=== PATIENT | male | born 1955 ===

== ENCOUNTER 2017-03-17 11:03 | Inpatient (IN) | payer MEDICAID ==
[2017-03-17] MEDS ORDERED: Mag&Al/Simet/Diphen/Lido 237 ML KIT PO STA (11:49)
--- NOTE | 2017-03-17 12:00 | C.PDOC ---
History Of Present Illness 61 y/o M c PMHx HTN, DM, HLD, ESRD on HD MWF p/w cough x more than 1 week. Reports cough is productive of white sputum, keeps him up all night, making him feel generally weak. He feels an itchiness in his throat and feels as though phelgm gets stuck there. He reports generalized pains to his body as well. Denies fever, chills, chest pain, dyspnea, nausea, vomiting. He reports diarrhea for over a month that he was prescribed medication for. Last dialysis 2 days ago, went normally, due for next session today. Time Seen by Provider: 03/17/17 11:25 Chief Complaint (Nursing): Cough, Cold, Congestion Past Medical History Vital Signs: Last Vital Signs Temp 97.6 F 03/17/17 15:00 Pulse 81 03/17/17 15:00 Resp 20 03/17/17 15:00 BP 172/90 H 03/17/17 15:00 Pulse Ox 100 03/17/17 15:00 - Medical History PMH: Anemia, Benign Prostatic Hyperplasia, Depression, Diabetes, HTN, Hypercholesterolemia, Pancreatitis Denies: Asthma, Atrial Fibrillation, Bronchitis, Cardia Arrhythmia, CHF, COPD , Emphysema, Mitral Valve Prolapse, Peripheral Edema, Pneumonia, Pulmonary Embolism, Chronic Kidney Disease Surgical History: Appendectomy Denies: Pacemaker - [facility] Procedures CATARAC PHACOEMULS/ASPIR (10/03/13) INSERT LENS AT CATAR EXT (10/03/13) VACCINATION NEC (07/10/14) Family History: States: Unknown Family Hx - Social History Hx Tobacco Use: No Hx Alcohol Use: No Hx Substance Use: No - Immunization History Hx Tetanus Toxoid Vaccination: No Hx Influenza Vaccination: Yes (2017) Hx Pneumococcal Vaccination: Yes (2017) Review Of Systems Except As Marked, All Systems Reviewed And Found Negative. Constitutional: Negative for: Fever Cardiovascular: Negative for: Chest Pain Physical Exam - Physical Exam Additional Physical Exam Comments: Gen: NAD Head: NC/AT Eyes: PERRL ENT: No pharyngeal erythema or exudates. Neck: No nuchal ridigity, negative Kernig/Brudzinski Chest: No tenderness CV: Regular rate, radial pulses 2+ Lungs: Bibasilar crackles Abd: Soft, nontender Extremities: No swelling or tenderness. R arm fistula with palpable thrill Neuro: Awake, alert, no focal deficit ED Course And Treatment - Laboratory Results Result Diagrams: 03/17/17 13:28 03/17/17 12:17 O2 Sat by Pulse Oximetry: 99 Medical Decision Making Medical Decision Making: Impression: 61 y/o M with multiple comorbidities with cough, sore throat, keeping him up at night. Differential includes most likely URI/pharygnitis. Will also exclude influenza, PNA. Plan: CXR, influenza swab, labs. Treat with toradol, tessalon pearls, magic mouthwash. EKG NSR 77 bpm, T wave inversions, no largely changed from previous. Patient with fluid overload, will require dialysis. Dr. Stanley contacted, states he will contact his colleague to input orders for dialysis. Dr. Stevens accepts patient to medical service observation. vice president of product marketing paged. Disposition - Disposition Disposition: HOSPITALIZED Disposition Time: 14:21 Condition: FAIR - Clinical Impression Clinical Impression: Fluid overload
[2017-03-17 12:32] LABS: INR 1.3
[2017-03-17 12:59] LABS: ALB/GLOB RATIO 1.3 (1.0-2.1); BILIRUBIN,TOTAL 0.9 mg/dL (0.2-1.3); CALCIUM 7.9 mg/dl (8.6-10.4); POTASSIUM 5.2 mmol/L (3.6-5.2)
[2017-03-17 13:31] LABS: BASO % 0.6 % (0.0-2.0); EOS # 0.1 K/uL (0.0-0.7); HEMATOCRIT 39.5 % (35.0-51.0); LYMPH # 1.1 K/uL (1.0-4.3); LYMPH % 26.6 % (20.0-40.0); MEAN CORPUSCULAR HEMOGLOBIN 29.2 pg (27.0-31.0); MEAN CORPUSCULAR HGB CONC 31.4 g/dL (33.0-37.0); MONO # 0.4 K/uL (0.0-0.8); MONO % 9.8 % (0.0-10.0); NRBC % 0.2 % (0.0-2.0); RED CELL DISTRIBUTION WIDTH 20.2 % (11.5-14.5); WHITE BLOOD COUNT 4.3 K/uL (4.8-10.8)
[2017-03-17 13:37] LABS: MEAN CELL VOLUME 93.2 fL (80.0-94.0)
--- NOTE | 2017-03-17 13:39 | RAD ---
HISTORY: cough COMPARISON: Chest x-ray performed 03/02/17 TECHNIQUE: Chest, one view. FINDINGS: LUNGS: Biapical pleural thickening. Mild pulmonary venous congestion. No focal consolidation. Please note that chest x-ray has limited sensitivity for the detection of pulmonary masses. PLEURA: No significant pleural effusion identified. No definite pneumothorax . CARDIOVASCULAR: Cardiomegaly. Cardiac valve prosthesis. OSSEOUS STRUCTURES: No acute osseous abnormality is detected. VISUALIZED UPPER ABDOMEN: Elevation of the right hemidiaphragm. OTHER FINDINGS: Thin tubing/ line projects over the right lower chest. IMPRESSION: Cardiomegaly. Mild pulmonary venous congestion. Biapical pleural thickening. Cardiomegaly.
--- NOTE | 2017-03-17 16:02 | CP.PCM.HP ---
History of Present Illness - History of Present Illness History of Present Illness: CC: "I can't stop coughing" HPI: Patient is a 61 year old male with PMHx of hyperlipidemia, HTN, cataracts, BPH, DM, anemia, depression and ESRD on HD MWF through right AVF presenting for 1 weeks of cough productive of white phlegm. Patient says he cannot sleep because the cough keeps him up all night. He says this has caused him to feel dizzy. He reports sleeping with 2 pillows and having paroxysmal nocturnal dyspnea. Patient also reports chest pressure intermittently coming on like a shock. Patient also reports choking on phlegm and having a lot of nasal congestion. Patient has not taken any cough or cold medicine at home. Patient denies fever, chills, abdominal pain, nausea, vomiting, diarrhea, constipation, dysuria. 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 Denies smoking, denies current alcohol use, denies illicit drug use Present on Admission - Present on Admission Any Indicators Present on Admission: No Review of Systems - Constitutional Constitutional: absent: Chills, Fever - EENT Eyes: absent: Change in Vision Nose/Mouth/Throat: Nasal Congestion, Post Nasal Drip, Sinus Pressure - Cardiovascular Cardiovascular: Chest Pain, Dyspnea, Dyspnea on Exertion, Paroxysmal Nocturnal Dyspnea. absent: Diaphoresis, Edema, Leg Edema, Palpitations, Pedal Edema, Radiating Pain, Rapid Heart Rate - Respiratory Respiratory: Cough, Dyspnea, Excessive Mucous Production. absent: Change in Mucous Color, Pain with Coughing - Gastrointestinal Gastrointestinal: absent: Abdominal Pain, Constipation, Diarrhea, Nausea, Vomiting - Genitourinary Genitourinary: absent: Dysuria - Musculoskeletal Musculoskeletal: absent: Back Pain - Integumentary Integumentary: absent: Skin Pain, Wounds - Neurological Neurological: Dizziness. absent: Headaches - Psychiatric Psychiatric: absent: Anxiety - Endocrine Endocrine: Fatigue. absent: Palpitations - Hematologic/Lymphatic Hematologic: absent: Easy Bleeding, Easy Bruising Past Patient History - Past Medical History & Family History Past Medical History?: Yes Past Family History: Reviewed and not pertinent - Past Social History Smoking Status: Never Smoked Alcohol: None Drugs: Denies - CARDIAC Hx Atrial Fibrillation: No Hx Cardia Arrhythmia: No Hx Congestive Heart Failure: No Hx Hypercholesterolemia: Yes Hx Hypertension: Yes Hx Mitral Valve Prolapse: No Hx Pacemaker: No Hx Peripheral Edema: No - PULMONARY Hx Asthma: No Hx Bronchitis: No Hx Chronic Obstructive Pulmonary Disease (COPD): No Hx Emphysema: No Hx Pneumonia: No Hx Pulmonary Embolism: No - NEUROLOGICAL Hx Neurological Disorder: No - HEENT Hx HEENT Problems: Yes Hx Cataracts: Yes - RENAL Hx Chronic Kidney Disease: No - ENDOCRINE/METABOLIC Hx Endocrine Disorders: Yes Hx Diabetes Mellitus Type 1: Yes - HEMATOLOGICAL/ONCOLOGICAL Hx Anemia: Yes - INTEGUMENTARY Hx Dermatological Problems: No - MUSCULOSKELETAL/RHEUMATOLOGICAL Hx Musculoskeletal Disorders: No Hx Falls: No - GASTROINTESTINAL Hx Pancreatitis: Yes - GENITOURINARY/GYNECOLOGICAL Hx Genitourinary Disorders: No - PSYCHIATRIC Hx Depression: Yes Hx Substance Use: No - SURGICAL HISTORY Hx Appendectomy: Yes - ANESTHESIA Hx Anesthesia: Yes Hx Anesthesia Reactions: No Meds Allergies/Adverse Reactions: Allergies Allergy/AdvReac Type Severity Reaction Status Date / Time No Known Allergies Allergy Verified 03/17/17 11:12 Physical Exam - Constitutional Appears: Non-toxic, No Acute Distress - Head Exam Head Exam: NORMAL INSPECTION - Eye Exam Eye Exam: EOMI - ENT Exam ENT Exam: Mucous Membranes Moist, Normal Oropharynx Additional comments: sinus tenderness - Respiratory Exam Respiratory Exam: Rales (b/l), NORMAL BREATHING PATTERN. absent: Rhonchi, Wheezes - Cardiovascular Exam Cardiovascular Exam: REGULAR RHYTHM, JVD, +S1, +S2 Additional comments: +S3 - GI/Abdominal Exam GI & Abdominal Exam: Normal Bowel Sounds, Soft. absent: Distended, Firm, Tenderness - Extremities Exam Extremities exam: Positive for: normal capillary refill, pedal pulses present. Negative for: pedal edema - Neurological Exam Neurological exam: Alert, CN II-XII Intact, Oriented x3 - Psychiatric Exam Psychiatric exam: Normal Affect, Normal Mood - Skin Skin Exam: Normal Color, Warm Results - Vital Signs Recent Vital Signs: Last Vital Signs Temp 97.6 F 03/17/17 14:43 Pulse 77 03/17/17 14:43 Resp 18 03/17/17 14:43 BP 164/83 H 03/17/17 14:43 Pulse Ox 99 03/17/17 14:43 - Labs Result Diagrams: 03/17/17 13:28 03/17/17 12:17 Labs: Laboratory Results - last 24 hr 03/17/17 03/17/17 03/17/17 11:49 12:17 12:17 WBC RBC Hgb Hct MCV MCH MCHC RDW Plt Count MPV Neut % (Auto) Lymph % (Auto) [place] % (Auto) Eos % (Auto) Baso % (Auto) Neut # Lymph # [place] # Eos # Baso # Differential Comment PT 14.1 H INR 1.3 APTT 36 H Sodium 136 Potassium 5.2 Chloride 96 L Carbon Dioxide 24 Anion Gap 22 H BUN 88 H Creatinine 8.6 H* Est GFR ( Amer) 8 Est GFR (Non-Af Amer) 6 Random Glucose 256 H Calcium 7.9 L Total Bilirubin 0.9 AST 22 ALT 34 Alkaline Phosphatase 133 H NT-Pro-B Natriuret Pep 96906 H Total Protein 7.0 Albumin 4.0 Globulin 3.1 Albumin/Globulin Ratio 1.3 Influenza Typ A,B (EIA) Negative for flu a/b 03/17/17 13:28 WBC 4.3 L RBC 4.24 L Hgb 12.4 D Hct 39.5 MCV 93.2 D MCH 29.2 MCHC 31.4 L RDW 20.2 H Plt Count 81 L D MPV 10.0 Neut % (Auto) 61.0 Lymph % (Auto) 26.6 [place] % (Auto) 9.8 Eos % (Auto) 2.0 Baso % (Auto) 0.6 Neut # 2.6 Lymph # 1.1 [place] # 0.4 Eos # 0.1 Baso # 0.0 Differential Comment PT INR APTT Sodium Potassium Chloride Carbon Dioxide Anion Gap BUN Creatinine Est GFR ( Amer) Est GFR (Non-Af Amer) Random Glucose Calcium Total Bilirubin AST ALT Alkaline Phosphatase NT-Pro-B Natriuret Pep Total Protein Albumin Globulin Albumin/Globulin Ratio Influenza Typ A,B (EIA) Assessment & Plan - Assessment and Plan (Free Text) Assessment: Dyspnea Likely secondary to fluid overload from ESRD v. CHF Flu negative CXR 03/17/17 - cardiomegaly, mild pulmonary venous congestion, biapical pleural thickening (please see full report) EKG 03/17/17 - NSR at 77 bpm with LVH, T wave abnormality and prolonged QT; EKG in 2015 also had LVH and T wave abnormality F/U ECHO F/U ROMIs x3 F/U blood culture, sputum culture, legionella, mycoplasma Nephro consult - Dr. Stanley - f/u recs for hemodialysis Cardio consult - Dr. Cervantes - f/u recs Robitussin 100mg PO Q4H PRN cough Duoneb 3ml INH RQ6 Will hold off on Lasix for now as symptoms should resolve with dialysis Will only start Abx if cultures show bacteria as CXR is clear for pneumonia Post Nasal Drip Flonase 1 spray Nasally daily Thrombocytopenia Platelets 81 Monitor D/C Lovenox if platelets continue to dorp ESRD HD MWF through right AVF Nephro consult - Dr. Stanley - f/u recs Phoslo 667mg PO BID HTN Will likely resolve with dialysis F/U Cardio and Nephro recs IDDMII Continue home Lantus 15U SC HS RISS Monitor Accuchecks F/U HgbA1C BPH Continue home Flomax 0.4mg PO daily Hyperlipidemia Convert home med Lipitor 80 to Crestor 40mg PO HS F/U lipid panel Cataracts Continue home Timoptic 0.5% ophth OU daily Continue home Brimonidine Tartrate OU QID Prophylaxis Pepcid 20mg PO daily Lovenox 40mg SC daily - will discontinue if platelets continue to drop All medical management per Dr. Rodney Santillan, PGY3, DO
[2017-03-17] MEDS: (Novolin R) Insulin Human Regular 100 units/ml vial SC SCH ×2 (17:30→22:53)
[2017-03-17] MEDS: Brimonidine 0.2% Opth Sol (5ml) OU SCH ×2 (18:00→23:07)
[2017-03-17] MEDS: Albuterol-Ipratrop 3 mg / 0.5 (3 ml) UD INH SCH (19:58)
[2017-03-17] MEDS: guaiFENesin 100 mg/5 ml Syrup UD PO PRN (22:53)
[2017-03-17] MEDS: (Lantus) Insulin Glargine, Recombinant SC SCH (22:53)
[2017-03-18] MEDS: Albuterol-Ipratrop 3 mg / 0.5 (3 ml) UD INH SCH ×4 (02:50→19:27)
[2017-03-18] MEDS: guaiFENesin 100 mg/5 ml Syrup UD PO PRN ×3 (03:27→22:00)
[2017-03-18 07:32] LABS: BASO % 0.6 % (0.0-2.0); EOS # 0.1 K/uL (0.0-0.7); EOS % 1.9 % (0.0-4.0); HEMATOCRIT 38.1 % (35.0-51.0); LYMPH # 1.1 K/uL (1.0-4.3); LYMPH % 25.2 % (20.0-40.0); MEAN CELL VOLUME 92.6 fL (80.0-94.0); MEAN CORPUSCULAR HEMOGLOBIN 29.1 pg (27.0-31.0); MEAN CORPUSCULAR HGB CONC 31.4 g/dL (33.0-37.0); MEAN PLATELET VOLUME 11.4 fL (7.2-11.7); MONO # 0.4 K/uL (0.0-0.8); MONO % 9.1 % (0.0-10.0); NRBC % 0.1 % (0.0-2.0); RED CELL DISTRIBUTION WIDTH 20.4 % (11.5-14.5); WHITE BLOOD COUNT 4.5 K/uL (4.8-10.8)
[2017-03-18] MEDS: (Novolin R) Insulin Human Regular 100 units/ml vial SC SCH ×4 (07:42→21:57)
[2017-03-18 08:04] LABS: POTASSIUM 4.3 mmol/L (3.6-5.2)
[2017-03-18 08:26] LABS: THYROID STIMULATING HORMONE 1.23 mIU/L (0.46-4.68)
[2017-03-18] MEDS ORDERED: Enoxaparin 40 mg Syringe SC SCH ×2 (10:00)
[2017-03-18] MEDS: Fluticasone Nasal 50 mcg/Spray NAS SCH (10:12)
[2017-03-18] MEDS: Vitamin B Complex/Vitamin C Tab PO SCH (10:13)
[2017-03-18] MEDS: Brimonidine 0.2% Opth Sol (5ml) OU SCH ×4 (10:13→22:00)
--- NOTE | 2017-03-18 12:11 | CP.PCM.CON ---
History of Present Illness - History of Present Illness History of Present Illness: patient seen examined. echocardiogram reviewed. patient has severe LV dysfunction. dilated cardiomyopathy. has crackles on exam. follow with Dr. Mayes. call placed to office. recommend diuresis. will need eventual AICD. Past Patient History - Past Medical History & Family History Past Medical History?: Yes - Past Social History Smoking Status: Former Smoker - CARDIAC Hx Atrial Fibrillation: No Hx Cardia Arrhythmia: No Hx Congestive Heart Failure: No Hx Hypercholesterolemia: Yes Hx Hypertension: Yes Hx Mitral Valve Prolapse: No Hx Pacemaker: No Hx Peripheral Edema: No - PULMONARY Hx Asthma: No Hx Bronchitis: No Hx Chronic Obstructive Pulmonary Disease (COPD): No Hx Emphysema: No Hx Pneumonia: No Hx Pulmonary Embolism: No - NEUROLOGICAL Hx Neurological Disorder: No - HEENT Hx HEENT Problems: Yes Hx Cataracts: Yes - RENAL Hx Chronic Kidney Disease: Yes Hx Dialysis: Yes Type of Dialysis Access: right forearm fistula Date of Last Dialysis Treatment: 03/15/17 Hx Renal Failure: Yes - ENDOCRINE/METABOLIC Hx Endocrine Disorders: Yes Hx Diabetes Mellitus Type 1: Yes - HEMATOLOGICAL/ONCOLOGICAL Hx Anemia: Yes - INTEGUMENTARY Hx Dermatological Problems: No - MUSCULOSKELETAL/RHEUMATOLOGICAL Hx Musculoskeletal Disorders: No Hx Falls: No - GASTROINTESTINAL Hx Pancreatitis: Yes - GENITOURINARY/GYNECOLOGICAL Hx Genitourinary Disorders: No - PSYCHIATRIC Hx Depression: Yes Hx Substance Use: No - SURGICAL HISTORY Hx Appendectomy: Yes - ANESTHESIA Hx Anesthesia: Yes Hx Anesthesia Reactions: No Meds Allergies/Adverse Reactions: Allergies Allergy/AdvReac Type Severity Reaction Status Date / Time No Known Allergies Allergy Verified 03/17/17 11:12 - Medications Medications: Current Medications Acetaminophen (Tylenol 325mg Tab) 650 mg PO Q6 PRN PRN Reason: Fever >100.4 F Albuterol/Ipratropium (Duoneb 3 Mg/0.5 Mg (3 Ml) Ud) 3 ml INH RQ6 [facility] Last Admin: 03/18/17 07:21 Dose: 3 ml Brimonidine Tartrate (Alphagan 0.2% Opht) 0 ml OU QID [facility] Last Admin: 03/18/17 10:13 Dose: 1 drop Calcium Acetate (Phoslo) 667 mg PO BID [facility] Last Admin: 03/18/17 10:13 Dose: 667 mg Famotidine (Pepcid) 20 mg PO DAILY [facility] Last Admin: 03/18/17 10:13 Dose: 20 mg Fluticasone Propionate (Flonase) 0 spr ANGELINA DAILY [facility] Last Admin: 03/18/17 10:12 Dose: 1 spr Guaifenesin (Robitussin) 100 mg PO Q4H PRN PRN Reason: Cough Last Admin: 03/18/17 03:27 Dose: 100 mg Insulin Glargine (Lantus) 15 unit SC HS [facility] Last Admin: 03/17/17 22:53 Dose: Not Given Insulin Human Regular (Novolin R) 0 unit SC ACHS DEBBIE PRN Reason: Protocol Last Admin: 03/18/17 07:42 Dose: Not Given Rosuvastatin Calcium (Crestor) 40 mg PO HS [facility] Tamsulosin HCl (Flomax) 0.4 mg PO DAILY [facility] Last Admin: 03/18/17 10:13 Dose: 0.4 mg Timolol Maleate (Timoptic 0.5% Ophth Soln) 0 drop OU DAILY [facility] Last Admin: 03/18/17 10:13 Dose: 1 drop Vitamin B Complex/Vitamin C (Berocca) 1 tab PO DAILY [facility] Last Admin: 03/18/17 10:13 Dose: 1 tab Results - Vital Signs Recent Vital Signs: Last Vital Signs Temp 98.1 F 03/18/17 11:45 Pulse 79 03/18/17 11:45 Resp 20 03/18/17 11:45 BP 160/88 H 03/18/17 11:45 Pulse Ox 98 03/18/17 11:45 - Labs Result Diagrams: 03/18/17 07:18 03/18/17 07:18 Labs: Laboratory Results - last 24 hr 03/17/17 03/17/17 03/17/17 11:49 12:17 12:17 WBC RBC Hgb Hct MCV MCH MCHC RDW Plt Count MPV Neut % (Auto) Lymph % (Auto) [place] % (Auto) Eos % (Auto) Baso % (Auto) Neut # Lymph # [place] # Eos # Baso # Differential Comment PT 14.1 H INR 1.3 APTT 36 H Sodium 136 Potassium 5.2 Chloride 96 L Carbon Dioxide 24 Anion Gap 22 H BUN 88 H Creatinine 8.6 H* Est GFR ( Amer) 8 Est GFR (Non-Af Amer) 6 POC Glucose (mg/dL) Random Glucose 256 H Hemoglobin A1c Calcium 7.9 L Total Bilirubin 0.9 AST 22 ALT 34 Alkaline Phosphatase 133 H Total Creatine Kinase CK-MB (Mass) Troponin I, Quant NT-Pro-B Natriuret Pep 99224 H Total Protein 7.0 Albumin 4.0 Globulin 3.1 Albumin/Globulin Ratio 1.3 Triglycerides Cholesterol LDL Cholesterol Direct HDL Cholesterol TSH 3rd Generation Influenza Typ A,B (EIA) Negative for flu a/b Mycoplasma pneumon IgM 03/17/17 03/17/17 03/17/17 13:28 13:28 18:26 WBC 4.3 L RBC 4.24 L Hgb 12.4 D Hct 39.5 MCV 93.2 D MCH 29.2 MCHC 31.4 L RDW 20.2 H Plt Count 81 L D MPV 10.0 Neut % (Auto) 61.0 Lymph % (Auto) 26.6 [place] % (Auto) 9.8 Eos % (Auto) 2.0 Baso % (Auto) 0.6 Neut # 2.6 Lymph # 1.1 [place] # 0.4 Eos # 0.1 Baso # 0.0 Differential Comment PT INR APTT Sodium Potassium Chloride Carbon Dioxide Anion Gap BUN Creatinine Est GFR ( Amer) Est GFR (Non-Af Amer) POC Glucose (mg/dL) Random Glucose Hemoglobin A1c 8.1 H D Calcium Total Bilirubin AST ALT Alkaline Phosphatase Total Creatine Kinase 180 H CK-MB (Mass) 9.04 H Troponin I, Quant 0.0180 NT-Pro-B Natriuret Pep Total Protein Albumin Globulin Albumin/Globulin Ratio Triglycerides Cholesterol LDL Cholesterol Direct HDL Cholesterol TSH 3rd Generation Influenza Typ A,B (EIA) Mycoplasma pneumon IgM 03/17/17 03/17/17 03/18/17 19:53 20:37 00:19 WBC RBC Hgb Hct MCV MCH MCHC RDW Plt Count MPV Neut % (Auto) Lymph % (Auto) [place] % (Auto) Eos % (Auto) Baso % (Auto) Neut # Lymph # [place] # Eos # Baso # Differential Comment PT INR APTT Sodium Potassium Chloride Carbon Dioxide Anion Gap BUN Creatinine Est GFR ( Amer) Est GFR (Non-Af Amer) POC Glucose (mg/dL) 103 Random Glucose Hemoglobin A1c Calcium Total Bilirubin AST ALT Alkaline Phosphatase Total Creatine Kinase 150 CK-MB (Mass) 8.11 H Troponin I, Quant 0.0190 NT-Pro-B Natriuret Pep Total Protein Albumin Globulin Albumin/Globulin Ratio Triglycerides Cholesterol LDL Cholesterol Direct HDL Cholesterol TSH 3rd Generation Influenza Typ A,B (EIA) Mycoplasma pneumon IgM Negative 03/18/17 03/18/17 03/18/17 06:17 07:18 07:18 WBC 4.5 L RBC 4.12 L Hgb 12.0 Hct 38.1 MCV 92.6 MCH 29.1 MCHC 31.4 L RDW 20.4 H Plt Count 94 L MPV 11.4 Neut % (Auto) 63.2 Lymph % (Auto) 25.2 [place] % (Auto) 9.1 Eos % (Auto) 1.9 Baso % (Auto) 0.6 Neut # 2.8 Lymph # 1.1 [place] # 0.4 Eos # 0.1 Baso # 0.0 Differential Comment PT INR APTT Sodium 136 Potassium 4.3 Chloride 94 L Carbon Dioxide 30 Anion Gap 17 BUN 50 H Creatinine 5.7 H Est GFR ( Amer) 12 Est GFR (Non-Af Amer) 10 POC Glucose (mg/dL) 120 H Random Glucose 116 H Hemoglobin A1c Calcium 8.0 L Total Bilirubin AST ALT Alkaline Phosphatase Total Creatine Kinase 128 CK-MB (Mass) 6.85 H Troponin I, Quant 0.0270 NT-Pro-B Natriuret Pep Total Protein Albumin Globulin Albumin/Globulin Ratio Triglycerides 48 D Cholesterol 100 LDL Cholesterol Direct 32 HDL Cholesterol 49 TSH 3rd Generation 1.23 Influenza Typ A,B (EIA) Mycoplasma pneumon IgM 03/18/17 11:19 WBC RBC Hgb Hct MCV MCH MCHC RDW Plt Count MPV Neut % (Auto) Lymph % (Auto) [place] % (Auto) Eos % (Auto) Baso % (Auto) Neut # Lymph # [place] # Eos # Baso # Differential Comment PT INR APTT Sodium Potassium Chloride Carbon Dioxide Anion Gap BUN Creatinine Est GFR ( Amer) Est GFR (Non-Af Amer) POC Glucose (mg/dL) 183 H Random Glucose Hemoglobin A1c Calcium Total Bilirubin AST ALT Alkaline Phosphatase Total Creatine Kinase CK-MB (Mass) Troponin I, Quant NT-Pro-B Natriuret Pep Total Protein Albumin Globulin Albumin/Globulin Ratio Triglycerides Cholesterol LDL Cholesterol Direct HDL Cholesterol TSH 3rd Generation Influenza Typ A,B (EIA) Mycoplasma pneumon IgM
--- NOTE | 2017-03-18 12:11 | CP.PCM.CON ---
Past Patient History - Past Medical History & Family History Past Medical History?: Yes - Past Social History Smoking Status: Former Smoker - CARDIAC Hx Atrial Fibrillation: No Hx Cardia Arrhythmia: No Hx Congestive Heart Failure: No Hx Hypercholesterolemia: Yes Hx Hypertension: Yes Hx Mitral Valve Prolapse: No Hx Pacemaker: No Hx Peripheral Edema: No - PULMONARY Hx Asthma: No Hx Bronchitis: No Hx Chronic Obstructive Pulmonary Disease (COPD): No Hx Emphysema: No Hx Pneumonia: No Hx Pulmonary Embolism: No - NEUROLOGICAL Hx Neurological Disorder: No - HEENT Hx HEENT Problems: Yes Hx Cataracts: Yes - RENAL Hx Chronic Kidney Disease: Yes Hx Dialysis: Yes Type of Dialysis Access: right forearm fistula Date of Last Dialysis Treatment: 03/15/17 Hx Renal Failure: Yes - ENDOCRINE/METABOLIC Hx Endocrine Disorders: Yes Hx Diabetes Mellitus Type 1: Yes - HEMATOLOGICAL/ONCOLOGICAL Hx Anemia: Yes - INTEGUMENTARY Hx Dermatological Problems: No - MUSCULOSKELETAL/RHEUMATOLOGICAL Hx Musculoskeletal Disorders: No Hx Falls: No - GASTROINTESTINAL Hx Pancreatitis: Yes - GENITOURINARY/GYNECOLOGICAL Hx Genitourinary Disorders: No - PSYCHIATRIC Hx Depression: Yes Hx Substance Use: No - SURGICAL HISTORY Hx Appendectomy: Yes - ANESTHESIA Hx Anesthesia: Yes Hx Anesthesia Reactions: No Meds Allergies/Adverse Reactions: Allergies Allergy/AdvReac Type Severity Reaction Status Date / Time No Known Allergies Allergy Verified 03/17/17 11:12 - Medications Medications: Current Medications Acetaminophen (Tylenol 325mg Tab) 650 mg PO Q6 PRN PRN Reason: Fever >100.4 F Albuterol/Ipratropium (Duoneb 3 Mg/0.5 Mg (3 Ml) Ud) 3 ml INH RQ6 [facility] Last Admin: 03/18/17 07:21 Dose: 3 ml Brimonidine Tartrate (Alphagan 0.2% Opht) 0 ml OU QID [facility] Last Admin: 03/18/17 10:13 Dose: 1 drop Calcium Acetate (Phoslo) 667 mg PO BID [facility] Last Admin: 03/18/17 10:13 Dose: 667 mg Famotidine (Pepcid) 20 mg PO DAILY [facility] Last Admin: 03/18/17 10:13 Dose: 20 mg Fluticasone Propionate (Flonase) 0 spr ANGELINA DAILY [facility] Last Admin: 03/18/17 10:12 Dose: 1 spr Guaifenesin (Robitussin) 100 mg PO Q4H PRN PRN Reason: Cough Last Admin: 03/18/17 03:27 Dose: 100 mg Insulin Glargine (Lantus) 15 unit SC HS [facility] Last Admin: 03/17/17 22:53 Dose: Not Given Insulin Human Regular (Novolin R) 0 unit SC [facility] PRN Reason: Protocol Last Admin: 03/18/17 07:42 Dose: Not Given Rosuvastatin Calcium (Crestor) 40 mg PO HS [facility] Tamsulosin HCl (Flomax) 0.4 mg PO DAILY [facility] Last Admin: 03/18/17 10:13 Dose: 0.4 mg Timolol Maleate (Timoptic 0.5% Ophth Soln) 0 drop OU DAILY [facility] Last Admin: 03/18/17 10:13 Dose: 1 drop Vitamin B Complex/Vitamin C (Berocca) 1 tab PO DAILY [facility] Last Admin: 03/18/17 10:13 Dose: 1 tab Results - Vital Signs Recent Vital Signs: Last Vital Signs Temp 98.1 F 03/18/17 11:45 Pulse 79 03/18/17 11:45 Resp 20 03/18/17 11:45 BP 160/88 H 03/18/17 11:45 Pulse Ox 98 03/18/17 11:45 - Labs Result Diagrams: 03/18/17 07:18 03/18/17 07:18 Labs: Laboratory Results - last 24 hr 03/17/17 03/17/17 03/17/17 11:49 12:17 12:17 WBC RBC Hgb Hct MCV MCH MCHC RDW Plt Count MPV Neut % (Auto) Lymph % (Auto) [place] % (Auto) Eos % (Auto) Baso % (Auto) Neut # Lymph # [place] # Eos # Baso # Differential Comment PT 14.1 H INR 1.3 APTT 36 H Sodium 136 Potassium 5.2 Chloride 96 L Carbon Dioxide 24 Anion Gap 22 H BUN 88 H Creatinine 8.6 H* Est GFR ( Amer) 8 Est GFR (Non-Af Amer) 6 POC Glucose (mg/dL) Random Glucose 256 H Hemoglobin A1c Calcium 7.9 L Total Bilirubin 0.9 AST 22 ALT 34 Alkaline Phosphatase 133 H Total Creatine Kinase CK-MB (Mass) Troponin I, Quant NT-Pro-B Natriuret Pep 20921 H Total Protein 7.0 Albumin 4.0 Globulin 3.1 Albumin/Globulin Ratio 1.3 Triglycerides Cholesterol LDL Cholesterol Direct HDL Cholesterol TSH 3rd Generation Influenza Typ A,B (EIA) Negative for flu a/b Mycoplasma pneumon IgM 03/17/17 03/17/17 03/17/17 13:28 13:28 18:26 WBC 4.3 L RBC 4.24 L Hgb 12.4 D Hct 39.5 MCV 93.2 D MCH 29.2 MCHC 31.4 L RDW 20.2 H Plt Count 81 L D MPV 10.0 Neut % (Auto) 61.0 Lymph % (Auto) 26.6 [place] % (Auto) 9.8 Eos % (Auto) 2.0 Baso % (Auto) 0.6 Neut # 2.6 Lymph # 1.1 [place] # 0.4 Eos # 0.1 Baso # 0.0 Differential Comment PT INR APTT Sodium Potassium Chloride Carbon Dioxide Anion Gap BUN Creatinine Est GFR ( Amer) Est GFR (Non-Af Amer) POC Glucose (mg/dL) Random Glucose Hemoglobin A1c 8.1 H D Calcium Total Bilirubin AST ALT Alkaline Phosphatase Total Creatine Kinase 180 H CK-MB (Mass) 9.04 H Troponin I, Quant 0.0180 NT-Pro-B Natriuret Pep Total Protein Albumin Globulin Albumin/Globulin Ratio Triglycerides Cholesterol LDL Cholesterol Direct HDL Cholesterol TSH 3rd Generation Influenza Typ A,B (EIA) Mycoplasma pneumon IgM 03/17/17 03/17/17 03/18/17 19:53 20:37 00:19 WBC RBC Hgb Hct MCV MCH MCHC RDW Plt Count MPV Neut % (Auto) Lymph % (Auto) [place] % (Auto) Eos % (Auto) Baso % (Auto) Neut # Lymph # [place] # Eos # Baso # Differential Comment PT INR APTT Sodium Potassium Chloride Carbon Dioxide Anion Gap BUN Creatinine Est GFR ( Amer) Est GFR (Non-Af Amer) POC Glucose (mg/dL) 103 Random Glucose Hemoglobin A1c Calcium Total Bilirubin AST ALT Alkaline Phosphatase Total Creatine Kinase 150 CK-MB (Mass) 8.11 H Troponin I, Quant 0.0190 NT-Pro-B Natriuret Pep Total Protein Albumin Globulin Albumin/Globulin Ratio Triglycerides Cholesterol LDL Cholesterol Direct HDL Cholesterol TSH 3rd Generation Influenza Typ A,B (EIA) Mycoplasma pneumon IgM Negative 03/18/17 03/18/17 03/18/17 06:17 07:18 07:18 WBC 4.5 L RBC 4.12 L Hgb 12.0 Hct 38.1 MCV 92.6 MCH 29.1 MCHC 31.4 L RDW 20.4 H Plt Count 94 L MPV 11.4 Neut % (Auto) 63.2 Lymph % (Auto) 25.2 [place] % (Auto) 9.1 Eos % (Auto) 1.9 Baso % (Auto) 0.6 Neut # 2.8 Lymph # 1.1 [place] # 0.4 Eos # 0.1 Baso # 0.0 Differential Comment PT INR APTT Sodium 136 Potassium 4.3 Chloride 94 L Carbon Dioxide 30 Anion Gap 17 BUN 50 H Creatinine 5.7 H Est GFR ( Amer) 12 Est GFR (Non-Af Amer) 10 POC Glucose (mg/dL) 120 H Random Glucose 116 H Hemoglobin A1c Calcium 8.0 L Total Bilirubin AST ALT Alkaline Phosphatase Total Creatine Kinase 128 CK-MB (Mass) 6.85 H Troponin I, Quant 0.0270 NT-Pro-B Natriuret Pep Total Protein Albumin Globulin Albumin/Globulin Ratio Triglycerides 48 D Cholesterol 100 LDL Cholesterol Direct 32 HDL Cholesterol 49 TSH 3rd Generation 1.23 Influenza Typ A,B (EIA) Mycoplasma pneumon IgM 03/18/17 11:19 WBC RBC Hgb Hct MCV MCH MCHC RDW Plt Count MPV Neut % (Auto) Lymph % (Auto) [place] % (Auto) Eos % (Auto) Baso % (Auto) Neut # Lymph # [place] # Eos # Baso # Differential Comment PT INR APTT Sodium Potassium Chloride Carbon Dioxide Anion Gap BUN Creatinine Est GFR ( Amer) Est GFR (Non-Af Amer) POC Glucose (mg/dL) 183 H Random Glucose Hemoglobin A1c Calcium Total Bilirubin AST ALT Alkaline Phosphatase Total Creatine Kinase CK-MB (Mass) Troponin I, Quant NT-Pro-B Natriuret Pep Total Protein Albumin Globulin Albumin/Globulin Ratio Triglycerides Cholesterol LDL Cholesterol Direct HDL Cholesterol TSH 3rd Generation Influenza Typ A,B (EIA) Mycoplasma pneumon IgM
--- NOTE | 2017-03-18 16:03 | CP.PCM.PN ---
Subjective - Date & Time of Evaluation Date of Evaluation: 03/18/17 Time of Evaluation: 15:52 - Subjective Subjective: Patient seen and examined Doing well Complaining of pain in his chest when he coughs, cough is productive of white sputum Legs are itchy Objective - Vital Signs/Intake and Output Vital Signs (last 24 hours): Temp Pulse Resp BP Pulse Ox 98.1 F 81 20 160/88 H 98 03/18/17 11:45 03/18/17 12:37 03/18/17 11:45 03/18/17 11:45 03/18/17 11:45 Intake and Output: 03/18/17 03/18/17 06:59 18:59 Intake Total 120 400 Balance 120 400 - Medications Medications: Current Medications Acetaminophen (Tylenol 325mg Tab) 650 mg PO Q6 PRN PRN Reason: Fever >100.4 F Albuterol/Ipratropium (Duoneb 3 Mg/0.5 Mg (3 Ml) Ud) 3 ml INH RQ6 [facility] Last Admin: 03/18/17 13:32 Dose: 3 ml Brimonidine Tartrate (Alphagan 0.2% Opht) 0 ml OU QID [facility] Last Admin: 03/18/17 13:08 Dose: 1 drop Calcium Acetate (Phoslo) 667 mg PO BID [facility] Last Admin: 03/18/17 10:13 Dose: 667 mg Famotidine (Pepcid) 20 mg PO DAILY [facility] Last Admin: 03/18/17 10:13 Dose: 20 mg Fluticasone Propionate (Flonase) 0 spr ANGELINA DAILY [facility] Last Admin: 03/18/17 10:12 Dose: 1 spr Guaifenesin (Robitussin) 100 mg PO Q4H PRN PRN Reason: Cough Last Admin: 03/18/17 12:22 Dose: 100 mg Insulin Glargine (Lantus) 15 unit SC HS [facility] Last Admin: 03/17/17 22:53 Dose: Not Given Insulin Human Regular (Novolin R) 0 unit SC ACHS [facility] PRN Reason: Protocol Last Admin: 03/18/17 12:22 Dose: 2 unit Rosuvastatin Calcium (Crestor) 40 mg PO HS [facility] Tamsulosin HCl (Flomax) 0.4 mg PO DAILY [facility] Last Admin: 03/18/17 10:13 Dose: 0.4 mg Timolol Maleate (Timoptic 0.5% Ophth Soln) 0 drop OU DAILY [facility] Last Admin: 03/18/17 10:13 Dose: 1 drop Vitamin B Complex/Vitamin C (Berocca) 1 tab PO DAILY [facility] Last Admin: 03/18/17 10:13 Dose: 1 tab - Labs Labs: 03/18/17 07:18 03/18/17 07:18 PT 14.1 SECONDS (9.7-12.2) H 03/17/17 12:17 INR 1.3 03/17/17 12:17 APTT 36 SECONDS (21-34) H 03/17/17 12:17 - Constitutional Appears: Well, Non-toxic, No Acute Distress - Head Exam Head Exam: ATRAUMATIC, NORMAL INSPECTION, NORMOCEPHALIC - Eye Exam Eye Exam: EOMI Pupil Exam: NORMAL ACCOMODATION - ENT Exam ENT Exam: Mucous Membranes Moist - Respiratory Exam Respiratory Exam: Rales - Cardiovascular Exam Cardiovascular Exam: Diastolic murmur, REGULAR RHYTHM, JVD - GI/Abdominal Exam GI & Abdominal Exam: Soft, Normal Bowel Sounds. absent: Distended, Tenderness - Back Exam Back Exam: absent: CVA tenderness (L), CVA tenderness (R) - Neurological Exam Neurological Exam: Alert, Awake, Oriented x3 - Psychiatric Exam Psychiatric exam: Normal Affect, Normal Mood - Skin Skin Exam: Dry, Intact, Normal Color, Warm Assessment and Plan - Assessment and Plan (Free Text) Assessment: CHF Exacerbation Flu negative CXR 03/17/17 - mild pulmonary venous congestion EKG 03/17/17 - NSR F/U ECHO ROMIs - negative x3 blood culture sputum culture legionella mycoplasma - negative Cards (Billy) * F/U with Dr. Mayes * Diuresis * will eventually need AICD R/O Infarct CT head - F/U New Onset Cough F/U new medication at [facility] Thrombocytopenia Platelets 81 Monitor ESRD HD MWF R. AVF Nephro (Stanley) Phoslo 667mg PO BID DM Lantus 15U SC HS [facility] Monitor Accuchecks HgbA1C 8.1 BPH Flomax 0.4mg PO daily Hyperlipidemia Crestor 40mg PO HS lipid panel * TG 48 * Chol 100 * LDL 32 * HDL 49 Cataracts Timoptic 0.5% ophth OU daily Brimonidine Tartrate OU QID Prophylaxis Pepcid 20mg PO daily Lovenox 40mg SC daily
--- NOTE | 2017-03-18 17:49 | CARD ---
APPROVED REPORT EXAM: Two-dimensional and M-mode echocardiogram with Doppler and color Doppler. Other Information Quality : GoodRhythm : INDICATION Dyspnea RISK FACTORS Hypertension Hyperlipidemia Diabetes 2D DIMENSIONS IVSd1.4 (0.7-1.1cm)LVDd5.3 (3.9-5.9cm) PWd1.3 (0.7-1.1cm)LVDs4.8 (2.5-4.0cm) FS (%) 8.6 %LVEF (%)25.0 (>50%) M-Mode DIMENSIONS Left Atrium (MM)3.06 (2.5-4.0cm)Aortic Root3.36 (2.2-3.7cm) Aortic Cusp Exc.1.85 (1.5-2.0cm) Mitral Valve MV E Kbbclnkq051.3cm/sMV E Peak Gr.13mmHgMV A Beqomtud32.8cm/s MV E Mean Gr.5mmHgMV [id number]/A ratio1.9 MVA (PHT)4.22cm2 TDI E/Lateral E'0.0E/Medial E'0.0 Tricuspid Valve TR Peak [id number]/sTR Peak Gr.[id number] LEFT VENTRICLE The Left Ventricle is mildly dilated. There is mild concentric left ventricular hypertrophy. The systolic function is severely impaired. There is global hypokinesis of the left ventricle. No left ventricle thrombus noted on this study. RIGHT VENTRICLE The right ventricle is normal size. There is normal right ventricular wall thickness. RV Systolic function is severely reduced. ATRIA The left atrium size is normal. The right atrium is mildly dilated. AORTIC VALVE The aortic valve is mildly thickened. No aortic regurgitation is present. There is no aortic valvular stenosis. MITRAL VALVE Mitral regurgitation is moderate. There is a bioprosthetic mitral valve. TRICUSPID VALVE There is moderate tricuspid regurgitation. There is moderate pulmonary hypertension. PULMONIC VALVE There is mild pulmonic valvular regurgitation. GREAT VESSELS The aortic root is normal in size. The IVC is dilated. <Conclusion> The Left Ventricle is mildly dilated. There is mild concentric left ventricular hypertrophy. The LV systolic function is severely impaired. RV Systolic function is severely reduced. There is global hypokinesis of the left ventricle. No left ventricle thrombus noted on this study. There is a bioprosthetic mitral valve. Mitral regurgitation is moderate. There is moderate tricuspid regurgitation. There is moderate pulmonary hypertension.
--- NOTE | 2017-03-18 20:05 | CP.PCM.CON ---
History of Present Illness - History of Present Illness History of Present Illness: REASONS FOR CONSULT : ESRD ON HD M W F ANEMIA OF CKD ALL EMR REVIEWED .. PT WAS SEEN AND EXAMINED HPI: Patient is a 61 year old male with PMHx of hyperlipidemia, HTN, cataracts, BPH, DM, anemia, depression and ESRD on HD MWF through right AVF presenting for 1 weeks of cough productive of white phlegm. Patient says he cannot sleep because the cough keeps him up all night. He says this has caused him to feel dizzy. He reports sleeping with 2 pillows and having paroxysmal nocturnal dyspnea. Patient also reports chest pressure intermittently coming on like a shock. Patient also reports choking on phlegm and having a lot of nasal congestion. Patient has not taken any cough or cold medicine at home. Patient denies fever, chills, abdominal pain, nausea, vomiting, diarrhea, constipation, dysuria. 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 Denies smoking, denies current alcohol use, denies illicit drug use Past Patient History - Past Medical History & Family History Past Medical History?: Yes - Past Social History Smoking Status: Former Smoker - CARDIAC Hx Hypercholesterolemia: Yes Hx Hypertension: Yes - PULMONARY Hx Asthma: No Hx Bronchitis: No Hx Chronic Obstructive Pulmonary Disease (COPD): No Hx Emphysema: No Hx Pneumonia: No Hx Pulmonary Embolism: No - NEUROLOGICAL Hx Neurological Disorder: No - HEENT Hx HEENT Problems: Yes Hx Cataracts: Yes - RENAL Hx Chronic Kidney Disease: Yes Hx Dialysis: Yes Type of Dialysis Access: right forearm fistula Date of Last Dialysis Treatment: 03/15/17 Hx Renal Failure: Yes - ENDOCRINE/METABOLIC Hx Diabetes Mellitus Type 2: Yes - HEMATOLOGICAL/ONCOLOGICAL Hx Anemia: Yes - INTEGUMENTARY Hx Dermatological Problems: No - MUSCULOSKELETAL/RHEUMATOLOGICAL Hx Musculoskeletal Disorders: No Hx Falls: No - GASTROINTESTINAL Hx Pancreatitis: Yes - GENITOURINARY/GYNECOLOGICAL Hx Genitourinary Disorders: No - PSYCHIATRIC Hx Depression: Yes Hx Substance Use: No - SURGICAL HISTORY Hx Appendectomy: Yes - ANESTHESIA Hx Anesthesia: Yes Hx Anesthesia Reactions: No Meds Allergies/Adverse Reactions: Allergies Allergy/AdvReac Type Severity Reaction Status Date / Time No Known Allergies Allergy Verified 03/17/17 11:12 - Medications Medications: Current Medications Acetaminophen (Tylenol 325mg Tab) 650 mg PO Q6 PRN PRN Reason: Fever >100.4 F Albuterol/Ipratropium (Duoneb 3 Mg/0.5 Mg (3 Ml) Ud) 3 ml INH RQ6 [facility] Last Admin: 03/18/17 19:27 Dose: 3 ml Brimonidine Tartrate (Alphagan 0.2% Opht) 0 ml OU QID [facility] Last Admin: 03/18/17 18:22 Dose: 1 drop Calcium Acetate (Phoslo) 667 mg PO BID [facility] Last Admin: 03/18/17 18:21 Dose: 667 mg Famotidine (Pepcid) 20 mg PO DAILY [facility] Last Admin: 03/18/17 10:13 Dose: 20 mg Fluticasone Propionate (Flonase) 0 spr ANGELINA DAILY [facility] Last Admin: 03/18/17 10:12 Dose: 1 spr Furosemide (Lasix) 20 mg IVP BID [facility] Last Admin: 03/18/17 18:21 Dose: 20 mg Guaifenesin (Robitussin) 100 mg PO Q4H PRN PRN Reason: Cough Last Admin: 03/18/17 12:22 Dose: 100 mg Insulin Glargine (Lantus) 15 unit SC HS [facility] Last Admin: 03/17/17 22:53 Dose: Not Given Insulin Human Regular (Novolin R) 0 unit SC ACHS [facility] PRN Reason: Protocol Last Admin: 03/18/17 18:22 Dose: 3 unit Rosuvastatin Calcium (Crestor) 10 mg PO HS [facility] Tamsulosin HCl (Flomax) 0.4 mg PO DAILY [facility] Last Admin: 03/18/17 10:13 Dose: 0.4 mg Timolol Maleate (Timoptic 0.5% Ophth Soln) 0 drop OU DAILY [facility] Last Admin: 03/18/17 10:13 Dose: 1 drop Vitamin B Complex/Vitamin C (Berocca) 1 tab PO DAILY [facility] Last Admin: 03/18/17 10:13 Dose: 1 tab Results - Vital Signs Recent Vital Signs: Last Vital Signs Temp 98.4 F 03/18/17 15:00 Pulse 75 03/18/17 16:00 Resp 20 03/18/17 15:00 BP 166/88 H 03/18/17 18:21 Pulse Ox 97 03/18/17 15:00 - Labs Result Diagrams: 03/18/17 07:18 03/18/17 07:18 Labs: Laboratory Results - last 24 hr 03/17/17 03/17/17 03/17/17 12:25 19:53 20:37 WBC RBC Hgb Hct MCV MCH MCHC RDW Plt Count MPV Neut % (Auto) Lymph % (Auto) [place] % (Auto) Eos % (Auto) Baso % (Auto) Neut # Lymph # [place] # Eos # Baso # Sodium Potassium Chloride Carbon Dioxide Anion Gap BUN Creatinine Est GFR ( Amer) Est GFR (Non-Af Amer) POC Glucose (mg/dL) 103 Random Glucose Calcium Total Creatine Kinase CK-MB (Mass) Troponin I, Quant Triglycerides Cholesterol LDL Cholesterol Direct HDL Cholesterol TSH 3rd Generation Ur L.pneumophila Ag Negative Mycoplasma pneumon IgM Negative 03/18/17 03/18/17 03/18/17 00:19 06:17 07:18 WBC 4.5 L RBC 4.12 L Hgb 12.0 Hct 38.1 MCV 92.6 MCH 29.1 MCHC 31.4 L RDW 20.4 H Plt Count 94 L MPV 11.4 Neut % (Auto) 63.2 Lymph % (Auto) 25.2 [place] % (Auto) 9.1 Eos % (Auto) 1.9 Baso % (Auto) 0.6 Neut # 2.8 Lymph # 1.1 [place] # 0.4 Eos # 0.1 Baso # 0.0 Sodium Potassium Chloride Carbon Dioxide Anion Gap BUN Creatinine Est GFR ( Amer) Est GFR (Non-Af Amer) POC Glucose (mg/dL) 120 H Random Glucose Calcium Total Creatine Kinase 150 CK-MB (Mass) 8.11 H Troponin I, Quant 0.0190 Triglycerides Cholesterol LDL Cholesterol Direct HDL Cholesterol TSH 3rd Generation Ur L.pneumophila Ag Mycoplasma pneumon IgM 03/18/17 03/18/17 03/18/17 07:18 11:19 16:41 WBC RBC Hgb Hct MCV MCH MCHC RDW Plt Count MPV Neut % (Auto) Lymph % (Auto) [place] % (Auto) Eos % (Auto) Baso % (Auto) Neut # Lymph # [place] # Eos # Baso # Sodium 136 Potassium 4.3 Chloride 94 L Carbon Dioxide 30 Anion Gap 17 BUN 50 H Creatinine 5.7 H Est GFR ( Amer) 12 Est GFR (Non-Af Amer) 10 POC Glucose (mg/dL) 183 H 209 H Random Glucose 116 H Calcium 8.0 L Total Creatine Kinase 128 CK-MB (Mass) 6.85 H Troponin I, Quant 0.0270 Triglycerides 48 D Cholesterol 100 LDL Cholesterol Direct 32 HDL Cholesterol 49 TSH 3rd Generation 1.23 Ur L.pneumophila Ag Mycoplasma pneumon IgM Assessment & Plan - Assessment and Plan (Free Text) Assessment: ESRD ON HD .. TO BE C/O ANEMIA OF CKD .. H/H STABLE MULTIPLE CO MORBIDITIES P : C/O CURRENT CARE C/O PRESENT MANAGEMENT PT HAD HD YESTERDAY .. WILL SCHEDULE HD ON - Date & Time Date: 03/17/17 Time: 13:00
[2017-03-18] MEDS: (Lantus) Insulin Glargine, Recombinant SC SCH (21:57)
--- NOTE | 2017-03-18 22:00 | CT ---
EXAM: CT Head Without Intravenous Contrast CLINICAL HISTORY: 61 years old, male; Signs and symptoms; Altered mental status/memory loss; Additional info: Confusion TECHNIQUE: Axial computed tomography images of the head/brain without intravenous contrast. All CT scans at this facility use one or more dose reduction techniques, viz.: automated exposure control; ma/kV adjustment per patient size (including targeted exams where dose is matched to indication; i.e. head); or iterative reconstruction technique. COMPARISON: No relevant prior studies available. FINDINGS: Brain: No acute intracranial hemorrhage. No significant white matter disease. No edema. Ventricles: No significant ventriculomegaly. Bones: No acute displaced fracture. Sinuses: Unremarkable as visualized. No acute sinusitis. Mastoid air cells: Unremarkable as visualized. No mastoid effusion. IMPRESSION: No acute intracranial hemorrhage, or suspicious mass effect. Acute infarction may be CT occult within first 24 hours. If a focal deficit persists, consider followup CT or MRI for further evaluation.
--- NOTE | 2017-03-18 22:25 | CARD ---
APPROVED REPORT EKG Measurement Heart [id number] <Conclusion> Normal sinus rhythm Minimal voltage criteria for LVH, may be normal variant T wave abnormality, consider lateral ischemia Prolonged QT Abnormal ECG
[2017-03-19] MEDS: Albuterol-Ipratrop 3 mg / 0.5 (3 ml) UD INH SCH ×4 (01:07→19:11)
[2017-03-19] MEDS: (Novolin R) Insulin Human Regular 100 units/ml vial SC SCH ×4 (07:30→22:24)
[2017-03-19 07:38] LABS: BASO % 0.6 % (0.0-2.0); EOS # 0.1 K/uL (0.0-0.7); EOS % 2.4 % (0.0-4.0); HEMATOCRIT 37.9 % (35.0-51.0); LYMPH # 1.3 K/uL (1.0-4.3); LYMPH % 24.1 % (20.0-40.0); MEAN CELL VOLUME 91.9 fL (80.0-94.0); MEAN CORPUSCULAR HEMOGLOBIN 29.7 pg (27.0-31.0); MEAN CORPUSCULAR HGB CONC 32.3 g/dL (33.0-37.0); MONO # 0.4 K/uL (0.0-0.8); MONO % 8.2 % (0.0-10.0); NRBC % 0.1 % (0.0-2.0); RED CELL DISTRIBUTION WIDTH 20.5 % (11.5-14.5); WHITE BLOOD COUNT 5.4 K/uL (4.8-10.8)
[2017-03-19 09:22] LABS: CALCIUM 8.1 mg/dl (8.6-10.4); POTASSIUM 4.3 mmol/L (3.6-5.2)
[2017-03-19] MEDS: Brimonidine 0.2% Opth Sol (5ml) OU SCH ×4 (09:22→21:27)
[2017-03-19] MEDS: Fluticasone Nasal 50 mcg/Spray NAS SCH (09:23)
[2017-03-19] MEDS: guaiFENesin 100 mg/5 ml Syrup UD PO PRN ×2 (11:13→21:26)
[2017-03-19] MEDS: Vitamin B Complex/Vitamin C Tab PO SCH (13:38)
--- NOTE | 2017-03-19 16:27 | CP.PCM.PN ---
Subjective - Date & Time of Evaluation Date of Evaluation: 03/19/17 Time of Evaluation: 16:27 - Subjective Subjective: Patient seen and examined at bedside. Complaining of a cough still. White sputum production Wants something for sleep Objective - Vital Signs/Intake and Output Vital Signs (last 24 hours): Temp Pulse Resp BP Pulse Ox 98.2 F 87 20 157/88 H 98 03/19/17 15:17 03/19/17 15:17 03/19/17 15:17 03/19/17 15:17 03/19/17 15:17 Intake and Output: 03/19/17 03/19/17 06:59 18:59 Intake Total 240 Balance 240 - Medications Medications: Current Medications Acetaminophen (Tylenol 325mg Tab) 650 mg PO Q6 PRN PRN Reason: Fever >100.4 F Albuterol/Ipratropium (Duoneb 3 Mg/0.5 Mg (3 Ml) Ud) 3 ml INH RQ6 [facility] Last Admin: 03/19/17 13:26 Dose: Not Given Brimonidine Tartrate (Alphagan 0.2% Opht) 0 ml OU QID [facility] Last Admin: 03/19/17 09:22 Dose: 1 drop Calcium Acetate (Phoslo) 667 mg PO BID [facility] Last Admin: 03/19/17 09:23 Dose: 667 mg Famotidine (Pepcid) 20 mg PO DAILY [facility] Last Admin: 03/19/17 09:23 Dose: 20 mg Fluticasone Propionate (Flonase) 0 spr ANGELINA DAILY [facility] Last Admin: 03/19/17 09:23 Dose: 1 spr Furosemide (Lasix) 20 mg IVP BID [facility] Last Admin: 03/19/17 12:00 Dose: 20 mg Guaifenesin (Robitussin) 100 mg PO Q4H PRN PRN Reason: Cough Last Admin: 03/19/17 11:13 Dose: 100 mg Hydrocortisone (Cortizone 0.5% Cream) 1 applic TOP DAILY PRN PRN Reason: Itching / Pruritus Insulin Glargine (Lantus) 15 unit SC HS [facility] Last Admin: 03/18/17 21:57 Dose: Not Given Insulin Human Regular (Novolin R) 0 unit SC ACHS [facility] PRN Reason: Protocol Last Admin: 03/19/17 13:35 Dose: 2 unit Rosuvastatin Calcium (Crestor) 10 mg PO HS [facility] Last Admin: 03/18/17 22:03 Dose: 10 mg Tamsulosin HCl (Flomax) 0.4 mg PO DAILY [facility] Last Admin: 03/19/17 09:23 Dose: 0.4 mg Timolol Maleate (Timoptic 0.5% Ophth Soln) 0 drop OU DAILY [facility] Last Admin: 03/19/17 09:23 Dose: 1 drop Vitamin B Complex/Vitamin C (Berocca) 1 tab PO DAILY [facility] Last Admin: 03/19/17 13:38 Dose: 1 tab - Labs Labs: 03/19/17 07:23 03/19/17 07:23 PT 14.1 SECONDS (9.7-12.2) H 03/17/17 12:17 INR 1.3 03/17/17 12:17 APTT 36 SECONDS (21-34) H 03/17/17 12:17 - Additional Findings Additional findings: - Constitutional Appears: Well, Non-toxic, No Acute Distress - Head Exam Head Exam: ATRAUMATIC, NORMAL INSPECTION, NORMOCEPHALIC - Eye Exam Eye Exam: EOMI Pupil Exam: NORMAL ACCOMODATION - ENT Exam ENT Exam: Mucous Membranes Moist - Respiratory Exam Respiratory Exam: Rales - Cardiovascular Exam Cardiovascular Exam: Diastolic murmur, REGULAR RHYTHM, JVD - GI/Abdominal Exam GI & Abdominal Exam: Soft, Normal Bowel Sounds. absent: Distended, Tenderness - Back Exam Back Exam: absent: CVA tenderness (L), CVA tenderness (R) - Neurological Exam Neurological Exam: Alert, Awake, Oriented x3 - Psychiatric Exam Psychiatric exam: Normal Affect, Normal Mood - Skin Skin Exam: Dry, Intact, Normal Color, Warm Assessment and Plan - Assessment and Plan (Free Text) Assessment: CHF Exacerbation Flu negative CXR 03/17/17 - mild pulmonary venous congestion EKG 03/17/17 - NSR Echo - R/L severly reduced systolic function ROMIs - negative x3 blood culture - negative sputum culture - negative mycoplasma - negative Cards (Billy) * F/U with Dr. Mayes * Diuresis * scheduling lifevest R/O Infarct CT head - negative Cough Benzonatate Thrombocytopenia Platelets 81 Monitor ESRD HD MWF R. AVF Nephro (Stanley) Phoslo 667mg PO BID DM Lantus 15U SC HS RISS Monitor Accuchecks HgbA1C 8.1 BPH Flomax 0.4mg PO daily Hyperlipidemia Crestor 40mg PO HS lipid panel * TG 48 * Chol 100 * LDL 32 * HDL 49 Cataracts Timoptic 0.5% ophth OU daily Brimonidine Tartrate OU QID Prophylaxis Pepcid 20mg PO daily Lovenox 40mg SC daily
--- NOTE | 2017-03-19 18:43 | CP.PCM.PN ---
Subjective - Date & Time of Evaluation Date of Evaluation: 03/19/17 Time of Evaluation: 18:35 - Subjective Subjective: patient has intermittent cough Objective - Vital Signs/Intake and Output Vital Signs (last 24 hours): Temp Pulse Resp BP Pulse Ox 98.2 F 87 20 155/88 H 98 03/19/17 15:17 03/19/17 15:17 03/19/17 15:17 03/19/17 17:28 03/19/17 15:17 Intake and Output: 03/19/17 03/19/17 06:59 18:59 Intake Total 240 Balance 240 - Medications Medications: Current Medications Acetaminophen (Tylenol 325mg Tab) 650 mg PO Q6 PRN PRN Reason: Fever >100.4 F Albuterol/Ipratropium (Duoneb 3 Mg/0.5 Mg (3 Ml) Ud) 3 ml INH RQ6 [facility] Last Admin: 03/19/17 13:26 Dose: Not Given Brimonidine Tartrate (Alphagan 0.2% Opht) 0 ml OU QID [facility] Last Admin: 03/19/17 09:22 Dose: 1 drop Calcium Acetate (Phoslo) 667 mg PO BID [facility] Last Admin: 03/19/17 17:28 Dose: 667 mg Carvedilol (Coreg) 6.25 mg PO BID [facility] Famotidine (Pepcid) 20 mg PO DAILY [facility] Last Admin: 03/19/17 09:23 Dose: 20 mg Fluticasone Propionate (Flonase) 0 spr ANGELINA DAILY [facility] Last Admin: 03/19/17 09:23 Dose: 1 spr Furosemide (Lasix) 20 mg IVP BID [facility] Last Admin: 03/19/17 17:28 Dose: 20 mg Guaifenesin (Robitussin) 100 mg PO Q4H PRN PRN Reason: Cough Last Admin: 03/19/17 11:13 Dose: 100 mg Hydrocortisone (Cortizone 0.5% Cream) 1 applic TOP DAILY PRN PRN Reason: Itching / Pruritus Insulin Glargine (Lantus) 15 unit SC HS [facility] Last Admin: 03/18/17 21:57 Dose: Not Given Insulin Human Regular (Novolin R) 0 unit SC ACHS [facility] PRN Reason: Protocol Last Admin: 03/19/17 17:28 Dose: 3 unit Losartan Potassium (Cozaar) 25 mg PO DAILY [facility] Rosuvastatin Calcium (Crestor) 10 mg PO HS [facility] Last Admin: 03/18/17 22:03 Dose: 10 mg Tamsulosin HCl (Flomax) 0.4 mg PO DAILY [facility] Last Admin: 03/19/17 09:23 Dose: 0.4 mg Timolol Maleate (Timoptic 0.5% Ophth Soln) 0 drop OU DAILY [facility] Last Admin: 03/19/17 09:23 Dose: 1 drop Vitamin B Complex/Vitamin C (Berocca) 1 tab PO DAILY [facility] Last Admin: 03/19/17 13:38 Dose: 1 tab - Labs Labs: 03/19/17 07:23 03/19/17 07:23 PT 14.1 SECONDS (9.7-12.2) H 03/17/17 12:17 INR 1.3 03/17/17 12:17 APTT 36 SECONDS (21-34) H 03/17/17 12:17 - Constitutional Appears: Non-toxic - Head Exam Head Exam: NORMAL INSPECTION - Eye Exam Eye Exam: Normal appearance - ENT Exam ENT Exam: Mucous Membranes Moist - Neck Exam Neck Exam: Full ROM - Respiratory Exam Respiratory Exam: Decreased Breath Sounds - Cardiovascular Exam Cardiovascular Exam: REGULAR RHYTHM - GI/Abdominal Exam GI & Abdominal Exam: Normal Bowel Sounds - Rectal Exam Rectal Exam: Deferred - Extremities Exam Extremities Exam: Normal Inspection - Back Exam Back Exam: NORMAL INSPECTION - Neurological Exam Neurological Exam: Alert - Psychiatric Exam Psychiatric exam: Normal Affect - Skin Skin Exam: Normal Color Assessment and Plan (1) Dilated cardiomyopathy Assessment & Plan: I will schedule Lifevest. I discussed risk of sudden cardiac . beta dragan started. ARB started Status: Acute (2) Hypertension Assessment & Plan: COreg. Losartan Status: Acute
[2017-03-19] MEDS: (Lantus) Insulin Glargine, Recombinant SC SCH (22:24)
--- NOTE | 2017-03-19 22:56 | CP.PCM.PN ---
Subjective - Date & Time of Evaluation Date of Evaluation: 03/19/17 Time of Evaluation: 14:00 - Subjective Subjective: SEEN ON RENAL F/U C/O SEVERE COUGH ON HD M W F C/O CURRENT CARE Objective - Vital Signs/Intake and Output Vital Signs (last 24 hours): Temp Pulse Resp BP Pulse Ox 98.2 F 87 20 155/88 H 98 03/19/17 15:17 03/19/17 15:17 03/19/17 15:17 03/19/17 17:28 03/19/17 15:17 - Medications Medications: Current Medications Acetaminophen (Tylenol 325mg Tab) 650 mg PO Q6 PRN PRN Reason: Fever >100.4 F Albuterol/Ipratropium (Duoneb 3 Mg/0.5 Mg (3 Ml) Ud) 3 ml INH RQ6 [facility] Last Admin: 03/19/17 19:11 Dose: 3 ml Benzonatate (Tessalon Perles) 100 mg PO TID [facility] Brimonidine Tartrate (Alphagan 0.2% Opht) 0 ml OU QID [facility] Last Admin: 03/19/17 21:27 Dose: 1 drop Calcium Acetate (Phoslo) 667 mg PO BID [facility] Last Admin: 03/19/17 17:28 Dose: 667 mg Carvedilol (Coreg) 6.25 mg PO BID [facility] Last Admin: 03/19/17 18:48 Dose: 6.25 mg Famotidine (Pepcid) 20 mg PO DAILY [facility] Last Admin: 03/19/17 09:23 Dose: 20 mg Fluticasone Propionate (Flonase) 0 spr ANGELINA DAILY [facility] Last Admin: 03/19/17 09:23 Dose: 1 spr Furosemide (Lasix) 20 mg IVP BID [facility] Last Admin: 03/19/17 17:28 Dose: 20 mg Guaifenesin (Robitussin) 100 mg PO Q4H PRN PRN Reason: Cough Last Admin: 03/19/17 21:26 Dose: 100 mg Hydrocortisone (Cortizone 0.5% Cream) 1 applic TOP DAILY PRN PRN Reason: Itching / Pruritus Insulin Glargine (Lantus) 15 unit SC HS [facility] Last Admin: 03/19/17 22:24 Dose: Not Given Insulin Human Regular (Novolin R) 0 unit SC ACHS [facility] PRN Reason: Protocol Last Admin: 03/19/17 22:24 Dose: Not Given Losartan Potassium (Cozaar) 25 mg PO DAILY [facility] Rosuvastatin Calcium (Crestor) 10 mg PO HS [facility] Last Admin: 03/19/17 21:27 Dose: 10 mg Tamsulosin HCl (Flomax) 0.4 mg PO DAILY [facility] Last Admin: 03/19/17 09:23 Dose: 0.4 mg Timolol Maleate (Timoptic 0.5% Oph Sol) 0 drop OU DAILY [facility] Last Admin: 03/19/17 09:23 Dose: 1 drop Vitamin B Complex/Vitamin C (Berocca) 1 tab PO DAILY [facility] Last Admin: 03/19/17 13:38 Dose: 1 tab Zolpidem Tartrate (Ambien) 5 mg PO HS PRN PRN Reason: Insomnia Last Admin: 03/19/17 22:25 Dose: 5 mg - Labs Labs: 03/19/17 07:23 03/19/17 07:23 PT 14.1 SECONDS (9.7-12.2) H 03/17/17 12:17 INR 1.3 03/17/17 12:17 APTT 36 SECONDS (21-34) H 03/17/17 12:17
--- NOTE | 2017-03-19 23:42 | CP.PCM.CON ---
Past Patient History - Past Medical History & Family History Past Medical History?: Yes - Past Social History Smoking Status: Former Smoker - CARDIAC Hx Hypercholesterolemia: Yes Hx Hypertension: Yes - PULMONARY Hx Asthma: No Hx Bronchitis: No Hx Chronic Obstructive Pulmonary Disease (COPD): No Hx Emphysema: No Hx Pneumonia: No Hx Pulmonary Embolism: No - NEUROLOGICAL Hx Neurological Disorder: No - HEENT Hx HEENT Problems: Yes Hx Cataracts: Yes - RENAL Hx Chronic Kidney Disease: Yes Hx Dialysis: Yes Type of Dialysis Access: right forearm fistula Date of Last Dialysis Treatment: 03/15/17 Hx Renal Failure: Yes - ENDOCRINE/METABOLIC Hx Diabetes Mellitus Type 2: Yes - HEMATOLOGICAL/ONCOLOGICAL Hx Anemia: Yes - INTEGUMENTARY Hx Dermatological Problems: No - MUSCULOSKELETAL/RHEUMATOLOGICAL Hx Musculoskeletal Disorders: No Hx Falls: No - GASTROINTESTINAL Hx Pancreatitis: Yes - GENITOURINARY/GYNECOLOGICAL Hx Genitourinary Disorders: No - PSYCHIATRIC Hx Depression: Yes Hx Substance Use: No - SURGICAL HISTORY Hx Appendectomy: Yes - ANESTHESIA Hx Anesthesia: Yes Hx Anesthesia Reactions: No Meds Allergies/Adverse Reactions: Allergies Allergy/AdvReac Type Severity Reaction Status Date / Time No Known Allergies Allergy Verified 03/17/17 11:12 - Medications Medications: Current Medications Acetaminophen (Tylenol 325mg Tab) 650 mg PO Q6 PRN PRN Reason: Fever >100.4 F Albuterol/Ipratropium (Duoneb 3 Mg/0.5 Mg (3 Ml) Ud) 3 ml INH RQ6 [facility] Last Admin: 03/19/17 19:11 Dose: 3 ml Benzonatate (Tessalon Perles) 100 mg PO TID [facility] Brimonidine Tartrate (Alphagan 0.2% Opht) 0 ml OU QID [facility] Last Admin: 03/19/17 21:27 Dose: 1 drop Calcium Acetate (Phoslo) 667 mg PO BID [facility] Last Admin: 03/19/17 17:28 Dose: 667 mg Carvedilol (Coreg) 6.25 mg PO BID [facility] Last Admin: 03/19/17 18:48 Dose: 6.25 mg Famotidine (Pepcid) 20 mg PO DAILY [facility] Last Admin: 03/19/17 09:23 Dose: 20 mg Fluticasone Propionate (Flonase) 0 spr ANGELINA DAILY [facility] Last Admin: 03/19/17 09:23 Dose: 1 spr Furosemide (Lasix) 20 mg IVP BID [facility] Last Admin: 03/19/17 17:28 Dose: 20 mg Guaifenesin (Robitussin) 100 mg PO Q4H PRN PRN Reason: Cough Last Admin: 03/19/17 21:26 Dose: 100 mg Hydrocortisone (Cortizone 0.5% Cream) 1 applic TOP DAILY PRN PRN Reason: Itching / Pruritus Insulin Glargine (Lantus) 15 unit SC HS [facility] Last Admin: 03/19/17 22:24 Dose: Not Given Insulin Human Regular (Novolin R) 0 unit SC ACHS [facility] PRN Reason: Protocol Last Admin: 03/19/17 22:24 Dose: Not Given Losartan Potassium (Cozaar) 25 mg PO DAILY [facility] Rosuvastatin Calcium (Crestor) 10 mg PO HS [facility] Last Admin: 03/19/17 21:27 Dose: 10 mg Tamsulosin HCl (Flomax) 0.4 mg PO DAILY [facility] Last Admin: 03/19/17 09:23 Dose: 0.4 mg Timolol Maleate (Timoptic 0.5% [facility]) 0 drop OU DAILY [facility] Last Admin: 03/19/17 09:23 Dose: 1 drop Vitamin B Complex/Vitamin C (Berocca) 1 tab PO DAILY [facility] Last Admin: 03/19/17 13:38 Dose: 1 tab Zolpidem Tartrate (Ambien) 5 mg PO HS PRN PRN Reason: Insomnia Last Admin: 03/19/17 22:25 Dose: 5 mg Physical Exam - Constitutional Appears: Well - Head Exam Head Exam: ATRAUMATIC, NORMAL INSPECTION, NORMOCEPHALIC - Eye Exam Eye Exam: EOMI, Normal appearance, PERRL Pupil Exam: NORMAL ACCOMODATION, PERRL - ENT Exam ENT Exam: Mucous Membranes Moist, Normal Exam - Neck Exam Neck exam: Positive for: Normal Inspection - Respiratory Exam Respiratory Exam: Decreased Breath Sounds - Cardiovascular Exam Cardiovascular Exam: REGULAR RHYTHM, +S1, +S2 - GI/Abdominal Exam GI & Abdominal Exam: Diminished Bowel Sounds, Soft - Rectal Exam Rectal Exam: Deferred Results - Vital Signs Recent Vital Signs: Last Vital Signs Temp 98.2 F 03/19/17 15:17 Pulse 87 03/19/17 15:17 Resp 20 03/19/17 15:17 BP 155/88 H 03/19/17 17:28 Pulse Ox 98 03/19/17 15:17 - Labs Result Diagrams: 03/19/17 07:23 03/19/17 07:23 Labs: Laboratory Results - last 24 hr 03/19/17 03/19/17 03/19/17 06:51 07:23 07:23 WBC 5.4 RBC 4.12 L Hgb 12.2 Hct 37.9 MCV 91.9 MCH 29.7 MCHC 32.3 L RDW 20.5 H Plt Count 98 L MPV 10.0 Neut % (Auto) 64.7 Lymph % (Auto) 24.1 [place] % (Auto) 8.2 Eos % (Auto) 2.4 Baso % (Auto) 0.6 Neut # 3.5 Lymph # 1.3 [place] # 0.4 Eos # 0.1 Baso # 0.0 Sodium 134 Potassium 4.3 Chloride 94 L Carbon Dioxide 23 Anion Gap 21 H BUN 75 H Creatinine 7.8 H* D Est GFR ( Amer) 9 Est GFR (Non-Af Amer) 7 POC Glucose (mg/dL) 142 H Random Glucose 122 H Calcium 8.1 L 03/19/17 03/19/17 03/19/17 11:11 16:17 21:16 WBC RBC Hgb Hct MCV MCH MCHC RDW Plt Count MPV Neut % (Auto) Lymph % (Auto) [place] % (Auto) Eos % (Auto) Baso % (Auto) Neut # Lymph # [place] # Eos # Baso # Sodium Potassium Chloride Carbon Dioxide Anion Gap BUN Creatinine Est GFR ( Amer) Est GFR (Non-Af Amer) POC Glucose (mg/dL) 156 H 210 H 161 H Random Glucose Calcium
[2017-03-20] MEDS: Albuterol-Ipratrop 3 mg / 0.5 (3 ml) UD INH SCH ×4 (01:41→20:02)
[2017-03-20] MEDS: (Novolin R) Insulin Human Regular 100 units/ml vial SC SCH ×4 (07:30→21:51)
[2017-03-20 07:33] LABS: BASO % 0.9 % (0.0-2.0); EOS # 0.2 K/uL (0.0-0.7); EOS % 3.1 % (0.0-4.0); HEMATOCRIT 38.5 % (35.0-51.0); LYMPH # 1.3 K/uL (1.0-4.3); MEAN CELL VOLUME 91.6 fL (80.0-94.0); MEAN CORPUSCULAR HEMOGLOBIN 29.9 pg (27.0-31.0); MEAN CORPUSCULAR HGB CONC 32.7 g/dL (33.0-37.0); MEAN PLATELET VOLUME 10.4 fL (7.2-11.7); MONO # 0.4 K/uL (0.0-0.8); MONO % 8.8 % (0.0-10.0); NRBC % 0.3 % (0.0-2.0); RED CELL DISTRIBUTION WIDTH 20.7 % (11.5-14.5); WHITE BLOOD COUNT 4.8 K/uL (4.8-10.8)
[2017-03-20 08:09] LABS: CALCIUM 7.9 mg/dl (8.6-10.4); POTASSIUM 4.4 mmol/L (3.6-5.2)
[2017-03-20] MEDS: Vitamin B Complex/Vitamin C Tab PO SCH (09:27)
[2017-03-20] MEDS: Brimonidine 0.2% Opth Sol (5ml) OU SCH ×4 (09:27→21:56)
[2017-03-20] MEDS: guaiFENesin 100 mg/5 ml Syrup UD PO PRN ×2 (09:27→14:16)
--- NOTE | 2017-03-20 11:42 | CP.PCM.PN ---
Subjective - Date & Time of Evaluation Date of Evaluation: 03/20/17 Time of Evaluation: 11:40 - Subjective Subjective: patient stephen chest pain or dyspnea. I contacted [facility] for lifevest Objective - Vital Signs/Intake and Output Vital Signs (last 24 hours): Temp Pulse Resp BP Pulse Ox 98.2 F 86 20 165/92 H 96 03/20/17 08:00 03/20/17 08:00 03/20/17 08:00 03/20/17 09:28 03/20/17 08:00 - Medications Medications: Current Medications Acetaminophen (Tylenol 325mg Tab) 650 mg PO Q6 PRN PRN Reason: Fever >100.4 F Albuterol/Ipratropium (Duoneb 3 Mg/0.5 Mg (3 Ml) Ud) 3 ml INH RQ6 [facility] Last Admin: 03/20/17 08:11 Dose: 3 ml Benzonatate (Tessalon Perles) 100 mg PO TID [facility] Last Admin: 03/20/17 10:16 Dose: 100 mg Brimonidine Tartrate (Alphagan 0.2% Opht) 0 ml OU QID [facility] Last Admin: 03/20/17 09:27 Dose: 1 drop Calcium Acetate (Phoslo) 667 mg PO BID [facility] Last Admin: 03/20/17 09:27 Dose: 667 mg Carvedilol (Coreg) 6.25 mg PO BID [facility] Last Admin: 03/20/17 09:27 Dose: 6.25 mg Famotidine (Pepcid) 20 mg PO DAILY [facility] Last Admin: 03/20/17 09:26 Dose: 20 mg Fluticasone Propionate (Flonase) 0 spr ANGELINA DAILY [facility] Last Admin: 03/19/17 09:23 Dose: 1 spr Furosemide (Lasix) 20 mg IVP BID [facility] Last Admin: 03/20/17 09:28 Dose: 20 mg Guaifenesin (Robitussin) 100 mg PO Q4H PRN PRN Reason: Cough Last Admin: 03/20/17 09:27 Dose: 100 mg Hydrocortisone (Cortizone 0.5% Cream) 1 applic TOP DAILY PRN PRN Reason: Itching / Pruritus Insulin Glargine (Lantus) 15 unit SC HS [facility] Last Admin: 03/19/17 22:24 Dose: Not Given Insulin Human Regular (Novolin R) 0 unit SC ACHS [facility] PRN Reason: Protocol Last Admin: 03/20/17 07:30 Dose: Not Given Losartan Potassium (Cozaar) 25 mg PO DAILY [facility] Last Admin: 03/20/17 09:26 Dose: 25 mg Rosuvastatin Calcium (Crestor) 10 mg PO HS [facility] Last Admin: 03/19/17 21:27 Dose: 10 mg Tamsulosin HCl (Flomax) 0.4 mg PO DAILY [facility] Last Admin: 03/20/17 09:26 Dose: 0.4 mg Timolol Maleate (Timoptic 0.5% Oph Soln) 0 drop OU DAILY [facility] Last Admin: 03/19/17 09:23 Dose: 1 drop Vitamin B Complex/Vitamin C (Berocca) 1 tab PO DAILY [facility] Last Admin: 03/20/17 09:27 Dose: 1 tab Zolpidem Tartrate (Ambien) 5 mg PO HS PRN PRN Reason: Insomnia Last Admin: 03/19/17 22:25 Dose: 5 mg - Labs Labs: 03/20/17 07:00 03/20/17 07:00 PT 14.1 SECONDS (9.7-12.2) H 03/17/17 12:17 INR 1.3 03/17/17 12:17 APTT 36 SECONDS (21-34) H 03/17/17 12:17 - Constitutional Appears: Non-toxic - Head Exam Head Exam: NORMAL INSPECTION - Eye Exam Eye Exam: Normal appearance - ENT Exam ENT Exam: Mucous Membranes Moist - Neck Exam Neck Exam: Full ROM - Cardiovascular Exam Cardiovascular Exam: REGULAR RHYTHM - GI/Abdominal Exam GI & Abdominal Exam: Normal Bowel Sounds - Rectal Exam Rectal Exam: Deferred - Extremities Exam Extremities Exam: absent: Pedal Edema - Back Exam Back Exam: NORMAL INSPECTION - Neurological Exam Neurological Exam: Alert - Psychiatric Exam Psychiatric exam: Normal Affect - Skin Skin Exam: Normal Color Assessment and Plan (1) Dilated cardiomyopathy Assessment & Plan: fitted for Lifevest. I did not hear from Dr Fabiano zamudio previous cardiac work up. Best course of action is placement of Lifevest and medical therapy. Follow up as outpatient regarding AICD. Status: Acute (2) Hypertension Assessment & Plan: blood pressure control Status: Acute
[2017-03-20] MEDS: Fluticasone Nasal 50 mcg/Spray NAS SCH (12:00)
--- NOTE | 2017-03-20 16:04 | CP.PCM.PN ---
Subjective - Date & Time of Evaluation Date of Evaluation: 03/20/17 Time of Evaluation: 09:40 - Subjective Subjective: clinically same Objective - Vital Signs/Intake and Output Vital Signs (last 24 hours): Temp Pulse Resp BP Pulse Ox 98.2 F 86 20 165/92 H 96 03/20/17 08:00 03/20/17 08:00 03/20/17 08:00 03/20/17 09:28 03/20/17 08:00 - Medications Medications: Current Medications Acetaminophen (Tylenol 325mg Tab) 650 mg PO Q6 PRN PRN Reason: Fever >100.4 F Albuterol/Ipratropium (Duoneb 3 Mg/0.5 Mg (3 Ml) Ud) 3 ml INH RQ6 [facility] Last Admin: 03/20/17 13:44 Dose: 3 ml Benzonatate (Tessalon Perles) 100 mg PO TID [facility] Last Admin: 03/20/17 14:10 Dose: 100 mg Brimonidine Tartrate (Alphagan 0.2% Opht) 0 ml OU QID [facility] Last Admin: 03/20/17 14:00 Dose: 1 drop Calcium Acetate (Phoslo) 667 mg PO BID [facility] Last Admin: 03/20/17 09:27 Dose: 667 mg Carvedilol (Coreg) 6.25 mg PO BID [facility] Last Admin: 03/20/17 09:27 Dose: 6.25 mg Famotidine (Pepcid) 20 mg PO DAILY [facility] Last Admin: 03/20/17 09:26 Dose: 20 mg Fluticasone Propionate (Flonase) 0 spr ANGELINA DAILY [facility] Last Admin: 03/20/17 12:00 Dose: 1 spr Furosemide (Lasix) 20 mg IVP BID [facility] Last Admin: 03/20/17 09:28 Dose: 20 mg Guaifenesin (Robitussin) 100 mg PO Q4H PRN PRN Reason: Cough Last Admin: 03/20/17 14:16 Dose: 100 mg Hydrocortisone (Cortizone 0.5% Cream) 1 applic TOP DAILY PRN PRN Reason: Itching / Pruritus Insulin Glargine (Lantus) 15 unit SC HS [facility] Last Admin: 03/19/17 22:24 Dose: Not Given Insulin Human Regular (Novolin R) 0 unit SC ACHS [facility] PRN Reason: Protocol Last Admin: 03/20/17 12:15 Dose: 3 unit Losartan Potassium (Cozaar) 25 mg PO DAILY [facility] Last Admin: 03/20/17 09:26 Dose: 25 mg Rosuvastatin Calcium (Crestor) 10 mg PO HS [facility] Last Admin: 03/19/17 21:27 Dose: 10 mg Tamsulosin HCl (Flomax) 0.4 mg PO DAILY [facility] Last Admin: 03/20/17 09:26 Dose: 0.4 mg Timolol Maleate (Timoptic 0.5% Oph Soln) 0 drop OU DAILY [facility] Last Admin: 03/20/17 12:00 Dose: 1 drop Vitamin B Complex/Vitamin C (Berocca) 1 tab PO DAILY [facility] Last Admin: 03/20/17 09:27 Dose: 1 tab Zolpidem Tartrate (Ambien) 5 mg PO HS PRN PRN Reason: Insomnia Last Admin: 03/19/17 22:25 Dose: 5 mg - Labs Labs: 03/20/17 07:00 03/20/17 07:00 PT 14.1 SECONDS (9.7-12.2) H 03/17/17 12:17 INR 1.3 03/17/17 12:17 APTT 36 SECONDS (21-34) H 03/17/17 12:17 - Constitutional Appears: Well - Head Exam Head Exam: ATRAUMATIC, NORMAL INSPECTION, NORMOCEPHALIC - Eye Exam Eye Exam: EOMI, Normal appearance, PERRL Pupil Exam: NORMAL ACCOMODATION, PERRL - ENT Exam ENT Exam: Mucous Membranes Moist, Normal Exam - Neck Exam Neck Exam: Full ROM, Normal Inspection. absent: Lymphadenopathy - Respiratory Exam Respiratory Exam: Decreased Breath Sounds - Cardiovascular Exam Cardiovascular Exam: REGULAR RHYTHM, +S1, +S2 - GI/Abdominal Exam GI & Abdominal Exam: Soft, Diminished Bowel Sounds - Rectal Exam Rectal Exam: Deferred
[2017-03-20] MEDS ORDERED: Oxycodone/Acetaminophen 5/325 mg Tab PO STA (18:06)
[2017-03-20] MEDS: (Lantus) Insulin Glargine, Recombinant SC SCH (21:55)
[2017-03-21] MEDS: Albuterol-Ipratrop 3 mg / 0.5 (3 ml) UD INH SCH ×4 (01:07→20:14)
[2017-03-21] MEDS: (Novolin R) Insulin Human Regular 100 units/ml vial SC SCH ×4 (07:30→21:49)
--- NOTE | 2017-03-21 08:34 | RAD ---
Abdomen four views History: Abdominal pain. Constipation. Comparison: None available. Findings: Severe fecal retention in the colon. Few distended/mildly dilated loops of small bowel seen within the upper abdomen. Degenerative changes in the spine and bilateral hips. Surgical clips project over the right proximal femur. Prominent vascular calcifications. Surgical clips project over the right lung base laterally. Multiple external wires and tubing. Thin linear radiopaque density projects at the right lung base, uncertain clinical etiology. Clinical correlation. Prior valve replacement. Cardiomegaly. Impression: Severe fecal retention in the colon. Few distended/mildly dilated loops of small bowel seen within the upper abdomen.
[2017-03-21 08:51] LABS: BASO % 0.5 % (0.0-2.0); EOS # 0.1 K/uL (0.0-0.7); EOS % 3.1 % (0.0-4.0); LYMPH # 1.4 K/uL (1.0-4.3); LYMPH % 29.9 % (20.0-40.0); MEAN CELL VOLUME 91.9 fL (80.0-94.0); MEAN CORPUSCULAR HEMOGLOBIN 28.9 pg (27.0-31.0); MEAN CORPUSCULAR HGB CONC 31.4 g/dL (33.0-37.0); MEAN PLATELET VOLUME 10.3 fL (7.2-11.7); MONO # 0.5 K/uL (0.0-0.8); MONO % 9.6 % (0.0-10.0); NRBC % 0.2 % (0.0-2.0); RED CELL DISTRIBUTION WIDTH 20.7 % (11.5-14.5); WHITE BLOOD COUNT 4.8 K/uL (4.8-10.8)
[2017-03-21 09:08] LABS: CALCIUM 7.9 mg/dl (8.6-10.4); POTASSIUM 5.1 mmol/L (3.6-5.2)
[2017-03-21] MEDS: Vitamin B Complex/Vitamin C Tab PO SCH (10:13)
[2017-03-21] MEDS: Brimonidine 0.2% Opth Sol (5ml) OU SCH ×4 (10:14→21:47)
[2017-03-21] MEDS: Fluticasone Nasal 50 mcg/Spray NAS SCH (10:15)
[2017-03-21] MEDS: guaiFENesin 100 mg/5 ml Syrup UD PO PRN (10:15)
--- NOTE | 2017-03-21 12:36 | CP.PCM.HP ---
Past Patient History - Past Medical History & Family History Past Medical History?: Yes - Past Social History Smoking Status: Former Smoker - CARDIAC Hx Hypercholesterolemia: Yes Hx Hypertension: Yes - PULMONARY Hx Asthma: No Hx Bronchitis: No Hx Chronic Obstructive Pulmonary Disease (COPD): No Hx Emphysema: No Hx Pneumonia: No Hx Pulmonary Embolism: No - NEUROLOGICAL Hx Neurological Disorder: No - HEENT Hx HEENT Problems: Yes Hx Cataracts: Yes - RENAL Hx Chronic Kidney Disease: Yes Hx Dialysis: Yes Type of Dialysis Access: right forearm fistula Date of Last Dialysis Treatment: 03/15/17 Hx Renal Failure: Yes - ENDOCRINE/METABOLIC Hx Diabetes Mellitus Type 2: Yes - HEMATOLOGICAL/ONCOLOGICAL Hx Anemia: Yes - INTEGUMENTARY Hx Dermatological Problems: No - MUSCULOSKELETAL/RHEUMATOLOGICAL Hx Musculoskeletal Disorders: No Hx Falls: No - GASTROINTESTINAL Hx Pancreatitis: Yes - GENITOURINARY/GYNECOLOGICAL Hx Genitourinary Disorders: No - PSYCHIATRIC Hx Depression: Yes Hx Substance Use: No - SURGICAL HISTORY Hx Appendectomy: Yes - ANESTHESIA Hx Anesthesia: Yes Hx Anesthesia Reactions: No Meds Allergies/Adverse Reactions: Allergies Allergy/AdvReac Type Severity Reaction Status Date / Time No Known Allergies Allergy Verified 03/17/17 11:12 Physical Exam - Constitutional Appears: Well - Head Exam Head Exam: ATRAUMATIC, NORMAL INSPECTION, NORMOCEPHALIC - Eye Exam Eye Exam: EOMI, Normal appearance, PERRL Pupil Exam: NORMAL ACCOMODATION, PERRL - ENT Exam ENT Exam: Mucous Membranes Moist, Normal Exam - Neck Exam Neck exam: Positive for: Normal Inspection - Respiratory Exam Respiratory Exam: Decreased Breath Sounds - Cardiovascular Exam Cardiovascular Exam: REGULAR RHYTHM, +S1, +S2 - GI/Abdominal Exam GI & Abdominal Exam: Diminished Bowel Sounds, Soft - Rectal Exam Rectal Exam: Deferred Results - Vital Signs Recent Vital Signs: Last Vital Signs Temp 97.8 F 03/21/17 07:00 Pulse 75 03/21/17 07:30 Resp 20 03/21/17 07:00 BP 162/80 H 03/21/17 10:14 Pulse Ox 100 03/21/17 07:00 - Labs Result Diagrams: 03/21/17 08:44 03/21/17 08:44 Labs: Laboratory Results - last 24 hr 03/20/17 03/20/17 03/21/17 16:26 21:37 06:24 WBC RBC Hgb Hct MCV MCH MCHC RDW Plt Count MPV Neut % (Auto) Lymph % (Auto) [place] % (Auto) Eos % (Auto) Baso % (Auto) Neut # Lymph # [place] # Eos # Baso # Sodium Potassium Chloride Carbon Dioxide Anion Gap BUN Creatinine Est GFR ( Amer) Est GFR (Non-Af Amer) POC Glucose (mg/dL) 90 194 H 139 H Random Glucose Calcium 03/21/17 03/21/17 03/21/17 08:44 08:44 11:15 WBC 4.8 RBC 4.13 L Hgb 11.9 L Hct 38.0 MCV 91.9 MCH 28.9 MCHC 31.4 L RDW 20.7 H Plt Count 85 L MPV 10.3 Neut % (Auto) 56.9 Lymph % (Auto) 29.9 [place] % (Auto) 9.6 Eos % (Auto) 3.1 Baso % (Auto) 0.5 Neut # 2.7 Lymph # 1.4 [place] # 0.5 Eos # 0.1 Baso # 0.0 Sodium 133 Potassium 5.1 Chloride 96 L Carbon Dioxide 22 Anion Gap 20 BUN 99 H Creatinine 8.5 H* D Est GFR ( Amer) 8 Est GFR (Non-Af Amer) 6 POC Glucose (mg/dL) 154 H Random Glucose 81 Calcium 7.9 L
--- NOTE | 2017-03-21 15:37 | CP.PCM.PN ---
Subjective - Date & Time of Evaluation Date of Evaluation: 03/21/17 Time of Evaluation: 15:00 - Subjective Subjective: SEEN ON RENAL F/U ESRD ON HD M W F ANEMIA OF CKD .. H/H GOOD C/O CURRENT CARE Objective - Vital Signs/Intake and Output Vital Signs (last 24 hours): Temp Pulse Resp BP Pulse Ox 97.8 F 75 20 162/80 H 100 03/21/17 07:00 03/21/17 07:30 03/21/17 07:00 03/21/17 10:14 03/21/17 07:00 Intake and Output: 03/21/17 03/21/17 06:59 18:59 Intake Total 680 Balance 680 - Medications Medications: Current Medications Acetaminophen (Tylenol 325mg Tab) 650 mg PO Q6 PRN PRN Reason: Fever >100.4 F Albuterol/Ipratropium (Duoneb 3 Mg/0.5 Mg (3 Ml) Ud) 3 ml INH RQ6 [facility] Last Admin: 03/21/17 13:35 Dose: 3 ml Benzonatate (Tessalon Perles) 100 mg PO TID [facility] Last Admin: 03/21/17 14:15 Dose: 100 mg Brimonidine Tartrate (Alphagan 0.2% Opht) 0 ml OU QID [facility] Last Admin: 03/21/17 14:15 Dose: 1 drop Calcium Acetate (Phoslo) 667 mg PO BID [facility] Last Admin: 03/21/17 10:12 Dose: 667 mg Carvedilol (Coreg) 12.5 mg PO BID [facility] Famotidine (Pepcid) 20 mg PO DAILY [facility] Last Admin: 03/21/17 10:13 Dose: 20 mg Fluticasone Propionate (Flonase) 0 spr ANGELINA DAILY [facility] Last Admin: 03/21/17 10:15 Dose: 1 spr Furosemide (Lasix) 20 mg IVP BID [facility] Last Admin: 03/21/17 10:14 Dose: 20 mg Guaifenesin (Robitussin) 100 mg PO Q4H PRN PRN Reason: Cough Last Admin: 03/21/17 10:15 Dose: 100 mg Hydrocortisone (Cortizone 0.5% Cream) 1 applic TOP DAILY PRN PRN Reason: Itching / Pruritus Insulin Glargine (Lantus) 15 unit SC HS [facility] Last Admin: 03/20/17 21:55 Dose: 15 units Insulin Human Regular (Novolin R) 0 unit SC ACHS [facility] PRN Reason: Protocol Last Admin: 03/21/17 11:45 Dose: 2 unit Losartan Potassium (Cozaar) 50 mg PO DAILY [facility] Rosuvastatin Calcium (Crestor) 10 mg PO HS [facility] Last Admin: 03/20/17 21:56 Dose: 10 mg Tamsulosin HCl (Flomax) 0.4 mg PO DAILY [facility] Last Admin: 03/21/17 10:13 Dose: 0.4 mg Timolol Maleate (Timoptic 0.5% [facility] Soln) 0 drop OU DAILY [facility] Last Admin: 03/21/17 10:15 Dose: 1 drop Vitamin B Complex/Vitamin C (Berocca) 1 tab PO DAILY [facility] Last Admin: 03/21/17 10:13 Dose: 1 tab Zolpidem Tartrate (Ambien) 5 mg PO HS PRN PRN Reason: Insomnia Last Admin: 03/19/17 22:25 Dose: 5 mg - Labs Labs: 03/21/17 08:44 03/21/17 08:44 PT 14.1 SECONDS (9.7-12.2) H 03/17/17 12:17 INR 1.3 03/17/17 12:17 APTT 36 SECONDS (21-34) H 03/17/17 12:17
[2017-03-21] MEDS: (Lantus) Insulin Glargine, Recombinant SC SCH (21:48)
[2017-03-22] MEDS: Albuterol-Ipratrop 3 mg / 0.5 (3 ml) UD INH SCH ×4 (01:38→19:53)
[2017-03-22 06:40] LABS: CALCIUM 7.9 mg/dl (8.6-10.4); POTASSIUM 5.4 mmol/L (3.6-5.2)
[2017-03-22 06:43] LABS: BASO % 0.7 % (0.0-2.0); EOS # 0.1 K/uL (0.0-0.7); EOS % 2.7 % (0.0-4.0); HEMATOCRIT 36.4 % (35.0-51.0); LYMPH # 1.6 K/uL (1.0-4.3); LYMPH % 31.5 % (20.0-40.0); MEAN CELL VOLUME 91.3 fL (80.0-94.0); MEAN CORPUSCULAR HEMOGLOBIN 29.2 pg (27.0-31.0); MEAN CORPUSCULAR HGB CONC 31.9 g/dL (33.0-37.0); MEAN PLATELET VOLUME 10.4 fL (7.2-11.7); MONO # 0.5 K/uL (0.0-0.8); MONO % 8.9 % (0.0-10.0); RED CELL DISTRIBUTION WIDTH 20.5 % (11.5-14.5); WHITE BLOOD COUNT 5.1 K/uL (4.8-10.8)
[2017-03-22] MEDS: (Novolin R) Insulin Human Regular 100 units/ml vial SC SCH ×4 (07:57→22:00)
[2017-03-22] MEDS: Vitamin B Complex/Vitamin C Tab PO SCH (09:45)
[2017-03-22] MEDS: guaiFENesin 100 mg/5 ml Syrup UD PO PRN (09:46)
[2017-03-22] MEDS: Fluticasone Nasal 50 mcg/Spray NAS SCH (09:47)
[2017-03-22] MEDS: Brimonidine 0.2% Opth Sol (5ml) OU SCH ×4 (09:47→22:47)
--- NOTE | 2017-03-22 17:33 | CP.PCM.PN ---
Subjective - Date & Time of Evaluation Date of Evaluation: 03/22/17 Time of Evaluation: 08:40 - Subjective Subjective: Medicine note (PGY-1)---> [facility]'s services Patient was seen and examined at bedside. Patient reports that his cough symptom is improving. Patient still admits to mild SOB and dizziness but denies chest pain, palpitations, fever, chills, nausea and vomiting. Patient is awaiting a life vest. Objective - Vital Signs/Intake and Output Vital Signs (last 24 hours): Temp Pulse Resp BP Pulse Ox 97.4 F L 39 L 18 118/60 97 03/22/17 15:33 03/22/17 15:41 03/22/17 15:33 03/22/17 15:33 03/22/17 15:33 Intake and Output: 03/22/17 03/22/17 06:59 18:59 Intake Total 120 350 Balance 120 350 - Medications Medications: Current Medications Acetaminophen (Tylenol 325mg Tab) 650 mg PO Q6 PRN PRN Reason: Fever >100.4 F Albuterol/Ipratropium (Duoneb 3 Mg/0.5 Mg (3 Ml) Ud) 3 ml INH RQ6 [facility] Last Admin: 03/22/17 13:22 Dose: 3 ml Benzonatate (Tessalon Perles) 100 mg PO TID [facility] Last Admin: 03/22/17 13:25 Dose: 100 mg Brimonidine Tartrate (Alphagan 0.2% Opht) 0 ml OU QID [facility] Last Admin: 03/22/17 13:25 Dose: 1 drop Calcium Acetate (Phoslo) 667 mg PO BID [facility] Last Admin: 03/22/17 09:46 Dose: 667 mg Carvedilol (Coreg) 6.25 mg PO BID [facility] Famotidine (Pepcid) 20 mg PO DAILY [facility] Last Admin: 03/22/17 09:46 Dose: 20 mg Fluticasone Propionate (Flonase) 0 spr ANGELINA DAILY [facility] Last Admin: 03/22/17 09:47 Dose: 2 spr Furosemide (Lasix) 20 mg IVP BID [facility] Last Admin: 03/22/17 09:46 Dose: 20 mg Guaifenesin (Robitussin) 100 mg PO Q4H PRN PRN Reason: Cough Last Admin: 03/22/17 09:46 Dose: 100 mg Hydrocortisone (Cortizone 0.5% Cream) 1 applic TOP DAILY PRN PRN Reason: Itching / Pruritus Insulin Glargine (Lantus) 15 unit SC HS [facility] Last Admin: 03/21/17 21:48 Dose: 15 units Insulin Human Regular (Novolin R) 0 unit SC ACHS [facility] PRN Reason: Protocol Last Admin: 03/22/17 12:29 Dose: 3 unit Losartan Potassium (Cozaar) 50 mg PO DAILY [facility] Last Admin: 03/22/17 09:46 Dose: 50 mg Rosuvastatin Calcium (Crestor) 10 mg PO HS [facility] Last Admin: 03/21/17 21:47 Dose: 10 mg Tamsulosin HCl (Flomax) 0.4 mg PO DAILY [facility] Last Admin: 03/22/17 09:46 Dose: 0.4 mg Timolol Maleate (Timoptic 0.5% Ophth Soln) 0 drop OU DAILY [facility] Last Admin: 03/22/17 09:47 Dose: 1 drop Vitamin B Complex/Vitamin C (Berocca) 1 tab PO DAILY [facility] Last Admin: 03/22/17 09:45 Dose: 1 tab Zolpidem Tartrate (Ambien) 5 mg PO HS PRN PRN Reason: Insomnia Last Admin: 03/19/17 22:25 Dose: 5 mg - Labs Labs: 03/22/17 06:08 03/22/17 06:08 PT 14.1 SECONDS (9.7-12.2) H 03/17/17 12:17 INR 1.3 03/17/17 12:17 APTT 36 SECONDS (21-34) H 03/17/17 12:17 - Constitutional Appears: No Acute Distress - Head Exam Head Exam: ATRAUMATIC, NORMAL INSPECTION - Eye Exam Eye Exam: EOMI, Normal appearance - Respiratory Exam Respiratory Exam: Clear to Ausculation Bilateral, NORMAL BREATHING PATTERN - Cardiovascular Exam Cardiovascular Exam: REGULAR RHYTHM, +S1, +S2, Murmur - GI/Abdominal Exam GI & Abdominal Exam: Soft, Normal Bowel Sounds. absent: Firm, Rigid - Extremities Exam Extremities Exam: Normal Inspection. absent: Calf Tenderness, Pedal Edema - Neurological Exam Neurological Exam: Alert, Awake, Oriented x3 - Psychiatric Exam Psychiatric exam: Anxious - Skin Skin Exam: Normal Color Assessment and Plan (1) CHF exacerbation Assessment & Plan: Complaint Inspector, Dr. Finch on board--> Help appreciated * Management as per recommendation * Recommendation for lifevest * Outpatient f/u fo AICD Imaging: Echo (03/17/17): * The LV is mildly dilated, LV systolic function is severely impaired, RV systolic function is severely reduced. Refer to report for a complete impression Chest X-ray: Cardiomegaly, mild pulmonary congestion Medication/Management: * ROMIs - negative x3 * blood culture - negative * sputum culture - negative * mycoplasma - negative Duonebs 3ml INH RQ6 [facility] Perles 100mg PO TID Flonase Robitussin 100mg PO Q4H prn Lasix 20mg IVP BID Status: Acute (2) Dilated cardiomyopathy Assessment & Plan: Complaint InspectorDr. Finch on board--> Help appreciated * Management as per recommendation * Recommendation for lifevest * Outpatient f/u fo AICD Imaging: Echo (03/17/17): * The LV is mildly dilated, LV systolic function is severely impaired, RV systolic function is severely reduced. Refer to report for a complete impression Chest X-ray: Cardiomegaly, mild pulmonary congestion Status: Acute (3) End stage renal disease Assessment & Plan: Paraprofessional AideDr. Coffey on board--> Help appreciated * management as per recommendation HD (M,W,F) Phoslo 667mg PO BID Nephrovite 1 tab po daily Status: Acute (4) Diabetes mellitus Assessment & Plan: HgbA1C 8.1 accuchecks Lanuts 15 units SC HS ISS medium dose Status: Acute (5) Hyperlipidemia Assessment & Plan: Crestor 10mg PO HS lipid panel * TG 48 * Chol 100 * LDL 32 * HDL 49 Status: Acute (6) Thrombocytopenia Assessment & Plan: Continue to monitor Status: Acute (7) BPH (benign prostatic hyperplasia) Assessment & Plan: Tamsulosin 0.4mg PO daily Status: Acute (8) History of cataract Assessment & Plan: Timoptic 0.5% ophth OU daily Brimonidine Tartrate OU QID Status: Acute (9) Prophylactic measure Assessment & Plan: GI: Pepcid 20mg PO daily DVT: Lovenox 40mg SC daily Status: Acute
--- NOTE | 2017-03-22 18:53 | CP.PCM.PN ---
Subjective - Date & Time of Evaluation Date of Evaluation: 03/22/17 Time of Evaluation: 09:40 - Subjective Subjective: clinically same Objective - Vital Signs/Intake and Output Vital Signs (last 24 hours): Temp Pulse Resp BP Pulse Ox 97.4 F L 39 L 18 118/60 97 03/22/17 15:33 03/22/17 15:41 03/22/17 15:33 03/22/17 17:56 03/22/17 15:33 Intake and Output: 03/22/17 03/22/17 06:59 18:59 Intake Total 120 350 Balance 120 350 - Medications Medications: Current Medications Acetaminophen (Tylenol 325mg Tab) 650 mg PO Q6 PRN PRN Reason: Fever >100.4 F Albuterol/Ipratropium (Duoneb 3 Mg/0.5 Mg (3 Ml) Ud) 3 ml INH RQ6 [facility] Last Admin: 03/22/17 13:22 Dose: 3 ml Benzonatate (Tessalon Perles) 100 mg PO TID [facility] Last Admin: 03/22/17 18:50 Dose: Not Given Brimonidine Tartrate (Alphagan 0.2% Opht) 0 ml OU QID [facility] Last Admin: 03/22/17 18:50 Dose: Not Given Calcium Acetate (Phoslo) 667 mg PO BID [facility] Last Admin: 03/22/17 17:56 Dose: 667 mg Carvedilol (Coreg) 6.25 mg PO BID [facility] Last Admin: 03/22/17 18:50 Dose: Not Given Famotidine (Pepcid) 20 mg PO DAILY [facility] Last Admin: 03/22/17 09:46 Dose: 20 mg Fluticasone Propionate (Flonase) 0 spr ANGELINA DAILY [facility] Last Admin: 03/22/17 09:47 Dose: 2 spr Furosemide (Lasix) 20 mg IVP BID [facility] Last Admin: 03/22/17 17:56 Dose: 20 mg Guaifenesin (Robitussin) 100 mg PO Q4H PRN PRN Reason: Cough Last Admin: 03/22/17 09:46 Dose: 100 mg Hydrocortisone (Cortizone 0.5% Cream) 1 applic TOP DAILY PRN PRN Reason: Itching / Pruritus Insulin Glargine (Lantus) 15 unit SC HS [facility] Last Admin: 03/21/17 21:48 Dose: 15 units Insulin Human Regular (Novolin R) 0 unit SC ACHS [facility] PRN Reason: Protocol Last Admin: 03/22/17 18:19 Dose: Not Given Losartan Potassium (Cozaar) 50 mg PO DAILY [facility] Last Admin: 03/22/17 09:46 Dose: 50 mg Rosuvastatin Calcium (Crestor) 10 mg PO HS [facility] Last Admin: 03/21/17 21:47 Dose: 10 mg Tamsulosin HCl (Flomax) 0.4 mg PO DAILY [facility] Last Admin: 03/22/17 09:46 Dose: 0.4 mg Timolol Maleate (Timoptic 0.5% Ophth Soln) 0 drop OU DAILY [facility] Last Admin: 03/22/17 09:47 Dose: 1 drop Vitamin B Complex/Vitamin C (Berocca) 1 tab PO DAILY [facility] Last Admin: 03/22/17 09:45 Dose: 1 tab Zolpidem Tartrate (Ambien) 5 mg PO HS PRN PRN Reason: Insomnia Last Admin: 03/19/17 22:25 Dose: 5 mg - Labs Labs: 03/22/17 06:08 03/22/17 06:08 PT 14.1 SECONDS (9.7-12.2) H 03/17/17 12:17 INR 1.3 03/17/17 12:17 APTT 36 SECONDS (21-34) H 03/17/17 12:17
--- NOTE | 2017-03-22 19:37 | CP.PCM.PN ---
Subjective - Date & Time of Evaluation Date of Evaluation: 03/22/17 Time of Evaluation: 19:30 - Subjective Subjective: discussed with nurse. EKG reviewed. sinus bradycardia otherwise patient is hemodynamically stable. will hold Coreg. Objective - Vital Signs/Intake and Output Vital Signs (last 24 hours): Temp Pulse Resp BP Pulse Ox 97.4 F L 39 L 18 118/60 97 03/22/17 15:33 03/22/17 15:41 03/22/17 15:33 03/22/17 17:56 03/22/17 15:33 Intake and Output: 03/22/17 03/23/17 18:59 06:59 Intake Total 350 Balance 350 - Medications Medications: Current Medications Acetaminophen (Tylenol 325mg Tab) 650 mg PO Q6 PRN PRN Reason: Fever >100.4 F Albuterol/Ipratropium (Duoneb 3 Mg/0.5 Mg (3 Ml) Ud) 3 ml INH RQ6 [facility] Last Admin: 03/22/17 13:22 Dose: 3 ml Benzonatate (Tessalon Perles) 100 mg PO TID [facility] Last Admin: 03/22/17 18:50 Dose: Not Given Brimonidine Tartrate (Alphagan 0.2% Opht) 0 ml OU QID [facility] Last Admin: 03/22/17 18:50 Dose: Not Given Calcium Acetate (Phoslo) 667 mg PO BID [facility] Last Admin: 03/22/17 17:56 Dose: 667 mg Carvedilol (Coreg) 6.25 mg PO BID [facility] Last Admin: 03/22/17 18:50 Dose: Not Given Famotidine (Pepcid) 20 mg PO DAILY [facility] Last Admin: 03/22/17 09:46 Dose: 20 mg Fluticasone Propionate (Flonase) 0 spr ANGELINA DAILY [facility] Last Admin: 03/22/17 09:47 Dose: 2 spr Furosemide (Lasix) 20 mg IVP BID [facility] Last Admin: 03/22/17 17:56 Dose: 20 mg Guaifenesin (Robitussin) 100 mg PO Q4H PRN PRN Reason: Cough Last Admin: 03/22/17 09:46 Dose: 100 mg Hydrocortisone (Cortizone 0.5% Cream) 1 applic TOP DAILY PRN PRN Reason: Itching / Pruritus Insulin Glargine (Lantus) 15 unit SC HS [facility] Last Admin: 03/21/17 21:48 Dose: 15 units Insulin Human Regular (Novolin R) 0 unit SC ACHS [facility] PRN Reason: Protocol Last Admin: 03/22/17 18:19 Dose: Not Given Losartan Potassium (Cozaar) 50 mg PO DAILY [facility] Last Admin: 03/22/17 09:46 Dose: 50 mg Rosuvastatin Calcium (Crestor) 10 mg PO HS [facility] Last Admin: 03/21/17 21:47 Dose: 10 mg Tamsulosin HCl (Flomax) 0.4 mg PO DAILY [facility] Last Admin: 03/22/17 09:46 Dose: 0.4 mg Timolol Maleate (Timoptic 0.5% Oph Soln) 0 drop OU DAILY [facility] Last Admin: 03/22/17 09:47 Dose: 1 drop Vitamin B Complex/Vitamin C (Berocca) 1 tab PO DAILY [facility] Last Admin: 03/22/17 09:45 Dose: 1 tab Zolpidem Tartrate (Ambien) 5 mg PO HS PRN PRN Reason: Insomnia Last Admin: 03/19/17 22:25 Dose: 5 mg - Labs Labs: 03/22/17 06:08 03/22/17 06:08 PT 14.1 SECONDS (9.7-12.2) H 03/17/17 12:17 INR 1.3 03/17/17 12:17 APTT 36 SECONDS (21-34) H 03/17/17 12:17 Assessment and Plan (1) Dilated cardiomyopathy Status: Acute (2) Hypertension Status: Acute
--- NOTE | 2017-03-22 20:08 | CP.PCM.PN ---
Subjective - Date & Time of Evaluation Date of Evaluation: 03/22/17 Time of Evaluation: 15:00 - Subjective Subjective: SEEN ON RENAL F/U C/O PLEURITIC C/P .. EKG IS BEING DONE GOING FOR HD SOON ALL PREVIOUS EMR REVIEWED RN CALLED ME LATER ON THAT EKG SHOWED BRADYCARDIA .. I LOWERED COREG BY 50% PT ON HD M W F Objective - Vital Signs/Intake and Output Vital Signs (last 24 hours): Temp Pulse Resp BP Pulse Ox 97.4 F L 39 L 18 118/60 97 03/22/17 15:33 03/22/17 15:41 03/22/17 15:33 03/22/17 17:56 03/22/17 15:33 Intake and Output: 03/22/17 03/23/17 18:59 06:59 Intake Total 350 Balance 350 - Medications Medications: Current Medications Acetaminophen (Tylenol 325mg Tab) 650 mg PO Q6 PRN PRN Reason: Fever >100.4 F Albuterol/Ipratropium (Duoneb 3 Mg/0.5 Mg (3 Ml) Ud) 3 ml INH RQ6 [facility] Last Admin: 03/22/17 19:53 Dose: Not Given Benzonatate (Tessalon Perles) 100 mg PO TID [facility] Last Admin: 03/22/17 18:50 Dose: Not Given Brimonidine Tartrate (Alphagan 0.2% Opht) 0 ml OU QID [facility] Last Admin: 03/22/17 18:50 Dose: Not Given Calcium Acetate (Phoslo) 667 mg PO BID [facility] Last Admin: 03/22/17 17:56 Dose: 667 mg Carvedilol (Coreg) 6.25 mg PO BID [facility] Last Admin: 03/22/17 18:50 Dose: Not Given Famotidine (Pepcid) 20 mg PO DAILY [facility] Last Admin: 03/22/17 09:46 Dose: 20 mg Fluticasone Propionate (Flonase) 0 spr ANGELINA DAILY [facility] Last Admin: 03/22/17 09:47 Dose: 2 spr Furosemide (Lasix) 20 mg IVP BID [facility] Last Admin: 03/22/17 17:56 Dose: 20 mg Guaifenesin (Robitussin) 100 mg PO Q4H PRN PRN Reason: Cough Last Admin: 03/22/17 09:46 Dose: 100 mg Hydrocortisone (Cortizone 0.5% Cream) 1 applic TOP DAILY PRN PRN Reason: Itching / Pruritus Insulin Glargine (Lantus) 15 unit SC HS [facility] Last Admin: 03/21/17 21:48 Dose: 15 units Insulin Human Regular (Novolin R) 0 unit SC ACHS [facility] PRN Reason: Protocol Last Admin: 03/22/17 18:19 Dose: Not Given Losartan Potassium (Cozaar) 50 mg PO DAILY [facility] Last Admin: 03/22/17 09:46 Dose: 50 mg Rosuvastatin Calcium (Crestor) 10 mg PO HS [facility] Last Admin: 03/21/17 21:47 Dose: 10 mg Tamsulosin HCl (Flomax) 0.4 mg PO DAILY [facility] Last Admin: 03/22/17 09:46 Dose: 0.4 mg Timolol Maleate (Timoptic 0.5% Oph Soln) 0 drop OU DAILY [facility] Last Admin: 03/22/17 09:47 Dose: 1 drop Vitamin B Complex/Vitamin C (Berocca) 1 tab PO DAILY [facility] Last Admin: 03/22/17 09:45 Dose: 1 tab Zolpidem Tartrate (Ambien) 5 mg PO HS PRN PRN Reason: Insomnia Last Admin: 03/19/17 22:25 Dose: 5 mg - Labs Labs: 03/22/17 06:08 03/22/17 06:08 PT 14.1 SECONDS (9.7-12.2) H 03/17/17 12:17 INR 1.3 03/17/17 12:17 APTT 36 SECONDS (21-34) H 03/17/17 12:17
[2017-03-22] MEDS: (Lantus) Insulin Glargine, Recombinant SC SCH (22:42)
[2017-03-23] MEDS: Albuterol-Ipratrop 3 mg / 0.5 (3 ml) UD INH SCH ×4 (01:08→19:03)
[2017-03-23] MEDS: guaiFENesin 100 mg/5 ml Syrup UD PO PRN ×2 (01:11→11:10)
[2017-03-23] MEDS: (Novolin R) Insulin Human Regular 100 units/ml vial SC SCH ×2 (08:18→12:47)
[2017-03-23 08:29] LABS: BASO % 0.6 % (0.0-2.0); EOS # 0.1 K/uL (0.0-0.7); EOS % 2.3 % (0.0-4.0); HEMATOCRIT 36.5 % (35.0-51.0); LYMPH # 1.1 K/uL (1.0-4.3); LYMPH % 21.4 % (20.0-40.0); MEAN CELL VOLUME 90.1 fL (80.0-94.0); MEAN CORPUSCULAR HEMOGLOBIN 29.4 pg (27.0-31.0); MEAN CORPUSCULAR HGB CONC 32.6 g/dL (33.0-37.0); MEAN PLATELET VOLUME 10.4 fL (7.2-11.7); MONO # 0.4 K/uL (0.0-0.8); MONO % 7.9 % (0.0-10.0); NRBC % 0.1 % (0.0-2.0); RED CELL DISTRIBUTION WIDTH 20.3 % (11.5-14.5)
--- NOTE | 2017-03-23 09:17 | CP.PCM.PN ---
Subjective - Date & Time of Evaluation Date of Evaluation: 03/23/17 Time of Evaluation: 09:10 - Subjective Subjective: no new complaints Objective - Vital Signs/Intake and Output Vital Signs (last 24 hours): Temp Pulse Resp BP Pulse Ox 98.3 F 78 20 199/90 H 99 03/22/17 23:45 03/23/17 08:16 03/22/17 23:45 03/23/17 00:38 03/22/17 23:45 Intake and Output: 03/23/17 03/23/17 06:59 18:59 Intake Total 500 Balance 500 - Medications Medications: Current Medications Acetaminophen (Tylenol 325mg Tab) 650 mg PO Q6 PRN PRN Reason: Fever >100.4 F Albuterol/Ipratropium (Duoneb 3 Mg/0.5 Mg (3 Ml) Ud) 3 ml INH RQ6 [facility] Last Admin: 03/23/17 07:19 Dose: 3 ml Benzonatate (Tessalon Perles) 100 mg PO TID [facility] Last Admin: 03/22/17 18:50 Dose: Not Given Brimonidine Tartrate (Alphagan 0.2% Opht) 0 ml OU QID [facility] Last Admin: 03/22/17 22:47 Dose: 1 drop Calcium Acetate (Phoslo) 667 mg PO BID [facility] Last Admin: 03/22/17 17:56 Dose: 667 mg Carvedilol (Coreg) 6.25 mg PO BID [facility] Last Admin: 03/22/17 18:50 Dose: Not Given Famotidine (Pepcid) 20 mg PO DAILY [facility] Last Admin: 03/22/17 09:46 Dose: 20 mg Fluticasone Propionate (Flonase) 0 spr ANGELINA DAILY [facility] Last Admin: 03/22/17 09:47 Dose: 2 spr Furosemide (Lasix) 20 mg IVP BID [facility] Last Admin: 03/22/17 17:56 Dose: 20 mg Guaifenesin (Robitussin) 100 mg PO Q4H PRN PRN Reason: Cough Last Admin: 03/23/17 01:11 Dose: 100 mg Hydrocortisone (Cortizone 0.5% Cream) 1 applic TOP DAILY PRN PRN Reason: Itching / Pruritus Last Admin: 03/22/17 22:42 Dose: 1 appl Insulin Glargine (Lantus) 15 unit SC [facility] Last Admin: 03/22/17 22:42 Dose: 15 units Insulin Human Regular (Novolin R) 0 unit SC [facility] PRN Reason: Protocol Last Admin: 03/23/17 08:18 Dose: Not Given Losartan Potassium (Cozaar) 50 mg PO DAILY [facility] Last Admin: 03/22/17 09:46 Dose: 50 mg Rosuvastatin Calcium (Crestor) 10 mg PO HS [facility] Last Admin: 03/22/17 22:42 Dose: 10 mg Tamsulosin HCl (Flomax) 0.4 mg PO DAILY [facility] Last Admin: 03/22/17 09:46 Dose: 0.4 mg Timolol Maleate (Timoptic 0.5% Oph Soln) 0 drop OU DAILY [facility] Last Admin: 03/22/17 09:47 Dose: 1 drop Vitamin B Complex/Vitamin C (Berocca) 1 tab PO DAILY [facility] Last Admin: 03/22/17 09:45 Dose: 1 tab Zolpidem Tartrate (Ambien) 5 mg PO HS PRN PRN Reason: Insomnia Last Admin: 03/22/17 22:42 Dose: 5 mg - Labs Labs: 03/23/17 08:13 03/22/17 06:08 PT 14.1 SECONDS (9.7-12.2) H 03/17/17 12:17 INR 1.3 03/17/17 12:17 APTT 36 SECONDS (21-34) H 03/17/17 12:17 - Constitutional Appears: Non-toxic - Head Exam Head Exam: NORMAL INSPECTION - Eye Exam Eye Exam: Normal appearance - ENT Exam ENT Exam: Mucous Membranes Moist - Neck Exam Neck Exam: Normal Inspection - Respiratory Exam Respiratory Exam: NORMAL BREATHING PATTERN - Cardiovascular Exam Cardiovascular Exam: REGULAR RHYTHM - GI/Abdominal Exam GI & Abdominal Exam: Normal Bowel Sounds - Rectal Exam Rectal Exam: Deferred - Extremities Exam Extremities Exam: Full ROM - Back Exam Back Exam: NORMAL INSPECTION - Neurological Exam Neurological Exam: Alert - Psychiatric Exam Psychiatric exam: Normal Affect - Skin Skin Exam: Normal Color Assessment and Plan (1) Dilated cardiomyopathy Assessment & Plan: Lifevest has been placed. will treat medically. outpatient follow up Status: Acute (2) Hypertension Assessment & Plan: Coreg decreased. increase ARB. Status: Acute
[2017-03-23 09:41] LABS: ALB/GLOB RATIO 0.9 (1.0-2.1); BILIRUBIN,TOTAL 0.5 mg/dL (0.2-1.3); CALCIUM 7.9 mg/dl (8.6-10.4); MAGNESIUM 2.3 mg/dL (1.6-2.3); PHOSPHOROUS 5.4 mg/dL (2.5-4.5); TOTAL PROTEIN 7.6 g/dL (6.3-8.3)
[2017-03-23] MEDS: Vitamin B Complex/Vitamin C Tab PO SCH (11:09)
[2017-03-23] MEDS: Fluticasone Nasal 50 mcg/Spray NAS SCH (11:10)
[2017-03-23] MEDS: Brimonidine 0.2% Opth Sol (5ml) OU SCH ×2 (11:10→13:21)
--- NOTE | 2017-03-23 18:22 | CP.PCM.DIS ---
Provider - Provider Date of Admission: 03/17/17 15:31 Attending physician: Donald Stevens Jr, MD Time Spent in preparation of Discharge (in minutes): 45 Diagnosis - Discharge Diagnosis (1) CHF exacerbation Status: Acute (2) Dilated cardiomyopathy Status: Acute (3) End stage renal disease Status: Acute (4) Diabetes mellitus Status: Acute (5) Hyperlipidemia Status: Acute (6) Thrombocytopenia Status: Acute (7) BPH (benign prostatic hyperplasia) Status: Acute (8) History of cataract Status: Acute (9) Prophylactic measure Status: Acute Hospital Course - Lab Results Lab Results: Micro Results 03/17/17 17:40 Blood-Venous Blood Culture - Final NO GROWTH AFTER 5 DAYS 03/17/17 17:40 Blood-Venous Gram Stain - Final TEST NOT PERFORMED 03/17/17 17:10 Blood-Venous Blood Culture - Final NO GROWTH AFTER 5 DAYS 03/17/17 17:10 Blood-Venous Gram Stain - Final TEST NOT PERFORMED 03/20/17 Unknown Sputum Gram Stain - Final 03/20/17 Unknown Sputum Sputum Culture - Final Most Recent Lab Values WBC 5.0 K/uL (4.8-10.8) 03/23/17 08:13 RBC 4.05 Mil/uL (4.40-5.90) L 03/23/17 08:13 Hgb 11.9 g/dL (12.0-18.0) L 03/23/17 08:13 Hct 36.5 % (35.0-51.0) 03/23/17 08:13 MCV 90.1 fL (80.0-94.0) 03/23/17 08:13 MCH 29.4 pg (27.0-31.0) 03/23/17 08:13 MCHC 32.6 g/dL (33.0-37.0) L 03/23/17 08:13 RDW 20.3 % (11.5-14.5) H 03/23/17 08:13 Plt Count 81 K/uL (130-400) L 03/23/17 08:13 MPV 10.4 fL (7.2-11.7) 03/23/17 08:13 Neut % (Auto) 67.8 % (50.0-75.0) 03/23/17 08:13 Lymph % (Auto) 21.4 % (20.0-40.0) 03/23/17 08:13 [place] % (Auto) 7.9 % (0.0-10.0) 03/23/17 08:13 Eos % (Auto) 2.3 % (0.0-4.0) 03/23/17 08:13 Baso % (Auto) 0.6 % (0.0-2.0) 03/23/17 08:13 Neut # 3.4 K/uL (1.8-7.0) 03/23/17 08:13 Lymph # 1.1 K/uL (1.0-4.3) 03/23/17 08:13 [place] # 0.4 K/uL (0.0-0.8) 03/23/17 08:13 Eos # 0.1 K/uL (0.0-0.7) 03/23/17 08:13 Baso # 0.0 K/uL (0.0-0.2) 03/23/17 08:13 Differential Comment 03/23/17 08:13 PT 14.1 SECONDS (9.7-12.2) H 03/17/17 12:17 INR 1.3 03/17/17 12:17 APTT 36 SECONDS (21-34) H 03/17/17 12:17 Sodium 136 mmol/L (132-148) 03/23/17 08:13 Potassium 4.0 mmol/L (3.6-5.2) 03/23/17 08:13 Chloride 97 mmol/L (98-107) L 03/23/17 08:13 Carbon Dioxide 25 mmol/L (22-30) 03/23/17 08:13 Anion Gap 18 (10-20) 03/23/17 08:13 BUN 74 mg/dL (9-20) H 03/23/17 08:13 Creatinine 7.6 mg/dL (0.8-1.5) H* D 03/23/17 08:13 Est GFR ( Amer) 9 03/23/17 08:13 Est GFR (Non-Af Amer) 7 03/23/17 08:13 POC Glucose (mg/dL) 80 mg/dL (65-110) 03/23/17 12:19 Random Glucose 59 mg/dL (75-110) L 03/23/17 08:13 Hemoglobin A1c 8.1 % (4.2-6.5) H D 03/17/17 13:28 Calcium 7.9 mg/dl (8.6-10.4) L 03/23/17 08:13 Phosphorus 5.4 mg/dL (2.5-4.5) H 03/23/17 08:13 Magnesium 2.3 mg/dL (1.6-2.3) 03/23/17 08:13 Total Bilirubin 0.5 mg/dL (0.2-1.3) 03/23/17 08:13 AST 15 U/L (17-59) L D 03/23/17 08:13 ALT 28 U/L (21-72) 03/23/17 08:13 Alkaline Phosphatase 123 U/L (38-126) 03/23/17 08:13 Total Creatine Kinase 128 U/L (55-170) 03/18/17 07:18 CK-MB (Mass) 6.85 ng/mL (0.0-3.38) H 03/18/17 07:18 Troponin I, Quant 0.0270 ng/mL (0.00-0.120) 03/18/17 07:18 NT-Pro-B Natriuret Pep 41339 pg/mL (0-900) H 03/17/17 12:17 Total Protein 7.6 g/dL (6.3-8.3) 03/23/17 08:13 Albumin 3.6 g/dL (3.5-5.0) 03/23/17 08:13 Globulin 4.0 gm/dL (2.2-3.9) H 03/23/17 08:13 Albumin/Globulin Ratio 0.9 (1.0-2.1) L 03/23/17 08:13 Triglycerides 48 mg/dL (0-149) D 03/18/17 07:18 Cholesterol 100 mg/dL (0-199) 03/18/17 07:18 LDL Cholesterol Direct 32 mg/dL (0-129) 03/18/17 07:18 HDL Cholesterol 49 mg/dL (30-70) 03/18/17 07:18 TSH 3rd Generation 1.23 mIU/L (0.46-4.68) 03/18/17 07:18 Influenza Typ A,B (EIA) Negative for flu a/b (NEGATIVE) 03/17/17 11:49 Ur L.pneumophila Ag Negative (NEGATIVE) 03/17/17 12:25 Mycoplasma pneumon IgM Negative (NEGATIVE) 03/17/17 19:53 - Hospital Course Hospital Course: HPI ( as per admission): Patient is a 61 year old male with PMHx of hyperlipidemia, HTN, cataracts, BPH, DM, anemia, depression and ESRD on HD MWF through right AVF presenting for 1 weeks of cough productive of white phlegm. Patient says he cannot sleep because the cough keeps him up all night. He says this has caused him to feel dizzy. He reports sleeping with 2 pillows and having paroxysmal nocturnal dyspnea. Patient also reports chest pressure intermittently coming on like a shock. Patient also reports choking on phlegm and having a lot of nasal congestion. Patient has not taken any cough or cold medicine at home. Patient denies fever, chills, abdominal pain, nausea, vomiting, diarrhea, constipation, dysuria. Hospital course: Patient was admitted on the consideration of acute congestive heart failure. Zone Manager, Dr. cervantes was consulted and deemed the patient to have severe LV dysfunction and dilated cardiomyopathy, therefore recommended diuresis. Patient's acute condition and chronic conditions were medically managed during the course of admission. In addition, nephrology consult was placed to Dr. barclay , who managed the patient's chronic kidney disease with HD as patient is a dialysis patient. Patient's cough symptoms started to improve and patient had an uneventful hospital course. As per recommendation by leathersmith, Dr. Cervantes, patient was discharged with a life vest and educated by a life vest's call center support representative. Patient was also instructed to follow-up outpatient with Dr. cervantes or Dr. Mayes for future AICD placement. Pertinent imaging: Chest X-ray: Cardiomegaly. Mild pulmonary venous congestion. Biapical pleural thickening. Cardiomegaly. Echocardiogram: The left ventricle is mildly dilated. There is mild concentric left ventricular hypertrophy. The LV systolic dysfunction is severely impaired. RV systolic function is severely reduced. There is a prosthetic mitral ring. This is a summary of events. For a complete course, please refer to medical record. Discharge Exam - Head Exam Head Exam: NORMAL INSPECTION - Eye Exam Eye Exam: EOMI, Normal appearance - ENT Exam ENT Exam: Mucous Membranes Moist - Respiratory Exam Respiratory Exam: Clear to PA & Lateral, NORMAL BREATHING PATTERN - Cardiovascular Exam Cardiovascular Exam: Diastolic murmur, REGULAR RHYTHM, +S1, +S2 - GI/Abdominal Exam GI & Abdominal Exam: Normal Bowel Sounds, Soft. absent: Tenderness - Extremities Exam Extremities exam: normal inspection - Neurological Exam Neurological exam: Alert, Oriented x3 - Skin Skin Exam: Normal Color Discharge Plan - Discharge Medications Prescriptions: Atorvastatin [Lipitor] 80 mg PO HS #30 tab Calcium Acetate [Phoslo] 667 mg PO BID 30 Days #60 tab Tamsulosin [Flomax] 0.4 mg PO DAILY 30 Days #30 cap Timolol 0.5% Ophth [Timoptic 0.5% Ophth Soln] 1 drop OU DAILY 60 Days #2 bottle - Follow Up Plan Condition: FAIR Disposition: HOME/ ROUTINE Additional Instructions: Please discharge patient home as per Dr. Stevens Please continue all your home medication as prescribed Please wear your life vest as instructed Please follow up with leathersmith, Dr. Cervantes, outpatient for possible AICD placement Please follow up with your PMD in 1-2 weeks Please continue HD as scheduled and follow up with your enchilada maker Please return to the ER if symptoms worsens such as worsened shortness of breath , chest pain, palpitations, dizziness, fever, chills and cough Referrals: Sheila Barclay MD [Staff Provider] - Donald Stevens Jr., MD [Medical Doctor] - Isiah Cervantes MD [Staff Provider] -
--- NOTE | 2017-03-23 19:10 | CARD ---
APPROVED REPORT EKG Measurement Heart [id number] <Conclusion> Non-sinus bradycardia Possible Left atrial enlargement Left ventricular hypertrophy Nonspecific T wave abnormality Abnormal ECG
[2017-03-23 19:22] VITALS: RESP 16; TEMP 97.2; O2SAT 97
[2017-03-23 19:26] VITALS: BP 162/85; PULSE 71
--- NOTE | 2017-03-24 12:42 | PCM.HF ---
Heart Failure Core Measure - Heart Failure Ejection Fraction: Less Than 40 % ERNESTINA Inhibitor Prescribed: No Contraindication/Reason for not providing: RENAL FUNCTION Beta-Will Prescribed: None Contraindication/Reason for not providing: LIFE VEST Angiotensin II Receptor Will Prescribed: No Contraindication/Reason for not providing: RENAL FUNCTION AnticoagulationTherapy for Atrial Fibrillation/Atrialflutter: No Contraindication/Reason for not providing: NO HX OF AFIB Aldosterone Antagonist Prescribed: No Contraindication/Reason for not providing: PATIENT HAD A LIFE VEST AND NEED TO FOLLOW WITH CARDIO OUT PATIENT Hydralazine Nitrate Prescribed: No Contraindication/Reason for not providing: PATIENT HAD A LIFE VEST AND NEED TO FOLLOW WITH CARDIO OUT PATIENT Implantable Cardioverter Defibrillator Therapy: No Contraindication/Reason for not providing: OUTPATIENT AICD PLACEMENT PER CARDIO Cardiac Resynchronization Therapy Prescribed: No Contraindication/Reason for not providing: OUTPATIENT AICD PLACEMENT PER CARDIO - Follow up Will be discharged to: Home Follow Up Date (must be within 7 days from discharge): 03/29/17 Follow Up Time: 09:00
== END 2017-03-23 22:21 | disposition home or self-care (01) | DRG 544 ==
LOC: C.ER 11:03 → C.9E 14:21 → C.3T 14:39 → OBSVTOIN 15:31 → C.6T 22:30
PROVIDERS: ADMIT Internal Medicine; ATTEND Internal Medicine
DX: I13.2 Hypertensive heart and chronic kidney disease with heart failure and with stage 5 chronic kidney disease, or end stage renal disease (principal); I50.23 Acute on chronic systolic (congestive) heart failure; N18.6 End stage renal disease; I42.0 Dilated cardiomyopathy; D69.6 Thrombocytopenia, unspecified; E11.22 Type 2 diabetes mellitus with diabetic chronic kidney disease; N40.0 Benign prostatic hyperplasia without lower urinary tract symptoms; Z99.2 Dependence on renal dialysis; H26.9 Unspecified cataract; F32.9 Major depressive disorder, single episode, unspecified; R05 Cough; Z87.891 Personal history of nicotine dependence; E78.00 Pure hypercholesterolemia, unspecified; D63.1 Anemia in chronic kidney disease; Z79.4 Long term (current) use of insulin

== ENCOUNTER 2017-03-27 23:46 | Inpatient (IN) | payer MEDICAID ==
--- NOTE | 2017-03-28 00:21 | C.PDOC ---
History Of Present Illness 61 year old male with a Hx of CHF with lifevest, ESRD on hemodialysis, last dialysis on Wednesday, presents to the ER with a complaint of generalized body aches, weakness, and SOB. Patient was recently discharged on Wednesday for CHF exacerbation and notes he missed his hemodialysis due to diarrhea. Denies fever or other complaints. Time Seen by Provider: 03/27/17 23:57 Chief Complaint (Nursing): Weakness/Neurological Deficit Past Medical History Vital Signs: Last Vital Signs Temp 98.0 F 03/27/17 23:57 Pulse 45 L 03/27/17 23:57 Resp 22 03/27/17 23:57 BP 150/53 L 03/27/17 23:57 Pulse Ox 96 03/28/17 00:21 - Medical History PMH: Anemia, Benign Prostatic Hyperplasia, Depression, Diabetes, HTN, Hypercholesterolemia, Pancreatitis, Chronic Kidney Disease Denies: Asthma, Atrial Fibrillation, Bronchitis, Cardia Arrhythmia, CHF, COPD , Emphysema, Mitral Valve Prolapse, Peripheral Edema, Pneumonia, Pulmonary Embolism Surgical History: Appendectomy Denies: Pacemaker - [facility] Procedures CATARAC PHACOEMULS/ASPIR (10/03/13) INSERT LENS AT CATAR EXT (10/03/13) VACCINATION NEC (07/10/14) Family History: States: Unknown Family Hx - Social History Hx Tobacco Use: No Hx Alcohol Use: No Hx Substance Use: No - Immunization History Hx Tetanus Toxoid Vaccination: No Hx Influenza Vaccination: Yes (2016) Hx Pneumococcal Vaccination: Yes (2016) ED Course And Treatment O2 Sat by Pulse Oximetry: 96 Disposition - Disposition Forms: [employer] ([place])
--- NOTE | 2017-03-28 00:25 | C.PDOC ---
History Of Present Illness 61 year old male with a Hx of CHF with lifevest, ESRD on hemodialysis, last dialysis on Wednesday, presents to the ER with a complaint of generalized body aches, weakness, and SOB. Patient was recently discharged on Wednesday for CHF exacerbation and notes he missed his hemodialysis due to diarrhea. Denies fever or other complaints. Time Seen by Provider: 03/27/17 23:57 Chief Complaint (Nursing): Weakness/Neurological Deficit History Per: Patient History/Exam Limitations: no limitations Onset/Duration Of Symptoms: Hrs Current Symptoms Are (Timing): Still Present Recent travel outside of the [place]: No Past Medical History Reviewed: Historical Data, Nursing Documentation, Vital Signs Vital Signs: Last Vital Signs Temp 97.4 F L 03/29/17 09:25 Pulse 80 03/29/17 09:25 Resp 20 03/29/17 09:25 BP 155/87 H 03/29/17 09:25 Pulse Ox 100 03/29/17 09:25 - Medical History PMH: Anemia, Benign Prostatic Hyperplasia, Depression, Diabetes, HTN, Hypercholesterolemia, Pancreatitis, Chronic Kidney Disease Surgical History: Appendectomy - [facility] Procedures CATARAC PHACOEMULS/ASPIR (10/03/13) INSERT LENS AT CATAR EXT (10/03/13) VACCINATION NEC (07/10/14) Family History: States: Unknown Family Hx - Social History Hx Tobacco Use: No Hx Alcohol Use: No Hx Substance Use: No - Immunization History Hx Tetanus Toxoid Vaccination: No Hx Influenza Vaccination: Yes (2017) Hx Pneumococcal Vaccination: Yes (2017) Review Of Systems Constitutional: Positive for: Weakness. Negative for: Fever, Chills Cardiovascular: Negative for: Chest Pain, Palpitations Respiratory: Positive for: Shortness of Breath Gastrointestinal: Negative for: Nausea, Vomiting Musculoskeletal: Positive for: Other (Body aches) Physical Exam - Physical Exam Appears: Non-toxic, No Acute Distress Skin: Normal Color, Warm, Dry Head: Atraumatic, Normacephalic Eye(s): bilateral: Normal Inspection Oral Mucosa: Moist Neck: Normal, Supple Chest: Symmetrical, No Tenderness Cardiovascular: Rhythm Regular Respiratory: Other (Crackles at bases) Gastrointestinal/Abdominal: Soft, No Tenderness Neurological/Psych: Oriented x3, Normal Speech, Other (No focal deficits) ED Course And Treatment - Laboratory Results Result Diagrams: 03/29/17 06:06 03/29/17 06:06 O2 Sat by Pulse Oximetry: 96 (Room air) Pulse Ox Interpretation: Normal Medical Decision Making Medical Decision Making: Blood work, EKG, and CXR ordered. plts baseline 0227: call made out to Dr. Stevens, accepts to [facility]. dr dasilva arranges for hd , covering dr barclay. accepted icu. suspect uremia. will get emergnt hd Disposition - Disposition Disposition: HOSPITALIZED Disposition Time: 03:00 Condition: CRITICAL - Clinical Impression Clinical Impression: Hyperkalemia, Chronic kidney disease (CKD), CHF (congestive heart failure), NYHA class II, ESRD (end stage renal disease) - Scribe Statement The provider has reviewed the documentation as recorded by the Scribe Tahir Rios All medical record entries made by the Scribe were at my direction and personally dictated by me. I have reviewed the chart and agree that the record accurately reflects my personal performance of the history, physical exam, medical decision making, and the department course for this patient. I have also personally directed, reviewed, and agree with the discharge instructions and disposition.
[2017-03-28 00:30] LABS: BASO % 0.8 % (0.0-2.0); EOS # 0.1 K/uL (0.0-0.7); EOS % 2.1 % (0.0-4.0); HEMATOCRIT 38.9 % (35.0-51.0); LYMPH # 1.2 K/uL (1.0-4.3); LYMPH % 22.5 % (20.0-40.0); MEAN CORPUSCULAR HEMOGLOBIN 29.1 pg (27.0-31.0); MEAN CORPUSCULAR HGB CONC 31.5 g/dL (33.0-37.0); MEAN PLATELET VOLUME 10.5 fL (7.2-11.7); MONO # 0.4 K/uL (0.0-0.8); MONO % 7.9 % (0.0-10.0); RED CELL DISTRIBUTION WIDTH 20.1 % (11.5-14.5); WHITE BLOOD COUNT 5.2 K/uL (4.8-10.8)
[2017-03-28 00:31] LABS: MEAN CELL VOLUME 92.2 fL (80.0-94.0)
[2017-03-28 00:34] LABS: INR 1.2
[2017-03-28 00:39] LABS: VENOUS BLOOD GAS BASE EXCESS -4.8 mmol/L (0.0-2.0); VENOUS BLOOD GAS PCO2 44 mmHg (40-60)
[2017-03-28 01:18] LABS: BILIRUBIN,TOTAL 0.6 mg/dL (0.2-1.3); CALCIUM 8.3 mg/dl (8.6-10.4); POTASSIUM 8.3 mmol/L (3.6-5.2); TOTAL PROTEIN 7.9 g/dL (6.3-8.3); TROPONIN I 0.018 ng/mL (0.00-0.120)
[2017-03-28] MEDS ORDERED: (Novolin R) Insulin Human Regular 100 units/ml vial IV STA (01:21)
[2017-03-28] MEDS ORDERED: Dextrose 50% SYRINGE Inj (50 ml) IV STA (01:21)
[2017-03-28] MEDS ORDERED: Calcium Gluconate 4.65 mEq/10 ml Inj IVP ONE (01:21)
[2017-03-28] MEDS ORDERED: Sodium Bicarbonate (8.4%) 50 Meq Syringe IVP STA (01:22)
[2017-03-28] MEDS ORDERED: Calcium Gluconate 4.65 mEq/10 ml Inj ONE (01:33)
[2017-03-28] MEDS ORDERED: Dextrose 50% SYRINGE Inj (50 ml) ONE (01:34)
[2017-03-28] MEDS ORDERED: (Novolin R) Insulin Human Regular 100 units/ml vial ONE (01:34)
[2017-03-28] MEDS ORDERED: Sodium Bicarbonate (8.4%) 50 Meq Syringe ONE (01:34)
--- NOTE | 2017-03-28 04:06 | CP.PCM.CON ---
History of Present Illness - History of Present Illness History of Present Illness: 61 year old male with PMHx of hyperlipidemia, HTN, cataracts, BPH, DM, anemia, depression and ESRD on HD MWF through right AVF presents to [facility] with difficulty breathing. Patient was noted to have high potassium with signs fo hyperpotassemia. Patient seen at bedside. Patient under the influenze of unknown medication. Patient denies any chest pain, denies any abdominal pain, denies any dizziness. Patient has a vest attached to his body. History unreliable 2nd patient being under the influence of ?drug/medication/THC ? Review of Systems - Review of Systems Systems not reviewed;Unavailable: Altered Mental Status - Respiratory Respiratory: Dyspnea - Psychiatric Psychiatric: Behavioral Changes Past Patient History - Past Medical History & Family History Past Medical History?: Yes - Past Social History Smoking Status: Former Smoker - CARDIAC Hx Hypercholesterolemia: Yes Hx Hypertension: Yes - PULMONARY Hx Asthma: No Hx Bronchitis: No Hx Chronic Obstructive Pulmonary Disease (COPD): No Hx Emphysema: No Hx Pneumonia: No Hx Pulmonary Embolism: No - NEUROLOGICAL Hx Neurological Disorder: No - HEENT Hx HEENT Problems: Yes Hx Cataracts: Yes - RENAL Hx Chronic Kidney Disease: Yes - ENDOCRINE/METABOLIC Hx Diabetes Mellitus Type 2: Yes - HEMATOLOGICAL/ONCOLOGICAL Hx Anemia: Yes - INTEGUMENTARY Hx Dermatological Problems: No - MUSCULOSKELETAL/RHEUMATOLOGICAL Hx Musculoskeletal Disorders: No Hx Falls: No - GASTROINTESTINAL Hx Pancreatitis: Yes - GENITOURINARY/GYNECOLOGICAL Hx Genitourinary Disorders: No - PSYCHIATRIC Hx Depression: Yes Hx Substance Use: No - SURGICAL HISTORY Hx Appendectomy: Yes - ANESTHESIA Hx Anesthesia: Yes Hx Anesthesia Reactions: No Meds Allergies/Adverse Reactions: Allergies Allergy/AdvReac Type Severity Reaction Status Date / Time No Known Allergies Allergy Verified 03/28/17 00:04 Physical Exam - Constitutional Appears: No Acute Distress - Head Exam Head Exam: ATRAUMATIC, NORMAL INSPECTION - ENT Exam Additional comments: NO JVD - Respiratory Exam Respiratory Exam: Clear to Auscultation Bilateral, NORMAL BREATHING PATTERN - Cardiovascular Exam Cardiovascular Exam: +S1, +S2, +S4, Systolic Murmur - GI/Abdominal Exam GI & Abdominal Exam: Normal Bowel Sounds - Extremities Exam Extremities exam: Negative for: pedal edema - Skin Skin Exam: Dry Results - Vital Signs Recent Vital Signs: Last Vital Signs Temp 98.2 F 03/28/17 03:31 Pulse 75 03/28/17 03:31 Resp 16 03/28/17 03:31 BP 151/75 H 03/28/17 03:31 Pulse Ox 96 03/28/17 03:31 - Labs Result Diagrams: 03/28/17 00:13 03/28/17 00:37 Labs: Laboratory Results - last 24 hr 03/28/17 03/28/17 03/28/17 00:02 00:13 00:13 WBC 5.2 RBC 4.22 L Hgb 12.3 Hct 38.9 MCV 92.2 D MCH 29.1 MCHC 31.5 L RDW 20.1 H Plt Count 89 L MPV 10.5 Neut % (Auto) 66.7 Lymph % (Auto) 22.5 [place] % (Auto) 7.9 Eos % (Auto) 2.1 Baso % (Auto) 0.8 Neut # 3.5 Lymph # 1.2 [place] # 0.4 Eos # 0.1 Baso # 0.0 Differential Comment PT 13.2 H INR 1.2 APTT 38 H pO2 VBG pH VBG pCO2 VBG HCO3 VBG Total CO2 VBG O2 Sat (Calc) VBG Base Excess VBG Potassium Sodium Chloride Glucose Lactate Crit Value Called To Crit Value Called By Crit Value Read Back Blood Gas Notified Time Potassium Carbon Dioxide Anion Gap BUN Creatinine Est GFR ( Amer) Est GFR (Non-Af Amer) POC Glucose (mg/dL) 331 H Random Glucose Calcium Total Bilirubin AST ALT Alkaline Phosphatase Troponin I NT-Pro-B Natriuret Pep Total Protein Albumin Globulin Albumin/Globulin Ratio Venous Blood Potassium 03/28/17 03/28/17 00:28 00:37 WBC RBC Hgb Hct MCV MCH MCHC RDW Plt Count MPV Neut % (Auto) Lymph % (Auto) [place] % (Auto) Eos % (Auto) Baso % (Auto) Neut # Lymph # [place] # Eos # Baso # Differential Comment PT INR APTT pO2 45 VBG pH 7.30 L VBG pCO2 44 VBG HCO3 20.6 VBG Total CO2 23.0 VBG O2 Sat (Calc) 80.3 H VBG Base Excess -4.8 L VBG Potassium 9.1 H* Sodium 132.0 134 Chloride 100.0 93 L Glucose 306 H Lactate 2.0 Crit Value Called To Dr raswant Crit Value Called By Brigida st rt Crit Value Read Back Y Blood Gas Notified Time 39 Potassium 8.3 H* D Carbon Dioxide 21 L Anion Gap 28 H BUN 124 H* D Creatinine 13.0 H* D Est GFR ( Amer) 5 Est GFR (Non-Af Amer) 4 POC Glucose (mg/dL) Random Glucose 292 H Calcium 8.3 L Total Bilirubin 0.6 AST 25 ALT 33 Alkaline Phosphatase 122 Troponin I 0.0180 NT-Pro-B Natriuret Pep 37631 H Total Protein 7.9 Albumin 4.0 Globulin 3.9 Albumin/Globulin Ratio 1.0 Venous Blood Potassium 9.1 H* Assessment & Plan - Assessment and Plan (Free Text) Plan: Hyperpotassemia: suspect non-complicance with HD, will request HD -Sever systolic heart failure: continue patient's home heart medications, including anti-platelets, AV vicky dragan and statin -AMS: able to move all 4 extrmitites, denies any headaches, obtain Drug screen -repeat chemistry after HD -DM: check HBA1C, restart home medications continue DVt/PUD ppx Patient remains hemodynamically stable; however if 1 K bath to be used during HD can cause arrythmia and patient will benefit from ICU HD session. d/w ER physician. cc time 35 minutes - Date & Time Date: 03/28/17 Time: 01:40
--- NOTE | 2017-03-28 04:16 | CP.PCM.HP ---
History of Present Illness - History of Present Illness History of Present Illness: CC: "I feel weak" HPI: Patient is a 61 year old male with past medical history of hyperlipidemia, HTN, cataracts, BPH, DM, anemia, depression and ESRD on HD MWF through right AVF presenting for body weakness for one day. Patient states he did not go for his dialysis because he had diarrhea 4x yesterday and could not leave the house. He states his diarrhea was water and he has not had any episodes since arrive to the hospital. He states he feels weak and knows its because he did not have his dialysis. Patient denies fever, chills, chest pain, difficulty breathing, abdominal pain, nausea, vomiting, or dysuria. PMD: Dr. 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 Denies smoking, denies current alcohol use, denies illicit drug use Present on Admission - Present on Admission Any Indicators Present on Admission: No Review of Systems - Constitutional Constitutional: Weakness. absent: Chills, Fever - Cardiovascular Cardiovascular: absent: Chest Pain, Dyspnea, Palpitations, Pedal Edema - Respiratory Respiratory: absent: Dyspnea - Gastrointestinal Gastrointestinal: Diarrhea. absent: Constipation, Nausea, Vomiting - Genitourinary Genitourinary: absent: Dysuria - Musculoskeletal Musculoskeletal: absent: Numbness, Tingling - Neurological Neurological: Weakness. absent: Dizziness, Headaches Past Patient History - Past Medical History & Family History Past Medical History?: Yes - Past Social History Smoking Status: Former Smoker - CARDIAC Hx Hypercholesterolemia: Yes Hx Hypertension: Yes - PULMONARY Hx Asthma: No Hx Bronchitis: No Hx Chronic Obstructive Pulmonary Disease (COPD): No Hx Emphysema: No Hx Pneumonia: No Hx Pulmonary Embolism: No - NEUROLOGICAL Hx Neurological Disorder: No - HEENT Hx HEENT Problems: Yes Hx Cataracts: Yes - RENAL Hx Chronic Kidney Disease: Yes - ENDOCRINE/METABOLIC Hx Diabetes Mellitus Type 2: Yes - HEMATOLOGICAL/ONCOLOGICAL Hx Anemia: Yes - INTEGUMENTARY Hx Dermatological Problems: No - MUSCULOSKELETAL/RHEUMATOLOGICAL Hx Musculoskeletal Disorders: No Hx Falls: No - GASTROINTESTINAL Hx Pancreatitis: Yes - GENITOURINARY/GYNECOLOGICAL Hx Genitourinary Disorders: No - PSYCHIATRIC Hx Depression: Yes Hx Substance Use: No - SURGICAL HISTORY Hx Appendectomy: Yes - ANESTHESIA Hx Anesthesia: Yes Hx Anesthesia Reactions: No Meds Allergies/Adverse Reactions: Allergies Allergy/AdvReac Type Severity Reaction Status Date / Time No Known Allergies Allergy Verified 03/28/17 00:04 Physical Exam - Constitutional Appears: Chronically Ill - Head Exam Head Exam: ATRAUMATIC, NORMAL INSPECTION - Eye Exam Eye Exam: EOMI, Normal appearance - ENT Exam ENT Exam: Mucous Membranes Moist - Respiratory Exam Respiratory Exam: Clear to Auscultation Bilateral, NORMAL BREATHING PATTERN - Cardiovascular Exam Cardiovascular Exam: REGULAR RHYTHM, +S1, +S2 - GI/Abdominal Exam GI & Abdominal Exam: Normal Bowel Sounds, Soft. absent: Tenderness - Extremities Exam Extremities exam: Positive for: normal inspection - Neurological Exam Neurological exam: Alert, CN II-XII Intact, Oriented x3 - Psychiatric Exam Psychiatric exam: Flat Affect - Skin Skin Exam: Normal Color, Warm Results - Vital Signs Recent Vital Signs: Last Vital Signs Temp 98.2 F 03/28/17 03:31 Pulse 75 03/28/17 03:31 Resp 16 03/28/17 03:31 BP 151/75 H 03/28/17 03:31 Pulse Ox 96 03/28/17 03:31 - Labs Result Diagrams: 03/28/17 00:13 03/28/17 00:37 Labs: Laboratory Results - last 24 hr 03/28/17 03/28/17 03/28/17 00:02 00:13 00:13 WBC 5.2 RBC 4.22 L Hgb 12.3 Hct 38.9 MCV 92.2 D MCH 29.1 MCHC 31.5 L RDW 20.1 H Plt Count 89 L MPV 10.5 Neut % (Auto) 66.7 Lymph % (Auto) 22.5 [place] % (Auto) 7.9 Eos % (Auto) 2.1 Baso % (Auto) 0.8 Neut # 3.5 Lymph # 1.2 Coles # 0.4 Eos # 0.1 Baso # 0.0 Differential Comment PT 13.2 H INR 1.2 APTT 38 H pO2 VBG pH VBG pCO2 VBG HCO3 VBG Total CO2 VBG O2 Sat (Calc) VBG Base Excess VBG Potassium Sodium Chloride Glucose Lactate Crit Value Called To Crit Value Called By Crit Value Read Back Blood Gas Notified Time Potassium Carbon Dioxide Anion Gap BUN Creatinine Est GFR ( Amer) Est GFR (Non-Af Amer) POC Glucose (mg/dL) 331 H Random Glucose Calcium Total Bilirubin AST ALT Alkaline Phosphatase Troponin I NT-Pro-B Natriuret Pep Total Protein Albumin Globulin Albumin/Globulin Ratio Venous Blood Potassium 03/28/17 03/28/17 00:28 00:37 WBC RBC Hgb Hct MCV MCH MCHC RDW Plt Count MPV Neut % (Auto) Lymph % (Auto) [place] % (Auto) Eos % (Auto) Baso % (Auto) Neut # Lymph # Coles # Eos # Baso # Differential Comment PT INR APTT pO2 45 VBG pH 7.30 L VBG pCO2 44 VBG HCO3 20.6 VBG Total CO2 23.0 VBG O2 Sat (Calc) 80.3 H VBG Base Excess -4.8 L VBG Potassium 9.1 H* Sodium 132.0 134 Chloride 100.0 93 L Glucose 306 H Lactate 2.0 Crit Value Called To Dr zavala Crit Value Called By Brigida st rt Crit Value Read Back Y Blood Gas Notified Time 39 Potassium 8.3 H* D Carbon Dioxide 21 L Anion Gap 28 H BUN 124 H* D Creatinine 13.0 H* D Est GFR ( Amer) 5 Est GFR (Non-Af Amer) 4 POC Glucose (mg/dL) Random Glucose 292 H Calcium 8.3 L Total Bilirubin 0.6 AST 25 ALT 33 Alkaline Phosphatase 122 Troponin I 0.0180 NT-Pro-B Natriuret Pep 70935 H Total Protein 7.9 Albumin 4.0 Globulin 3.9 Albumin/Globulin Ratio 1.0 Venous Blood Potassium 9.1 H* Assessment & Plan - Assessment and Plan (Free Text) Assessment: 1.) Hyperpotassemia - K 8.3 - Due to non-compliance with dialysis - Admission to the ICU 2.) Sever systolic heart failure: continue patient's home heart medications - ECHO (03/17/17): EF 25%; left ventricle is mildly dilated; there is mild concentric left ventricular hypertrophy; the LV systolic function is severely imparied; RV systolic function is severely reduced. 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 There is moderate pulmonary hypertension. - f/u chest xray 3.) AMS: - f/u UDS 4.) Diabetes: - f/u hA1C - restart home medications - accuchecks
[2017-03-28] MEDS: Pantoprazole 40 mg EC Tab PO SCH (09:51)
[2017-03-28] MEDS ORDERED: Pantoprazole 40 mg Susp UD PO SCH (10:00)
[2017-03-28 10:53] LABS: ALB/GLOB RATIO 1.2 (1.0-2.1); BILIRUBIN,TOTAL 0.9 mg/dL (0.2-1.3); CALCIUM 8.3 mg/dl (8.6-10.4); POTASSIUM 4.4 mmol/L (3.6-5.2)
[2017-03-28] MEDS: (Novolin R) Insulin Human Regular 100 units/ml vial SC SCH ×3 (11:31→21:17)
--- NOTE | 2017-03-28 16:24 | CP.PCM.PN ---
Subjective - Date & Time of Evaluation Date of Evaluation: 03/28/17 Time of Evaluation: 16:23 - Subjective Subjective: consult dictated hd done hd mwf this week Dr Coffey to follow Objective - Vital Signs/Intake and Output Vital Signs (last 24 hours): Temp Pulse Resp BP Pulse Ox 97.8 F 80 15 164/81 H 98 03/28/17 08:30 03/28/17 13:30 03/28/17 13:30 03/28/17 12:52 03/28/17 13:30 Intake and Output: 03/28/17 03/28/17 06:59 18:59 Intake Total 450 Output Total 100 Balance 350 - Medications Medications: Current Medications Carvedilol (Coreg) 6.25 mg PO BID [facility] Last Admin: 03/28/17 09:49 Dose: 6.25 mg Heparin Sodium (Porcine) (Heparin) 5,000 units SC Q12 [facility] Insulin Human Regular (Novolin R) 0 unit SC ACHS [facility] PRN Reason: Protocol Last Admin: 03/28/17 11:31 Dose: 1 unit Pantoprazole Sodium (Protonix Ec Tab) 40 mg PO DAILY [facility] Last Admin: 03/28/17 09:51 Dose: 40 mg - Labs Labs: 03/28/17 00:13 03/28/17 10:32 PT 13.2 SECONDS (9.7-12.2) H 03/28/17 00:13 INR 1.2 03/28/17 00:13 APTT 38 SECONDS (21-34) H 03/28/17 00:13
--- NOTE | 2017-03-28 16:25 | RAD ---
PROCEDURE: CHEST RADIOGRAPH, 1 VIEW HISTORY: chest pain COMPARISON: Comparison chest 03/17/2017. FINDINGS: LUNGS: Interval improvement previously described mild pulmonary vascular congestion. Persistent slight elevation right hemidiaphragm with mild right basilar atelectasis. PLEURA: No pneumothorax or pleural fluid seen. CARDIOVASCULAR: Heart size stable. The no change prostatic valve is OSSEOUS STRUCTURES: No significant abnormalities. VISUALIZED UPPER ABDOMEN: Normal. OTHER FINDINGS: None. IMPRESSION: Interval improvement previously described mild pulmonary vascular congestion. Persistent slight elevation right hemidiaphragm with mild right basilar atelectasis.
[2017-03-29 06:20] LABS: BASO % 0.8 % (0.0-2.0); EOS # 0.1 K/uL (0.0-0.7); HEMATOCRIT 37.6 % (35.0-51.0); LYMPH # 1.2 K/uL (1.0-4.3); LYMPH % 24.3 % (20.0-40.0); MEAN CELL VOLUME 91.3 fL (80.0-94.0); MEAN CORPUSCULAR HEMOGLOBIN 29.4 pg (27.0-31.0); MEAN CORPUSCULAR HGB CONC 32.2 g/dL (33.0-37.0); MEAN PLATELET VOLUME 10.2 fL (7.2-11.7); MONO # 0.4 K/uL (0.0-0.8); MONO % 7.7 % (0.0-10.0); NRBC % 0.1 % (0.0-2.0); RED CELL DISTRIBUTION WIDTH 19.6 % (11.5-14.5); WHITE BLOOD COUNT 4.9 K/uL (4.8-10.8)
[2017-03-29] MEDS: (Novolin R) Insulin Human Regular 100 units/ml vial SC SCH ×4 (08:17→19:23)
[2017-03-29 08:30] LABS: ALB/GLOB RATIO 1.2 (1.0-2.1); BILIRUBIN,TOTAL 0.7 mg/dL (0.2-1.3); CALCIUM 7.8 mg/dl (8.6-10.4); MAGNESIUM 2.2 mg/dL (1.6-2.3); PHOSPHOROUS 6.6 mg/dL (2.5-4.5); POTASSIUM 5.3 mmol/L (3.6-5.2); TOTAL PROTEIN 6.8 g/dL (6.3-8.3)
[2017-03-29] MEDS: Pantoprazole 40 mg EC Tab PO SCH (09:24)
--- NOTE | 2017-03-29 09:44 | CON ---
DATE: 03/28/2017 REQUESTING PHYSICIAN: Donald Stevens MD HISTORY OF PRESENT ILLNESS: This 61-year-old male is being seen in consult today because of chronic renal failure, end-stage renal disease, dialysis dependent. He is on dialysis, Wednesday, Wednesday, and Wednesday at the [facility] located in [place]. His last treatment, because of the Thanks Giving holiday, was last Wednesday. He missed his scheduled treatment on Wednesday. The patient presented to the emergency room with 1- to 2-day history of severe watery diarrhea for which he did not go to dialysis, associated with increased heaviness and weakness of his arms and legs and some dizziness, who is noted to have potassium of 8.3, metabolic acidosis, bicarbonate of 21. BUN on admission was 124 with a creatinine of 13. History is obtained from review of the present chart, interviewing the patient and his family at the bedside. Because of the Thanks Giving holiday, his schedule this week was Wednesday and Wednesday and Wednesday, but as noted, he did not go on Wednesday and he presented with a potassium of over 8, which certainly is life threatening. Emergent dialytic intervention has been undertaken. We will try to get back on his Wednesday, Wednesday, and Wednesday schedule during the course of the week. He was also supposed to be on Veltassa, a potassium-lowering powder, but he was not taking that either. He has had compliance issues on occasion in the past and with the help of the family, we reiterated the importance of not missing his treatments. He is followed both in the office and at the dialysis center. His medicines include carvedilol 6.25 mg twice a day, ergocalciferol 50,000 units a week, Lantus insulin 25 units at bedtime, PhosLo 667 two tablets three times a day with meals, and Veltassa one packet ordered twice a week at 8.4 g. Because of insurance coverage, it is not clear whether he has been able to get those or not. The patient is well known to me and has been on dialysis since 03/2015. He has a complex history of cardiac disease. He has a low ejection fraction and echo done on 03/17/2017 showed an ejection fraction of only 25%, left ventricle was dilated. There was concentric left ventricular hypertrophy. The LV systolic function was severely impaired. The RV systolic function was also severely reduced. There was global hypokinesis of the left ventricle. There was a bioprosthetic mitral valve with mitral regurgitation that was moderate and moderate tricuspid regurgitation in addition to moderate pulmonary hypertension. Previous [facility] and [facility] stays in addition to office dialysis notes have been reviewed. He had a [facility] admission in 08/2014, just before the start of dialysis. CAT scan at that time of the abdomen did not show any abnormalities. Rheumatoid factor was negative. He has had anemia and he has been receiving erythropoietin therapy and iron at the dialysis center. He had an admission to [facility] in 07/2014 when he presented with [id number] renal failure with abdominal pain and diarrhea after arriving from [facility] [place]. PAST MEDICAL HISTORY: As noted, he does have a previous history of chronic kidney disease and followed in my office since 08/2013. At presentation, his creatinine was around 3. He was referred by his legal manager, Dr. Elena. Back in 04/2013, the creatinine was 1.6. Parathyroid hormone has been elevated consistent with secondary hyperparathyroidism and he has been on Vitamin D compounds and phosphate binders since his initial evaluation. He does have a history of diabetes mellitus for more than 19 years with non-diabetic retinopathy and presumed diabetic nephropathy. He has had hypertension, hypertensive heart disease, hypertensive renal disease, and peripheral neuropathy. He has had nephrotic-range proteinuria in the past up to 9 g for which he has some peripheral edema. There was no other previous history prior to the initial evaluation of nephritis, nephrosis, , diphtheria, or rheumatic heart disease. He denied chronic urinary tract infection, bladder infection, cystitis, pyelonephritis, hematuria, proteinuria to his knowledge and has no evidence of family history of kidney disease. SOCIAL HISTORY: Born on 1955, [facility], single, disabled, nonsmoker, nondrinker, no addictive drugs, adequate diet, 6 hours of sleep, no exercise program. FAMILY HISTORY: No family history of kidney disease. Mom had diabetes, in 1966 of an ulcer. Two sisters, brothers, son, and daughter in good health. Family history of diabetes, heart attacks, and hypertension but no kidney disease. PAST SURGICAL HISTORY: In 1996, appendix at [facility]; in 2013 cataract surgery at [facility]. He has an AV fistula that is working well. REVIEW OF SYSTEMS: Positive for gout, recurrent bowel disorders including diarrhea, diabetes, cataracts, throat problems, phlebitis, varicose veins, hypertension, skin sores, decreased vision, shortness of breath, pulmonary hypertension, ankle swelling on and off. Rest of 12-point review of systems is negative except as outlined above. PHYSICAL EXAMINATION: GENERAL: This is a well-developed, well-nourished gentleman in no acute distress. HEENT: Head: Normocephalic, atraumatic. Eyes: PERRLA, EOMs full, NECK: Supple. Neck veins flat . Thyroid not enlarged. THORAX: Symmetric. LUNGS: Clear to percussion and auscultation. CARDIAC: PMI in the sixth left intercostal space in the mid clavicular line. Heart sounds slightly distended, 2/6 systolic murmur and no rub. ABDOMEN: Soft, nontender, no gross splenomegaly, no mass, no bruit. EXTREMITIES: No significant edema. Pulses diminished but intact. NEUROLOGIC: Oriented to time, place, and person. Gross motor and sensory coordination, within normal limits. IMPRESSION: A 61-year-old hypertensive, diabetic, vasculopathic gentleman with life-threatening hyperkalemia, emergent dialytic intervention and continued hemodialysis care. We will follow with you. Thank you for involving me in the patient's care. Alfred Bedoya MD
--- NOTE | 2017-03-29 18:26 | CP.PCM.DIS ---
Provider - Provider Date of Admission: 03/28/17 02:49 Attending physician: Donald Stevens Jr, MD Time Spent in preparation of Discharge (in minutes): 35 Hospital Course - Lab Results Lab Results: Micro Results 03/28/17 08:04 Naris MRSA Culture (Admit) - Final MRSA NOT DETECTED Most Recent Lab Values WBC 4.9 K/uL (4.8-10.8) 03/29/17 06:06 RBC 4.12 Mil/uL (4.40-5.90) L 03/29/17 06:06 Hgb 12.1 g/dL (12.0-18.0) 03/29/17 06:06 Hct 37.6 % (35.0-51.0) 03/29/17 06:06 MCV 91.3 fL (80.0-94.0) 03/29/17 06:06 MCH 29.4 pg (27.0-31.0) 03/29/17 06:06 MCHC 32.2 g/dL (33.0-37.0) L 03/29/17 06:06 RDW 19.6 % (11.5-14.5) H 03/29/17 06:06 Plt Count 94 K/uL (130-400) L 03/29/17 06:06 MPV 10.2 fL (7.2-11.7) 03/29/17 06:06 Neut % (Auto) 64.2 % (50.0-75.0) 03/29/17 06:06 Lymph % (Auto) 24.3 % (20.0-40.0) 03/29/17 06:06 [place] % (Auto) 7.7 % (0.0-10.0) 03/29/17 06:06 Eos % (Auto) 3.0 % (0.0-4.0) 03/29/17 06:06 Baso % (Auto) 0.8 % (0.0-2.0) 03/29/17 06:06 Neut # 3.1 K/uL (1.8-7.0) 03/29/17 06:06 Lymph # 1.2 K/uL (1.0-4.3) 03/29/17 06:06 [place] # 0.4 K/uL (0.0-0.8) 03/29/17 06:06 Eos # 0.1 K/uL (0.0-0.7) 03/29/17 06:06 Baso # 0.0 K/uL (0.0-0.2) 03/29/17 06:06 Differential Comment 03/28/17 00:13 PT 13.2 SECONDS (9.7-12.2) H 03/28/17 00:13 INR 1.2 03/28/17 00:13 APTT 38 SECONDS (21-34) H 03/28/17 00:13 pO2 45 mm/Hg (30-55) 03/28/17 00:28 VBG pH 7.30 (7.32-7.43) L 03/28/17 00:28 VBG pCO2 44 mmHg (40-60) 03/28/17 00:28 VBG HCO3 20.6 mmol/L 03/28/17 00:28 VBG Total CO2 23.0 mmol/L (22-28) 03/28/17 00:28 VBG O2 Sat (Calc) 80.3 % (40-65) H 03/28/17 00:28 VBG Base Excess -4.8 mmol/L (0.0-2.0) L 03/28/17 00:28 VBG Potassium 9.1 mmol/L (3.6-5.2) H* 03/28/17 00:28 Sodium 132.0 mmol/l (132-148) 03/28/17 00:28 Chloride 100.0 mmol/L (98-107) 03/28/17 00:28 Glucose 306 mg/dl (75-110) H 03/28/17 00:28 Lactate 2.0 mmol/L (0.7-2.1) 03/28/17 00:28 Crit Value Called To Dr zavala 03/28/17 00:28 Crit Value Called By Brigida st rt 03/28/17 00:28 Crit Value Read Back Y 03/28/17 00:28 Blood Gas Notified Time 39 03/28/17 00:28 Sodium 134 mmol/L (132-148) 03/29/17 06:06 Potassium 5.3 mmol/L (3.6-5.2) H 03/29/17 06:06 Chloride 94 mmol/L (98-107) L 03/29/17 06:06 Carbon Dioxide 28 mmol/L (22-30) 03/29/17 06:06 Anion Gap 17 (10-20) 03/29/17 06:06 BUN 81 mg/dL (9-20) H 03/29/17 06:06 Creatinine 9.9 mg/dL (0.8-1.5) H* D 03/29/17 06:06 Est GFR ( Amer) 7 03/29/17 06:06 Est GFR (Non-Af Amer) 5 03/29/17 06:06 POC Glucose (mg/dL) 161 mg/dL (65-110) H 03/29/17 12:12 Random Glucose 196 mg/dL (75-110) H 03/29/17 06:06 Calcium 7.8 mg/dl (8.6-10.4) L 03/29/17 06:06 Phosphorus 6.6 mg/dL (2.5-4.5) H 03/29/17 06:06 Magnesium 2.2 mg/dL (1.6-2.3) 03/29/17 06:06 Total Bilirubin 0.7 mg/dL (0.2-1.3) 03/29/17 06:06 AST 18 U/L (17-59) 03/29/17 06:06 ALT 28 U/L (21-72) 03/29/17 06:06 Alkaline Phosphatase 143 U/L (38-126) H 03/29/17 06:06 Troponin I 0.0180 ng/mL (0.00-0.120) 03/28/17 00:37 NT-Pro-B Natriuret Pep 21670 pg/mL (0-900) H 03/28/17 00:37 Total Protein 6.8 g/dL (6.3-8.3) 03/29/17 06:06 Albumin 3.7 g/dL (3.5-5.0) 03/29/17 06:06 Globulin 3.1 gm/dL (2.2-3.9) 03/29/17 06:06 Albumin/Globulin Ratio 1.2 (1.0-2.1) 03/29/17 06:06 Venous Blood Potassium 9.1 mmol/L (3.6-5.2) H* 03/28/17 00:28 Urine Opiates Screen Negative (NEGATIVE) 03/28/17 14:14 Urine Methadone Screen Negative (NEGATIVE) 03/28/17 14:14 Ur Barbiturates Screen Negative (NEGATIVE) 03/28/17 14:14 Ur Phencyclidine Scrn Negative (NEGATIVE) 03/28/17 14:14 Ur Amphetamines Screen Negative (NEGATIVE) 03/28/17 14:14 U Benzodiazepines Scrn Negative (NEGATIVE) 03/28/17 14:14 U Oth Cocaine Metabols Negative (NEGATIVE) 03/28/17 14:14 U Cannabinoids Screen Negative (NEGATIVE) 03/28/17 14:14 - Hospital Course Hospital Course: HPI (As per admission): Patient is a 61 year old male with past medical history of hyperlipidemia, HTN, cataracts, BPH, DM, anemia, depression and ESRD on HD MWF through right AVF presenting for body weakness for one day. Patient states he did not go for his dialysis because he had diarrhea 4x yesterday and could not leave the house. He states his diarrhea was water and he has not had any episodes since arrive to the hospital. He states he feels weak and knows its because he did not have his dialysis. Patient denies fever, chills, chest pain, difficulty breathing, abdominal pain, nausea, vomiting, or dysuria. Hospital Course: Patient was admitted with the consideration electrolyte imbalance due to non- compliance with dialysis to the ICU and was dialyzed thereafter. Talent Director, Dr. Coffey was on board due to patient's hsitory of ESRD. Patient was transferred to telemetry and received another session of dialysis on day 2 of admission. Patient had an uneventful hospital course. Patient was discharge upon clearance by medical team. Patient was given appropriate discharge instruction. Discharge Exam - Head Exam Head Exam: ATRAUMATIC, NORMAL INSPECTION - Eye Exam Eye Exam: EOMI - ENT Exam ENT Exam: Mucous Membranes Moist - Respiratory Exam Respiratory Exam: Clear to PA & Lateral, NORMAL BREATHING PATTERN - Cardiovascular Exam Cardiovascular Exam: REGULAR RHYTHM, +S1, +S2, Systolic Murmur - GI/Abdominal Exam GI & Abdominal Exam: Normal Bowel Sounds, Soft - Extremities Exam Extremities exam: normal inspection - Neurological Exam Neurological exam: Alert, Oriented x3 - Psychiatric Exam Psychiatric exam: Normal Affect Discharge Plan - Follow Up Plan Condition: CRITICAL Disposition: HOME/ ROUTINE Instructions: Heart Failure (DC), Dialysis Diet (DC), Heart Healthy Diet (DC), Hyperkalemia (DC), Weakness (GEN), End Stage Kidney Disease (DC) Additional Instructions: Please discharge patient home as per Dr. Stevens Please resume all your home medications Please follow up with your PMD within 1 week Please follow up with your administrative support clerk as scheduled Please continue to wear your life vest as instructed Please continue with your HD outpatient as scheduled Please return to the hospital or ER if symptoms worsen Referrals: Sheila Coffey MD [Staff Provider] - Donald Stevens Jr., MD [Medical Doctor] -
[2017-03-29 19:18] VITALS: RESP 20; TEMP 97.9; O2SAT 96
[2017-03-29 20:03] VITALS: BP 173/94; PULSE 89
== END 2017-03-29 20:15 | disposition home or self-care (01) | DRG 566 ==
LOC: C.ER 23:46 → C.9E 03-28 02:49 → C.9I 03-28 03:37 → C.6T 03-28 22:11
PROVIDERS: ADMIT Internal Medicine; ATTEND Internal Medicine
PROC: 5A1D70Z Performance of Urinary Filtration, Intermittent, Less than 6 Hours Per Day (ICD-10-PCS; principal; 2017-03-28)
DX: E87.5 Hyperkalemia (principal); I50.22 Chronic systolic (congestive) heart failure; I13.2 Hypertensive heart and chronic kidney disease with heart failure and with stage 5 chronic kidney disease, or end stage renal disease; E11.21 Type 2 diabetes mellitus with diabetic nephropathy; I08.1 Rheumatic disorders of both mitral and tricuspid valves; I27.20 Pulmonary hypertension, unspecified; E11.22 Type 2 diabetes mellitus with diabetic chronic kidney disease; N25.81 Secondary hyperparathyroidism of renal origin; E78.00 Pure hypercholesterolemia, unspecified; E78.5 Hyperlipidemia, unspecified; N40.0 Benign prostatic hyperplasia without lower urinary tract symptoms; H40.9 Unspecified glaucoma; Z91.15 Patient's noncompliance with renal dialysis; Z79.4 Long term (current) use of insulin; Z87.891 Personal history of nicotine dependence; Z90.49 Acquired absence of other specified parts of digestive tract; Z99.2 Dependence on renal dialysis

== ENCOUNTER 2017-04-21 15:59 | Inpatient (IN) | payer MEDICAID ==
--- NOTE | 2017-04-21 16:39 | C.PDOC ---
History Of Present Illness 61 y/o male with PMHx of HTN, Pancreatitis and Anemia presents to ED with complaintss of worsening abdominal pain with associated bloody stool since earlier today. Patient states he has noted black stool for 2-3 weeks but today while at dialysis noted watery stool with large amount of blood which prompted visit to ED. Patient reports mild headache and denies dizziness, nausea, vomiting, weakness, back pain or any other complaints at this time. Time Seen by Provider: 04/21/17 16:26 Chief Complaint (Nursing): GI Problem History Per: Patient History/Exam Limitations: no limitations Onset/Duration Of Symptoms: Days Current Symptoms Are (Timing): Still Present Past Medical History Reviewed: Historical Data, Nursing Documentation, Vital Signs Vital Signs: Last Vital Signs Temp 97.8 F 04/21/17 16:31 Pulse 79 04/21/17 21:11 Resp 18 04/21/17 21:11 BP 176/94 H 04/21/17 21:11 Pulse Ox 97 04/21/17 20:03 - Medical History PMH: Anemia, Benign Prostatic Hyperplasia, CHF, Depression, Diabetes, HTN, Hypercholesterolemia, Pancreatitis, Chronic Kidney Disease Surgical History: Appendectomy - [facility] (03/28/17) CATARAC PHACOEMULS/ASPIR (10/03/13) INSERT LENS AT CATAR EXT (10/03/13) VACCINATION NEC (07/10/14) Family History: States: No Known Family Hx - Social History Hx Tobacco Use: No Hx Alcohol Use: No Hx Substance Use: No - Immunization History Hx Tetanus Toxoid Vaccination: No Hx Influenza Vaccination: Yes (2016) Hx Pneumococcal Vaccination: Yes (2017) Review Of Systems Constitutional: Negative for: Fever, Chills Eyes: Negative for: Vision Change Gastrointestinal: Positive for: Abdominal Pain, Hematochezia. Negative for: Nausea, Vomiting Skin: Negative for: Rash Neurological: Negative for: Weakness, Numbness, Dizziness Physical Exam - Physical Exam Appears: Non-toxic, No Acute Distress Skin: Normal Color, Warm, Dry, No Rash Head: Atraumatic, Normacephalic Eye(s): bilateral: Normal Inspection Oral Mucosa: Moist Throat: Normal, No Erythema, No Exudate, No Drooling Neck: Supple Cardiovascular: Rhythm Regular Respiratory: Normal Breath Sounds, No Rales, No Rhonchi, No Wheezing Gastrointestinal/Abdominal: Soft, Tenderness (Epigastrium), No Guarding, No Rebound Back: No CVA Tenderness Extremity: Normal ROM, Capillary Refill (<2 seconds) Neurological/Psych: Oriented x3 ED Course And Treatment - Laboratory Results Result Diagrams: 04/21/17 16:43 04/21/17 16:43 Lab Interpretation: Abnormal (Hgb 11.2, BUN 44, Cr 6.0 Stool guaiac negative) ECG: Interpreted By Me ECG Rhythm: Sinus Rhythm (with LVH), ST/T Changes (inversions I, V5-6) ECG Interpretation: No Acute Changes O2 Sat by Pulse Oximetry: 97 (RA) Pulse Ox Interpretation: Normal Progress Note: Stool passed in ED is greenish black and foul smelling and slightly watery. Reevaluation Time: 21:29 Reassessment Condition: Improved (Abdominal pain better after Pepcid and Protonix) - Physician Consult Information Time Consulting Physician Contacted: 21:30 Physician Contacted: Chrystal Maria Outcome Of Conversation: Case discussed with Dr Yemi mcguire. They do not admit here and suggest admission to special education director MD. Discussed with Dr Oswaldo Ramirez who agrees to admit patient. Disposition - Disposition Disposition: HOSPITALIZED Disposition Time: 21:31 Condition: IMPROVED - POA Present On Arrival: None - Clinical Impression Clinical Impression: Abdominal pain, ESRD (end stage renal disease) on dialysis - Scribe Statement The provider has reviewed the documentation as recorded by the Mariza Jovel All medical record entries made by the Clauibgonzalez were at my direction and personally dictated by me. I have reviewed the chart and agree that the record accurately reflects my personal performance of the history, physical exam, medical decision making, and the department course for this patient. I have also personally directed, reviewed, and agree with the discharge instructions and disposition.
[2017-04-21 16:51] LABS: BASO % 0.9 % (0.0-2.0); EOS # 0.2 K/uL (0.0-0.7); EOS % 2.9 % (0.0-4.0); HEMATOCRIT 34.4 % (35.0-51.0); LYMPH # 1.2 K/uL (1.0-4.3); LYMPH % 23.6 % (20.0-40.0); MEAN CORPUSCULAR HEMOGLOBIN 29.6 pg (27.0-31.0); MEAN CORPUSCULAR HGB CONC 32.5 g/dL (33.0-37.0); MEAN PLATELET VOLUME 10.5 fL (7.2-11.7); MONO # 0.3 K/uL (0.0-0.8); MONO % 6.3 % (0.0-10.0); RED CELL DISTRIBUTION WIDTH 18.2 % (11.5-14.5); WHITE BLOOD COUNT 5.2 K/uL (4.8-10.8)
[2017-04-21 17:10] LABS: INR 1.1
[2017-04-21] MEDS ORDERED: Pantoprazole 80 MG in Sodium Chloride 0.9% 100 ML IVP SCH (17:30)
[2017-04-21 17:36] LABS: ALB/GLOB RATIO 1.2 (1.0-2.1); BILIRUBIN,TOTAL 0.7 mg/dL (0.2-1.3); CALCIUM 8.2 mg/dl (8.6-10.4); TOTAL PROTEIN 7.2 g/dL (6.3-8.3)
[2017-04-21] MEDS ORDERED: HYDROmorphone 1 mg/ml ISec IVP PRN (21:48)
[2017-04-21] MEDS ORDERED: Home Med 1 UNIT (Atorvastatin [Lipitor] 80 MG) PO SCH (22:00)
[2017-04-21] MEDS ORDERED: Loperamide Hydrochloride 1 mg/5 ml Cup PO PRN (22:24)
[2017-04-21] MEDS ORDERED: HYDROmorphone 0.5 mg/0.5 ml ISec ONE (22:46)
[2017-04-22] MEDS ORDERED: acetaZOLAMIDE 500 mg SR Cap PO SCH (10:00)
[2017-04-22] MEDS: Pantoprazole 40 mg EC Tab PO SCH (10:01)
[2017-04-22] MEDS: Multivitamin Vitamin B Complex (Nephro-Vite) Tab PO SCH (10:10)
[2017-04-22] MEDS ORDERED: (Novolog) Insulin Aspart, Recombinant 100 u/ml 10 ml vial SC ONE (12:45)
[2017-04-22] MEDS: Belladonna-Phenobarbital PO SCH ×2 (14:10→21:49)
--- NOTE | 2017-04-22 14:48 | PN ---
LOCATION: [facility], bed B. SUBJECTIVE: This is a 61 years old male, seen and examined for GI consultation initially on 04/21/2017, being examined again today with a complaint of abdominal pain, cramps with some mucoid bowel movement. The patient also complained of postprandial abdominal distention with gas feeling. The entire chart is reviewed including but not limited to the most recent lab and radiology study results, current and the previous medical list, current and the previous medical events. The patient is on hemodialysis. Today's labs showed blood glucose level of 304. Rest of the lab results still pending and the patient had low hemoglobin of 11.2, hematocrit 34.4. PHYSICAL EXAMINATION: GENERAL: A 61 years old male. VITAL SIGNS: Afebrile with pulse of 80, respiratory rate 18 to 20, blood pressure of 154/82. HEENT: Showed pale dry oral mucous membrane. Nonicteric sclerae. LUNGS: Few scattered crepitation. Decreased air entry at bases. HEART: Positive S1 and S2. ABDOMEN: Soft. Bowel sounds are present with mild generalized tenderness. No mass or organomegaly. No rebound tenderness or guarding. RECTAL: Examination the patient refused. EXTREMITIES: Without edema, clubbing or cyanosis. NEUROLOGIC: No reported new neurological deficits, sensory or motor. The patient mentioned that he had black tarry stool on and off, some mucoid exudate and increased frequency of bowel movement since admission. IMPRESSION: 1. Gastrointestinal blood loss, upper versus lower. 2. Chronic renal failure. 3. Anemia, most likely secondary to above. 4. Known history of but not limited to benign prostatic hypertrophy, hypertension, congestive heart failure, diabetes mellitus, hyperlipidemia. 5. Known history of depression , recurrent episode of pancreatitis in the past. 6. Status post appendectomy. SUGGESTION: 1. Agree with your plan. 2. Serum lipase, amylase level. 3. Cancer markers. 4. Add tab p.o. 5. Endoscopic evaluation of the GI tract when the patient is more stable clinically. 6. Abdominal ultrasound with attention to biliary tree and pancreas. 7. Further recommendation to follow. Lucille Perry MD [facility] # [id number]
--- NOTE | 2017-04-22 15:41 | CP.PCM.CON ---
History of Present Illness - History of Present Illness History of Present Illness: Initial Nephrology Consultation: Assessment: Stable acute gastroenteritis with ? blood ? side effect of K lowering med as [place] Diabetic chronic Kidney Disease (E11.22) Hypertensive Chronic Kidney Disease (I12.0) End stage renal disease (N18.6) dependence on hemodialysis (Z99.2) (MWF) via AVF Anemia (D64.9), Hyperphosphatemia (E83.39), Secondary Hyperparathyroidism (E21.1 ), HTN (I12.0) chronic thrombocytopenia Plan: No acute need for dialysis today. Will plan for dialysis tomorrow. Continue with Nephrovite 1 tab/day. PRBC as needed for anemia. last Hb 11.2 TSAT 43% Ferritin 900 Continue with phos binders home dose Continue with calcitriol, last PTH 391 BP control with meds as ordered. Patient on RAAS dragan as lisinopril. usually has tendency for hyperkalemia. hence will increase hydralazine Glycemic control, Dialysis consistent diet Further work up/management as per primary team Dose meds/antibiotics (if needed) for ESRD status. Avoid fleets enema/magnesium based laxatives. GI following ? indication for acetazolamide. usually avoided in ESRD Thanks for allowing me to participate in care of your patient. Will follow patient with you. Please call if any Qs. d/w team Dr Davidson Bolivar Office: [phone] Chief Complaint;loose stool HPI: Pt is a 61 M with hx of ESRD on hemodialysis (MWF) via AVF x 2 years, last dialysis yesterday @ [facility], chronic anemia, hyperphosphatemia, secondary hyperparathyroidism, Diabetes Mellitus, hypertension, thrombocytopenia presented with complaints of loose stool diarrhoea yesterday during HD which was dark in color. [facility] feels better now, no such further episode. no pain abdomen. ROS: Cardiovascular: No chest pain. Pulmonary: No shortness of breath Gastrointestinal: denies abdominal pain No nausea. No vomiting. Genitourinary: No pain while urinating. Denies blood in urine. All other negative Physical Examination: General Appearance: Comfortable, in no acute respiratory distress, co-operative . Vitals reviewed and noted as below Head; Atraumatic, normocephalic ENT: no ulcers no thrush. Tongue is midline. Oropharynx: no rash or ulcers. EYES: Pupils are equal, round and reactive to light accommodation. Eye muscles and extraocular movement intact. Sclera is anicteric. Neck; supple no lymphadenopathy, no thyromegaly or bruit Lungs: Normal respiratory rate/effort. Breath sounds bilateral equal and clear Heart: Normal rate. s1s2 normal. No rub or gallop. Extremities: no edema. No varicose veins Neurological: Patient is alert, awake and oriented to person, place and time. No focal deficit. Strength bilateral appropriate and equal Skin: Warm and dry. Normal turgor. No rash. Palpitation: Normal elasticity for age Abdomen: Abdomen is soft. Bowel sounds +. There is no abdominal tenderness, no guarding/rigidity or organomegaly Psych: normal insight and normal affect/mood MSK: no joint tenderness or swelling. Digits and nails normal, no deformity : kidney or bladder not palpable Access: AVF Labs/imaging reviewed. Past medical history, past surgical history, family history, social history, allergy reviewed and noted as below Family Hx: no hx of CKD. Non contributory Past Patient History - Infectious Disease Hx of Infectious Diseases: None - Past Medical History & Family History Past Medical History?: Yes - Past Social History Smoking Status: Never Smoked - CARDIAC Hx Cardiac Disorders: Yes Hx Congestive Heart Failure: Yes Hx Hypercholesterolemia: Yes Hx Hypertension: Yes - PULMONARY Hx Respiratory Disorders: No Hx Asthma: No Hx Bronchitis: No Hx Chronic Obstructive Pulmonary Disease (COPD): No Hx Emphysema: No Hx Pneumonia: No Hx Pulmonary Embolism: No - NEUROLOGICAL Hx Neurological Disorder: No - HEENT Hx HEENT Problems: Yes Hx Cataracts: Yes - RENAL Hx Chronic Kidney Disease: Yes Hx Dialysis: Yes Type of Dialysis Access: Right Arm AV shunt Date of Last Dialysis Treatment: 04/21/17 Hx Renal Failure: Yes - ENDOCRINE/METABOLIC Hx Endocrine Disorders: Yes Hx Diabetes Mellitus Type 1: Yes - HEMATOLOGICAL/ONCOLOGICAL Hx Blood Disorders: Yes Hx Anemia: Yes - INTEGUMENTARY Hx Dermatological Problems: No - MUSCULOSKELETAL/RHEUMATOLOGICAL Hx Falls: No - GASTROINTESTINAL Hx Gastrointestinal Disorders: Yes Hx Pancreatitis: Yes - GENITOURINARY/GYNECOLOGICAL Hx Genitourinary Disorders: No - PSYCHIATRIC Hx Psychophysiologic Disorder: Yes Hx Depression: Yes Hx Substance Use: No - SURGICAL HISTORY Hx Surgeries: Yes Hx Appendectomy: Yes - ANESTHESIA Hx Anesthesia: Yes Hx Anesthesia Reactions: No Meds Allergies/Adverse Reactions: Allergies Allergy/AdvReac Type Severity Reaction Status Date / Time No Known Allergies Allergy Verified 03/28/17 00:04 - Medications Medications: Current Medications Belladonna/Phenobarbital () 1 tab PO TID [facility] Benzonatate (Tessalon Perles) 100 mg PO Q8 [facility] Last Admin: 04/22/17 10:02 Dose: 100 mg Calcitriol (Rocaltrol) 0.25 mcg PO DAILY [facility] Last Admin: 04/22/17 10:10 Dose: 0.25 mcg Calcium Acetate (Phoslo) 2,001 mg PO TID [facility] Last Admin: 04/22/17 10:01 Dose: 2,001 mg Ergocalciferol (Drisdol 50,000 Intl Units Cap) 1 cap PO QWK [facility] Hydralazine HCl (Apresoline) 50 mg PO TID [facility] Last Admin: 04/22/17 13:19 Dose: 50 mg Hydromorphone HCl (Dilaudid) 1 mg IVP Q4H PRN PRN Reason: Pain, moderate (4-7) Last Admin: 04/21/17 22:53 Dose: 1 mg Insulin Aspart (Novolog) 0 unit SC ACHS [facility] PRN Reason: Protocol Lisinopril (Zestril) 10 mg PO HS [facility] Last Admin: 04/21/17 22:40 Dose: 10 mg Loperamide HCl (Imodium) 2 mg PO Q6H PRN PRN Reason: Diarrhea Nateglinide (Starlix) 360 mg PO TID [facility] Last Admin: 04/22/17 10:02 Dose: 360 mg Pantoprazole Sodium (Protonix Ec Tab) 40 mg PO DAILY [facility] Last Admin: 04/22/17 10:01 Dose: 40 mg Rosuvastatin Calcium (Crestor) 10 mg PO HS [facility] Tamsulosin HCl (Flomax) 0.4 mg PO DAILY [facility] Last Admin: 04/22/17 10:02 Dose: 0.4 mg Torsemide (Demadex) 100 mg PO BID [facility] Last Admin: 04/22/17 10:29 Dose: 100 mg Vitamin B Complex/Vit C/Folic Acid (Nephro-Lupis) 1 tab PO DAILY [facility] Last Admin: 04/22/17 10:10 Dose: 1 tab Results - Vital Signs Recent Vital Signs: Last Vital Signs Temp 98.6 F 04/22/17 07:50 Pulse 83 04/22/17 07:50 Resp 20 04/22/17 07:50 BP 150/80 04/22/17 12:17 Pulse Ox 96 04/22/17 07:50 - Labs Result Diagrams: 04/21/17 16:43 04/21/17 16:43 Labs: Laboratory Results - last 24 hr 04/21/17 04/21/17 04/21/17 16:43 16:43 16:43 WBC 5.2 RBC 3.78 L Hgb 11.2 L Hct 34.4 L MCV 91.0 MCH 29.6 MCHC 32.5 L RDW 18.2 H Plt Count 74 L D MPV 10.5 Neut % (Auto) 66.3 Lymph % (Auto) 23.6 Randall % (Auto) 6.3 Eos % (Auto) 2.9 Baso % (Auto) 0.9 Neut # 3.5 Lymph # 1.2 Randall # 0.3 Eos # 0.2 Baso # 0.0 Differential Comment PT 13.1 H INR 1.1 APTT 38 H Sodium 136 Potassium 4.0 Chloride 93 L Carbon Dioxide 33 H Anion Gap 15 BUN 44 H Creatinine 6.0 H Est GFR ( Amer) 12 Est GFR (Non-Af Amer) 10 POC Glucose (mg/dL) Random Glucose 165 H Calcium 8.2 L Total Bilirubin 0.7 AST 35 ALT 40 Alkaline Phosphatase 188 H D Total Protein 7.2 Albumin 4.0 Globulin 3.2 Albumin/Globulin Ratio 1.2 Stool Occult Blood Blood Type Antibody Screen 04/21/17 04/21/17 04/22/17 16:43 17:22 06:59 WBC RBC Hgb Hct MCV MCH MCHC RDW Plt Count MPV Neut % (Auto) Lymph % (Auto) Randall % (Auto) Eos % (Auto) Baso % (Auto) Neut # Lymph # Randall # Eos # Baso # Differential Comment PT INR APTT Sodium Potassium Chloride Carbon Dioxide Anion Gap BUN Creatinine Est GFR ( Amer) Est GFR (Non-Af Amer) POC Glucose (mg/dL) 148 H Random Glucose Calcium Total Bilirubin AST ALT Alkaline Phosphatase Total Protein Albumin Globulin Albumin/Globulin Ratio Stool Occult Blood Negative Blood Type O POSITIVE Antibody Screen Negative 04/22/17 11:27 WBC RBC Hgb Hct MCV MCH MCHC RDW Plt Count MPV Neut % (Auto) Lymph % (Auto) Randall % (Auto) Eos % (Auto) Baso % (Auto) Neut # Lymph # Randall # Eos # Baso # Differential Comment PT INR APTT Sodium Potassium Chloride Carbon Dioxide Anion Gap BUN Creatinine Est GFR ( Amer) Est GFR (Non-Af Amer) POC Glucose (mg/dL) 304 H Random Glucose Calcium Total Bilirubin AST ALT Alkaline Phosphatase Total Protein Albumin Globulin Albumin/Globulin Ratio Stool Occult Blood Blood Type Antibody Screen
[2017-04-22] MEDS: Brimonidine 0.2% Opth Sol (5ml) OU SCH (16:00)
--- NOTE | 2017-04-22 16:15 | CP.PCM.PN ---
Subjective - Date & Time of Evaluation Date of Evaluation: 04/22/17 Time of Evaluation: 09:00 - Subjective Subjective: PGY-[address] Hall Patient seen and examined at bedside. Patient complains of abdominal discomfort. Patient has not had a bowel movement since admitted to the hospital. Patient denies fever, chills, shortness of breath, chest pain, nausea , vomiting, or diarrhea. Objective - Vital Signs/Intake and Output Vital Signs (last 24 hours): Temp Pulse Resp BP Pulse Ox 98.6 F 83 20 150/80 96 04/22/17 07:50 04/22/17 07:50 04/22/17 07:50 04/22/17 12:17 04/22/17 07:50 Intake and Output: 04/22/17 04/22/17 06:59 18:59 Intake Total 120 Balance 120 - Medications Medications: Current Medications Belladonna/Phenobarbital () 1 tab PO TID [facility] Benzonatate (Tessalon Perles) 100 mg PO Q8 [facility] Last Admin: 04/22/17 10:02 Dose: 100 mg Brimonidine Tartrate (Alphagan 0.2% Opht) 1 ml OU DAILY [facility] Calcitriol (Rocaltrol) 0.25 mcg PO DAILY [facility] Last Admin: 04/22/17 10:10 Dose: 0.25 mcg Calcium Acetate (Phoslo) 2,001 mg PO TID [facility] Last Admin: 04/22/17 10:01 Dose: 2,001 mg Ergocalciferol (Drisdol 50,000 Intl Units Cap) 1 cap PO QWK [facility] Hydralazine HCl (Apresoline) 50 mg PO TID [facility] Last Admin: 04/22/17 13:19 Dose: 50 mg Hydromorphone HCl (Dilaudid) 1 mg IVP Q4H PRN PRN Reason: Pain, moderate (4-7) Last Admin: 04/21/17 22:53 Dose: 1 mg Insulin Aspart (Novolog) 0 unit SC ACHS [facility] PRN Reason: Protocol Lisinopril (Zestril) 10 mg PO HS [facility] Last Admin: 04/21/17 22:40 Dose: 10 mg Loperamide HCl (Imodium) 2 mg PO Q6H PRN PRN Reason: Diarrhea Nateglinide (Starlix) 120 mg PO TID [facility] Pantoprazole Sodium (Protonix Ec Tab) 40 mg PO DAILY [facility] Last Admin: 04/22/17 10:01 Dose: 40 mg Rosuvastatin Calcium (Crestor) 10 mg PO [facility] Tamsulosin HCl (Flomax) 0.4 mg PO DAILY [facility] Last Admin: 04/22/17 10:02 Dose: 0.4 mg Torsemide (Demadex) 100 mg PO BID [facility] Last Admin: 04/22/17 10:29 Dose: 100 mg Vitamin B Complex/Vit C/Folic Acid (Nephro-Lupis) 1 tab PO DAILY [facility] Last Admin: 04/22/17 10:10 Dose: 1 tab - Labs Labs: 04/21/17 16:43 04/21/17 16:43 PT 13.1 SECONDS (9.7-12.2) H 04/21/17 16:43 INR 1.1 04/21/17 16:43 APTT 38 SECONDS (21-34) H 04/21/17 16:43 - Constitutional Appears: Non-toxic, No Acute Distress - Head Exam Head Exam: ATRAUMATIC, NORMOCEPHALIC - Eye Exam Eye Exam: Normal appearance - ENT Exam ENT Exam: Mucous Membranes Moist - Neck Exam Neck Exam: Normal Inspection - Respiratory Exam Respiratory Exam: Clear to Ausculation Bilateral, NORMAL BREATHING PATTERN. absent: Respiratory Distress - Cardiovascular Exam Cardiovascular Exam: REGULAR RHYTHM, +S1, +S2 - GI/Abdominal Exam GI & Abdominal Exam: Soft, Normal Bowel Sounds. absent: Tenderness - Extremities Exam Extremities Exam: Full ROM, Normal Inspection. absent: Joint Swelling, Pedal Edema - Neurological Exam Neurological Exam: Alert, Awake, Oriented x3 - Psychiatric Exam Psychiatric exam: Normal Affect, Normal Mood - Skin Skin Exam: Dry, Warm Assessment and Plan - Assessment and Plan (Free Text) Assessment: Abdominal pain, black stool -Lipase negative -elevated CEA 5.4, amylase 126 -GI consult, Dr. Cueva help appreciated -NPO for endoscopy -Follow up C. diff and stool electrolyte -Dilaudid 1mg IV Q4 prn for pain control ESRD -Patient's last HD was on 04/21/17 -Follow nephrology recommendations -Vitamin B comlex -Phoslo CHF -Torsemide 100mg po BID DM -Starlix 120mg po TID -Lisinopril 10mg po HLD -Crestor 10mg po BPH -Flomax 0.4mg po daily Glaucoma -Brimonidine Tartrate eye drop daily Prophylactic measure -Protonix -SCD -Management per Dr. Hall
[2017-04-22] MEDS: (Novolog) Insulin Aspart, Recombinant 100 u/ml 10 ml vial SC SCH ×2 (17:43→22:00)
[2017-04-22 18:05] LABS: AMYLASE 126 U/L (30-110)
[2017-04-22 18:37] LABS: CARCINOEMBRYONIC ANTIGEN 5.4 ng/mL (0-3.0)
[2017-04-22 18:41] LABS: CA 19-9 < 1.4 U/mL (0-37)
--- NOTE | 2017-04-22 21:25 | CON ---
DATE: 04/21/2017 HISTORY OF PRESENT ILLNESS: This is a 61 years old male with multiple complicated past medical history, admitted to the hospital with a main complaint of severe abdominal pain, dyspepsia, persistent nausea, bloody bowel movement with generalized weakness and malaise as well as melena for the last 2 to 3 weeks, especially during dialysis, none during my physical examination. Associated with mild headache, but no reported actual chest pain, palpitation, chills, fever and no significant complaint of shortness of breath. PAST MEDICAL HISTORY: Including but not limited to, 1. Hypertension with congestive heart failure. 2. Chronic renal disease, on hemodialysis. 3. Diabetes mellitus, hyperlipidemia by history. 4. Known history of benign prostatic hypertrophy, with depression. 5. Recurrent episodes of pancreatitis before. 6. Status post appendectomy. 7. Anemia. FAMILY HISTORY: Unknown. SOCIAL HISTORY: Denied any recent history of cigarette smoking or alcohol intake. CURRENT MEDICATIONS: Medication lists were reviewed. ALLERGIES: ALLERGY TO MEDICATION UNCLEAR. LABORATORY DATA: Lab results at the time of the admission showed low hemoglobin of 11.2, hematocrit 34.4 with thrombocytopenia of 74 with increased BUN at 44, creatinine 6.0 with increase blood glucose level 165 with increased CO2 content 33 secondary to respiratory alkalosis, most likely. PHYSICAL EXAMINATION GENERAL: A 61 years old male, complaining of abdominal pain, dyspepsia with nausea. VITAL SIGNS: Afebrile with pulse of 82, respiratory rate 20 to 22 with blood pressure of 170/86. HEENT: Showed pale dry mucous membrane. Nonicteric sclerae. LUNGS: Few scattered mild crepitation. Breathing sounds are present bilaterally. LYMPH NODES: No lymphadenitis or lymphadenopathy. HEART: Positive S1 and S2. ABDOMEN: Soft with generalized mild tenderness with mild distention. Bowel sounds are hyperactive. No mass or organomegaly. No rebound tenderness or guarding. RECTAL: The patient refused. EXTREMITIES: Without significant clubbing, cyanosis or edema. AV shunt is in place. NEUROLOGIC: No reported new neurological deficits, sensory or motor. IMPRESSION: 1. Gastrointestinal bleeding, upper versus lower. 2. To rule out occult gastrointestinal malignancy. 3. To rule out recurrent new episode of acute pancreatitis. 4. Multiple past medical history including but not limited to diabetes mellitus, hypertension, congestive heart failure, depression, hyperlipidemia, which could be a factor for possible recurrent pancreatitis. 5. Known history of chronic renal disease, on hemodialysis. SUGGESTION: 1. Agree with your plan. 2. Repeat H and H due to the patient's anemia. 3. Lipase, amylase level. 4. Cancer markers including CEA and CA19-9. 5. Sectional abdominal and pelvic CAT scan. 6. Endoscopic evaluation of the GI tract when the patient is more stable clinically. Further recommendation to follow. Thank you for letting me participate in your patient's case management. Lucilel Perry MD
--- NOTE | 2017-04-23 07:10 | HP ---
HISTORY OF PRESENT ILLNESS: Patient is a 61-year-old male comes into the hospital complaining of abdominal pain and black stools. Patient is an outpatient and patient came to the ER for admission. PHYSICAL EXAMINATION: GENERAL: The patient is awake, alert, and oriented. VITAL SIGNS: Temperature is 98, pulse is 90. HEENT: Within normal limits. NECK: Supple. CHEST: Symmetrical. HEART: Regular. ABDOMEN: Soft. EXTREMITIES: No edema. IMPRESSION: Gastritis. Rule out GI bleed. Patient to get GI consult. Tere Hall MD
[2017-04-23 07:30] LABS: BASO % 0.5 % (0.0-2.0); EOS # 0.1 K/uL (0.0-0.7); EOS % 2.9 % (0.0-4.0); HEMATOCRIT 29.6 % (35.0-51.0); LYMPH # 1.1 K/uL (1.0-4.3); LYMPH % 25.1 % (20.0-40.0); MEAN CELL VOLUME 89.7 fL (80.0-94.0); MEAN CORPUSCULAR HEMOGLOBIN 29.9 pg (27.0-31.0); MEAN CORPUSCULAR HGB CONC 33.3 g/dL (33.0-37.0); MEAN PLATELET VOLUME 11.1 fL (7.2-11.7); MONO # 0.3 K/uL (0.0-0.8); NRBC % 0.1 % (0.0-2.0); RED CELL DISTRIBUTION WIDTH 18.5 % (11.5-14.5); WHITE BLOOD COUNT 4.5 K/uL (4.8-10.8)
[2017-04-23] MEDS: (Novolog) Insulin Aspart, Recombinant 100 u/ml 10 ml vial SC SCH ×4 (08:10→21:41)
--- NOTE | 2017-04-23 08:10 | CP.PCM.CON ---
History of Present Illness - History of Present Illness History of Present Illness: patient seen/examined. we consult to follow. Patient has a history of dilated cardiomyopathy, s/p Lifevest placement ( refuses to wear it). Presents with black stools. Patient is euvolemic. No chest pain or dyspnea. No cardiovascular contraindication to endoscopy Past Patient History - Infectious Disease Hx of Infectious Diseases: None - Past Medical History & Family History Past Medical History?: Yes - Past Social History Smoking Status: Never Smoked - CARDIAC Hx Cardiac Disorders: Yes Hx Congestive Heart Failure: Yes Hx Hypercholesterolemia: Yes Hx Hypertension: Yes - PULMONARY Hx Respiratory Disorders: No Hx Asthma: No Hx Bronchitis: No Hx Chronic Obstructive Pulmonary Disease (COPD): No Hx Emphysema: No Hx Pneumonia: No Hx Pulmonary Embolism: No - NEUROLOGICAL Hx Neurological Disorder: No - HEENT Hx HEENT Problems: Yes Hx Cataracts: Yes - RENAL Hx Chronic Kidney Disease: Yes Hx Dialysis: Yes Type of Dialysis Access: Right Arm AV shunt Date of Last Dialysis Treatment: 04/21/17 Hx Renal Failure: Yes - ENDOCRINE/METABOLIC Hx Endocrine Disorders: Yes Hx Diabetes Mellitus Type 1: Yes - HEMATOLOGICAL/ONCOLOGICAL Hx Blood Disorders: Yes Hx Anemia: Yes - INTEGUMENTARY Hx Dermatological Problems: No - MUSCULOSKELETAL/RHEUMATOLOGICAL Hx Falls: No - GASTROINTESTINAL Hx Gastrointestinal Disorders: Yes Hx Pancreatitis: Yes - GENITOURINARY/GYNECOLOGICAL Hx Genitourinary Disorders: No - PSYCHIATRIC Hx Psychophysiologic Disorder: Yes Hx Depression: Yes Hx Substance Use: No - SURGICAL HISTORY Hx Surgeries: Yes Hx Appendectomy: Yes - ANESTHESIA Hx Anesthesia: Yes Hx Anesthesia Reactions: No Meds Allergies/Adverse Reactions: Allergies Allergy/AdvReac Type Severity Reaction Status Date / Time No Known Allergies Allergy Verified 03/28/17 00:04 - Medications Medications: Current Medications Belladonna/Phenobarbital () 1 tab PO TID [facility] Last Admin: 04/22/17 21:49 Dose: 1 tab Benzonatate (Tessalon Perles) 100 mg PO Q8 [facility] Last Admin: 04/23/17 05:33 Dose: 100 mg Brimonidine Tartrate (Alphagan 0.2% Opht) 0 ml OU DAILY [facility] Last Admin: 04/22/17 16:00 Dose: 1 drop Calcitriol (Rocaltrol) 0.25 mcg PO DAILY [facility] Last Admin: 04/22/17 10:10 Dose: 0.25 mcg Calcium Acetate (Phoslo) 2,001 mg PO TID [facility] Last Admin: 04/22/17 17:41 Dose: 2,001 mg Ergocalciferol (Drisdol 50,000 Intl Units Cap) 1 cap PO QWK [facility] Hydralazine HCl (Apresoline) 50 mg PO TID [facility] Last Admin: 04/22/17 17:41 Dose: 50 mg Hydromorphone HCl (Dilaudid) 1 mg IVP Q4H PRN PRN Reason: Pain, moderate (4-7) Last Admin: 04/22/17 16:57 Dose: 1 mg Insulin Aspart (Novolog) 0 unit SC ACHS [facility] PRN Reason: Protocol Last Admin: 04/22/17 22:00 Dose: Not Given Lisinopril (Zestril) 10 mg PO HS [facility] Last Admin: 04/22/17 22:00 Dose: 10 mg Loperamide HCl (Imodium) 2 mg PO Q6H PRN PRN Reason: Diarrhea Nateglinide (Starlix) 120 mg PO TID [facility] Last Admin: 04/22/17 17:42 Dose: 120 mg Pantoprazole Sodium (Protonix Ec Tab) 40 mg PO DAILY [facility] Last Admin: 04/22/17 10:01 Dose: 40 mg Rosuvastatin Calcium (Crestor) 10 mg PO HS [facility] Last Admin: 04/22/17 21:49 Dose: 10 mg Tamsulosin HCl (Flomax) 0.4 mg PO DAILY [facility] Last Admin: 04/22/17 10:02 Dose: 0.4 mg Torsemide (Demadex) 100 mg PO BID [facility] Last Admin: 04/22/17 18:00 Dose: 100 mg Vitamin B Complex/Vit C/Folic Acid (Nephro-Lupis) 1 tab PO DAILY [facility] Last Admin: 04/22/17 10:10 Dose: 1 tab Results - Vital Signs Recent Vital Signs: Last Vital Signs Temp 97.2 F L 04/22/17 23:30 Pulse 72 04/22/17 23:30 Resp 18 04/22/17 23:30 BP 157/80 H 04/22/17 23:30 Pulse Ox 98 04/22/17 23:30 - Labs Result Diagrams: 04/23/17 07:05 04/21/17 16:43 Labs: Laboratory Results - last 24 hr 04/22/17 04/22/17 04/22/17 11:27 16:14 17:44 WBC RBC Hgb Hct MCV MCH MCHC RDW Plt Count MPV Neut % (Auto) Lymph % (Auto) [place] % (Auto) Eos % (Auto) Baso % (Auto) Neut # Lymph # [place] # Eos # Baso # POC Glucose (mg/dL) 304 H 91 Amylase 126 H Lipase 100 Carcinoembryonic Ag 5.4 H CA 19-9 Antigen < 1.4 04/22/17 04/23/17 04/23/17 21:02 07:05 07:31 WBC 4.5 L RBC 3.30 L Hgb 9.9 L Hct 29.6 L MCV 89.7 MCH 29.9 MCHC 33.3 RDW 18.5 H Plt Count 62 L MPV 11.1 Neut % (Auto) 65.5 Lymph % (Auto) 25.1 [place] % (Auto) 6.0 Eos % (Auto) 2.9 Baso % (Auto) 0.5 Neut # 3.0 Lymph # 1.1 [place] # 0.3 Eos # 0.1 Baso # 0.0 POC Glucose (mg/dL) 150 H 100 Amylase Lipase Carcinoembryonic Ag CA 19-9 Antigen
--- NOTE | 2017-04-23 08:10 | CP.PCM.CON ---
History of Present Illness - History of Present Illness History of Present Illness: I was asked to evaluate patient by Dr Hall. Patient is a 61 year old male with a history of HTN, valvular heart disease ESRD on HD, cardiomyopathy who presents with melena. The patient has noted abdominal pain for the last few days. He had diarrhea and was noted to have black stools. The patient presented to [facility] for further evaluation. He was prescribed a Lifevest due to severe cardiomyopathy, however he has not worn it. Review of Systems - Constitutional Constitutional: absent: As Per HPI, Anorexia, Chills, Daytime Sleepiness, Excessive Sweating, Fatigue, Fever, Frequent Falls, Headache, Increased Appetite , Lethargy, Malaise, Night Sweats, Snoring, Sleep Apnea, Weight Gain, Weight Loss, Weakness, Other - EENT Eyes: absent: As Per HPI, Blind Spots, Blurred Vision, Change in Vision, Decreased Night Vision, Diplopia, Discharge, Dry Eye, Exophthalmos, Floaters, Irritation, Itchy Eyes, Loss of Peripheral Vision, Pain, Photophobia, Requires Corrective Lenses, Sees Flashes, Spots in Vision, Tunnel Vision, Other Visual Disturbances, Loss of Vision, Other Ears: absent: As Per HPI, Decreased Hearing, Ear Discharge, Ear Pain, Tinnitus, Abnormal Hearing, Disequilibrium, Dizziness, Other Nose/Mouth/Throat: absent: As Per HPI, Epistaxis, Nasal Congestion, Nasal Discharge, Nasal Obstruction, Nasal Trauma, Nose Pain, Post Nasal Drip, Sinus Pain, Sinus Pressure, Bleeding Gums, Change in Voice, Dental Pain, Dry Mouth, Dysphagia, Halitosis, Hoarsness, Lip Swelling, Mouth Lesions, Mouth Pain, Odynophagia, Sore Throat, Throat Swelling, Tongue Swelling, Facial Pain, Neck Pain, Neck Mass, Other - Cardiovascular Cardiovascular: absent: As Per HPI, Acrocyanosis, Chest Pain, Chest Pain at Rest , Chest Pain with Activity, Claudication, Diaphoresis, Dyspnea, Dyspnea on Exertion, Edema, Irregular Heart Rhythm, Pain Radiating to Arm/Neck/Jaw, Leg Edema, Leg Ulcers, Lightheadedness, Orthopnea, Palpitations, Paroxysmal Nocturnal Dyspnea, Pedal Edema, Radiating Pain, Rapid Heart Rate, Slow Heart Rate, Syncope, Other - Respiratory Respiratory: absent: As Per HPI, Cough, Dyspnea, Hemoptysis, Dyspnea on Exertion , Wheezing, Snoring, Stridor, Pain on Inspiration, Chest Congestion, Excessive Mucous Production, Change in Mucous Color, Pain with Coughing, Other - Gastrointestinal Gastrointestinal: Melena - Genitourinary Genitourinary: absent: As Per HPI, Change in Urinary Stream, Difficulty Urinating, Dysuria, Flank Pain, Hematuria, Pyuria, Nocturia, Urinary Incontinence, Urinary Frequency, Urinary Hesitance, Urinary Urgency, Voiding Freq/Small Amts, Freq UTI, Hx Renal/Bladder Calculi, Hx /Renal Surgery, Bladder Distension, Other - Musculoskeletal Musculoskeletal: absent: As Per HPI, Abnormal Gait, Arthralgias, Atrophy, Back Pain, Deformity, Joint Swelling, Limited Range of Motion, Loss of Height, Muscle Cramps, Muscle Weakness, Myalgias, Neck Pain, Numbness, Radiating Pain into Limb, Stiffness, Tingling, Other - Integumentary Integumentary: absent: As Per HPI, Acne, Alopecia, Bleeding Lesions, Change in Hair, Change in Nails, Change in Pigmentation, Changing Lesions, Dry Skin, Erythema, Furuncle, Hirsutism, Lesions, New Lesions, Non-Healing Lesions, Photosensitivity, Pruritus, Rash, Skin Pain, Skin Ulcer, Sores, Striae, Swelling , Unusual Bruising, Wounds, Jaundice, Other - Neurological Neurological: absent: As Per HPI, Abnormal Gait, Abnormal Hearing, Abnormal Movements, Abnormal Speech, Behavioral Changes, Burning Sensations, Confusion, Convulsions, Disequilibrium, Dizziness, Numbness, Focal Weakness, Frequent Falls , Headaches, Lack of Coordination, Loss of Vision, Memory Loss, Paresthesias, Radicular Pain, Restless Legs, Sensory Deficit, Syncope, Tingling, Tremor, Vertigo, Weakness, Other Visual Disturbances, Other - Psychiatric Psychiatric: absent: As Per HPI, Abnormal Sleep Pattern, Anhedonia, Anxiety, Auditory Hallucinations, Behavioral Changes, Change in Appetite, Change in Libido, Confusion, Depression, Difficulty Concentrating, Hallucinations, Homicidal Ideation, Hopelessness, Irritability, Memory Loss, Mood Swings, Panic Attacks, Paranoia, Suicidal Ideation, Visual Hallucinations, Tactile Hallucinations, Other - Endocrine Endocrine: absent: As Per HPI, Change in Body Appearance, Change in Libido, Cold Intolorance, Deepening of Voice, Excessive Sweating, Fatigue, Flushing, Heat Intolorance, Increase in Ring/Shoe/Hat Size, Palpitations, Polydipsia, Polyphagia, Polyuria, Other - Hematologic/Lymphatic Hematologic: absent: As Per HPI, Easy Bleeding, Easy Bruising, Lymphadenopathy, Other Past Patient History - Infectious Disease Hx of Infectious Diseases: None - Past Medical History & Family History Past Medical History?: Yes - Past Social History Smoking Status: Never Smoked - CARDIAC Hx Cardiac Disorders: Yes Hx Congestive Heart Failure: Yes Hx Hypercholesterolemia: Yes Hx Hypertension: Yes - PULMONARY Hx Respiratory Disorders: No Hx Asthma: No Hx Bronchitis: No Hx Chronic Obstructive Pulmonary Disease (COPD): No Hx Emphysema: No Hx Pneumonia: No Hx Pulmonary Embolism: No - NEUROLOGICAL Hx Neurological Disorder: No - HEENT Hx HEENT Problems: Yes Hx Cataracts: Yes - RENAL Hx Chronic Kidney Disease: Yes Hx Dialysis: Yes Type of Dialysis Access: Right Arm AV shunt Date of Last Dialysis Treatment: 04/21/17 Hx Renal Failure: Yes - ENDOCRINE/METABOLIC Hx Endocrine Disorders: Yes Hx Diabetes Mellitus Type 1: Yes - HEMATOLOGICAL/ONCOLOGICAL Hx Blood Disorders: Yes Hx Anemia: Yes - INTEGUMENTARY Hx Dermatological Problems: No - MUSCULOSKELETAL/RHEUMATOLOGICAL Hx Falls: No - GASTROINTESTINAL Hx Gastrointestinal Disorders: Yes Hx Pancreatitis: Yes - GENITOURINARY/GYNECOLOGICAL Hx Genitourinary Disorders: No - PSYCHIATRIC Hx Psychophysiologic Disorder: Yes Hx Depression: Yes Hx Substance Use: No - SURGICAL HISTORY Hx Surgeries: Yes Hx Appendectomy: Yes - ANESTHESIA Hx Anesthesia: Yes Hx Anesthesia Reactions: No Meds Home Medications: Home Medication List Medication Instructions Recorded Confirmed Type Brimonidine 0.2% [Alphagan 0.2% 0 ml OU DAILY bottle 04/23/17 Rx Opht] Allergies/Adverse Reactions: Allergies Allergy/AdvReac Type Severity Reaction Status Date / Time No Known Allergies Allergy Verified 03/28/17 00:04 - Medications Medications: Current Medications Belladonna/Phenobarbital () 1 tab PO TID [facility] Last Admin: 04/22/17 21:49 Dose: 1 tab Benzonatate (Tessalon Perles) 100 mg PO Q8 [facility] Last Admin: 04/23/17 05:33 Dose: 100 mg Brimonidine Tartrate (Alphagan 0.2% Opht) 0 ml OU DAILY [facility] Last Admin: 04/22/17 16:00 Dose: 1 drop Calcitriol (Rocaltrol) 0.25 mcg PO DAILY [facility] Last Admin: 04/22/17 10:10 Dose: 0.25 mcg Calcium Acetate (Phoslo) 2,001 mg PO TID [facility] Last Admin: 04/22/17 17:41 Dose: 2,001 mg Ergocalciferol (Drisdol 50,000 Intl Units Cap) 1 cap PO QWK [facility] Hydralazine HCl (Apresoline) 50 mg PO TID [facility] Last Admin: 04/22/17 17:41 Dose: 50 mg Hydromorphone HCl (Dilaudid) 1 mg IVP Q4H PRN PRN Reason: Pain, moderate (4-7) Last Admin: 04/22/17 16:57 Dose: 1 mg Insulin Aspart (Novolog) 0 unit SC ACHS [facility] PRN Reason: Protocol Last Admin: 04/22/17 22:00 Dose: Not Given Lisinopril (Zestril) 10 mg PO HS [facility] Last Admin: 04/22/17 22:00 Dose: 10 mg Loperamide HCl (Imodium) 2 mg PO Q6H PRN PRN Reason: Diarrhea Nateglinide (Starlix) 120 mg PO TID [facility] Last Admin: 04/22/17 17:42 Dose: 120 mg Pantoprazole Sodium (Protonix Ec Tab) 40 mg PO DAILY [facility] Last Admin: 04/22/17 10:01 Dose: 40 mg Rosuvastatin Calcium (Crestor) 10 mg PO HS [facility] Last Admin: 04/22/17 21:49 Dose: 10 mg Tamsulosin HCl (Flomax) 0.4 mg PO DAILY [facility] Last Admin: 04/22/17 10:02 Dose: 0.4 mg Torsemide (Demadex) 100 mg PO BID [facility] Last Admin: 04/22/17 18:00 Dose: 100 mg Vitamin B Complex/Vit C/Folic Acid (Nephro-Lupis) 1 tab PO DAILY [facility] Last Admin: 04/22/17 10:10 Dose: 1 tab Physical Exam - Constitutional Appears: Non-toxic - Head Exam Head Exam: NORMAL INSPECTION - Eye Exam Eye Exam: Normal appearance - ENT Exam ENT Exam: Mucous Membranes Moist - Neck Exam Neck exam: Positive for: Full Rom - Respiratory Exam Respiratory Exam: Decreased Breath Sounds - Cardiovascular Exam Cardiovascular Exam: REGULAR RHYTHM - GI/Abdominal Exam GI & Abdominal Exam: Normal Bowel Sounds - Rectal Exam Rectal Exam: Deferred - Extremities Exam Extremities exam: Negative for: pedal edema - Back Exam Back exam: NORMAL INSPECTION - Neurological Exam Neurological exam: Alert, Oriented x3 - Psychiatric Exam Psychiatric exam: Normal Affect - Skin Skin Exam: Normal Color Results - Vital Signs Recent Vital Signs: Last Vital Signs Temp 97.9 F 04/23/17 08:03 Pulse 87 04/23/17 08:03 Resp 20 04/23/17 08:03 BP 156/78 H 04/23/17 08:03 Pulse Ox 96 04/23/17 08:03 - Labs Result Diagrams: 04/23/17 07:05 04/23/17 07:05 Labs: Laboratory Results - last 24 hr 04/22/17 04/22/17 04/22/17 11:27 16:14 17:44 WBC RBC Hgb Hct MCV MCH MCHC RDW Plt Count MPV Neut % (Auto) Lymph % (Auto) [place] % (Auto) Eos % (Auto) Baso % (Auto) Neut # Lymph # [place] # Eos # Baso # POC Glucose (mg/dL) 304 H 91 Amylase 126 H Lipase 100 Carcinoembryonic Ag 5.4 H CA 19-9 Antigen < 1.4 04/22/17 04/23/17 04/23/17 21:02 07:05 07:31 WBC 4.5 L RBC 3.30 L Hgb 9.9 L Hct 29.6 L MCV 89.7 MCH 29.9 MCHC 33.3 RDW 18.5 H Plt Count 62 L MPV 11.1 Neut % (Auto) 65.5 Lymph % (Auto) 25.1 [place] % (Auto) 6.0 Eos % (Auto) 2.9 Baso % (Auto) 0.5 Neut # 3.0 Lymph # 1.1 [place] # 0.3 Eos # 0.1 Baso # 0.0 POC Glucose (mg/dL) 150 H 100 Amylase Lipase Carcinoembryonic Ag CA 19-9 Antigen - EKG Data EKG Interpreted by: Myself Assessment & Plan (1) Melena Assessment and Plan: patient requires endoscopy. This is a low risk procedure. There is no cardiovascular contraindication to the planned endoscopy. Status: Acute (2) ESRD (end stage renal disease) on dialysis Assessment and Plan: will continued dialysis. Patient is not volume overloaded. Status: Acute (3) CHF (congestive heart failure), NYHA class II Assessment and Plan: stable. refuses Lifevest. Status: Acute
[2017-04-23] MEDS ORDERED: Lactated Ringer's 1,000 ML IV ONE (08:30)
[2017-04-23 08:48] LABS: ALB/GLOB RATIO 0.9 (1.0-2.1); BILIRUBIN,TOTAL 0.5 mg/dL (0.2-1.3); CALCIUM 8.2 mg/dl (8.6-10.4); POTASSIUM 4.3 mmol/L (3.6-5.2); TOTAL PROTEIN 7.1 g/dL (6.3-8.3)
[2017-04-23] MEDS ORDERED: Epoetin Alfa Dialysis 40000 UNIT/ml Inj IV SCH (10:00)
[2017-04-23] MEDS ORDERED: acetaZOLAMIDE 500 mg SR Cap PO SCH (10:00)
--- NOTE | 2017-04-23 10:10 | CP.PCM.PN ---
Subjective - Date & Time of Evaluation Date of Evaluation: 04/23/17 Time of Evaluation: 09:45 - Subjective Subjective: PGY-[address] Hall Patient seen and examined at bedside. No acute events reported overnight. Patient is aware of his endoscopy procedure with Dr. Cueva. Patient worries his will become hypoglycemia if he is NPO for too long. Objective - Vital Signs/Intake and Output Vital Signs (last 24 hours): Temp Pulse Resp BP Pulse Ox 97.7 F 88 15 168/86 H 99 04/23/17 08:55 04/23/17 09:25 04/23/17 09:25 04/23/17 09:25 04/23/17 09:25 Intake and Output: 04/23/17 04/23/17 06:59 18:59 Intake Total 300 Balance 300 - Medications Medications: Current Medications Belladonna/Phenobarbital () 1 tab PO TID [facility] Last Admin: 04/22/17 21:49 Dose: 1 tab Benzonatate (Tessalon Perles) 100 mg PO Q8 [facility] Last Admin: 04/23/17 05:33 Dose: 100 mg Bisacodyl (Dulcolax) 10 mg PO DAILY [facility] Brimonidine Tartrate (Alphagan 0.2% Opht) 0 ml OU DAILY [facility] Last Admin: 04/22/17 16:00 Dose: 1 drop Calcitriol (Rocaltrol) 0.25 mcg PO DAILY [facility] Last Admin: 04/22/17 10:10 Dose: 0.25 mcg Calcium Acetate (Phoslo) 2,001 mg PO TID [facility] Last Admin: 04/23/17 09:44 Dose: Not Given Epoetin [place] (Procrit) 4,000 unit IV MWF [facility] Ergocalciferol (Drisdol 50,000 Intl Units Cap) 1 cap PO QWK [facility] Hydralazine HCl (Apresoline) 100 mg PO TID [facility] Hydromorphone HCl (Dilaudid) 1 mg IVP Q4H PRN PRN Reason: Pain, moderate (4-7) Last Admin: 04/22/17 16:57 Dose: 1 mg Insulin Aspart (Novolog) 0 unit SC ACHS [facility] PRN Reason: Protocol Last Admin: 04/23/17 08:10 Dose: Not Given Lisinopril (Zestril) 10 mg PO HS [facility] Last Admin: 04/22/17 22:00 Dose: 10 mg Loperamide HCl (Imodium) 2 mg PO Q6H PRN PRN Reason: Diarrhea Nateglinide (Starlix) 120 mg PO TID [facility] Last Admin: 04/22/17 17:42 Dose: 120 mg Pantoprazole Sodium (Protonix Ec Tab) 40 mg PO DAILY [facility] Last Admin: 04/22/17 10:01 Dose: 40 mg Rosuvastatin Calcium (Crestor) 10 mg PO HS [facility] Last Admin: 04/22/17 21:49 Dose: 10 mg Tamsulosin HCl (Flomax) 0.4 mg PO DAILY [facility] Last Admin: 04/22/17 10:02 Dose: 0.4 mg Torsemide (Demadex) 100 mg PO BID [facility] Last Admin: 04/22/17 18:00 Dose: 100 mg Vitamin B Complex/Vit C/Folic Acid (Nephro-Lupis) 1 tab PO DAILY [facility] Last Admin: 04/22/17 10:10 Dose: 1 tab - Labs Labs: 04/23/17 07:05 04/23/17 07:05 PT 13.1 SECONDS (9.7-12.2) H 04/21/17 16:43 INR 1.1 04/21/17 16:43 APTT 38 SECONDS (21-34) H 04/21/17 16:43 - Constitutional Appears: Non-toxic, No Acute Distress - Head Exam Head Exam: ATRAUMATIC, NORMOCEPHALIC - Eye Exam Eye Exam: EOMI, Normal appearance - ENT Exam ENT Exam: Mucous Membranes Moist - Neck Exam Neck Exam: Normal Inspection - Respiratory Exam Respiratory Exam: Clear to Ausculation Bilateral, NORMAL BREATHING PATTERN. absent: Respiratory Distress - Cardiovascular Exam Cardiovascular Exam: REGULAR RHYTHM, +S1, +S2 - GI/Abdominal Exam GI & Abdominal Exam: Soft, Normal Bowel Sounds - Extremities Exam Extremities Exam: Normal Inspection. absent: Pedal Edema - Neurological Exam Neurological Exam: Alert, Awake, Oriented x3 - Psychiatric Exam Psychiatric exam: Normal Affect, Normal Mood - Skin Skin Exam: Dry, Warm Assessment and Plan - Assessment and Plan (Free Text) Assessment: Abdominal pain, black stool -No reported black stool since hospital admission -EGD showed LA Grade B reflux esophagitis, hiatus hernia, and acute gastritis. No active bleeding. -GI consult, Dr. Cueva help appreciated -Outpatient colonoscopy is recommended -Lipase negative -elevated CEA 5.4, amylase 126 -Follow up C. diff and stool electrolyte -Dilaudid 1mg IV Q4 prn for pain control ESRD -HD this afternoon -Patient's last HD was on 04/21/17 -Follow nephrology recommendations -Vitamin B comlex -Phoslo CHF -Torsemide 100mg po BID DM -Starlix 120mg po TID -Lisinopril 10mg po HLD -Crestor 10mg po BPH -Flomax 0.4mg po daily Glaucoma -Brimonidine Tartrate eye drop daily Prophylactic measure -Protonix -SCD Patient to be discharged home after dialysis Management per Dr. Hall
[2017-04-23] MEDS: Brimonidine 0.2% Opth Sol (5ml) OU SCH (10:25)
[2017-04-23] MEDS: Bisacodyl 5mg EC Tab PO SCH (10:26)
[2017-04-23] MEDS: Pantoprazole 40 mg EC Tab PO SCH (10:26)
[2017-04-23] MEDS: Belladonna-Phenobarbital PO SCH ×3 (10:26→18:00)
[2017-04-23] MEDS: Multivitamin Vitamin B Complex (Nephro-Vite) Tab PO SCH (10:26)
--- NOTE | 2017-04-23 15:31 | CP.PCM.PN ---
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 Continue with Nephrovite 1 tab/day. PRBC as needed for anemia. last Hb 9.9 TSAT 43% Ferritin 900. added epogen 4000 with HD Continue with phos binders home dose Continue with calcitriol, last PTH 391 BP control with meds as ordered. Patient on RAAS dragan as lisinopril. usually has tendency for hyperkalemia. hence will further increase hydralazine Glycemic control, Dialysis consistent diet Further work up/management as per primary team Dose meds/antibiotics (if needed) for ESRD status. Avoid fleets enema/magnesium based laxatives. GI following ? indication for home med as acetazolamide. usually avoided in ESRD Thanks for allowing me to participate in care of your patient. Will follow patient with you. Please call if any Qs. d/w team Dr Davidson Bolivar Office: [phone] Chief Complaint;loose stool HPI: Pt is a 61 M with hx of ESRD on hemodialysis (MWF) via AVF x 2 years, last dialysis yesterday @ [facility], chronic anemia, hyperphosphatemia, secondary hyperparathyroidism, Diabetes Mellitus, hypertension, thrombocytopenia presented with complaints of loose stool diarrhoea yesterday during HD which was dark in color. hence pt came to hospital for further eval. feels better now, no such further episode. no pain abdomen. ROS: Cardiovascular: No chest pain. Pulmonary: No shortness of breath Gastrointestinal: denies abdominal pain No nausea. No vomiting. c/o dark stool Genitourinary: No pain while urinating. Denies blood in urine. All other negative Physical Examination: General Appearance: Comfortable, in no acute respiratory distress, co-operative . Vitals reviewed and noted as below Head; Atraumatic, normocephalic ENT: no ulcers no thrush. Tongue is midline. Oropharynx: no rash or ulcers. EYES: Pupils are equal, round and reactive to light accommodation. Eye muscles and extraocular movement intact. Sclera is anicteric. Neck; supple no lymphadenopathy, no thyromegaly or bruit Lungs: Normal respiratory rate/effort. Breath sounds bilateral equal and clear Heart: Normal rate. s1s2 normal. No rub or gallop. Extremities: no edema. No varicose veins Neurological: Patient is alert, awake and oriented to person, place and time. No focal deficit. Strength bilateral appropriate and equal Skin: Warm and dry. Normal turgor. No rash. Palpitation: Normal elasticity for age Abdomen: Abdomen is soft. Bowel sounds +. There is no abdominal tenderness, no guarding/rigidity or organomegaly Psych: normal insight and normal affect/mood MSK: no joint tenderness or swelling. Digits and nails normal, no deformity : kidney or bladder not palpable Access: AVF Labs/imaging reviewed. Past medical history, past surgical history, family history, social history, allergy reviewed and noted as below Family Hx: no hx of CKD. Non contributory Objective - Vital Signs/Intake and Output Vital Signs (last 24 hours): Temp Pulse Resp BP Pulse Ox 97.7 F 88 15 168/86 H 99 04/23/17 08:55 04/23/17 09:25 04/23/17 09:25 04/23/17 09:25 04/23/17 09:25 Intake and Output: 04/23/17 04/23/17 06:59 18:59 Intake Total 300 Balance 300 - Medications Medications: Current Medications Belladonna/Phenobarbital () 1 tab PO TID [facility] Last Admin: 04/23/17 13:48 Dose: 1 tab Benzonatate (Tessalon Perles) 100 mg PO Q8 [facility] Last Admin: 04/23/17 13:50 Dose: 100 mg Bisacodyl (Dulcolax) 10 mg PO DAILY [facility] Last Admin: 04/23/17 10:26 Dose: 10 mg Brimonidine Tartrate (Alphagan 0.2% Opht) 0 ml OU DAILY [facility] Last Admin: 04/23/17 10:25 Dose: 1 drop Calcitriol (Rocaltrol) 0.25 mcg PO DAILY [facility] Last Admin: 04/23/17 10:26 Dose: 0.25 mcg Calcium Acetate (Phoslo) 2,001 mg PO TID [facility] Last Admin: 04/23/17 13:48 Dose: 2,001 mg Epoetin Carrington (Procrit) 4,000 unit IV MWF [facility] Ergocalciferol (Drisdol 50,000 Intl Units Cap) 1 cap PO QWK [facility] Hydralazine HCl (Apresoline) 100 mg PO TID [facility] Last Admin: 04/23/17 13:47 Dose: Not Given Hydromorphone HCl (Dilaudid) 1 mg IVP Q4H PRN PRN Reason: Pain, moderate (4-7) Last Admin: 04/22/17 16:57 Dose: 1 mg Insulin Aspart (Novolog) 0 unit SC ACHS [facility] PRN Reason: Protocol Last Admin: 04/23/17 12:04 Dose: 3 unit Lisinopril (Zestril) 10 mg PO HS [facility] Last Admin: 04/22/17 22:00 Dose: 10 mg Loperamide HCl (Imodium) 2 mg PO Q6H PRN PRN Reason: Diarrhea Nateglinide (Starlix) 120 mg PO TID [facility] Last Admin: 04/23/17 10:27 Dose: 120 mg Pantoprazole Sodium (Protonix Ec Tab) 40 mg PO DAILY [facility] Last Admin: 04/23/17 10:26 Dose: 40 mg Rosuvastatin Calcium (Crestor) 10 mg PO HS [facility] Last Admin: 04/22/17 21:49 Dose: 10 mg Tamsulosin HCl (Flomax) 0.4 mg PO DAILY [facility] Last Admin: 04/23/17 10:45 Dose: 0.4 mg Torsemide (Demadex) 100 mg PO BID [facility] Last Admin: 04/23/17 10:26 Dose: 100 mg Vitamin B Complex/Vit C/Folic Acid (Nephro-Lupis) 1 tab PO DAILY [facility] Last Admin: 04/23/17 10:26 Dose: 1 tab - Labs Labs: 04/23/17 07:05 04/23/17 07:05 PT 13.1 SECONDS (9.7-12.2) H 04/21/17 16:43 INR 1.1 04/21/17 16:43 APTT 38 SECONDS (21-34) H 12/20/17 16:43
[2017-04-23] MEDS ORDERED: EPOETIN ALFA 4,000 UNIT/ML ML Dialysis IV SCH (17:15)
[2017-04-24 07:53] VITALS: BP 162/79; PULSE 93; RESP 20; TEMP 98.7; O2SAT 96
[2017-04-24] MEDS: (Novolog) Insulin Aspart, Recombinant 100 u/ml 10 ml vial SC SCH ×2 (07:58→12:36)
[2017-04-24] MEDS: Bisacodyl 5mg EC Tab PO SCH (10:09)
[2017-04-24] MEDS: Brimonidine 0.2% Opth Sol (5ml) OU SCH (10:09)
[2017-04-24] MEDS: Belladonna-Phenobarbital PO SCH ×2 (10:09→14:48)
[2017-04-24] MEDS: Multivitamin Vitamin B Complex (Nephro-Vite) Tab PO SCH (10:10)
[2017-04-24] MEDS: Pantoprazole 40 mg EC Tab PO SCH (10:10)
--- NOTE | 2017-04-24 13:22 | PN ---
LOCATION: Room 352, bed B. SUBJECTIVE: This is a 61-year-old male seen and examined in rounds early in the morning without significant clinical changes, post upper endoscopy. The entire chart is reviewed including, but not limited to most recent lab and radiology study results, current and the previous medication list, current and the previous medical events. Patient is post hemodialysis, with blood glucose level reported to be 79 this morning. No reported active bleeding. The entire medical nursing notes reviewed. PHYSICAL EXAMINATION: GENERAL: A 61-year-old male. VITAL SIGNS: Afebrile with pulse of 86, respiratory rate 20 to 22, blood pressure 154/76. HEENT: Showed pale, dry oral mucous membrane, nonicteric sclerae. LUNGS: Few scattered crepitation. Decreased air entry at bases. HEART: Positive S1 and S2. ABDOMEN: Soft. Bowel sounds are present. No mass or organomegaly. No rebound tenderness or guarding. EXTREMITIES: Without edema, clubbing, or cyanosis. NEUROLOGIC: No reported new neurological deficits, sensory or motor. LABORATORY DATA: Pathology report post upper endoscopy still pending. IMPRESSION: 1. Reported gastrointestinal blood loss. 2. Peptic ulcer disease. 3. Known history of chronic renal failure. 4. Known history of benign prostatic hypertrophy, congestive heart failure with hypertension, hyperlipidemia with diabetes mellitus. 5. Anemia secondary to above. 6. Known history of depression. 7. Status post appendectomy by history. SUGGESTIONS: 1. Agree with your plan. 2. Follow up serum lipase and amylase levels, that could be done also as outpatient. 3. Due to the elevated CEA level, colonoscopy should be kept in mind, that could be done also as outpatient if the patient clinically is stable. 4. Repeat serum lipase before discharge home. Lucille Perry MD
--- NOTE | 2017-04-27 22:21 | CARD ---
APPROVED REPORT EKG Measurement Heart [id number] OK [id number] <Conclusion> Normal sinus rhythm Left ventricular hypertrophy with repolarization abnormality Abnormal ECG
[2017-04-28] MEDS ORDERED: Ergocalciferol 50,000 Intl Units Cap PO SCH (10:00)
== END 2017-04-24 14:35 | disposition home or self-care (01) | DRG 174 ==
LOC: C.ER 15:59 → C.9E 21:48 → C.3T 23:56
PROVIDERS: ADMIT Internal Medicine Pulmonary Disease; ATTEND Internal Medicine Pulmonary Disease
PROC: 0DB68ZX Excision of Stomach, Via Natural or Artificial Opening Endoscopic, Diagnostic (ICD-10-PCS; principal; 2017-04-23 08:30)
DX: K29.01 Acute gastritis with bleeding (principal); N18.6 End stage renal disease; I13.2 Hypertensive heart and chronic kidney disease with heart failure and with stage 5 chronic kidney disease, or end stage renal disease; D69.6 Thrombocytopenia, unspecified; E11.22 Type 2 diabetes mellitus with diabetic chronic kidney disease; E83.39 Other disorders of phosphorus metabolism; I50.9 Heart failure, unspecified; K44.9 Diaphragmatic hernia without obstruction or gangrene; Z99.2 Dependence on renal dialysis; E78.5 Hyperlipidemia, unspecified; N40.0 Benign prostatic hyperplasia without lower urinary tract symptoms; F32.9 Major depressive disorder, single episode, unspecified; D63.1 Anemia in chronic kidney disease; H40.9 Unspecified glaucoma; K21.0 Gastro-esophageal reflux disease with esophagitis

== ENCOUNTER 2017-10-08 16:57 | Observation (INO) | payer MEDICAID ==
[2017-10-08 18:28] LABS: BASO % 0.4 % (0.0-2.0); EOS # 0.2 K/uL (0.0-0.7); EOS % 3.4 % (0.0-4.0); LYMPH # 0.6 K/uL (1.0-4.3); LYMPH % 10.5 % (20.0-40.0); MEAN CELL VOLUME 94.3 fL (80.0-94.0); MEAN CORPUSCULAR HEMOGLOBIN 30.9 pg (27.0-31.0); MEAN CORPUSCULAR HGB CONC 32.7 g/dL (33.0-37.0); MEAN PLATELET VOLUME 10.5 fL (7.2-11.7); MONO # 0.4 K/uL (0.0-0.8); MONO % 6.7 % (0.0-10.0); NEUT # 4.2 K/uL (1.8-7.0); RBC 3.58 Mil/uL (4.40-5.90); WHITE BLOOD COUNT 5.3 K/uL (4.8-10.8)
--- NOTE | 2017-10-08 18:29 | C.PDOC ---
History Of Present Illness <AveryWill gonzalezov - Last Filed: 10/08/17 19:02> <Jace Allison - Last Filed: 10/08/17 22:45> 62 y/o male with history of DM, pancreatitis, Anemia and HTN presents to ED with c/o abdominal pain associated with diarrhea for 5 days. Patient states he was on dialysis today, had increasing abdominal pain and diarrhea and was sent to ED for further evaluation. Patient denies fever, vomiting, back pain, chest pain, sob or any other complaints at this time. (Eneida Helton) History Per: Patient History/Exam Limitations: no limitations Onset/Duration Of Symptoms: Days Current Symptoms Are (Timing): Still Present Location Of Pain/Discomfort: Diffuse <AveryEneida gonzalez - Last Filed: 10/08/17 19:02> <Jace Allison - Last Filed: 10/08/17 22:45> Time Seen by Provider: 10/08/17 17:48 Chief Complaint (Nursing): GI Problem Past Medical History Reviewed: Historical Data, Nursing Documentation, Vital Signs - Medical History PMH: Anemia, Benign Prostatic Hyperplasia, CHF, Depression, Diabetes, HTN, Hypercholesterolemia, Pancreatitis, Chronic Kidney Disease Surgical History: Appendectomy Family History: States: No Known Family Hx - Social History Hx Tobacco Use: No Hx Alcohol Use: No Hx Substance Use: No - Immunization History Hx Tetanus Toxoid Vaccination: No Hx Influenza Vaccination: Yes (2016) Hx Pneumococcal Vaccination: Yes (2016) <NaheedkiEneida - Last Filed: 10/08/17 19:02> Vital Signs: Last Vital Signs Temp 97.8 F 10/08/17 21:00 Pulse 71 10/08/17 21:00 Resp 20 10/08/17 21:00 BP 173/80 H 10/08/17 21:00 Pulse Ox 98 10/08/17 21:00 - [facility] Procedures (03/28/17) CATARAC PHACOEMULS/ASPIR (10/03/13) EXCISION OF STOMACH, ENDO, DIAGN (04/21/17) INSERT LENS AT CATAR EXT (10/03/13) VACCINATION NEC (07/10/14) Review Of Systems Constitutional: Negative for: Fever, Chills Cardiovascular: Negative for: Chest Pain Respiratory: Negative for: Shortness of Breath Gastrointestinal: Positive for: Abdominal Pain, Diarrhea. Negative for: Nausea , Vomiting Genitourinary: Negative for: Dysuria Musculoskeletal: Negative for: Back Pain <Eneida Helton Last Filed: 10/08/17 19:02> Physical Exam - Physical Exam Appears: Non-toxic, No Acute Distress Skin: Warm, Dry, No Rash Head: Atraumatic, Normacephalic Eye(s): bilateral: Normal Inspection, EOMI Nose: Normal Oral Mucosa: Moist Neck: Normal ROM, Supple Chest: Symmetrical Cardiovascular: Rhythm Regular Respiratory: Normal Breath Sounds, No Accessory Muscle Use, No Rales, No Rhonchi , No Wheezing Gastrointestinal/Abdominal: Soft, Tenderness (Diffuse), No Guarding, No Rebound Back: No CVA Tenderness, No Paraspinal Tenderness Neurological/Psych: Oriented x3, Normal Speech, Normal Cognition <Eneida Helton Last Filed: 10/08/17 19:02> ED Course And Treatment - Laboratory Results Result Diagrams: 10/08/17 18:25 10/08/17 18:25 O2 Sat by Pulse Oximetry: 97 (RA) Pulse Ox Interpretation: Normal Progress Note: CT abd/pelvis, Blood work ordered. Toradol and IV fluids administered. Case endorsed to Dr Allison pending CT and re-evaluation. <Eneida Helton Last Filed: 10/08/17 19:02> - Laboratory Results Result Diagrams: 10/08/17 18:25 10/08/17 18:25 - CT Scan/US CT A/P Other Rad Studies (CT/US): Read By Radiologist, Radiology Report Reviewed CT/US Interpretation: EXAM: CT Abdomen and Pelvis Without Intravenous Contrast. CLINICAL HISTORY: 62 years old, male; Pain and signs and symptoms; Other: Diarrhea; Abdominal pain; Generalized. TECHNIQUE: Axial computed tomography images of the abdomen and pelvis without intravenous contrast. All CT. scans at this facility use one or more dose reduction techniques, viz.: automated exposure control;. ma/kV adjustment per patient size (including targeted exams where dose is matched to indication; i.e. head); or iterative reconstruction technique. Coronal and sagittal reformatted images were created and reviewed. COMPARISON: No relevant prior studies available. FINDINGS: Limitations: Lack of intravenous contrast. Motion artifact - mild to moderate. Streak artifact - mild. Lung bases: Mild atelectasis/scarring. Mild mosaic pattern of lung parenchyma, nonspecific. Elevated RIGHT hemidiaphragm. Heart: Borderline cardiomegaly. Valve replacement. Coronary artery calcifications. ABDOMEN: Liver: Unremarkable. Gallbladder and bile ducts: Possible gallstones. No significant ductal dilation. Pancreas: Unremarkable. No ductal dilation. Spleen: No splenomegaly. Adrenals: Mild hypertrophy of adrenal glands. Kidneys and ureters: Moderate atrophy of kidneys. No renal calculi. No hydronephrosis. Stomach and bowel: Mural thickening versus underdistention body /fundus of stomach. Scattered. diverticula within colon. Apparent mild-to- moderate mural thickening short segment of sigmoid colon. No obstruction. PELVIS: Appendix: No definite findings to suggest acute appendicitis. Bladder : Borderline bladder wall thickening, 4-5 mm. Incomplete distention, limiting evaluation. No. stones. Reproductive: Unremarkable as visualized. ABDOMEN and PELVIS: Intraperitoneal space: Small to moderate free fluid within abdomen and pelvis. No free air. Bones/joints: Probable bone islands. Early degenerative changes of spine. No acute fracture. Soft tissues: Minimal gynecomastia. Minimal to mild diffuse stranding within subcutaneous tissues. Tiny umbilical hernia containing fat/fluid. Vasculature: Moderate atherosclerotic disease. No aneurysm. Lymph nodes: No pathologically enlarged lymph nodes. Tubes, lines and devices: Stimulator device within left chest wall. IMPRESSION: 1. Gastritis versus underdistention. Clinical correlation is needed. 2. Focal mural thickening of sigmoid colon. DDX: Focal colitis, diverticulitis, muscular hypertrophy,. underdistention, neoplasm. Clinical correlation is needed. 3. Mild cystitis vs underdistention. Correlate with urinalysis. 4. Incidental/non-acute findings are described above. <Jace Allison - Last Filed: 10/08/17 22:45> Disposition - Disposition Disposition Time: 19:04 <Eneida Helton - Last Filed: 10/08/17 19:02> <Jace Allison - Last Filed: 10/08/17 22:45> - Disposition Disposition: HOSPITALIZED Condition: STABLE - Clinical Impression Clinical Impression: Abdominal pain, ESRD (end stage renal disease) on dialysis - PA / SENIOR PRODUCT ANALYST / Resident Statement MD/DO has reviewed & agrees with the documentation as recorded. - Scribe Statement The provider has reviewed the documentation as recorded by the Scribe <Eneida Helton - Last Filed: 10/08/17 19:02> <Jace Allison - Last Filed: 10/08/17 22:45> - Scribe Statement Severino Jovel All medical record entries made by the Scribe were at my direction and personally dictated by me. I have reviewed the chart and agree that the record accurately reflects my personal performance of the history, physical exam, medical decision making, and the department course for this patient. I have also personally directed, reviewed, and agree with the discharge instructions and disposition. (Eneida Helton)
[2017-10-08 18:54] LABS: ALBUMIN 3.8 g/dL (3.5-5.0); AMYLASE 98 U/L (30-110); AST/SGOT 18 U/L (17-59); BLOOD UREA NITROGEN 49 mg/dL (9-20); GFR AFRICAN-AMERICAN 12; GFR NON-AFRICAN AMERICAN 10; LIPASE 91 U/L (23-300)
[2017-10-08 19:19] LABS: ALT/SGPT < 6 U/L (21-72)
--- NOTE | 2017-10-08 20:20 | CT ---
EXAM: CT Abdomen and Pelvis Without Intravenous Contrast CLINICAL HISTORY: 62 years old, male; Pain and signs and symptoms; Other: Diarrhea; Abdominal pain; Generalized TECHNIQUE: Axial computed tomography images of the abdomen and pelvis without intravenous contrast. All CT scans at this facility use one or more dose reduction techniques, viz.: automated exposure control; ma/kV adjustment per patient size (including targeted exams where dose is matched to indication; i.e. head); or iterative reconstruction technique. Coronal and sagittal reformatted images were created and reviewed. COMPARISON: No relevant prior studies available. FINDINGS: Limitations: Lack of intravenous contrast. Motion artifact - mild to moderate. Streak artifact - mild. Lung bases: Mild atelectasis/scarring. Mild mosaic pattern of lung parenchyma, nonspecific. Elevated RIGHT hemidiaphragm. Heart: Borderline cardiomegaly. Valve replacement. Coronary artery calcifications. ABDOMEN: Liver: Unremarkable. Gallbladder and bile ducts: Possible gallstones. No significant ductal dilation. Pancreas: Unremarkable. No ductal dilation. Spleen: No splenomegaly. Adrenals: Mild hypertrophy of adrenal glands. Kidneys and ureters: Moderate atrophy of kidneys. No renal calculi. No hydronephrosis. Stomach and bowel: Mural thickening versus underdistention body/fundus of stomach. Scattered diverticula within colon. Apparent [id number] mural thickening short segment of sigmoid colon. No obstruction. PELVIS: Appendix: No definite findings to suggest acute appendicitis. Bladder: Borderline bladder wall thickening, 4-5 mm. Incomplete distention, limiting evaluation. No stones. Reproductive: Unremarkable as visualized. ABDOMEN and PELVIS: Intraperitoneal space: Small to moderate free fluid within abdomen and pelvis. No free air. Bones/joints: Probable bone islands. Early degenerative changes of spine. No acute fracture. Soft tissues: Minimal gynecomastia. Minimal to mild diffuse stranding within subcutaneous tissues. Tiny umbilical hernia containing fat/fluid. Vasculature: Moderate atherosclerotic disease. No aneurysm. Lymph nodes: No pathologically enlarged lymph nodes. Tubes, lines and devices: Stimulator device within left chest wall. IMPRESSION: 1. Gastritis versus underdistention. Clinical correlation is needed. 2. Focal mural thickening of sigmoid colon. DDX: Focal colitis, diverticulitis, muscular hypertrophy, underdistention, neoplasm. Clinical correlation is needed. 3. Mild cystitis vs underdistention. Correlate with urinalysis. 4. Incidental/non-acute findings are described above.
[2017-10-08] MEDS ORDERED: Oxycodone/Acetaminophen 5/325 mg Tab PO PRN (20:59)
[2017-10-08] MEDS ORDERED: Atropine-Diphenoxylate 0.025-2.5 mg Tab PO PRN (21:22)
[2017-10-08] MEDS: Rosuvastatin Calcium 2.5 mg Tab PO SCH (22:42)
[2017-10-08] MEDS: metroNIDAZOLE IV 500 mg/100 ml 500 MG/100 ML BAG IVPB SCH (23:30)
[2017-10-09] MEDS: metroNIDAZOLE IV 500 mg/100 ml 500 MG/100 ML BAG IVPB SCH ×3 (06:05→22:14)
[2017-10-09] MEDS: Multivitamin Vitamin B Complex (Nephro-Vite) Tab PO SCH (08:44)
[2017-10-09] MEDS: Brimonidine 0.2% Opth Sol (5ml) OU SCH (10:32)
--- NOTE | 2017-10-09 21:51 | CP.PCM.CON ---
History of Present Illness - History of Present Illness History of Present Illness: renal consult note 62 y/o male with history of DM, pancreatitis, Anemia and HTN is admitted with c/ o abdominal pain associated with diarrhea for 5 days. Patient denies fever, vomiting, back pain, chest pain, sob or any other complaints at this complete ros is negative except for above exam vss nad heent normal no jvd s1s2 present no resp distress abd soft tender mild all over ao times 3 no fnd skin normal psy cooperative A&P: esrd/htn/abdominal pain/anemia hd today as missed yesterday, his opt schedule is [facility] reviewed continue binders and calcitriol, monitor phos level i haveordered a level for tomorrow resume home bp meds abdominal pain work up per primary team Past Patient History - Infectious Disease Hx of Infectious Diseases: None - Past Medical History & Family History Past Medical History?: Yes - Past Social History Smoking Status: Never Smoked - CARDIAC Hx Congestive Heart Failure: Yes Hx Hypercholesterolemia: Yes Hx Hypertension: Yes - PULMONARY Hx Emphysema: No Hx Pulmonary Embolism: No - NEUROLOGICAL Hx Neurological Disorder: No - HEENT Hx HEENT Problems: Yes Hx Cataracts: Yes - RENAL Hx Chronic Kidney Disease: Yes - ENDOCRINE/METABOLIC Hx Diabetes Mellitus Type 2: Yes - HEMATOLOGICAL/ONCOLOGICAL Hx Anemia: Yes - INTEGUMENTARY Hx Dermatological Problems: No - MUSCULOSKELETAL/RHEUMATOLOGICAL Hx Musculoskeletal Disorders: No Hx Falls: No - GASTROINTESTINAL Hx Pancreatitis: Yes - GENITOURINARY/GYNECOLOGICAL Hx Genitourinary Disorders: No - PSYCHIATRIC Hx Depression: Yes Hx Substance Use: No - SURGICAL HISTORY Hx Appendectomy: Yes - ANESTHESIA Hx Anesthesia: Yes Hx Anesthesia Reactions: No Meds Allergies/Adverse Reactions: Allergies Allergy/AdvReac Type Severity Reaction Status Date / Time No Known Allergies Allergy Verified 10/08/17 17:04 - Medications Medications: Current Medications Acetaminophen (Tylenol 325mg Tab) 650 mg PO Q8 PRN PRN Reason: pain/fever Last Admin: 10/09/17 10:35 Dose: 650 mg Aspirin (Aspirin Chewable) 81 mg PO DAILY [facility] Last Admin: 10/09/17 10:32 Dose: Not Given Benzonatate (Tessalon Perles) 100 mg PO TID [facility] Last Admin: 10/09/17 17:51 Dose: 100 mg Brimonidine Tartrate (Alphagan 0.2% Opht) 0 ml OU DAILY [facility] Last Admin: 10/09/17 10:32 Dose: Not Given Calcitriol (Rocaltrol) 0.25 mcg PO DAILY [facility] Last Admin: 10/09/17 10:33 Dose: Not Given Calcium Acetate (Phoslo) 667 mg PO TID [facility] Last Admin: 10/09/17 17:50 Dose: 667 mg Carvedilol (Coreg) 6.25 mg PO BID [facility] Last Admin: 10/09/17 17:59 Dose: 6.25 mg Diphenoxylate HCl/Atropine (Lomotil 0.025-2.5 Mg Tablet) 1 tab PO Q12H PRN PRN Reason: Diarrhea Ergocalciferol (Drisdol 50,000 Intl Units Cap) 1 cap PO QWK [facility] Heparin Sodium (Porcine) (Heparin) 5,000 units SC Q8H [facility] Last Admin: 10/09/17 13:58 Dose: 5,000 units Hydralazine HCl (Apresoline) 25 mg PO TID [facility] Last Admin: 10/09/17 17:50 Dose: 25 mg Metronidazole (Flagyl) 500 mg in 100 mls @ 100 mls/hr IVPB Q8H [facility] PRN Reason: Protocol Last Admin: 10/09/17 14:01 Dose: 100 mls/hr Lisinopril (Zestril) 10 mg PO DAILY [facility] Loperamide HCl (Imodium) 2 mg PO QID PRN PRN Reason: Diarrhea Last Admin: 10/09/17 14:02 Dose: 2 mg Nateglinide (Starlix) 120 mg PO TID [facility] Last Admin: 10/09/17 17:51 Dose: 120 mg Oxycodone/Acetaminophen (Percocet 5/325 Mg Tab) 1 tab PO Q8H PRN PRN Reason: pain Stop: 10/11/17 21:00 Pantoprazole Sodium (Protonix Inj) 40 mg IVP DAILY [facility] Last Admin: 10/09/17 10:33 Dose: Not Given Rosuvastatin Calcium (Crestor) 2.5 mg PO [facility] Last Admin: 10/08/17 22:42 Dose: 2.5 mg Tamsulosin HCl (Flomax) 0.4 mg PO DAILY [facility] Last Admin: 10/09/17 10:33 Dose: Not Given Torsemide (Demadex) 100 mg PO BID [facility] Last Admin: 10/09/17 17:52 Dose: 100 mg Vitamin B Complex/Vit C/Folic Acid (Nephro-Lupis) 1 tab PO 0800 [facility] Last Admin: 10/09/17 08:44 Dose: 1 tab Results - Vital Signs Recent Vital Signs: Last Vital Signs Temp 97.5 F L 10/09/17 15:55 Pulse 74 10/09/17 17:59 Resp 18 10/09/17 15:55 BP 156/77 H 10/09/17 17:59 Pulse Ox 93 L 10/09/17 15:55 - Labs Result Diagrams: 10/08/17 18:25 10/08/17 18:25 Labs: Laboratory Results - last 24 hr 10/09/17 10/09/17 10/09/17 06:03 11:15 16:29 POC Glucose (mg/dL) 136 H 144 H 307 H 10/09/17 21:03 POC Glucose (mg/dL) 248 H
--- NOTE | 2017-10-09 21:56 | CP.PCM.PN ---
Subjective - Date & Time of Evaluation Date of Evaluation: 10/09/17 Time of Evaluation: 11:00 - Subjective Subjective: patient with esrd, seen and examined on dialysis vss stable uf as tolerated Objective - Vital Signs/Intake and Output Vital Signs (last 24 hours): Temp Pulse Resp BP Pulse Ox 97.5 F L 74 18 156/77 H 93 L 10/09/17 15:55 10/09/17 17:59 10/09/17 15:55 10/09/17 17:59 10/09/17 15:55 - Medications Medications: Current Medications Acetaminophen (Tylenol 325mg Tab) 650 mg PO Q8 PRN PRN Reason: pain/fever Last Admin: 10/09/17 10:35 Dose: 650 mg Aspirin (Aspirin Chewable) 81 mg PO DAILY [facility] Last Admin: 10/09/17 10:32 Dose: Not Given Benzonatate (Tessalon Perles) 100 mg PO TID [facility] Last Admin: 10/09/17 17:51 Dose: 100 mg Brimonidine Tartrate (Alphagan 0.2% Opht) 0 ml OU DAILY [facility] Last Admin: 10/09/17 10:32 Dose: Not Given Calcitriol (Rocaltrol) 0.25 mcg PO DAILY [facility] Last Admin: 10/09/17 10:33 Dose: Not Given Calcium Acetate (Phoslo) 667 mg PO TID [facility] Last Admin: 10/09/17 17:50 Dose: 667 mg Carvedilol (Coreg) 6.25 mg PO BID [facility] Last Admin: 10/09/17 17:59 Dose: 6.25 mg Diphenoxylate HCl/Atropine (Lomotil 0.025-2.5 Mg Tablet) 1 tab PO Q12H PRN PRN Reason: Diarrhea Ergocalciferol (Drisdol 50,000 Intl Units Cap) 1 cap PO QWK [facility] Heparin Sodium (Porcine) (Heparin) 5,000 units SC Q8H [facility] Last Admin: 10/09/17 13:58 Dose: 5,000 units Hydralazine HCl (Apresoline) 25 mg PO TID [facility] Last Admin: 10/09/17 17:50 Dose: 25 mg Metronidazole (Flagyl) 500 mg in 100 mls @ 100 mls/hr IVPB Q8H [facility] PRN Reason: Protocol Last Admin: 10/09/17 14:01 Dose: 100 mls/hr Lisinopril (Zestril) 10 mg PO DAILY [facility] Loperamide HCl (Imodium) 2 mg PO QID PRN PRN Reason: Diarrhea Last Admin: 10/09/17 14:02 Dose: 2 mg Nateglinide (Starlix) 120 mg PO TID [facility] Last Admin: 10/09/17 17:51 Dose: 120 mg Oxycodone/Acetaminophen (Percocet 5/325 Mg Tab) 1 tab PO Q8H PRN PRN Reason: pain Stop: 10/11/17 21:00 Pantoprazole Sodium (Protonix Inj) 40 mg IVP DAILY [facility] Last Admin: 10/09/17 10:33 Dose: Not Given Rosuvastatin Calcium (Crestor) 2.5 mg PO HS [facility] Last Admin: 10/08/17 22:42 Dose: 2.5 mg Tamsulosin HCl (Flomax) 0.4 mg PO DAILY [facility] Last Admin: 10/09/17 10:33 Dose: Not Given Torsemide (Demadex) 100 mg PO BID [facility] Last Admin: 10/09/17 17:52 Dose: 100 mg Vitamin B Complex/Vit C/Folic Acid (Nephro-Lupis) 1 tab PO 0800 [facility] Last Admin: 10/09/17 08:44 Dose: 1 tab - Labs Labs: 10/08/17 18:25 10/08/17 18:25
[2017-10-09] MEDS: Rosuvastatin Calcium 2.5 mg Tab PO SCH (22:16)
[2017-10-10] MEDS: Multivitamin Vitamin B Complex (Nephro-Vite) Tab PO SCH (08:32)
[2017-10-10] MEDS: Brimonidine 0.2% Opth Sol (5ml) OU SCH (10:59)
--- NOTE | 2017-10-10 12:11 | HP ---
HISTORY OF PRESENT ILLNESS: The patient is a 62-year-old female with endstage renal disease comes to the hospital with chief complaint of diarrhea, weakness, fatigue. The patient came to the ER, advised admission. The patient has a history of renal failure, on dialysis. PHYSICAL EXAMINATION: GENERAL: The patient is awake, alert, and oriented. VITAL SIGNS: Temperature 98, pulse 90. HEENT: Within normal limits. NECK: Supple. CHEST: Symmetrical. HEART: Regular. ABDOMEN: Soft. EXTREMITIES: No edema. ASSESSMENT AND PLAN: The patient suffers from gastroenteritis, renal failure. The patient to get bed rest, supportive care. Tere Hall MD
[2017-10-10] MEDS: Rosuvastatin Calcium 2.5 mg Tab PO SCH (22:35)
--- NOTE | 2017-10-11 07:58 | PN ---
DATE: 10/10/2017 The patient is still weak, on IV antibiotics, supportive care. Tree Hall MD
[2017-10-11] MEDS: Multivitamin Vitamin B Complex (Nephro-Vite) Tab PO SCH (10:27)
[2017-10-11] MEDS: Brimonidine 0.2% Opth Sol (5ml) OU SCH (10:30)
--- NOTE | 2017-10-11 11:30 | CP.PCM.PN ---
Subjective - Date & Time of Evaluation Date of Evaluation: 10/11/17 Time of Evaluation: 11:30 - Subjective Subjective: PGY2 Note for Dr. Hall; all management as per Dr. Hall this patient was seen and examined at bedside this AM; denies any symptoms overnight or today; states he wants to go home; still has diarrhea 3x per day totally liquid. denies fevers/chills, HERNANDEZ, CP, SOB, abdominal pain, N/V, lower extremity pain/swelling. Objective - Vital Signs/Intake and Output Vital Signs (last 24 hours): Temp Pulse Resp BP Pulse Ox 98.1 F 76 20 162/71 H 96 10/11/17 07:00 10/11/17 07:00 10/11/17 07:00 10/11/17 07:00 10/11/17 07:00 Intake and Output: 10/11/17 10/11/17 06:59 18:59 Intake Total 200 Balance 200 - Medications Medications: Current Medications Acetaminophen (Tylenol 325mg Tab) 650 mg PO Q8 PRN PRN Reason: pain/fever Last Admin: 10/10/17 09:07 Dose: 650 mg Aspirin (Aspirin Chewable) 81 mg PO DAILY [facility] Last Admin: 10/11/17 10:27 Dose: 81 mg Benzonatate (Tessalon Perles) 100 mg PO TID [facility] Last Admin: 10/10/17 22:35 Dose: 100 mg Brimonidine Tartrate (Alphagan 0.2% Opht) 0 ml OU DAILY [facility] Last Admin: 10/11/17 10:30 Dose: 1 drop Calcitriol (Rocaltrol) 0.25 mcg PO DAILY [facility] Last Admin: 10/11/17 10:27 Dose: 0.25 mcg Calcium Acetate (Phoslo) 667 mg PO TID [facility] Last Admin: 10/11/17 10:27 Dose: 667 mg Carvedilol (Coreg) 6.25 mg PO BID [facility] Last Admin: 10/11/17 10:27 Dose: 6.25 mg Diphenoxylate HCl/Atropine (Lomotil 0.025-2.5 Mg Tablet) 1 tab PO Q12H PRN PRN Reason: Diarrhea Ergocalciferol (Drisdol 50,000 Intl Units Cap) 1 cap PO QWK [facility] Hydralazine HCl (Apresoline) 25 mg PO TID [facility] Last Admin: 10/11/17 10:27 Dose: 25 mg Insulin Aspart (Novolog) 0 unit SC ACHS [facility] PRN Reason: Protocol Lisinopril (Zestril) 10 mg PO DAILY [facility] Last Admin: 10/11/17 10:27 Dose: 10 mg Loperamide HCl (Imodium) 2 mg PO QID PRN PRN Reason: Diarrhea Last Admin: 10/09/17 14:02 Dose: 2 mg Metronidazole (Flagyl) 500 mg PO Q8H [facility] PRN Reason: Protocol Last Admin: 10/11/17 10:27 Dose: 500 mg Nateglinide (Starlix) 120 mg PO TID [facility] Last Admin: 10/11/17 10:30 Dose: 120 mg Oxycodone/Acetaminophen (Percocet 5/325 Mg Tab) 1 tab PO Q8H PRN PRN Reason: pain Stop: 10/11/17 21:00 Pantoprazole Sodium (Protonix Inj) 40 mg IVP DAILY [facility] Last Admin: 10/11/17 10:27 Dose: 40 mg Rosuvastatin Calcium (Crestor) 2.5 mg PO HS [facility] Last Admin: 10/10/17 22:35 Dose: 2.5 mg Tamsulosin HCl (Flomax) 0.4 mg PO DAILY [facility] Last Admin: 10/11/17 10:28 Dose: 0.4 mg Torsemide (Demadex) 100 mg PO BID [facility] Last Admin: 10/11/17 10:31 Dose: 100 mg Vitamin B Complex/Vit C/Folic Acid (Nephro-Lupis) 1 tab PO 0800 [facility] Last Admin: 10/11/17 10:27 Dose: 1 tab - Labs Labs: 10/08/17 18:25 10/08/17 18:25 - Constitutional Appears: Non-toxic - Head Exam Head Exam: ATRAUMATIC - Eye Exam Eye Exam: EOMI - ENT Exam ENT Exam: Mucous Membranes Moist - Neck Exam Neck Exam: Full ROM - Respiratory Exam Respiratory Exam: Clear to Ausculation Bilateral, NORMAL BREATHING PATTERN. absent: Rales, Rhonchi, Wheezes - Cardiovascular Exam Cardiovascular Exam: REGULAR RHYTHM - GI/Abdominal Exam GI & Abdominal Exam: Soft, Normal Bowel Sounds. absent: Tenderness, Organomegaly, Rebound - Rectal Exam Rectal Exam: Deferred - Extremities Exam Extremities Exam: Full ROM. absent: Calf Tenderness Additional comments: thrill present on right AVF - Back Exam Back Exam: NORMAL INSPECTION. absent: CVA tenderness (L), CVA tenderness (R) - Neurological Exam Neurological Exam: Alert, Awake, Normal Gait, Oriented x3 Assessment and Plan - Assessment and Plan (Free Text) Assessment: 62yo M admitted for diarrhea Diarrhea -f/u stool studies -start metronidzaole 500mg PO TID -patient is afebrile, tolerating diet, no WBC/no tenderness -patient will need to f/u with GI as an outpatient the patient is stable for d/c after dialysis today as per Dr. Hall take metronidazole 500mg PO TID for 7 days, as well as Florastor BID for 30 days for bowel regimen f/u with PCP within the week, and recommend colonoscopy as an outpatient come back to the hospital if acutely gets worse
[2017-10-11] MEDS: (Novolog) Insulin Aspart, Recombinant 100 u/ml 10 ml vial SC SCH ×2 (13:01→17:30)
--- NOTE | 2017-10-11 15:21 | CP.PCM.PN ---
Subjective - Date & Time of Evaluation Date of Evaluation: 10/11/17 Time of Evaluation: 15:20 - Subjective Subjective: pt seen on HD today per MWF schedule stable, feels well no complaints he is planned for d/c home after HD today Objective - Vital Signs/Intake and Output Vital Signs (last 24 hours): Temp Pulse Resp BP Pulse Ox 98 F 74 19 162/80 H 97 10/11/17 13:35 10/11/17 13:35 10/11/17 13:35 10/11/17 14:35 10/11/17 13:35 Intake and Output: 10/11/17 10/11/17 06:59 18:59 Intake Total 200 Balance 200 - Medications Medications: Current Medications Acetaminophen (Tylenol 325mg Tab) 650 mg PO Q8 PRN PRN Reason: pain/fever Last Admin: 10/10/17 09:07 Dose: 650 mg Aspirin (Aspirin Chewable) 81 mg PO DAILY [facility] Last Admin: 10/11/17 10:27 Dose: 81 mg Benzonatate (Tessalon Perles) 100 mg PO TID [facility] Last Admin: 10/11/17 13:26 Dose: Not Given Brimonidine Tartrate (Alphagan 0.2% Opht) 0 ml OU DAILY [facility] Last Admin: 10/11/17 10:30 Dose: 1 drop Calcitriol (Rocaltrol) 0.25 mcg PO DAILY [facility] Last Admin: 10/11/17 10:27 Dose: 0.25 mcg Calcium Acetate (Phoslo) 667 mg PO TID [facility] Last Admin: 10/11/17 13:26 Dose: Not Given Carvedilol (Coreg) 6.25 mg PO BID [facility] Last Admin: 10/11/17 10:27 Dose: 6.25 mg Diphenoxylate HCl/Atropine (Lomotil 0.025-2.5 Mg Tablet) 1 tab PO Q12H PRN PRN Reason: Diarrhea Ergocalciferol (Drisdol 50,000 Intl Units Cap) 1 cap PO QWK [facility] Hydralazine HCl (Apresoline) 25 mg PO TID [facility] Last Admin: 10/11/17 13:25 Dose: Not Given Insulin Aspart (Novolog) 0 unit SC ACHS [facility] PRN Reason: Protocol Last Admin: 10/11/17 13:01 Dose: Not Given Lisinopril (Zestril) 10 mg PO DAILY [facility] Last Admin: 10/11/17 10:27 Dose: 10 mg Loperamide HCl (Imodium) 2 mg PO QID PRN PRN Reason: Diarrhea Last Admin: 10/09/17 14:02 Dose: 2 mg Metronidazole (Flagyl) 500 mg PO Q8H [facility] PRN Reason: Protocol Last Admin: 10/11/17 10:27 Dose: 500 mg Nateglinide (Starlix) 120 mg PO TID [facility] Last Admin: 10/11/17 13:26 Dose: Not Given Oxycodone/Acetaminophen (Percocet 5/325 Mg Tab) 1 tab PO Q8H PRN PRN Reason: pain Stop: 10/11/17 21:00 Pantoprazole Sodium (Protonix Inj) 40 mg IVP DAILY [facility] Last Admin: 10/11/17 10:27 Dose: 40 mg Rosuvastatin Calcium (Crestor) 2.5 mg PO HS [facility] Last Admin: 10/10/17 22:35 Dose: 2.5 mg Tamsulosin HCl (Flomax) 0.4 mg PO DAILY [facility] Last Admin: 10/11/17 10:28 Dose: 0.4 mg Torsemide (Demadex) 100 mg PO BID [facility] Last Admin: 10/11/17 10:31 Dose: 100 mg Vitamin B Complex/Vit C/Folic Acid (Nephro-Lupis) 1 tab PO 0800 [facility] Last Admin: 10/11/17 10:27 Dose: 1 tab - Labs Labs: 10/08/17 18:25 10/08/17 18:25
[2017-10-11 17:20] VITALS: RESP 20; TEMP 97.3
[2017-10-11 18:15] VITALS: BP 141/69; PULSE 79; O2SAT 95
[2017-10-15] MEDS ORDERED: Ergocalciferol 50,000 Intl Units Cap PO SCH (10:00)
== END 2017-10-11 19:10 | disposition home or self-care (01) ==
LOC: C.ER 16:57 → C.9E 19:27 → C.6T 20:29
PROVIDERS: ADMIT Internal Medicine Pulmonary Disease; ATTEND Internal Medicine Pulmonary Disease
DX: K52.9 Noninfective gastroenteritis and colitis, unspecified (principal); N30.90 Cystitis, unspecified without hematuria; N18.6 End stage renal disease; Z99.2 Dependence on renal dialysis; D64.9 Anemia, unspecified; E78.00 Pure hypercholesterolemia, unspecified
CPT/HCPCS: 36415; 74176; 80053; 82150; 82948; 83690; 84100; 85025; 96374; 99285; C9113; G0257; G0378; J1644; J1885

== ENCOUNTER 2017-10-25 12:41 | Inpatient (IN) | payer MEDICAID ==
[2017-10-25 13:24] LABS: BASO # 0.2 K/uL (0.0-0.2); EOS # 0.1 K/uL (0.0-0.7); EOS % 2.3 % (0.0-4.0); HEMOGLOBIN 11.7 g/dL (12.0-18.0); LYMPH # 0.7 K/uL (1.0-4.3); LYMPH % 12.8 % (20.0-40.0); MEAN CORPUSCULAR HEMOGLOBIN 30.9 pg (27.0-31.0); MEAN CORPUSCULAR HGB CONC 31.7 g/dL (33.0-37.0); MEAN PLATELET VOLUME 11.3 fL (7.2-11.7); MONO # 0.5 K/uL (0.0-0.8); MONO % 9.1 % (0.0-10.0); NEUT # 3.8 K/uL (1.8-7.0); NEUT % 72.8 % (50.0-75.0); NRBC % 0.1 % (0.0-2.0); RBC 3.8 Mil/uL (4.40-5.90); RED CELL DISTRIBUTION WIDTH 18.6 % (11.5-14.5); WHITE BLOOD COUNT 5.2 K/uL (4.8-10.8)
[2017-10-25 13:29] LABS: MEAN CELL VOLUME 97.2 fL (80.0-94.0)
[2017-10-25 14:52] LABS: ALB/GLOB RATIO 1.2 (1.0-2.1); ALT/SGPT 31 U/L (21-72); AST/SGOT 18 U/L (17-59); BLOOD UREA NITROGEN 74 mg/dL (9-20); CALCIUM 9.2 mg/dl (8.6-10.4); GFR AFRICAN-AMERICAN 7; GFR NON-AFRICAN AMERICAN 6; LIPASE 82 U/L (23-300)
--- NOTE | 2017-10-25 15:03 | RAD ---
PROCEDURE: CHEST RADIOGRAPH, 1 VIEW HISTORY: BASELINE COMPARISON: 03/28/2017 FINDINGS: LUNGS: Clear. PLEURA: No pneumothorax or pleural fluid seen. CARDIOVASCULAR: No radiographic findings to suggest acute or significant cardiovascular disease. Position/ configuration of pacemaker device: Satisfactory. OSSEOUS STRUCTURES: No significant abnormalities. VISUALIZED UPPER ABDOMEN: Normal. OTHER FINDINGS: None. IMPRESSION: No active disease. No acute/significant interval changes.
--- NOTE | 2017-10-25 15:23 | C.PDOC ---
Time Seen by Provider: 10/25/17 13:09 Chief Complaint (Nursing): Abdominal Pain History Per: Patient Onset/Duration Of Symptoms: Days (3) Current Symptoms Are (Timing): Still Present Severity: Moderate Location Of Pain/Discomfort: Epigastric Quality Of Discomfort: Unable To Describe Associated Symptoms: Diarrhea Alleviating Factors: None Last Bowel Movement: Today Additional History Per: Prior Records Past Medical History Reviewed: Historical Data, Nursing Documentation, Vital Signs Vital Signs: Last Vital Signs Temp 97.4 F L 10/25/17 12:52 Pulse 64 10/25/17 12:52 Resp 17 10/25/17 12:52 BP 113/54 L 10/25/17 12:52 Pulse Ox 100 10/25/17 12:52 - Medical History PMH: Anemia, Benign Prostatic Hyperplasia, CHF, Depression, Diabetes, HTN, Hypercholesterolemia, Pancreatitis, End Stage Renal Disease (on hemodialysis M/W /F), Chronic Kidney Disease Surgical History: Appendectomy, Pacemaker (AICD) - [facility] Procedures (03/28/17) CATARAC PHACOEMULS/ASPIR (10/03/13) EXCISION OF STOMACH, ENDO, DIAGN (04/21/17) INSERT LENS AT CATAR EXT (10/03/13) VACCINATION NEC (07/10/14) Family History: States: Unknown Family Hx - Social History Hx Tobacco Use: No Hx Alcohol Use: No Hx Substance Use: No - Immunization History Hx Tetanus Toxoid Vaccination: No Hx Influenza Vaccination: Yes (2017) Hx Pneumococcal Vaccination: Yes (2017) Review Of Systems Except As Marked, All Systems Reviewed And Found Negative. Constitutional: Positive for: Weakness, Malaise. Negative for: Fever Cardiovascular: Positive for: Light Headedness. Negative for: Chest Pain Respiratory: Negative for: Shortness of Breath Gastrointestinal: Positive for: Abdominal Pain, Diarrhea. Negative for: Vomiting, Melena, Hematochezia, Hematemesis Musculoskeletal: Negative for: Neck Pain Neurological: Negative for: Weakness, Numbness, Seizures, Altered Mental Status Physical Exam - Physical Exam Appears: No Acute Distress, Chronically Ill Skin: Warm, Dry Head: Atraumatic, Normacephalic Eye(s): bilateral: PERRL, EOMI Neck: Normal ROM, Supple Cardiovascular: Rhythm Regular Respiratory: Normal Breath Sounds, No Accessory Muscle Use Gastrointestinal/Abdominal: Soft, Tenderness (mild nonspecific), No Guarding, No Rebound Back: No CVA Tenderness Extremity: Normal ROM Neurological/Psych: Oriented x3, Normal Motor, Normal Sensation ED Course And Treatment - Laboratory Results Result Diagrams: 10/25/17 13:06 10/25/17 14:09 Interpretation Of Abnormal: Renal failure. ECG: Interpreted By Me, Viewed By Me ECG Rhythm: Sinus Bradycardia, Nonspecific Changes Rate From EC O2 Sat by Pulse Oximetry: 100 Pulse Ox Interpretation: Normal - Radiology CXR: Viewed By Me, Read By Radiologist CXR Interpretation: Yes: No Acute Disease Progress Note: Pt is due for dialysis today. Disposition Discussed With DrJose Maria: Adrienne Bowers Comment: He accepted pt on his service. Doctor Will See Patient In The: Hospital Counseled Patient/Family Regarding: Studies Performed, Diagnosis - Disposition Disposition: HOSPITALIZED Disposition Time: 15:25 Condition: FAIR Instructions: Weakness (ED) - Clinical Impression Clinical Impression: ESRD needing dialysis, Diarrhea, Generalized weakness
--- NOTE | 2017-10-25 20:05 | CP.PCM.HP ---
Present on Admission - Present on Admission Any Indicators Present on Admission: No Past Patient History - Infectious Disease Hx of Infectious Diseases: None - Past Medical History & Family History Past Medical History?: Yes - Past Social History Smoking Status: Never Smoked - CARDIAC Hx Congestive Heart Failure: Yes Hx Hypercholesterolemia: Yes Hx Hypertension: Yes Hx Pacemaker: Yes (AICD) - PULMONARY Hx Emphysema: No Hx Pulmonary Embolism: No - NEUROLOGICAL Hx Neurological Disorder: No - HEENT Hx HEENT Problems: Yes Hx Cataracts: Yes - RENAL Hx Chronic Kidney Disease: Yes - ENDOCRINE/METABOLIC Hx Diabetes Mellitus Type 2: Yes - HEMATOLOGICAL/ONCOLOGICAL Hx Anemia: Yes - INTEGUMENTARY Hx Dermatological Problems: No - MUSCULOSKELETAL/RHEUMATOLOGICAL Hx Musculoskeletal Disorders: No Hx Falls: No - GASTROINTESTINAL Hx Pancreatitis: Yes - GENITOURINARY/GYNECOLOGICAL Hx Genitourinary Disorders: No - PSYCHIATRIC Hx Depression: Yes Hx Substance Use: No - SURGICAL HISTORY Hx Appendectomy: Yes - ANESTHESIA Hx Anesthesia: Yes Hx Anesthesia Reactions: No Meds Allergies/Adverse Reactions: Allergies Allergy/AdvReac Type Severity Reaction Status Date / Time No Known Allergies Allergy Verified 10/25/17 12:58 Physical Exam - Constitutional Appears: Well - Head Exam Head Exam: ATRAUMATIC, NORMAL INSPECTION, NORMOCEPHALIC - Eye Exam Eye Exam: EOMI, Normal appearance, PERRL Pupil Exam: NORMAL ACCOMODATION, PERRL - ENT Exam ENT Exam: Mucous Membranes Moist, Normal Exam - Neck Exam Neck exam: Positive for: Normal Inspection - Respiratory Exam Respiratory Exam: Decreased Breath Sounds - Cardiovascular Exam Cardiovascular Exam: REGULAR RHYTHM, +S1, +S2 - GI/Abdominal Exam GI & Abdominal Exam: Diminished Bowel Sounds, Soft - Rectal Exam Rectal Exam: Deferred Results - Vital Signs Recent Vital Signs: Last Vital Signs Temp 97.8 F 10/25/17 18:30 Pulse 67 10/25/17 20:00 Resp 15 10/25/17 20:00 BP 127/61 10/25/17 20:00 Pulse Ox 97 10/25/17 19:30 - Labs Result Diagrams: 10/25/17 13:06 10/25/17 14:09 Labs: Laboratory Results - last 24 hr 10/25/17 10/25/17 10/25/17 12:52 13:06 13:08 WBC 5.2 RBC 3.80 L Hgb 11.7 L Hct 36.9 MCV 97.2 H D MCH 30.9 MCHC 31.7 L RDW 18.6 H Plt Count 125 L D MPV 11.3 Neut % (Auto) 72.8 Lymph % (Auto) 12.8 L [place] % (Auto) 9.1 Eos % (Auto) 2.3 Baso % (Auto) 3.0 H Neut # (Auto) 3.8 Lymph # (Auto) 0.7 L [place] # (Auto) 0.5 Eos # (Auto) 0.1 Baso # (Auto) 0.2 Sodium Cancelled Potassium Cancelled Chloride Cancelled Carbon Dioxide Cancelled Anion Gap Cancelled BUN Cancelled Creatinine Cancelled Est GFR ( Amer) Cancelled Est GFR (Non-Af Amer) Cancelled POC Glucose (mg/dL) 153 H Random Glucose Cancelled Calcium Cancelled Total Bilirubin Cancelled AST Cancelled ALT Cancelled Alkaline Phosphatase Cancelled Total Creatine Kinase Cancelled CK-MB (Mass) Cancelled Troponin I Cancelled Total Protein Cancelled Albumin Cancelled Globulin Cancelled Albumin/Globulin Ratio Cancelled Lipase 10/25/17 14:09 WBC RBC Hgb Hct MCV MCH MCHC RDW Plt Count MPV Neut % (Auto) Lymph % (Auto) [place] % (Auto) Eos % (Auto) Baso % (Auto) Neut # (Auto) Lymph # (Auto) [place] # (Auto) Eos # (Auto) Baso # (Auto) Sodium 142 Potassium 5.2 Chloride 93 L Carbon Dioxide 30 Anion Gap 24 H BUN 74 H Creatinine 9.3 H* D Est GFR ( Amer) 7 Est GFR (Non-Af Amer) 6 POC Glucose (mg/dL) Random Glucose 135 H Calcium 9.2 Total Bilirubin 0.8 AST 18 ALT 31 Alkaline Phosphatase 408 H D Total Creatine Kinase CK-MB (Mass) Troponin I < 0.0120 Total Protein 7.5 Albumin 4.0 Globulin 3.5 Albumin/Globulin Ratio 1.2 Lipase 82 Assessment & Plan - Assessment and Plan (Free Text) Plan: Plan pain medications Renal consult Hydralazine Cipro 400mg bid monitor for diarrhoea and vomitting Calcium acetate Coreg Torsemide Aspirin Flagyl Flomax Florastor Fingerstick before meals and at bedtime Starlix Patient is on Vivelle test for the prevention of hyperkalemia hence we will not start the patient on the lisinopril today and
[2017-10-25] MEDS ORDERED: Oxycodone/Acetaminophen 5/325 mg Tab PO SCH (22:00)
[2017-10-25] MEDS ORDERED: Oxycodone/Acetaminophen 5/325 mg Tab PO PRN (22:00)
[2017-10-26] MEDS: Ciprofloxacin 200mg/100ml D5W 100 ML IVPB SCH ×2 (00:11→21:34)
[2017-10-26] MEDS: Multivitamin Vitamin B Complex (Nephro-Vite) Tab PO SCH (09:40)
[2017-10-26] MEDS: Pantoprazole 40 mg EC Tab PO SCH (09:40)
[2017-10-26] MEDS: Saccharomyces Boulardi 250 mg Cap PO SCH ×2 (09:41→18:38)
[2017-10-26] MEDS ORDERED: Dextrose 50% SYRINGE Inj (50 ml) IV PRN (10:16)
[2017-10-26] MEDS ORDERED: Glucagon Recombinant 1 mg Inj IM PRN (10:16)
[2017-10-26 10:58] LABS: BASO % 0.7 % (0.0-2.0); EOS # 0.1 K/uL (0.0-0.7); EOS % 3.3 % (0.0-4.0); HEMOGLOBIN 10.9 g/dL (12.0-18.0); LYMPH # 0.6 K/uL (1.0-4.3); LYMPH % 13.9 % (20.0-40.0); MEAN CELL VOLUME 97.5 fL (80.0-94.0); MEAN CORPUSCULAR HEMOGLOBIN 31.3 pg (27.0-31.0); MEAN CORPUSCULAR HGB CONC 32.2 g/dL (33.0-37.0); MEAN PLATELET VOLUME 10.3 fL (7.2-11.7); MONO # 0.3 K/uL (0.0-0.8); MONO % 5.9 % (0.0-10.0); NEUT # 3.5 K/uL (1.8-7.0); NEUT % 76.2 % (50.0-75.0); NRBC % 0.1 % (0.0-2.0); RBC 3.48 Mil/uL (4.40-5.90); RED CELL DISTRIBUTION WIDTH 18.6 % (11.5-14.5); WHITE BLOOD COUNT 4.5 K/uL (4.8-10.8)
[2017-10-26 11:15] LABS: ALB/GLOB RATIO 1.1 (1.0-2.1); ALBUMIN 3.9 g/dL (3.5-5.0); CALCIUM 8.7 mg/dl (8.6-10.4)
--- NOTE | 2017-10-26 12:46 | CP.PCM.PN ---
Subjective - Date & Time of Evaluation Date of Evaluation: 10/26/17 Time of Evaluation: 11:00 - Subjective Subjective: clinically same Objective - Vital Signs/Intake and Output Vital Signs (last 24 hours): Temp Pulse Resp BP Pulse Ox 97.6 F 72 20 148/76 96 10/26/17 10:35 10/26/17 10:35 10/26/17 10:35 10/26/17 10:35 10/26/17 10:35 - Medications Medications: Current Medications Aspirin (Ecotrin) 81 mg PO DAILY [facility] Last Admin: 10/26/17 09:40 Dose: 81 mg Benzonatate (Tessalon Perles) 100 mg PO Q8 [facility] Last Admin: 10/26/17 06:47 Dose: 100 mg Calcitriol (Rocaltrol) 0.25 mcg PO DAILY [facility] Last Admin: 10/26/17 09:41 Dose: 0.25 mcg Calcium Acetate (Phoslo) 2,001 mg PO TID [facility] Last Admin: 10/26/17 09:41 Dose: 2,001 mg Carvedilol (Coreg) 6.25 mg PO BID [facility] Last Admin: 10/26/17 09:41 Dose: 6.25 mg Dextrose (Dextrose 50% Inj) 0 ml IV STAT PRN; Protocol PRN Reason: Hypoglycemia Protocol Dextrose (Glutose 15) 0 gm PO ONCE PRN; Protocol PRN Reason: Hypoglycemia Protocol Glucagon (Glucagen Diagnostic Kit) 0 mg IM STAT PRN; Protocol PRN Reason: Hypoglycemia Protocol Hydralazine HCl (Apresoline) 25 mg PO TID [facility] Last Admin: 10/26/17 09:40 Dose: 25 mg Ciprofloxacin (Cipro 200mg/100ml D5w) 100 mls @ 100 mls/hr IVPB Q24H [facility] PRN Reason: Protocol Last Admin: 10/26/17 00:11 Dose: 100 mls/hr Dextrose (Dextrose 5% In Water 1000 Ml) 1,000 mls @ 0 mls/hr IV .Q0M PRN; Protocol; Per Protocol PRN Reason: Hypoglycemia Protocol Loperamide HCl (Imodium) 2 mg PO Q6 [facility] Last Admin: 10/26/17 07:53 Dose: 2 mg Metronidazole (Flagyl) 500 mg PO TID [facility] PRN Reason: Protocol Stop: 10/29/17 10:01 Last Admin: 10/26/17 09:40 Dose: 500 mg Oxycodone/Acetaminophen (Percocet 5/325 Mg Tab) 1 tab PO Q8 PRN Stop: 10/28/17 22:01 Last Admin: 10/26/17 00:11 Dose: 1 tab Pantoprazole Sodium (Protonix Ec Tab) 40 mg PO DAILY [facility] Last Admin: 10/26/17 09:40 Dose: 40 mg Rosuvastatin Calcium (Crestor) 2.5 mg PO [facility] Saccharomyces Boulardii (Florastor) 250 mg PO BID [facility] Last Admin: 10/26/17 09:41 Dose: 250 mg Tamsulosin HCl (Flomax) 0.4 mg PO DAILY [facility] Last Admin: 10/26/17 09:40 Dose: 0.4 mg Torsemide (Demadex) 100 mg PO BID [facility] Last Admin: 10/26/17 09:41 Dose: 100 mg Vitamin B Complex/Vit C/Folic Acid (Nephro-Lupis) 1 tab PO DAILY [facility] Last Admin: 10/26/17 09:40 Dose: 1 tab - Labs Labs: 10/26/17 10:48 10/26/17 10:48 - Constitutional Appears: Well - Head Exam Head Exam: ATRAUMATIC, NORMAL INSPECTION, NORMOCEPHALIC - Eye Exam Eye Exam: EOMI, Normal appearance, PERRL Pupil Exam: NORMAL ACCOMODATION, PERRL - ENT Exam ENT Exam: Mucous Membranes Moist, Normal Exam - Neck Exam Neck Exam: Full ROM, Normal Inspection. absent: Lymphadenopathy - Respiratory Exam Respiratory Exam: Decreased Breath Sounds - Cardiovascular Exam Cardiovascular Exam: REGULAR RHYTHM, +S1, +S2 - GI/Abdominal Exam GI & Abdominal Exam: Soft, Diminished Bowel Sounds - Rectal Exam Rectal Exam: Deferred
--- NOTE | 2017-10-26 15:30 | CP.PCM.CON ---
History of Present Illness - History of Present Illness History of Present Illness: Nephrology Consultation: Assessment: Stable acute gastroenteritis with ? blood ? side effect of K lowering med as V[place] Diabetic chronic Kidney Disease (E11.22) Hypertensive Chronic Kidney Disease (I12.0) End stage renal disease (N18.6) dependence on hemodialysis (Z99.2) (MWF) via AVF Anemia (D64.9), Hyperphosphatemia (E83.39), Secondary Hyperparathyroidism (E21.1 ), HTN (I12.0) chronic thrombocytopenia Plan: No acute need for dialysis today. Will plan for dialysis tomorrow. Continue with Nephrovite 1 tab/day. PRBC as needed for anemia. last Hb 11.7 hence no BELEM at present Continue with phos binders home dose, on phoslo. Continue with calcitriol BP control with meds as ordered. Patient at home on RAAS dragan as lisinopril. usually has tendency for hyperkalemia, hence d/c acei/arb. also to stop veltassa Glycemic control, Dialysis consistent diet Further work up/management as per primary team Dose meds/antibiotics (if needed) for ESRD status. Avoid fleets enema/magnesium based laxatives. Thanks for allowing me to participate in care of your patient. Will follow patient with you. Please call if any Qs. Dr Davidson Bolivar Office: [phone] Chief Complaint;loose stool and pain abdomen Reason for consult: ESRD HPI: Pt is a 62 y/o M with hx of ESRD on hemodialysis (MWF) via AVF x 2 years @ [facility], chronic anemia, hyperphosphatemia, secondary hyperparathyroidism , Diabetes Mellitus, hypertension, thrombocytopenia presented with complaints of loose stool diarrhoea for last few days with associated pain abdomen. he reports BM as dark in color. [facility]. feels better now, no such further episode. improved pain abdomen. pt has been in hospital recently for similar complaints. ROS: Cardiovascular: No chest pain. Pulmonary: No shortness of breath Gastrointestinal: improv ed abdominal pain No nausea. No vomiting. Genitourinary: No pain while urinating. Denies blood in urine. All other negative Physical Examination: General Appearance: Comfortable, in no acute respiratory distress, co-operative . Vitals reviewed and noted as below Head; Atraumatic, normocephalic ENT: no ulcers no thrush. Tongue is midline. Oropharynx: no rash or ulcers. EYES: Pupils are equal, round and reactive to light accommodation. Eye muscles and extraocular movement intact. Sclera is anicteric. Neck; supple no lymphadenopathy, no thyromegaly or bruit Lungs: Normal respiratory rate/effort. Breath sounds bilateral equal and clear Heart: Normal rate. s1s2 normal. No rub or gallop. left side PPM + Extremities: no edema. No varicose veins Neurological: Patient is alert, awake and oriented to person, place and time. No focal deficit. Strength bilateral appropriate and equal Skin: Warm and dry. Normal turgor. No rash. Palpitation: Normal elasticity for age Abdomen: Abdomen is soft. Bowel sounds +. There is no abdominal tenderness, no guarding/rigidity or organomegaly Psych: normal insight and normal affect/mood MSK: no joint tenderness or swelling. Digits and nails normal, no deformity : kidney or bladder not palpable Access: AVF Labs/imaging reviewed. Past medical history, past surgical history, family history, social history, allergy reviewed and noted as below Family Hx: no hx of CKD. Non contributory Past Patient History - Infectious Disease Hx of Infectious Diseases: None - Past Medical History & Family History Past Medical History?: Yes - Past Social History Smoking Status: Never Smoked - CARDIAC Hx Congestive Heart Failure: Yes Hx Hypercholesterolemia: Yes Hx Hypertension: Yes Hx Pacemaker: Yes (AICD) - PULMONARY Hx Emphysema: No Hx Pulmonary Embolism: No - NEUROLOGICAL Hx Neurological Disorder: No - HEENT Hx HEENT Problems: Yes Hx Cataracts: Yes - RENAL Hx Chronic Kidney Disease: Yes Date of Last Dialysis Treatment: 10/26/17 - ENDOCRINE/METABOLIC Hx Diabetes Mellitus Type 2: Yes - HEMATOLOGICAL/ONCOLOGICAL Hx Anemia: Yes - INTEGUMENTARY Hx Dermatological Problems: No - MUSCULOSKELETAL/RHEUMATOLOGICAL Hx Musculoskeletal Disorders: No Hx Falls: No - GASTROINTESTINAL Hx Pancreatitis: Yes - GENITOURINARY/GYNECOLOGICAL Hx Genitourinary Disorders: No - PSYCHIATRIC Hx Depression: Yes Hx Substance Use: No - SURGICAL HISTORY Hx Appendectomy: Yes - ANESTHESIA Hx Anesthesia: Yes Hx Anesthesia Reactions: No Meds Allergies/Adverse Reactions: Allergies Allergy/AdvReac Type Severity Reaction Status Date / Time No Known Allergies Allergy Verified 10/25/17 12:58 - Medications Medications: Current Medications Aspirin (Ecotrin) 81 mg PO DAILY [facility] Last Admin: 10/26/17 09:40 Dose: 81 mg Benzonatate (Tessalon Perles) 100 mg PO Q8 [facility] Last Admin: 10/26/17 13:17 Dose: 100 mg Calcitriol (Rocaltrol) 0.25 mcg PO DAILY [facility] Last Admin: 10/26/17 09:41 Dose: 0.25 mcg Calcium Acetate (Phoslo) 2,001 mg PO TID [facility] Last Admin: 10/26/17 13:17 Dose: 2,001 mg Carvedilol (Coreg) 6.25 mg PO BID [facility] Last Admin: 10/26/17 09:41 Dose: 6.25 mg Dextrose (Dextrose 50% Inj) 0 ml IV STAT PRN; Protocol PRN Reason: Hypoglycemia Protocol Dextrose (Glutose 15) 0 gm PO ONCE PRN; Protocol PRN Reason: Hypoglycemia Protocol Glucagon (Glucagen Diagnostic Kit) 0 mg IM STAT PRN; Protocol PRN Reason: Hypoglycemia Protocol Hydralazine HCl (Apresoline) 25 mg PO TID [facility] Last Admin: 10/26/17 13:17 Dose: 25 mg Ciprofloxacin (Cipro 200mg/100ml D5w) 100 mls @ 100 mls/hr IVPB Q24H [facility] PRN Reason: Protocol Last Admin: 10/26/17 00:11 Dose: 100 mls/hr Dextrose (Dextrose 5% In Water 1000 Ml) 1,000 mls @ 0 mls/hr IV .Q0M PRN; Protocol; Per Protocol PRN Reason: Hypoglycemia Protocol Loperamide HCl (Imodium) 2 mg PO Q6 [facility] Last Admin: 10/26/17 12:18 Dose: 2 mg Metronidazole (Flagyl) 500 mg PO TID [facility] PRN Reason: Protocol Stop: 10/29/17 10:01 Last Admin: 10/26/17 13:17 Dose: 500 mg Oxycodone/Acetaminophen (Percocet 5/325 Mg Tab) 1 tab PO Q8 PRN Stop: 10/28/17 22:01 Last Admin: 10/26/17 00:11 Dose: 1 tab Pantoprazole Sodium (Protonix Ec Tab) 40 mg PO DAILY [facility] Last Admin: 10/26/17 09:40 Dose: 40 mg Rosuvastatin Calcium (Crestor) 2.5 mg PO HS [facility] Saccharomyces Boulardii (Florastor) 250 mg PO BID [facility] Last Admin: 10/26/17 09:41 Dose: 250 mg Tamsulosin HCl (Flomax) 0.4 mg PO DAILY [facility] Last Admin: 10/26/17 09:40 Dose: 0.4 mg Torsemide (Demadex) 100 mg PO BID [facility] Last Admin: 10/26/17 09:41 Dose: 100 mg Vitamin B Complex/Vit C/Folic Acid (Nephro-Lupis) 1 tab PO DAILY [facility] Last Admin: 10/26/17 09:40 Dose: 1 tab Results - Vital Signs Recent Vital Signs: Last Vital Signs Temp 97.6 F 10/26/17 10:35 Pulse 72 10/26/17 10:35 Resp 20 10/26/17 10:35 BP 148/76 10/26/17 10:35 Pulse Ox 96 10/26/17 10:35 - Labs Result Diagrams: 10/26/17 10:48 10/26/17 10:48 Labs: Laboratory Results - last 24 hr 10/26/17 10/26/17 10/26/17 06:16 06:45 06:48 WBC RBC Hgb Hct MCV MCH MCHC RDW Plt Count MPV Neut % (Auto) Lymph % (Auto) [place] % (Auto) Eos % (Auto) Baso % (Auto) Neut # (Auto) Lymph # (Auto) [place] # (Auto) Eos # (Auto) Baso # (Auto) Sodium Potassium Chloride Carbon Dioxide Anion Gap BUN Creatinine Est GFR ( Amer) Est GFR (Non-Af Amer) POC Glucose (mg/dL) 47 L 57 L 65 Random Glucose Calcium Total Bilirubin AST ALT Alkaline Phosphatase Total Protein Albumin Globulin Albumin/Globulin Ratio 10/26/17 10/26/17 10/26/17 07:32 10:20 10:48 WBC 4.5 L RBC 3.48 L Hgb 10.9 L Hct 33.9 L MCV 97.5 H MCH 31.3 H MCHC 32.2 L RDW 18.6 H Plt Count 106 L MPV 10.3 Neut % (Auto) 76.2 H Lymph % (Auto) 13.9 L [place] % (Auto) 5.9 Eos % (Auto) 3.3 Baso % (Auto) 0.7 Neut # (Auto) 3.5 Lymph # (Auto) 0.6 L [place] # (Auto) 0.3 Eos # (Auto) 0.1 Baso # (Auto) 0.0 Sodium Potassium Chloride Carbon Dioxide Anion Gap BUN Creatinine Est GFR ( Amer) Est GFR (Non-Af Amer) POC Glucose (mg/dL) 82 241 H Random Glucose Calcium Total Bilirubin AST ALT Alkaline Phosphatase Total Protein Albumin Globulin Albumin/Globulin Ratio 10/26/17 10/26/17 10:48 11:18 WBC RBC Hgb Hct MCV MCH MCHC RDW Plt Count MPV Neut % (Auto) Lymph % (Auto) [place] % (Auto) Eos % (Auto) Baso % (Auto) Neut # (Auto) Lymph # (Auto) [place] # (Auto) Eos # (Auto) Baso # (Auto) Sodium 140 Potassium 4.9 Chloride 96 L Carbon Dioxide 30 Anion Gap 19 BUN 42 H Creatinine 6.8 H Est GFR ( Amer) 10 Est GFR (Non-Af Amer) 8 POC Glucose (mg/dL) 221 H Random Glucose 212 H Calcium 8.7 Total Bilirubin 0.7 AST 20 ALT 30 Alkaline Phosphatase 394 H Total Protein 7.5 Albumin 3.9 Globulin 3.6 Albumin/Globulin Ratio 1.1
[2017-10-26 16:37] LABS: SQUAMOUS EPITHIAL < 1 /hpf (0-5); URINE BACTERIA RARE (<OCC); URINE BILIRUBIN NEGATIVE (NEGATIVE); URINE BLOOD NEGATIVE (NEGATIVE); URINE CLARITY Clear (Clear); URINE COLOR Yellow (YELLOW); URINE GLUCOSE (UA) 1+ mg/dL (Normal); URINE LEUKOCYTE ESTERASE NEG Leu/uL (Negative); URINE PROTEIN 3+ mg/dL (NEGATIVE); URINE UROBILINOGEN NORMAL mg/dL (0.2-1.0)
--- NOTE | 2017-10-26 19:35 | CARD ---
APPROVED REPORT EKG Measurement Heart [id number] <Conclusion> Sinus bradycardia with premature supraventricular complexes Moderate voltage criteria for LVH, may be normal variant Nonspecific T wave abnormality Prolonged QT Abnormal ECG
[2017-10-26] MEDS: (Novolog) Insulin Aspart, Recombinant 100 u/ml 10 ml vial SC SCH (21:12)
[2017-10-26] MEDS: Rosuvastatin Calcium 2.5 mg Tab PO SCH (21:18)
[2017-10-27] MEDS: (Novolog) Insulin Aspart, Recombinant 100 u/ml 10 ml vial SC SCH ×4 (09:12→22:38)
[2017-10-27] MEDS: Saccharomyces Boulardi 250 mg Cap PO SCH ×2 (09:13→18:10)
[2017-10-27] MEDS: Multivitamin Vitamin B Complex (Nephro-Vite) Tab PO SCH (09:13)
[2017-10-27] MEDS: Pantoprazole 40 mg EC Tab PO SCH (09:13)
[2017-10-27] MEDS ORDERED: DiphenhydrAMINE 50 mg/ml Inj IVP STA (15:55)
--- NOTE | 2017-10-27 16:20 | CP.PCM.PN ---
Subjective - Date & Time of Evaluation Date of Evaluation: 10/27/17 Time of Evaluation: 12:55 - Subjective Subjective: dialysis note She was seen on hemodialysis discussed with the dialysis nurse at the bedside No nausea or vomiting patient appears to be stable with stable vital sign Objective - Vital Signs/Intake and Output Vital Signs (last 24 hours): Temp Pulse Resp BP Pulse Ox 98.0 F 82 20 142/73 96 10/27/17 15:00 10/27/17 15:00 10/27/17 15:00 10/27/17 15:00 10/27/17 15:00 - Medications Medications: Current Medications Aspirin (Ecotrin) 81 mg PO DAILY [facility] Last Admin: 10/27/17 09:13 Dose: 81 mg Benzonatate (Tessalon Perles) 100 mg PO Q8 [facility] Last Admin: 10/27/17 15:15 Dose: 100 mg Brimonidine Tartrate (Alphagan 0.2% Opht) 1 ml OU BID [facility] Calcitriol (Rocaltrol) 0.25 mcg PO DAILY [facility] Last Admin: 10/27/17 09:13 Dose: 0.25 mcg Calcium Acetate (Phoslo) 2,001 mg PO TID [facility] Last Admin: 10/27/17 15:15 Dose: 2,001 mg Carvedilol (Coreg) 6.25 mg PO BID [facility] Last Admin: 10/27/17 09:18 Dose: Not Given Dextrose (Dextrose 50% Inj) 0 ml IV STAT PRN; Protocol PRN Reason: Hypoglycemia Protocol Dextrose (Glutose 15) 0 gm PO ONCE PRN; Protocol PRN Reason: Hypoglycemia Protocol Glucagon (Glucagen Diagnostic Kit) 0 mg IM STAT PRN; Protocol PRN Reason: Hypoglycemia Protocol Hydralazine HCl (Apresoline) 25 mg PO TID [facility] Last Admin: 10/27/17 15:16 Dose: 25 mg Ciprofloxacin (Cipro 200mg/100ml D5w) 100 mls @ 100 mls/hr IVPB Q24H [facility] PRN Reason: Protocol Last Admin: 10/26/17 21:34 Dose: 100 mls/hr Dextrose (Dextrose 5% In Water 1000 Ml) 1,000 mls @ 0 mls/hr IV .Q0M PRN; Protocol; Per Protocol PRN Reason: Hypoglycemia Protocol Insulin Aspart (Novolog) 0 unit SC ACHS [facility] PRN Reason: Protocol Last Admin: 10/27/17 11:55 Dose: Not Given Loperamide HCl (Imodium) 2 mg PO Q6 [facility] Last Admin: 10/27/17 11:55 Dose: Not Given Metronidazole (Flagyl) 500 mg PO TID [facility] PRN Reason: Protocol Stop: 10/29/17 10:01 Last Admin: 10/27/17 15:16 Dose: 500 mg Oxycodone/Acetaminophen (Percocet 5/325 Mg Tab) 1 tab PO Q8 PRN Stop: 10/28/17 22:01 Last Admin: 10/26/17 00:11 Dose: 1 tab Pantoprazole Sodium (Protonix Ec Tab) 40 mg PO DAILY [facility] Last Admin: 10/27/17 09:13 Dose: 40 mg Rosuvastatin Calcium (Crestor) 2.5 mg PO HS [facility] Last Admin: 10/26/17 21:18 Dose: 2.5 mg Saccharomyces Boulardii (Florastor) 250 mg PO BID [facility] Last Admin: 10/27/17 09:13 Dose: 250 mg Tamsulosin HCl (Flomax) 0.4 mg PO DAILY [facility] Last Admin: 10/27/17 09:13 Dose: 0.4 mg Torsemide (Demadex) 100 mg PO BID [facility] Last Admin: 10/27/17 09:19 Dose: Not Given Vitamin B Complex/Vit C/Folic Acid (Nephro-Lupis) 1 tab PO DAILY [facility] Last Admin: 10/27/17 09:13 Dose: 1 tab - Labs Labs: 10/26/17 10:48 10/26/17 10:48 - Constitutional Appears: No Acute Distress - ENT Exam ENT Exam: Mucous Membranes Moist - Neck Exam Neck Exam: absent: Lymphadenopathy - Respiratory Exam Respiratory Exam: absent: Chest Wall Tenderness - Cardiovascular Exam Cardiovascular Exam: absent: Gallop, JVD, Rubs - GI/Abdominal Exam GI & Abdominal Exam: Soft, Normal Bowel Sounds - Extremities Exam Extremities Exam: absent: Calf Tenderness - Back Exam Back Exam: absent: CVA tenderness (L), CVA tenderness (R) - Neurological Exam Neurological Exam: Alert - Psychiatric Exam Psychiatric exam: Normal Affect - Skin Skin Exam: absent: Cyanosis Assessment and Plan (1) ESRD needing dialysis Assessment & Plan: ESRD patient receiving hemodialysis. Vital sign appears to be stable on dialysis. Sodium bath 138 Potassium bath 2 mEq. Bicarbonate bath 34 acute gastroenteritis with ? blood ? side effect of K lowering med as [place] Diabetic chronic Kidney Disease (E11.22) Hypertensive Chronic Kidney Disease (I12.0) End stage renal disease (N18.6) dependence on hemodialysis (Z99.2) (MWF) via AVF Anemia (D64.9), Hyperphosphatemia (E83.39), Secondary Hyperparathyroidism (E21.1 ), HTN (I12.0) chronic thrombocytopenia Status: Acute (2) Generalized weakness Status: Acute
[2017-10-27] MEDS ORDERED: Brimonidine 0.2% Opth Sol (5ml) OU SCH (18:00)
--- NOTE | 2017-10-27 19:22 | CP.PCM.PN ---
Subjective - Date & Time of Evaluation Date of Evaluation: 10/27/17 - Subjective Subjective: clinically same Objective - Vital Signs/Intake and Output Vital Signs (last 24 hours): Temp Pulse Resp BP Pulse Ox 98.0 F 83 20 142/73 96 10/27/17 15:00 10/27/17 15:15 10/27/17 15:00 10/27/17 15:15 10/27/17 15:00 Intake and Output: 10/27/17 10/28/17 18:59 06:59 Intake Total 580 Balance 580 - Medications Medications: Current Medications Aspirin (Ecotrin) 81 mg PO DAILY [facility] Last Admin: 10/27/17 09:13 Dose: 81 mg Benzonatate (Tessalon Perles) 100 mg PO Q8 [facility] Last Admin: 10/27/17 15:15 Dose: 100 mg Brimonidine Tartrate (Alphagan 0.2% Opht) 1 ml OU BID [facility] Last Admin: 10/27/17 18:10 Dose: 2 drop Calcitriol (Rocaltrol) 0.25 mcg PO DAILY [facility] Last Admin: 10/27/17 09:13 Dose: 0.25 mcg Calcium Acetate (Phoslo) 2,001 mg PO TID [facility] Last Admin: 10/27/17 18:10 Dose: 2,001 mg Carvedilol (Coreg) 6.25 mg PO BID [facility] Last Admin: 10/27/17 18:10 Dose: 6.25 mg Dextrose (Dextrose 50% Inj) 0 ml IV STAT PRN; Protocol PRN Reason: Hypoglycemia Protocol Dextrose (Glutose 15) 0 gm PO ONCE PRN; Protocol PRN Reason: Hypoglycemia Protocol Glucagon (Glucagen Diagnostic Kit) 0 mg IM STAT PRN; Protocol PRN Reason: Hypoglycemia Protocol Hydralazine HCl (Apresoline) 25 mg PO TID [facility] Last Admin: 10/27/17 18:10 Dose: 25 mg Ciprofloxacin (Cipro 200mg/100ml D5w) 100 mls @ 100 mls/hr IVPB Q24H [facility] PRN Reason: Protocol Last Admin: 10/26/17 21:34 Dose: 100 mls/hr Dextrose (Dextrose 5% In Water 1000 Ml) 1,000 mls @ 0 mls/hr IV .Q0M PRN; Protocol; Per Protocol PRN Reason: Hypoglycemia Protocol Insulin Aspart (Novolog) 0 unit SC ACHS [facility] PRN Reason: Protocol Last Admin: 10/27/17 18:11 Dose: 1 unit Loperamide HCl (Imodium) 2 mg PO Q6 [facility] Last Admin: 10/27/17 18:10 Dose: 2 mg Metronidazole (Flagyl) 500 mg PO TID [facility] PRN Reason: Protocol Stop: 10/29/17 10:01 Last Admin: 10/27/17 18:10 Dose: 500 mg Oxycodone/Acetaminophen (Percocet 5/325 Mg Tab) 1 tab PO Q8 PRN Stop: 10/28/17 22:01 Last Admin: 10/26/17 00:11 Dose: 1 tab Pantoprazole Sodium (Protonix Ec Tab) 40 mg PO DAILY [facility] Last Admin: 10/27/17 09:13 Dose: 40 mg Rosuvastatin Calcium (Crestor) 2.5 mg PO HS [facility] Last Admin: 10/26/17 21:18 Dose: 2.5 mg Saccharomyces Boulardii (Florastor) 250 mg PO BID [facility] Last Admin: 10/27/17 18:10 Dose: 250 mg Tamsulosin HCl (Flomax) 0.4 mg PO DAILY [facility] Last Admin: 10/27/17 09:13 Dose: 0.4 mg Torsemide (Demadex) 100 mg PO BID [facility] Last Admin: 10/27/17 18:11 Dose: 100 mg Vitamin B Complex/Vit C/Folic Acid (Nephro-Lupis) 1 tab PO DAILY [facility] Last Admin: 10/27/17 09:13 Dose: 1 tab - Labs Labs: 10/26/17 10:48 10/26/17 10:48 - Constitutional Appears: Well - Head Exam Head Exam: ATRAUMATIC, NORMAL INSPECTION, NORMOCEPHALIC - Eye Exam Eye Exam: EOMI, Normal appearance, PERRL Pupil Exam: NORMAL ACCOMODATION, PERRL - ENT Exam ENT Exam: Mucous Membranes Moist, Normal Exam - Neck Exam Neck Exam: Full ROM, Normal Inspection. absent: Lymphadenopathy - Respiratory Exam Respiratory Exam: Decreased Breath Sounds - Cardiovascular Exam Cardiovascular Exam: REGULAR RHYTHM, +S1, +S2 - GI/Abdominal Exam GI & Abdominal Exam: Soft, Diminished Bowel Sounds - Rectal Exam Rectal Exam: Deferred
[2017-10-27] MEDS: Ciprofloxacin 200mg/100ml D5W 100 ML IVPB SCH (22:37)
[2017-10-27] MEDS: Rosuvastatin Calcium 2.5 mg Tab PO SCH (22:38)
[2017-10-28] MEDS: (Novolog) Insulin Aspart, Recombinant 100 u/ml 10 ml vial SC SCH ×4 (07:03→22:34)
[2017-10-28 08:13] LABS: HEMOGLOBIN 11.3 g/dL (12.0-18.0); MEAN CELL VOLUME 96.3 fL (80.0-94.0); MEAN CORPUSCULAR HEMOGLOBIN 31.2 pg (27.0-31.0); MEAN CORPUSCULAR HGB CONC 32.4 g/dL (33.0-37.0); MEAN PLATELET VOLUME 9.9 fL (7.2-11.7); RBC 3.62 Mil/uL (4.40-5.90); RED CELL DISTRIBUTION WIDTH 19.3 % (11.5-14.5); WHITE BLOOD COUNT 5.5 K/uL (4.8-10.8)
[2017-10-28 08:20] LABS: CALCIUM 9.9 mg/dl (8.6-10.4)
[2017-10-28] MEDS: Multivitamin Vitamin B Complex (Nephro-Vite) Tab PO SCH (10:09)
[2017-10-28] MEDS: Saccharomyces Boulardi 250 mg Cap PO SCH ×2 (10:20→17:58)
[2017-10-28] MEDS: Pantoprazole 40 mg EC Tab PO SCH (10:20)
[2017-10-28] MEDS: Brimonidine 0.2% Opth Sol (5ml) OU SCH ×2 (10:41→17:54)
[2017-10-28] MEDS ORDERED: Pneumococcal 23-Valent Vaccine IM ONE (14:00)
--- NOTE | 2017-10-28 19:04 | CP.PCM.PN ---
Subjective - Date & Time of Evaluation Date of Evaluation: 10/28/17 Time of Evaluation: 08:40 - Subjective Subjective: clinically same Objective - Vital Signs/Intake and Output Vital Signs (last 24 hours): Temp Pulse Resp BP Pulse Ox 98.1 F 77 20 154/74 H 95 10/28/17 17:00 10/28/17 17:00 10/28/17 17:00 10/28/17 17:00 10/28/17 17:00 - Medications Medications: Current Medications Aspirin (Ecotrin) 81 mg PO DAILY [facility] Last Admin: 10/28/17 10:10 Dose: 81 mg Benzonatate (Tessalon Perles) 100 mg PO Q8 [facility] Last Admin: 10/28/17 13:14 Dose: 100 mg Brimonidine Tartrate (Alphagan 0.2% Opht) 0 ml OU BID [facility] Last Admin: 10/28/17 17:54 Dose: 1 drop Calcitriol (Rocaltrol) 0.25 mcg PO DAILY [facility] Last Admin: 10/28/17 10:10 Dose: 0.25 mcg Calcium Acetate (Phoslo) 2,001 mg PO TID [facility] Last Admin: 10/28/17 17:56 Dose: 2,001 mg Carvedilol (Coreg) 6.25 mg PO BID [facility] Last Admin: 10/28/17 17:55 Dose: 6.25 mg Dextrose (Dextrose 50% Inj) 0 ml IV STAT PRN; Protocol PRN Reason: Hypoglycemia Protocol Dextrose (Glutose 15) 0 gm PO ONCE PRN; Protocol PRN Reason: Hypoglycemia Protocol Glucagon (Glucagen Diagnostic Kit) 0 mg IM STAT PRN; Protocol PRN Reason: Hypoglycemia Protocol Hydralazine HCl (Apresoline) 25 mg PO TID [facility] Last Admin: 10/28/17 17:55 Dose: 25 mg Ciprofloxacin (Cipro 200mg/100ml D5w) 100 mls @ 100 mls/hr IVPB Q24H [facility] PRN Reason: Protocol Last Admin: 10/27/17 22:37 Dose: 100 mls/hr Dextrose (Dextrose 5% In Water 1000 Ml) 1,000 mls @ 0 mls/hr IV .Q0M PRN; Protocol; Per Protocol PRN Reason: Hypoglycemia Protocol Insulin Aspart (Novolog) 0 unit SC ACHS [facility] PRN Reason: Protocol Last Admin: 10/28/17 16:30 Dose: 1 unit Loperamide HCl (Imodium) 2 mg PO Q6 [facility] Last Admin: 10/28/17 17:58 Dose: Not Given Metronidazole (Flagyl) 500 mg PO TID [facility] PRN Reason: Protocol Stop: 10/29/17 10:01 Last Admin: 10/28/17 17:58 Dose: 500 mg Oxycodone/Acetaminophen (Percocet 5/325 Mg Tab) 1 tab PO Q8 PRN Stop: 10/28/17 22:01 Last Admin: 10/26/17 00:11 Dose: 1 tab Pantoprazole Sodium (Protonix Ec Tab) 40 mg PO DAILY [facility] Last Admin: 10/28/17 10:20 Dose: 40 mg Rosuvastatin Calcium (Crestor) 2.5 mg PO HS [facility] Last Admin: 10/27/17 22:38 Dose: 2.5 mg Saccharomyces Boulardii (Florastor) 250 mg PO BID [facility] Last Admin: 10/28/17 17:58 Dose: 250 mg Tamsulosin HCl (Flomax) 0.4 mg PO DAILY [facility] Last Admin: 10/28/17 10:09 Dose: 0.4 mg Torsemide (Demadex) 100 mg PO BID [facility] Last Admin: 10/28/17 10:12 Dose: 100 mg Vitamin B Complex/Vit C/Folic Acid (Nephro-Lupis) 1 tab PO DAILY [facility] Last Admin: 10/28/17 10:09 Dose: 1 tab - Labs Labs: 10/28/17 08:01 10/28/17 08:01 - Constitutional Appears: Well - Head Exam Head Exam: ATRAUMATIC, NORMAL INSPECTION, NORMOCEPHALIC - Eye Exam Eye Exam: EOMI, Normal appearance, PERRL Pupil Exam: NORMAL ACCOMODATION, PERRL - ENT Exam ENT Exam: Mucous Membranes Moist, Normal Exam - Neck Exam Neck Exam: Full ROM, Normal Inspection. absent: Lymphadenopathy - Respiratory Exam Respiratory Exam: Decreased Breath Sounds - Cardiovascular Exam Cardiovascular Exam: REGULAR RHYTHM, +S1, +S2 - GI/Abdominal Exam GI & Abdominal Exam: Soft, Diminished Bowel Sounds - Rectal Exam Rectal Exam: Deferred
[2017-10-28] MEDS: Ciprofloxacin 200mg/100ml D5W 100 ML IVPB SCH (22:03)
[2017-10-28] MEDS: Rosuvastatin Calcium 2.5 mg Tab PO SCH (22:32)
[2017-10-29] MEDS: (Novolog) Insulin Aspart, Recombinant 100 u/ml 10 ml vial SC SCH ×4 (08:03→22:21)
[2017-10-29] MEDS: Multivitamin Vitamin B Complex (Nephro-Vite) Tab PO SCH (09:40)
[2017-10-29] MEDS: Pantoprazole 40 mg EC Tab PO SCH (09:41)
[2017-10-29] MEDS: Saccharomyces Boulardi 250 mg Cap PO SCH ×2 (09:41→17:39)
[2017-10-29] MEDS: Brimonidine 0.2% Opth Sol (5ml) OU SCH ×2 (09:43→17:26)
--- NOTE | 2017-10-29 10:24 | CP.PCM.PN ---
Subjective - Date & Time of Evaluation Date of Evaluation: 10/29/17 Time of Evaluation: 08:00 - Subjective Subjective: clinically same Objective - Vital Signs/Intake and Output Vital Signs (last 24 hours): Temp Pulse Resp BP Pulse Ox 98.4 F 85 20 165/75 H 95 10/29/17 07:16 10/29/17 07:16 10/29/17 07:16 10/29/17 07:16 10/29/17 07:16 Intake and Output: 10/29/17 10/29/17 06:59 18:59 Intake Total 480 Output Total 500 Balance -20 - Medications Medications: Current Medications Aspirin (Ecotrin) 81 mg PO DAILY [facility] Last Admin: 10/29/17 09:41 Dose: 81 mg Benzonatate (Tessalon Perles) 100 mg PO Q8 [facility] Last Admin: 10/29/17 05:09 Dose: 100 mg Brimonidine Tartrate (Alphagan 0.2% Opht) 0 ml OU BID [facility] Last Admin: 10/29/17 09:43 Dose: 1 drop Calcitriol (Rocaltrol) 0.25 mcg PO DAILY [facility] Last Admin: 10/29/17 09:42 Dose: 0.25 mcg Calcium Acetate (Phoslo) 2,001 mg PO TID [facility] Last Admin: 10/29/17 09:40 Dose: 2,001 mg Carvedilol (Coreg) 6.25 mg PO BID [facility] Last Admin: 10/29/17 10:10 Dose: Not Given Dextrose (Dextrose 50% Inj) 0 ml IV STAT PRN; Protocol PRN Reason: Hypoglycemia Protocol Dextrose (Glutose 15) 0 gm PO ONCE PRN; Protocol PRN Reason: Hypoglycemia Protocol Glucagon (Glucagen Diagnostic Kit) 0 mg IM STAT PRN; Protocol PRN Reason: Hypoglycemia Protocol Hydralazine HCl (Apresoline) 25 mg PO TID [facility] Last Admin: 10/29/17 10:10 Dose: Not Given Ciprofloxacin (Cipro 200mg/100ml D5w) 100 mls @ 100 mls/hr IVPB Q24H [facility] PRN Reason: Protocol Last Admin: 10/28/17 22:03 Dose: 100 mls/hr Dextrose (Dextrose 5% In Water 1000 Ml) 1,000 mls @ 0 mls/hr IV .Q0M PRN; Protocol; Per Protocol PRN Reason: Hypoglycemia Protocol Insulin Aspart (Novolog) 0 unit SC ACHS [facility] PRN Reason: Protocol Last Admin: 10/29/17 08:03 Dose: Not Given Loperamide HCl (Imodium) 2 mg PO Q6 [facility] Last Admin: 10/29/17 05:01 Dose: Not Given Pantoprazole Sodium (Protonix Ec Tab) 40 mg PO DAILY [facility] Last Admin: 10/29/17 09:41 Dose: 40 mg Rosuvastatin Calcium (Crestor) 2.5 mg PO HS [facility] Last Admin: 10/28/17 22:32 Dose: 2.5 mg Saccharomyces Boulardii (Florastor) 250 mg PO BID [facility] Last Admin: 10/29/17 09:41 Dose: 250 mg Tamsulosin HCl (Flomax) 0.4 mg PO DAILY [facility] Last Admin: 10/29/17 09:41 Dose: 0.4 mg Torsemide (Demadex) 100 mg PO BID [facility] Last Admin: 10/29/17 10:14 Dose: 100 mg Vitamin B Complex/Vit C/Folic Acid (Nephro-Lupis) 1 tab PO DAILY [facility] Last Admin: 10/29/17 09:40 Dose: 1 tab - Labs Labs: 10/28/17 08:01 10/28/17 08:01 - Constitutional Appears: Well - Head Exam Head Exam: ATRAUMATIC, NORMAL INSPECTION, NORMOCEPHALIC - Eye Exam Eye Exam: EOMI, Normal appearance, PERRL Pupil Exam: NORMAL ACCOMODATION, PERRL - ENT Exam ENT Exam: Mucous Membranes Moist, Normal Exam - Neck Exam Neck Exam: Full ROM, Normal Inspection. absent: Lymphadenopathy - Respiratory Exam Respiratory Exam: Decreased Breath Sounds - Cardiovascular Exam Cardiovascular Exam: REGULAR RHYTHM, +S1, +S2 - GI/Abdominal Exam GI & Abdominal Exam: Soft, Diminished Bowel Sounds - Rectal Exam Rectal Exam: Deferred
--- NOTE | 2017-10-29 13:49 | CP.PCM.PN ---
Subjective - Date & Time of Evaluation Date of Evaluation: 10/29/17 Time of Evaluation: 13:48 - Subjective Subjective: Patient and bed appears to be comfortable no acute distress Vital signs stable No chest pain no shortness of breath. Objective - Vital Signs/Intake and Output Vital Signs (last 24 hours): Temp Pulse Resp BP Pulse Ox 98.4 F 85 20 165/75 H 95 10/29/17 07:16 10/29/17 07:16 10/29/17 07:16 10/29/17 07:16 10/29/17 07:16 Intake and Output: 10/29/17 10/29/17 06:59 18:59 Intake Total 480 Output Total 500 Balance -20 - Medications Medications: Current Medications Aspirin (Ecotrin) 81 mg PO DAILY [facility] Last Admin: 10/29/17 09:41 Dose: 81 mg Benzonatate (Tessalon Perles) 100 mg PO Q8 [facility] Last Admin: 10/29/17 05:09 Dose: 100 mg Brimonidine Tartrate (Alphagan 0.2% Opht) 0 ml OU BID [facility] Last Admin: 10/29/17 09:43 Dose: 1 drop Calcitriol (Rocaltrol) 0.25 mcg PO DAILY [facility] Last Admin: 10/29/17 09:42 Dose: 0.25 mcg Calcium Acetate (Phoslo) 2,001 mg PO TID [facility] Last Admin: 10/29/17 09:40 Dose: 2,001 mg Carvedilol (Coreg) 6.25 mg PO BID [facility] Last Admin: 10/29/17 10:10 Dose: Not Given Dextrose (Dextrose 50% Inj) 0 ml IV STAT PRN; Protocol PRN Reason: Hypoglycemia Protocol Dextrose (Glutose 15) 0 gm PO ONCE PRN; Protocol PRN Reason: Hypoglycemia Protocol Glucagon (Glucagen Diagnostic Kit) 0 mg IM STAT PRN; Protocol PRN Reason: Hypoglycemia Protocol Hydralazine HCl (Apresoline) 25 mg PO TID [facility] Last Admin: 10/29/17 10:10 Dose: Not Given Ciprofloxacin (Cipro 200mg/100ml D5w) 100 mls @ 100 mls/hr IVPB Q24H [facility] PRN Reason: Protocol Last Admin: 10/28/17 22:03 Dose: 100 mls/hr Insulin Aspart (Novolog) 0 unit SC ACHS [facility] PRN Reason: Protocol Last Admin: 10/29/17 12:35 Dose: 2 unit Loperamide HCl (Imodium) 2 mg PO Q6 [facility] Last Admin: 10/29/17 12:14 Dose: Not Given Pantoprazole Sodium (Protonix Ec Tab) 40 mg PO DAILY [facility] Last Admin: 10/29/17 09:41 Dose: 40 mg Rosuvastatin Calcium (Crestor) 2.5 mg PO HS [facility] Last Admin: 10/28/17 22:32 Dose: 2.5 mg Saccharomyces Boulardii (Florastor) 250 mg PO BID [facility] Last Admin: 10/29/17 09:41 Dose: 250 mg Tamsulosin HCl (Flomax) 0.4 mg PO DAILY [facility] Last Admin: 10/29/17 09:41 Dose: 0.4 mg Torsemide (Demadex) 100 mg PO BID [facility] Last Admin: 10/29/17 10:14 Dose: 100 mg Vitamin B Complex/Vit C/Folic Acid (Nephro-Lupis) 1 tab PO DAILY [facility] Last Admin: 10/29/17 09:40 Dose: 1 tab - Labs Labs: 10/28/17 08:01 10/28/17 08:01 - Constitutional Appears: No Acute Distress - ENT Exam ENT Exam: Mucous Membranes Moist - Neck Exam Neck Exam: absent: Lymphadenopathy - Respiratory Exam Respiratory Exam: NORMAL BREATHING PATTERN. absent: Chest Wall Tenderness - Cardiovascular Exam Cardiovascular Exam: absent: Gallop, JVD, Rubs - GI/Abdominal Exam GI & Abdominal Exam: Soft, Normal Bowel Sounds - Extremities Exam Extremities Exam: absent: Calf Tenderness - Back Exam Back Exam: absent: CVA tenderness (L), CVA tenderness (R) - Neurological Exam Neurological Exam: Alert - Psychiatric Exam Psychiatric exam: Normal Affect - Skin Skin Exam: absent: Cyanosis Assessment and Plan (1) ESRD needing dialysis Assessment & Plan: patient receiving hemodialysis. [facility] Vital sign appears to be stable. Sodium bath 138 Potassium bath 2 mEq. Bicarbonate bath 34 acute gastroenteritis with ? blood ? side effect of K lowering med as [place] Diabetic chronic Kidney Disease (E11.22) Hypertensive Chronic Kidney Disease (I12.0) End stage renal disease (N18.6) dependence on hemodialysis (Z99.2) (MWF) via AVF Anemia (D64.9), Hyperphosphatemia (E83.39), Secondary Hyperparathyroidism (E21.1 ), HTN (I12.0) chronic thrombocytopenia Status: Acute (2) Generalized weakness Status: Acute
[2017-10-29 17:06] VITALS: RESP 20
[2017-10-29] MEDS: Rosuvastatin Calcium 2.5 mg Tab PO SCH (21:14)
[2017-10-29] MEDS: Ciprofloxacin 200mg/100ml D5W 100 ML IVPB SCH (22:53)
[2017-10-30] MEDS: (Novolog) Insulin Aspart, Recombinant 100 u/ml 10 ml vial SC SCH ×2 (07:31→11:21)
[2017-10-30] MEDS: Saccharomyces Boulardi 250 mg Cap PO SCH (09:19)
[2017-10-30] MEDS: Pantoprazole 40 mg EC Tab PO SCH (09:21)
[2017-10-30] MEDS: Brimonidine 0.2% Opth Sol (5ml) OU SCH (09:21)
[2017-10-30] MEDS: Multivitamin Vitamin B Complex (Nephro-Vite) Tab PO SCH (09:21)
--- NOTE | 2017-10-30 11:52 | CP.PCM.PN ---
Subjective - Date & Time of Evaluation Date of Evaluation: 10/30/17 Time of Evaluation: 11:52 - Subjective Subjective: -FOLLOW UP WITH DR. [place] RANDHAWA IN THE OFFICE IN 1 WEEK---CALL FOR APPT TIME. -CONTINUE YOUR USUAL DIALYSIS SESSIONS---DON'T MISS ANY DAYS---FOLLOW UP WITH YOU KIDNEY DOCTOR USUAL. -CONTINUE ALL HOME MEDICATIONS USUAL. -NEW PRESCRIPTIONS: 1) FLAGYL 500 MG---TAKE 1 TABLET BY MOUTH 3 TIMES A DAY FOR 1 WEEK (MORNING, AFTERNOON, AND EVENING). 2) FLORASTOR 250 MG ---TAKE 1 CAPSULE AND TAKE TWICE A DAY FOR 1 WEEK. -FOR FURTHER QUESTIONS OR CONCERNS, CONTACT DR. RANDHAWA. Objective - Vital Signs/Intake and Output Vital Signs (last 24 hours): Temp Pulse Resp BP Pulse Ox 98.2 F 79 20 162/76 H 96 10/29/17 23:24 10/29/17 23:24 10/29/17 23:24 10/29/17 23:24 10/29/17 23:24 Intake and Output: 10/30/17 10/30/17 06:59 18:59 Intake Total 60 Balance 60 - Medications Medications: Current Medications Aspirin (Ecotrin) 81 mg PO DAILY [facility] Last Admin: 10/30/17 09:21 Dose: 81 mg Benzonatate (Tessalon Perles) 100 mg PO Q8 [facility] Last Admin: 10/30/17 05:10 Dose: 100 mg Brimonidine Tartrate (Alphagan 0.2% Opht) 0 ml OU BID [facility] Last Admin: 10/30/17 09:21 Dose: 1 drop Calcitriol (Rocaltrol) 0.25 mcg PO DAILY [facility] Last Admin: 10/30/17 09:20 Dose: 0.25 mcg Calcium Acetate (Phoslo) 2,001 mg PO TID [facility] Last Admin: 10/30/17 09:20 Dose: 2,001 mg Carvedilol (Coreg) 6.25 mg PO BID [facility] Last Admin: 10/30/17 09:21 Dose: 6.25 mg Dextrose (Dextrose 50% Inj) 0 ml IV STAT PRN; Protocol PRN Reason: Hypoglycemia Protocol Dextrose (Glutose 15) 0 gm PO ONCE PRN; Protocol PRN Reason: Hypoglycemia Protocol Glucagon (Glucagen Diagnostic Kit) 0 mg IM STAT PRN; Protocol PRN Reason: Hypoglycemia Protocol Hydralazine HCl (Apresoline) 25 mg PO TID [facility] Last Admin: 10/30/17 09:21 Dose: 25 mg Ciprofloxacin (Cipro 200mg/100ml D5w) 100 mls @ 100 mls/hr IVPB Q24H [facility] PRN Reason: Protocol Last Admin: 10/29/17 22:53 Dose: 100 mls/hr Insulin Aspart (Novolog) 0 unit SC ACHS [facility] PRN Reason: Protocol Last Admin: 10/30/17 11:21 Dose: 3 unit Loperamide HCl (Imodium) 2 mg PO Q6 [facility] Last Admin: 10/30/17 11:12 Dose: Not Given Pantoprazole Sodium (Protonix Ec Tab) 40 mg PO DAILY [facility] Last Admin: 10/30/17 09:21 Dose: 40 mg Rosuvastatin Calcium (Crestor) 2.5 mg PO HS [facility] Last Admin: 10/29/17 21:14 Dose: 2.5 mg Saccharomyces Boulardii (Florastor) 250 mg PO BID [facility] Last Admin: 10/30/17 09:19 Dose: 250 mg Tamsulosin HCl (Flomax) 0.4 mg PO DAILY [facility] Last Admin: 10/30/17 09:21 Dose: 0.4 mg Torsemide (Demadex) 100 mg PO BID [facility] Last Admin: 10/30/17 11:30 Dose: 100 mg Vitamin B Complex/Vit C/Folic Acid (Nephro-Lupis) 1 tab PO DAILY [facility] Last Admin: 10/30/17 09:21 Dose: 1 tab - Labs Labs: 10/28/17 08:01 10/28/17 08:01
[2017-10-30 14:33] VITALS: BP 149/83; PULSE 87; TEMP 98.5; O2SAT 97
== END 2017-10-30 14:50 | disposition home or self-care (01) | DRG 813 ==
LOC: C.ER 12:41 → C.9E 15:26 → C.5S 18:56 → C.3T 10-28 13:31
PROVIDERS: ADMIT Internal Medicine Nephrology; ATTEND Internal Medicine Nephrology
PROC: 5A1D70Z Performance of Urinary Filtration, Intermittent, Less than 6 Hours Per Day (ICD-10-PCS; principal; 2017-10-25)
PROC: 5A1D70Z Performance of Urinary Filtration, Intermittent, Less than 6 Hours Per Day (ICD-10-PCS; 2017-10-29)
DX: K52.9 Noninfective gastroenteritis and colitis, unspecified (principal); N18.6 End stage renal disease; I13.2 Hypertensive heart and chronic kidney disease with heart failure and with stage 5 chronic kidney disease, or end stage renal disease; I50.9 Heart failure, unspecified; E11.22 Type 2 diabetes mellitus with diabetic chronic kidney disease; D69.6 Thrombocytopenia, unspecified; N25.81 Secondary hyperparathyroidism of renal origin; D64.9 Anemia, unspecified; E83.39 Other disorders of phosphorus metabolism; N40.0 Benign prostatic hyperplasia without lower urinary tract symptoms; E78.00 Pure hypercholesterolemia, unspecified; Z95.810 Presence of automatic (implantable) cardiac defibrillator; Z99.2 Dependence on renal dialysis; Z90.49 Acquired absence of other specified parts of digestive tract

== ENCOUNTER 2018-05-20 12:09 | Inpatient (IN) | payer MEDICAID ==
[2018-05-20 12:23] VITALS: BMI 20.6
[2018-05-20 13:35] LABS: BASO % 0.8 % (0.0-2.0); EOS % 0.9 % (0.0-4.0); LYMPH # 0.5 K/uL (1.0-4.3); MEAN CELL VOLUME 95.1 fL (80.0-94.0); MEAN CORPUSCULAR HGB CONC 31.5 g/dL (33.0-37.0); MEAN PLATELET VOLUME 11.6 fL (7.2-11.7); MONO # 0.3 K/uL (0.0-0.8); NEUT # 2.8 K/uL (1.8-7.0); NEUT % 77.3 % (50.0-75.0); RBC 4.57 Mil/uL (4.40-5.90); RED CELL DISTRIBUTION WIDTH 20.3 % (11.5-14.5); WHITE BLOOD COUNT 3.7 K/uL (4.8-10.8)
[2018-05-20 13:42] LABS: HEMOGLOBIN 13.7 g/dL (12.0-18.0)
[2018-05-20 13:43] LABS: INR 1.2; PROTHROMBIN TIME 12.8 SECONDS (9.7-12.2)
[2018-05-20 13:51] LABS: ABG ALLEN TEST POS; ARTERIAL BLOOD GAS HCO3 19.4 mmol/L (21-28); ARTERIAL BLOOD GAS O2 SAT 87.5 % (95-98); ARTERIAL BLOOD GAS PCO2 47 mm/Hg (35-45); ARTERIAL BLOOD GAS PH 7.25 (7.35-7.45); ARTERIAL BLOOD GAS PO2 61 mm/Hg (80-100)
[2018-05-20 13:56] LABS: VENOUS BLOOD GAS BASE EXCESS -6.9 mmol/L (0.0-2.0); VENOUS BLOOD GAS PCO2 50 mmHg (40-60); VENOUS BLOOD GAS PO2 52 mm/Hg (30-55); VENOUS BLOOD PH 7.23 (7.32-7.43)
[2018-05-20 14:12] LABS: B-TYPE NATRIURETIC PEPTIDE 13500 pg/mL (0-900)
--- NOTE | 2018-05-20 14:31 | C.PDOC ---
History Of Present Illness 62 year old male with a history of ESRD, HTN, DM, and CHFpresents to the emergency department with complaints of hyperglycemia. Patient received dialysis on Mondays, Wednesdays, and Fridays, but states that he did not make his and Wednesday appointments this week. Patient offers no other complaints at this time. Time Seen by Provider: 05/20/18 12:37 Chief Complaint (Nursing): High Blood Sugar History Per: Patient History/Exam Limitations: no limitations Onset/Duration Of Symptoms: Days Current Symptoms Are (Timing): Still Present Past Medical History Reviewed: Historical Data, Nursing Documentation, Vital Signs Vital Signs: Last Vital Signs Temp 94.7 F L 05/20/18 13:58 Pulse 30 L 05/20/18 13:30 Resp 16 05/20/18 13:30 BP 126/52 L 05/20/18 13:30 Pulse Ox 96 05/20/18 13:30 - Medical History PMH: Anemia, Benign Prostatic Hyperplasia, CHF, Depression, Diabetes, HTN, Hypercholesterolemia, Pancreatitis, End Stage Renal Disease (on hemodialysis M/W/F), Chronic Kidney Disease Denies: Emphysema, Pulmonary Embolism Surgical History: Appendectomy, Pacemaker (AICD) - [facility] Procedures (10/25/17) CATARAC PHACOEMULS/ASPIR (10/03/13) EXCISION OF STOMACH, ENDO, DIAGN (04/21/17) INSERT LENS AT CATAR EXT (10/03/13) VACCINATION NEC (07/10/14) Family History: States: Unknown Family Hx - Social History Hx Tobacco Use: No Hx Alcohol Use: No Hx Substance Use: No - Immunization History Hx Tetanus Toxoid Vaccination: No Hx Influenza Vaccination: No Hx Pneumococcal Vaccination: Yes (2017) Review Of Systems Except As Marked, All Systems Reviewed And Found Negative. Constitutional: Negative for: Fever, Chills Gastrointestinal: Negative for: Nausea, Vomiting, Diarrhea Physical Exam - Physical Exam Appears: Non-toxic, No Acute Distress, Other (drowsy, easily arousable) Skin: Normal Color, Warm, Dry Head: Atraumatic, Normacephalic Eye(s): bilateral: Normal Inspection, PERRL, EOMI Oral Mucosa: Dry, Other (pink) Throat: Normal, No Erythema Neck: Normal, Supple Chest: Symmetrical, No Tenderness Cardiovascular: Rhythm Regular, No Murmur Respiratory: No Rales, No Rhonchi, No Wheezing, Other (crackles at the bases) Gastrointestinal/Abdominal: Soft, No Tenderness Extremity: Normal ROM, Other (right forearm AV fistula) Neurological/Psych: Oriented x3, Normal Speech, Normal Cognition ED Course And Treatment - Laboratory Results Result Diagrams: 05/21/18 05:40 05/21/18 05:40 Lab Results: Puncture Site Lr 05/20/18 13:40 pCO2 47 mm/Hg (35-45) H 05/20/18 13:40 pO2 61 mm/Hg (80-100) L 05/20/18 13:40 HCO3 19.4 mmol/L (21-28) L 05/20/18 13:40 ABG pH 7.25 (7.35-7.45) L 05/20/18 13:40 ABG Total CO2 22.0 mmol/L (22-28) 05/20/18 13:40 ABG O2 Saturation 87.5 % (95-98) L 05/20/18 13:40 ABG Base Excess -6.7 mmol/L (-2.0-3.0) L 05/20/18 13:40 Adrián Test Pos 05/20/18 13:40 ABG Potassium 6.4 mmol/L (3.6-5.2) H* 05/20/18 13:40 VBG pH 7.23 (7.32-7.43) L 05/20/18 13:35 VBG pCO2 50 mmHg (40-60) 05/20/18 13:35 VBG HCO3 19.0 mmol/L 05/20/18 13:35 VBG Total CO2 22.4 mmol/L (22-28) 05/20/18 13:35 VBG O2 Sat (Calc) 80.1 % (40-65) H 05/20/18 13:35 VBG Base Excess -6.9 mmol/L (0.0-2.0) L 05/20/18 13:35 VBG Potassium 6.8 mmol/L (3.6-5.2) H* 05/20/18 13:35 Sodium 132.0 mmol/l (132-148) 05/20/18 13:40 Chloride 90.0 mmol/L (98-107) L 05/20/18 13:40 Glucose 586 mg/dl (75-110) H* 05/20/18 13:40 Lactate 1.3 mmol/L (0.7-2.1) 05/20/18 13:40 Liter Flow 2.0 05/20/18 13:40 Crit Value Called To Nicolle cifuentes rn 05/20/18 13:40 Crit Value Called By Ghislaine myers,rt 05/20/18 13:40 Crit Value Read Back Y 05/20/18 13:40 Blood Gas Notified Time 1351 05/20/18 13:40 PT 12.8 SECONDS (9.7-12.2) H 05/20/18 13:29 INR 1.2 05/20/18 13:29 APTT 40 SECONDS (21-34) H 05/20/18 13:29 Troponin I < 0.0120 ng/mL (0.00-0.120) 05/20/18 13:29 NT-Pro-B Natriuret Pep 25560 pg/mL (0-900) H 05/20/18 13:29 O2 Sat by Pulse Oximetry: 96 (RA) Pulse Ox Interpretation: Normal Interpretation Of Abnormal: Sinus bradycardia at 30bpm, normal intervals normal axis. Medical Decision Making Medical Decision Making: Plan: ABG VBG EKG Chemistry Bloodwork CXR Glucose POC Urine Culture Blood Culture Urinalysis Heart rate improved after Calcium to 80s. Dr. Hall accepted the patient, wants ICU consult and Dr. Acuna for Cardiology. Spoke to ICU Dr. Lino who will come to see the patient in the ED. Spoke to Dr. Bolivar, who states to give the patient calcium, insulin, but NO kayexalate. 15:19 Dr. Lino accepted the patient to ICU. Disposition - Disposition Disposition: HOSPITALIZED Disposition Time: 14:55 Condition: STABLE - Clinical Impression Clinical Impression: ESRD needing dialysis, Hyperkalemia, Fluid overload, Hypothermia - Scribe Statement The provider has reviewed the documentation as recorded by the Scribe (Jaime Castillo) Provider Attestation: All medical record entries made by the Scribe were at my direction and personally dictated by me. I have reviewed the chart and agree that the record accurately reflects my personal performance of the history, physical exam, medical decision making, and the department course for this patient. I have also personally directed, reviewed, and agree with the discharge instructions and disposition.
[2018-05-20 14:37] LABS: ALB/GLOB RATIO 1.5 (1.0-2.1); ALBUMIN 4.5 g/dL (3.5-5.0); ALT/SGPT 23 U/L (21-72); AST/SGOT 21 U/L (17-59); CALCIUM 8.3 mg/dl (8.6-10.4)
[2018-05-20] MEDS ORDERED: (Novolin R) Insulin Human Regular 100 units/ml vial IVP ONE (14:39)
[2018-05-20 14:52] LABS: BLOOD UREA NITROGEN 170 mg/dL (9-20)
[2018-05-20 14:53] LABS: GFR NON-AFRICAN AMERICAN 4
[2018-05-20] MEDS ORDERED: (Novolin R) Insulin Human Regular 100 units/ml vial ONE (14:57)
--- NOTE | 2018-05-20 15:05 | RAD ---
HISTORY: Sepsis Patient COMPARISON: Chest x-ray performed 10/25/17 TECHNIQUE: Chest, one view. FINDINGS: Examination limited by habitus and hypoinflation. LUNGS: Mild venous congestion. No focal consolidation. Please note that chest x-ray has limited sensitivity for the detection of pulmonary masses. PLEURA: No significant pleural effusion identified. No definite pneumothorax . CARDIOVASCULAR: Borderline cardiomegaly. Prosthetic cardiac valve. OSSEOUS STRUCTURES: Degenerative changes. VISUALIZED UPPER ABDOMEN: Elevation of the right hemidiaphragm. OTHER FINDINGS: Single lead projects along the medial right hemithorax. Device pack projects over the left lateral lower chest. IMPRESSION: Mild venous congestion. Elevation of the right hemidiaphragm.
[2018-05-20] MEDS ORDERED: Calcium Chloride 1000 mg/10 ml Syringe IV ONE (15:10)
[2018-05-20] MEDS ORDERED: Calcium Gluconate 4.65 mEq/10 ml Inj IVP ONE (15:17)
[2018-05-20 16:02] LABS: VENOUS BLOOD GAS BASE EXCESS -5.6 mmol/L (0.0-2.0); VENOUS BLOOD GAS PCO2 50 mmHg (40-60); VENOUS BLOOD GAS PO2 67 mm/Hg (30-55); VENOUS BLOOD PH 7.25 (7.32-7.43)
--- NOTE | 2018-05-20 16:19 | CP.PCM.CON ---
History of Present Illness - History of Present Illness History of Present Illness: Nephrology Consultation: Assessment: Critical Hyperkalemia with bradycardia, missed HD, uremic, hyperglycemia, hypothermia acute gastroenteritis Diabetic chronic Kidney Disease (E11.22) Hypertensive Chronic Kidney Disease (I12.0) End stage renal disease (N18.6) dependence on hemodialysis (Z99.2) (MWF) via AVF Anemia (D64.9), Hyperphosphatemia (E83.39), Secondary Hyperparathyroidism (E21.1), HTN (I12.0) chronic thrombocytopenia sys CHF Plan: pt being admitted to ICU Pt in need for dialysis stat. Will plan for dialysis tomorrow as well. Continue with Nephrovite 1 tab/day. PRBC as needed for anemia. last Hb 13.7 hence no BELEM at present Continue with phos binders home dose once GI symptoms better BP control with meds as ordered. hyperkalemia, hence no acei/arb for now Glycemic control, Dialysis consistent diet Further work up/management as per primary team Dose meds/antibiotics (if needed) for ESRD status. Avoid fleets enema/magnesium based laxatives. Thanks for allowing me to participate in care of your patient. Will follow patient with you. Please call if any Qs. Dr Davidson Bolivar Office: [phone] Chief Complaint;loose stool and high sugar Reason for consult: ESRD HPI: Pt is a 62 y/o M with hx of ESRD on hemodialysis (MWF) via AVF x 3 years @ [facility], chronic anemia, hyperphosphatemia, secondary hyperparathyroidism, Diabetes Mellitus, hypertension, thrombocytopenia biV failure with sys CHF presented with complaints of loose stool diarrhoea for last few days with associated high sugar. he was also hypothermic and bradycardic. last HD wednesday. feels sick no vomitting denies SOB ROS: Cardiovascular: No chest pain. Pulmonary: No shortness of breath Gastrointestinal: c/o LLQ abdominal pain No nausea. No vomiting. has diarrhoea Genitourinary: No pain while urinating. Denies blood in urine. All other negative Physical Examination: General Appearance: Comfortable, in no acute respiratory distress, co-operative . ill appearing Vitals reviewed and noted as below Head; Atraumatic, normocephalic ENT: no ulcers no thrush. Tongue is midline. Oropharynx: no rash or ulcers. EYES: Pupils are equal, round and reactive to light accommodation. Eye muscles and extraocular movement intact. Sclera is anicteric. Neck; supple no lymphadenopathy, no thyromegaly or bruit Lungs: Normal respiratory rate/effort. Breath sounds bilateral equal and reduced at bases Heart: Normal rate. s1s2 normal. No rub or gallop. left side PPM + Extremities: no edema. No varicose veins Neurological: Patient is alert, awake and oriented to person, place and time. No focal deficit. Strength bilateral appropriate and equal Skin: Warm and dry. Normal turgor. No rash. Palpitation: Normal elasticity for age Abdomen: Abdomen is soft. Bowel sounds +. There is mild LLQ abdominal tenderness, no guarding/rigidity or organomegaly Psych: normal insight and normal affect/mood MSK: no joint tenderness or swelling. Digits and nails normal, no deformity : kidney or bladder not palpable Access: AVF with thrill and bruit Labs/imaging reviewed. Past medical history, past surgical history, family history, social history, allergy reviewed and noted as below Family Hx: no hx of CKD. Non contributory Past Patient History - Infectious Disease Hx of Infectious Diseases: None - Past Medical History & Family History Past Medical History?: Yes - Past Social History Smoking Status: Never Smoked - CARDIAC Hx Congestive Heart Failure: Yes Hx Hypercholesterolemia: Yes Hx Hypertension: Yes Hx Pacemaker: Yes (AICD) - PULMONARY Hx Emphysema: No Hx Pulmonary Embolism: No - NEUROLOGICAL Hx Neurological Disorder: No - HEENT Hx HEENT Problems: Yes Hx Cataracts: Yes - RENAL Hx Chronic Kidney Disease: Yes - ENDOCRINE/METABOLIC Hx Endocrine Disorders: Yes Hx Diabetes Mellitus Type 2: Yes - HEMATOLOGICAL/ONCOLOGICAL Hx Anemia: Yes - INTEGUMENTARY Hx Dermatological Problems: No - MUSCULOSKELETAL/RHEUMATOLOGICAL Hx Musculoskeletal Disorders: No Hx Falls: No - GASTROINTESTINAL Hx Pancreatitis: Yes - GENITOURINARY/GYNECOLOGICAL Hx Genitourinary Disorders: No - PSYCHIATRIC Hx Depression: Yes Hx Substance Use: No - SURGICAL HISTORY Hx Appendectomy: Yes - ANESTHESIA Hx Anesthesia: Yes Hx Anesthesia Reactions: No Meds Allergies/Adverse Reactions: Allergies Allergy/AdvReac Type Severity Reaction Status Date / Time No Known Allergies Allergy Verified 05/20/18 12:23 Results - Vital Signs Recent Vital Signs: Last Vital Signs Temp 96.7 F L 05/20/18 16:08 Pulse 65 05/20/18 16:08 Resp 16 05/20/18 16:08 BP 146/75 05/20/18 16:08 Pulse Ox 95 05/20/18 16:08 - Labs Result Diagrams: 05/20/18 13:29 05/20/18 13:29 Labs: Laboratory Results - last 24 hr 05/20/18 05/20/18 05/20/18 12:21 13:29 13:29 WBC 3.7 L RBC 4.57 Hgb 13.7 D Hct 43.5 MCV 95.1 H MCH 30.0 MCHC 31.5 L RDW 20.3 H Plt Count 46 L D MPV 11.6 Neut % (Auto) 77.3 H Lymph % (Auto) 13.0 L [place] % (Auto) 8.0 Eos % (Auto) 0.9 Baso % (Auto) 0.8 Neut # (Auto) 2.8 Lymph # (Auto) 0.5 L [place] # (Auto) 0.3 Eos # (Auto) 0.0 Baso # (Auto) 0.0 Differential Comment PT 12.8 H INR 1.2 APTT 40 H Puncture Site pCO2 pO2 HCO3 ABG pH ABG Total CO2 ABG O2 Saturation ABG Base Excess Adrián Test ABG Potassium VBG pH VBG pCO2 VBG HCO3 VBG Total CO2 VBG O2 Sat (Calc) VBG Base Excess VBG Potassium Glucose Lactate Liter Flow Crit Value Called To Crit Value Called By Crit Value Read Back Blood Gas Notified Time Sodium Potassium Chloride Carbon Dioxide Anion Gap BUN Creatinine Est GFR ( Amer) Est GFR (Non-Af Amer) POC Glucose (mg/dL) > 500 H* Random Glucose Calcium Phosphorus Magnesium Total Bilirubin AST ALT Alkaline Phosphatase Troponin I NT-Pro-B Natriuret Pep Total Protein Albumin Globulin Albumin/Globulin Ratio TSH 3rd Generation Arterial Blood Potassium Venous Blood Potassium 05/20/18 05/20/18 05/20/18 13:29 13:35 13:40 WBC RBC Hgb Hct MCV MCH MCHC RDW Plt Count MPV Neut % (Auto) Lymph % (Auto) [place] % (Auto) Eos % (Auto) Baso % (Auto) Neut # (Auto) Lymph # (Auto) [place] # (Auto) Eos # (Auto) Baso # (Auto) Differential Comment PT INR APTT Puncture Site Lr pCO2 47 H pO2 52 61 L HCO3 19.4 L ABG pH 7.25 L ABG Total CO2 22.0 ABG O2 Saturation 87.5 L ABG Base Excess -6.7 L Adrián Test Pos ABG Potassium 6.4 H* VBG pH 7.23 L VBG pCO2 50 VBG HCO3 19.0 VBG Total CO2 22.4 VBG O2 Sat (Calc) 80.1 H VBG Base Excess -6.9 L VBG Potassium 6.8 H* Glucose 627 H* D 586 H* Lactate 1.6 1.3 Liter Flow 2.0 Crit Value Called To Nicolle cifuentes, elida cifuentes,rn Crit Value Called By Ghislaine myers,rt Ghislaine myers,rt Crit Value Read Back Y Y Blood Gas Notified Time 1356 1351 Sodium 130 L 131.0 L 132.0 Potassium 6.9 H* D Chloride 84 L 86.0 L 90.0 L Carbon Dioxide 21 L Anion Gap 32 H BUN 170 H* D Creatinine 13.6 H* D Est GFR ( Amer) 5 Est GFR (Non-Af Amer) 4 POC Glucose (mg/dL) Random Glucose 612 H* D Calcium 8.3 L Phosphorus 7.2 H Magnesium 2.9 H Total Bilirubin 0.6 AST 21 ALT 23 Alkaline Phosphatase 285 H D Troponin I < 0.0120 NT-Pro-B Natriuret Pep 40826 H Total Protein 7.5 Albumin 4.5 Globulin 3.0 Albumin/Globulin Ratio 1.5 TSH 3rd Generation Arterial Blood Potassium 6.4 H* Venous Blood Potassium 6.8 H* 05/20/18 05/20/18 14:38 15:57 WBC RBC Hgb Hct MCV MCH MCHC RDW Plt Count MPV Neut % (Auto) Lymph % (Auto) [place] % (Auto) Eos % (Auto) Baso % (Auto) Neut # (Auto) Lymph # (Auto) [place] # (Auto) Eos # (Auto) Baso # (Auto) Differential Comment PT INR APTT Puncture Site pCO2 pO2 67 H HCO3 ABG pH ABG Total CO2 ABG O2 Saturation ABG Base Excess Adrián Test ABG Potassium VBG pH 7.25 L VBG pCO2 50 VBG HCO3 20.3 VBG Total CO2 23.4 VBG O2 Sat (Calc) 89.1 H VBG Base Excess -5.6 L VBG Potassium 6.4 H* Glucose 459 H* D Lactate 1.6 Liter Flow Crit Value Called To Dr newsome Crit Value Called By Mark infante Crit Value Read Back Y Blood Gas Notified Time 1601 Sodium 131.0 L Potassium Chloride 90.0 L Carbon Dioxide Anion Gap BUN Creatinine Est GFR ( Amer) Est GFR (Non-Af Amer) POC Glucose (mg/dL) Random Glucose Calcium Phosphorus Magnesium Total Bilirubin AST ALT Alkaline Phosphatase Troponin I NT-Pro-B Natriuret Pep Total Protein Albumin Globulin Albumin/Globulin Ratio TSH 3rd Generation 2.16 Arterial Blood Potassium Venous Blood Potassium 6.4 H*
[2018-05-20 16:23] LABS: SQUAMOUS EPITHIAL < 1 /hpf (0-5); URINE BILIRUBIN NEGATIVE (NEGATIVE); URINE BLOOD 1+ (NEGATIVE); URINE CLARITY Clear (Clear); URINE COLOR Yellow (YELLOW); URINE GLUCOSE (UA) 3+ mg/dL (Normal); URINE LEUKOCYTE ESTERASE NEG Leu/uL (Negative); URINE PROTEIN 3+ mg/dL (NEGATIVE); URINE UROBILINOGEN NORMAL mg/dL (0.2-1.0)
--- NOTE | 2018-05-20 16:57 | CP.PCM.CON ---
<Frank Lino - Last Filed: 05/20/18 18:00> Meds Allergies/Adverse Reactions: Allergies Allergy/AdvReac Type Severity Reaction Status Date / Time No Known Allergies Allergy Verified 05/20/18 12:23 - Medications Medications: Current Medications Dextrose (Dextrose 50% Inj) 0 ml IV STAT PRN; Protocol PRN Reason: Hypoglycemia Protocol Dextrose (Glutose 15) 0 gm PO ONCE PRN; Protocol PRN Reason: Hypoglycemia Protocol Glucagon (Glucagen Diagnostic Kit) 0 mg IM STAT PRN; Protocol PRN Reason: Hypoglycemia Protocol Dextrose (Dextrose 5% In Water 1000 Ml) 1,000 mls @ 0 mls/hr IV .Q0M PRN; Protocol PRN Reason: Hypoglycemia Protocol Insulin Aspart (Novolog) 0 unit SC Q6H DEBBIE; Protocol Insulin Human Regular (Novolin R) 0 unit SC ACHS DEBBIE; Protocol Results - Vital Signs Recent Vital Signs: Last Vital Signs Temp 96.7 F L 05/20/18 16:08 Pulse 65 05/20/18 16:08 Resp 16 05/20/18 16:08 BP 146/75 05/20/18 16:08 Pulse Ox 95 05/20/18 16:08 - Labs Result Diagrams: 05/20/18 13:29 05/20/18 13:29 Labs: Laboratory Results - last 24 hr 05/20/18 05/20/18 05/20/18 12:21 13:29 13:29 WBC 3.7 L RBC 4.57 Hgb 13.7 D Hct 43.5 MCV 95.1 H MCH 30.0 MCHC 31.5 L RDW 20.3 H Plt Count 46 L D MPV 11.6 Neut % (Auto) 77.3 H Lymph % (Auto) 13.0 L Ness % (Auto) 8.0 Eos % (Auto) 0.9 Baso % (Auto) 0.8 Neut # (Auto) 2.8 Lymph # (Auto) 0.5 L Ness # (Auto) 0.3 Eos # (Auto) 0.0 Baso # (Auto) 0.0 Differential Comment PT 12.8 H INR 1.2 APTT 40 H Puncture Site pCO2 pO2 HCO3 ABG pH ABG Total CO2 ABG O2 Saturation ABG Base Excess Adrián Test ABG Potassium VBG pH VBG pCO2 VBG HCO3 VBG Total CO2 VBG O2 Sat (Calc) VBG Base Excess VBG Potassium Glucose Lactate Liter Flow Crit Value Called To Crit Value Called By Crit Value Read Back Blood Gas Notified Time Sodium Potassium Chloride Carbon Dioxide Anion Gap BUN Creatinine Est GFR ( Amer) Est GFR (Non-Af Amer) POC Glucose (mg/dL) > 500 H* Random Glucose Calcium Phosphorus Magnesium Total Bilirubin AST ALT Alkaline Phosphatase Troponin I NT-Pro-B Natriuret Pep Total Protein Albumin Globulin Albumin/Globulin Ratio TSH 3rd Generation Arterial Blood Potassium Venous Blood Potassium Urine Color Urine Clarity Urine pH Ur Specific [place] Urine Protein Urine Glucose (UA) Urine Ketones Urine Blood Urine Nitrate Urine Bilirubin Urine Urobilinogen Ur Leukocyte Esterase Urine WBC (Auto) Urine RBC (Auto) Ur Squamous Epith Cells Hyaline Casts 05/20/18 05/20/18 05/20/18 13:29 13:35 13:40 WBC RBC Hgb Hct MCV MCH MCHC RDW Plt Count MPV Neut % (Auto) Lymph % (Auto) Ness % (Auto) Eos % (Auto) Baso % (Auto) Neut # (Auto) Lymph # (Auto) Ness # (Auto) Eos # (Auto) Baso # (Auto) Differential Comment PT INR APTT Puncture Site Lr pCO2 47 H pO2 52 61 L HCO3 19.4 L ABG pH 7.25 L ABG Total CO2 22.0 ABG O2 Saturation 87.5 L ABG Base Excess -6.7 L Adrián Test Pos ABG Potassium 6.4 H* VBG pH 7.23 L VBG pCO2 50 VBG HCO3 19.0 VBG Total CO2 22.4 VBG O2 Sat (Calc) 80.1 H VBG Base Excess -6.9 L VBG Potassium 6.8 H* Glucose 627 H* D 586 H* Lactate 1.6 1.3 Liter Flow 2.0 Crit Value Called To elida Shipley,rn Crit Value Called By Ghislaine myers,rt Ghislaine myers,rt Crit Value Read Back Y Y Blood Gas Notified Time 1356 1351 Sodium 130 L 131.0 L 132.0 Potassium 6.9 H* D Chloride 84 L 86.0 L 90.0 L Carbon Dioxide 21 L Anion Gap 32 H BUN 170 H* D Creatinine 13.6 H* D Est GFR ( Amer) 5 Est GFR (Non-Af Amer) 4 POC Glucose (mg/dL) Random Glucose 612 H* D Calcium 8.3 L Phosphorus 7.2 H Magnesium 2.9 H Total Bilirubin 0.6 AST 21 ALT 23 Alkaline Phosphatase 285 H D Troponin I < 0.0120 NT-Pro-B Natriuret Pep 18233 H Total Protein 7.5 Albumin 4.5 Globulin 3.0 Albumin/Globulin Ratio 1.5 TSH 3rd Generation Arterial Blood Potassium 6.4 H* Venous Blood Potassium 6.8 H* Urine Color Urine Clarity Urine pH Ur Specific [place] Urine Protein Urine Glucose (UA) Urine Ketones Urine Blood Urine Nitrate Urine Bilirubin Urine Urobilinogen Ur Leukocyte Esterase Urine WBC (Auto) Urine RBC (Auto) Ur Squamous Epith Cells Hyaline Casts 05/20/18 05/20/18 05/20/18 14:38 15:45 15:48 WBC RBC Hgb Hct MCV MCH MCHC RDW Plt Count MPV Neut % (Auto) Lymph % (Auto) Ness % (Auto) Eos % (Auto) Baso % (Auto) Neut # (Auto) Lymph # (Auto) Ness # (Auto) Eos # (Auto) Baso # (Auto) Differential Comment PT INR APTT Puncture Site pCO2 pO2 HCO3 ABG pH ABG Total CO2 ABG O2 Saturation ABG Base Excess Adrián Test ABG Potassium VBG pH VBG pCO2 VBG HCO3 VBG Total CO2 VBG O2 Sat (Calc) VBG Base Excess VBG Potassium Glucose Lactate Liter Flow Crit Value Called To Crit Value Called By Crit Value Read Back Blood Gas Notified Time Sodium Potassium Chloride Carbon Dioxide Anion Gap BUN Creatinine Est GFR ( Amer) Est GFR (Non-Af Amer) POC Glucose (mg/dL) 442 H* 448 H* Random Glucose Calcium Phosphorus Magnesium Total Bilirubin AST ALT Alkaline Phosphatase Troponin I NT-Pro-B Natriuret Pep Total Protein Albumin Globulin Albumin/Globulin Ratio TSH 3rd Generation 2.16 Arterial Blood Potassium Venous Blood Potassium Urine Color Urine Clarity Urine pH Ur Specific [place] Urine Protein Urine Glucose (UA) Urine Ketones Urine Blood Urine Nitrate Urine Bilirubin Urine Urobilinogen Ur Leukocyte Esterase Urine WBC (Auto) Urine RBC (Auto) Ur Squamous Epith Cells Hyaline Casts 05/20/18 05/20/18 05/20/18 15:57 16:08 16:41 WBC RBC Hgb Hct MCV MCH MCHC RDW Plt Count MPV Neut % (Auto) Lymph % (Auto) Ness % (Auto) Eos % (Auto) Baso % (Auto) Neut # (Auto) Lymph # (Auto) Ness # (Auto) Eos # (Auto) Baso # (Auto) Differential Comment PT INR APTT Puncture Site pCO2 pO2 67 H HCO3 ABG pH ABG Total CO2 ABG O2 Saturation ABG Base Excess Adrián Test ABG Potassium VBG pH 7.25 L VBG pCO2 50 VBG HCO3 20.3 VBG Total CO2 23.4 VBG O2 Sat (Calc) 89.1 H VBG Base Excess -5.6 L VBG Potassium 6.4 H* Glucose 459 H* D Lactate 1.6 Liter Flow Crit Value Called To Dr newsome Crit Value Called By Mark infante Crit Value Read Back Y Blood Gas Notified Time 1601 Sodium 131.0 L Potassium Chloride 90.0 L Carbon Dioxide Anion Gap BUN Creatinine Est GFR ( Amer) Est GFR (Non-Af Amer) POC Glucose (mg/dL) 380 H Random Glucose Calcium Phosphorus Magnesium Total Bilirubin AST ALT Alkaline Phosphatase Troponin I NT-Pro-B Natriuret Pep Total Protein Albumin Globulin Albumin/Globulin Ratio TSH 3rd Generation Arterial Blood Potassium Venous Blood Potassium 6.4 H* Urine Color Yellow Urine Clarity Clear Urine pH 7.0 Ur Specific [place] 1.018 Urine Protein 3+ H Urine Glucose (UA) 3+ H Urine Ketones Negative Urine Blood 1+ H Urine Nitrate Negative Urine Bilirubin Negative Urine Urobilinogen Normal Ur Leukocyte Esterase Neg Urine WBC (Auto) 3 Urine RBC (Auto) 16 H Ur Squamous Epith Cells < 1 Hyaline Casts 11-20 H Attending/Attestation - Attestation I have personally seen and examined this patient.: Yes I have fully participated in the care of the patient.: Yes I have reviewed all pertinent clinical information: Yes Notes (Text): 05/20/18 18:00 I have seen and examined the patient. Medical records, lab studies, and imaging were reviewed by me and a management plan was formulated on multidisciplinary rounds with resident Dr. Cesar. I agree with their documented assessment and plan. Patient's bradycardia improved after being rewarmed, will check TSH. Patient most likely has some component of dehydration with recent diarrhea, will give 1L of fluid. Discussed with nephrology to not remove any fluid with today's dialysis. DM type 2 with hyperglycemia, SISS for coverage. Critical Care Time 35 minutes. Multi-disciplinary rounds were performed with house staff, nursing, speech therapy, respiratory therapy, pharmacy and nutrition with integrated input from the primary team/attending and other consulting services. The documented time is cumulative and includes review of patient data/exams/labs/chart review and examination of the patient on rounds and throughout the day; time is exclusive of any procedures or teaching time. <Pankaj Cesar - Last Filed: 05/20/18 21:37> History of Present Illness - History of Present Illness History of Present Illness: PGY-1 ICU consult note for Dr Charline Lino cc: missed dialysis, hypothermia, bradycardia Patient is 62 year old male with pmhx of CHF, ESRD on HD MWF, HTN, DM that came to ER today because of generalized weakness and feeling lethargic at home. Patient reports experiencing several episodes of diarrhea since Wednesday. Patient says he missed his Wednesday HD session due to having diarrhea and not feeling well overall. Patient also missed today's session (Wednesday). describes diarrhea as watery, nonbloody. Last episode was this morning. Patient states he also found his glucose levels to be 590 this am, which also made him come to the ED. Normally his glucose levels are in the 200s. Patient has also been feeling "shocking" sensation in his upper extremities and chest area. Patient is tolerating food, denies fever, chills, chest pain, abdominal pain, nausea, vomiting. In the ED, patient was found to be hypothermic and in bradycardia, and was transferred to ICU, pending to receive HD. Pmhx; as stated above Shx: AICD (2 years ago) All: NKDA Social hx: denies smoking, alcohol or drug use. Fmhx: DM (several members) Review of Systems - Review of Systems All systems: reviewed and no additional remarkable complaints except Review of Systems: as stated in HPI Past Patient History - Infectious Disease Hx of Infectious Diseases: None - Past Medical History & Family History Past Medical History?: Yes - Past Social History Smoking Status: Never Smoked - CARDIAC Hx Congestive Heart Failure: Yes Hx Hypercholesterolemia: Yes Hx Hypertension: Yes Hx Pacemaker: Yes (AICD) - PULMONARY Hx Emphysema: No Hx Pulmonary Embolism: No - NEUROLOGICAL Hx Neurological Disorder: No - HEENT Hx HEENT Problems: Yes Hx Cataracts: Yes - RENAL Hx Chronic Kidney Disease: Yes - ENDOCRINE/METABOLIC Hx Endocrine Disorders: Yes Hx Diabetes Mellitus Type 2: Yes - HEMATOLOGICAL/ONCOLOGICAL Hx Anemia: Yes - INTEGUMENTARY Hx Dermatological Problems: No - MUSCULOSKELETAL/RHEUMATOLOGICAL Hx Musculoskeletal Disorders: No Hx Falls: No - GASTROINTESTINAL Hx Pancreatitis: Yes - GENITOURINARY/GYNECOLOGICAL Hx Genitourinary Disorders: No - PSYCHIATRIC Hx Depression: Yes Hx Substance Use: No - SURGICAL HISTORY Hx Appendectomy: Yes - ANESTHESIA Hx Anesthesia: Yes Hx Anesthesia Reactions: No Meds - Medications Medications: Current Medications Insulin Human Regular (Novolin R) 0 unit SC ACHS DEBBIE; Protocol Physical Exam - Constitutional Appears: Non-toxic, No Acute Distress - Head Exam Head Exam: ATRAUMATIC, NORMAL INSPECTION, NORMOCEPHALIC - Eye Exam Eye Exam: EOMI, Normal appearance - ENT Exam ENT Exam: Mucous Membranes Dry - Neck Exam Neck exam: Positive for: Normal Inspection - Respiratory Exam Respiratory Exam: Decreased Breath Sounds, Clear to Auscultation Bilateral, NORMAL BREATHING PATTERN. absent: Rales, Rhonchi, Wheezes - Cardiovascular Exam Cardiovascular Exam: REGULAR RHYTHM - GI/Abdominal Exam GI & Abdominal Exam: Normal Bowel Sounds, Soft, Tenderness (epigastric area ). absent: Distended - Extremities Exam Extremities exam: Positive for: normal inspection, pedal pulses present. Negative for: pedal edema, tenderness - Back Exam Back exam: NORMAL INSPECTION - Neurological Exam Neurological exam: Alert, Oriented x3 - Psychiatric Exam Psychiatric exam: Normal Affect, Normal Mood Results - Vital Signs Recent Vital Signs: Last Vital Signs Temp 96.7 F L 05/20/18 16:08 Pulse 65 05/20/18 16:08 Resp 16 05/20/18 16:08 BP 146/75 05/20/18 16:08 Pulse Ox 95 05/20/18 16:08 - Labs Result Diagrams: 05/20/18 13:29 05/20/18 13:29 Labs: Laboratory Results - last 24 hr 05/20/18 05/20/18 05/20/18 12:21 13:29 13:29 WBC 3.7 L RBC 4.57 Hgb 13.7 D Hct 43.5 MCV 95.1 H MCH 30.0 MCHC 31.5 L RDW 20.3 H Plt Count 46 L D MPV 11.6 Neut % (Auto) 77.3 H Lymph % (Auto) 13.0 L Ness % (Auto) 8.0 Eos % (Auto) 0.9 Baso % (Auto) 0.8 Neut # (Auto) 2.8 Lymph # (Auto) 0.5 L Ness # (Auto) 0.3 Eos # (Auto) 0.0 Baso # (Auto) 0.0 Differential Comment PT 12.8 H INR 1.2 APTT 40 H Puncture Site pCO2 pO2 HCO3 ABG pH ABG Total CO2 ABG O2 Saturation ABG Base Excess Adrián Test ABG Potassium VBG pH VBG pCO2 VBG HCO3 VBG Total CO2 VBG O2 Sat (Calc) VBG Base Excess VBG Potassium Glucose Lactate Liter Flow Crit Value Called To Crit Value Called By Crit Value Read Back Blood Gas Notified Time Sodium Potassium Chloride Carbon Dioxide Anion Gap BUN Creatinine Est GFR ( Amer) Est GFR (Non-Af Amer) POC Glucose (mg/dL) > 500 H* Random Glucose Calcium Phosphorus Magnesium Total Bilirubin AST ALT Alkaline Phosphatase Troponin I NT-Pro-B Natriuret Pep Total Protein Albumin Globulin Albumin/Globulin Ratio TSH 3rd Generation Arterial Blood Potassium Venous Blood Potassium Urine Color Urine Clarity Urine pH Ur Specific [place] Urine Protein Urine Glucose (UA) Urine Ketones Urine Blood Urine Nitrate Urine Bilirubin Urine Urobilinogen Ur Leukocyte Esterase Urine WBC (Auto) Urine RBC (Auto) Ur Squamous Epith Cells Hyaline Casts 05/20/18 05/20/18 05/20/18 13:29 13:35 13:40 WBC RBC Hgb Hct MCV MCH MCHC RDW Plt Count MPV Neut % (Auto) Lymph % (Auto) Ness % (Auto) Eos % (Auto) Baso % (Auto) Neut # (Auto) Lymph # (Auto) Ness # (Auto) Eos # (Auto) Baso # (Auto) Differential Comment PT INR APTT Puncture Site Lr pCO2 47 H pO2 52 61 L HCO3 19.4 L ABG pH 7.25 L ABG Total CO2 22.0 ABG O2 Saturation 87.5 L ABG Base Excess -6.7 L Adrián Test Pos ABG Potassium 6.4 H* VBG pH 7.23 L VBG pCO2 50 VBG HCO3 19.0 VBG Total CO2 22.4 VBG O2 Sat (Calc) 80.1 H VBG Base Excess -6.9 L VBG Potassium 6.8 H* Glucose 627 H* D 586 H* Lactate 1.6 1.3 Liter Flow 2.0 Crit Value Called To elida Shipley rn Crit Value Called By Ghislaine myers,rt Ghislaine myersrt Crit Value Read Back Y Y Blood Gas Notified Time 1356 1351 Sodium 130 L 131.0 L 132.0 Potassium 6.9 H* D Chloride 84 L 86.0 L 90.0 L Carbon Dioxide 21 L Anion Gap 32 H BUN 170 H* D Creatinine 13.6 H* D Est GFR ( Amer) 5 Est GFR (Non-Af Amer) 4 POC Glucose (mg/dL) Random Glucose 612 H* D Calcium 8.3 L Phosphorus 7.2 H Magnesium 2.9 H Total Bilirubin 0.6 AST 21 ALT 23 Alkaline Phosphatase 285 H D Troponin I < 0.0120 NT-Pro-B Natriuret Pep 30548 H Total Protein 7.5 Albumin 4.5 Globulin 3.0 Albumin/Globulin Ratio 1.5 TSH 3rd Generation Arterial Blood Potassium 6.4 H* Venous Blood Potassium 6.8 H* Urine Color Urine Clarity Urine pH Ur Specific [place] Urine Protein Urine Glucose (UA) Urine Ketones Urine Blood Urine Nitrate Urine Bilirubin Urine Urobilinogen Ur Leukocyte Esterase Urine WBC (Auto) Urine RBC (Auto) Ur Squamous Epith Cells Hyaline Casts 05/20/18 05/20/18 05/20/18 14:38 15:45 15:48 WBC RBC Hgb Hct MCV MCH MCHC RDW Plt Count MPV Neut % (Auto) Lymph % (Auto) Ness % (Auto) Eos % (Auto) Baso % (Auto) Neut # (Auto) Lymph # (Auto) Ness # (Auto) Eos # (Auto) Baso # (Auto) Differential Comment PT INR APTT Puncture Site pCO2 pO2 HCO3 ABG pH ABG Total CO2 ABG O2 Saturation ABG Base Excess Adrián Test ABG Potassium VBG pH VBG pCO2 VBG HCO3 VBG Total CO2 VBG O2 Sat (Calc) VBG Base Excess VBG Potassium Glucose Lactate Liter Flow Crit Value Called To Crit Value Called By Crit Value Read Back Blood Gas Notified Time Sodium Potassium Chloride Carbon Dioxide Anion Gap BUN Creatinine Est GFR ( Amer) Est GFR (Non-Af Amer) POC Glucose (mg/dL) 442 H* 448 H* Random Glucose Calcium Phosphorus Magnesium Total Bilirubin AST ALT Alkaline Phosphatase Troponin I NT-Pro-B Natriuret Pep Total Protein Albumin Globulin Albumin/Globulin Ratio TSH 3rd Generation 2.16 Arterial Blood Potassium Venous Blood Potassium Urine Color Urine Clarity Urine pH Ur Specific [place] Urine Protein Urine Glucose (UA) Urine Ketones Urine Blood Urine Nitrate Urine Bilirubin Urine Urobilinogen Ur Leukocyte Esterase Urine WBC (Auto) Urine RBC (Auto) Ur Squamous Epith Cells Hyaline Casts 05/20/18 05/20/18 15:57 16:08 WBC RBC Hgb Hct MCV MCH MCHC RDW Plt Count MPV Neut % (Auto) Lymph % (Auto) Ness % (Auto) Eos % (Auto) Baso % (Auto) Neut # (Auto) Lymph # (Auto) Ness # (Auto) Eos # (Auto) Baso # (Auto) Differential Comment PT INR APTT Puncture Site pCO2 pO2 67 H HCO3 ABG pH ABG Total CO2 ABG O2 Saturation ABG Base Excess Adrián Test ABG Potassium VBG pH 7.25 L VBG pCO2 50 VBG HCO3 20.3 VBG Total CO2 23.4 VBG O2 Sat (Calc) 89.1 H VBG Base Excess -5.6 L VBG Potassium 6.4 H* Glucose 459 H* D Lactate 1.6 Liter Flow Crit Value Called To Dr newsome Crit Value Called By Mark infante Crit Value Read Back Y Blood Gas Notified Time 1601 Sodium 131.0 L Potassium Chloride 90.0 L Carbon Dioxide Anion Gap BUN Creatinine Est GFR ( Amer) Est GFR (Non-Af Amer) POC Glucose (mg/dL) Random Glucose Calcium Phosphorus Magnesium Total Bilirubin AST ALT Alkaline Phosphatase Troponin I NT-Pro-B Natriuret Pep Total Protein Albumin Globulin Albumin/Globulin Ratio TSH 3rd Generation Arterial Blood Potassium Venous Blood Potassium 6.4 H* Urine Color Yellow Urine Clarity Clear Urine pH 7.0 Ur Specific [place] 1.018 Urine Protein 3+ H Urine Glucose (UA) 3+ H Urine Ketones Negative Urine Blood 1+ H Urine Nitrate Negative Urine Bilirubin Negative Urine Urobilinogen Normal Ur Leukocyte Esterase Neg Urine WBC (Auto) 3 Urine RBC (Auto) 16 H Ur Squamous Epith Cells < 1 Hyaline Casts 11-20 H Assessment & Plan - Assessment and Plan (Free Text) Assessment: 62 year old male with pmhx of CHF, DM, ESRD HD MWF, HTN, presents to ER with weakness, and with elevated blood sugars at home, missed two consecutive dialysis sessions, with reported diarrhea since Wednesday. found to be hypothermic and bradycardic, Patient transferred to ICU for fluid restricted HD, and for further monitoring of bradycardia. Plan: Neuro - hypothermia - resolving now - bear hugger - no acute issues Cardio -Bradycardia 30s - most likely from high K level - see renal - rewarmed with bear hugger - improvement bradycardia - now at 60s-50s - patient has subcutaneous AICD - Dr Cervantes - consult for Cardio - Chest Xray - mild venous congestion Pulm - Sat 95% - kep O2 3L NC as needed - Chest Xray - mild venous congestion GI - dehydration due to diarrhea - Fluids - 1 L of NS for 2 hours - consistent carb diet - dietary referral routine Endo Glucose in ED over 600 insulin 10 units IVP in ER glucose went down to 300s ISS - SC Q6H hypoglycemia protocol TSH - f/u renal - BUN 170/ Cr 13.6 - K- 6.9 - Missed 2 sessions of HD (wednesday and wednesday) - HD today - restrict fluid removal due to dehydration - PRBC as needed - Dr Bolivar- Nephro - f/u recs Heme H/H within normal limits low platelet count., low WBC PPX - No gi indicated - DVT, chemical DVT ppx c/i due to low platelet levels Plan discussed with Dr Zoie Cesar, PGY-1 - Date & Time Date: 05/20/18 Time: 17:00
[2018-05-20] MEDS ORDERED: Glucagon Recombinant 1 mg Inj IM PRN (17:14)
[2018-05-20] MEDS ORDERED: Insulin Human Regular 100 UNIT in Sodium Chloride 0.9% 99 ML IV SCH (17:15)
--- NOTE | 2018-05-20 17:15 | CP.PCM.CON ---
History of Present Illness - History of Present Illness History of Present Illness: I was asked to evaluate patinet by the shellfish sorter Patient was seen 05/20/18 1700 Patient is a 62 year old male with a history of severe left ventricular systolic dysfunction s/p subcutaneous AICD, HTN, ESRD on HD, MVR who presents with hyperglycemia. The patient had decreased energy and mentation abot one day prior to his admission. he had episodic diarrhea. The patient presented with glucose 599. He was hypothermic nd bradycardic. He was admitted to ICU and placed on warming protocol. His vital signs stabilized. He currently has no chest pain or dyspnea. Review of Systems - Constitutional Constitutional: Fatigue, Lethargy - EENT Eyes: absent: As Per HPI, Blind Spots, Blurred Vision, Change in Vision, Decreas ed Night Vision, Diplopia, Discharge, Dry Eye, Exophthalmos, Floaters, Irritation, Itchy Eyes, Loss of Peripheral Vision, Pain, Photophobia, Requires Corrective Lenses, Sees Flashes, Spots in Vision, Tunnel Vision, Other Visual Disturbances, Loss of Vision, Other Ears: absent: As Per HPI, Decreased Hearing, Ear Discharge, Ear Pain, Tinnitus, Abnormal Hearing, Disequilibrium, Dizziness, Other Nose/Mouth/Throat: absent: As Per HPI, Epistaxis, Nasal Congestion, Nasal Discharge, Nasal Obstruction, Nasal Trauma, Nose Pain, Post Nasal Drip, Sinus Pain, Sinus Pressure, Bleeding Gums, Change in Voice, Dental Pain, Dry Mouth, Dysphagia, Halitosis, Hoarsness, Lip Swelling, Mouth Lesions, Mouth Pain, Odynophagia, Sore Throat, Throat Swelling, Tongue Swelling, Facial Pain, Neck Pain, Neck Mass, Other - Cardiovascular Cardiovascular: Slow Heart Rate - Respiratory Respiratory: absent: As Per HPI, Cough, Dyspnea, Hemoptysis, Dyspnea on Exertion, Wheezing, Snoring, Stridor, Pain on Inspiration, Chest Congestion, Excessive Mucous Production, Change in Mucous Color, Pain with Coughing, Other - Gastrointestinal Gastrointestinal: absent: As Per HPI, Abdominal Pain, Belching, Bloating, Change in Bowel Habits, Change in Stool Character, Coffee Ground Emesis, Constipation, Cramping, Diarrhea, Dyspepsia, Dysphagia, Early Satiety, Excessive Flatus, Fecal Incontinence, Heartburn, Hematemesis, Hematochezia, Loose Stools, Melena, Nausea, Odynophagia, Temesmus, Vomiting, Other - Genitourinary Genitourinary: absent: As Per HPI, Change in Urinary Stream, Difficulty Urinating, Dysuria, Flank Pain, Hematuria, Pyuria, Nocturia, Urinary Incontinence, Urinary Frequency, Urinary Hesitance, Urinary Urgency, Voiding Freq/Small Amts, Freq UTI, Hx Renal/Bladder Calculi, Hx /Renal Surgery, Bladder Distension, Other - Musculoskeletal Musculoskeletal: absent: As Per HPI, Abnormal Gait, Arthralgias, Atrophy, Back Pain, Deformity, Joint Swelling, Limited Range of Motion, Loss of Height, Muscle Cramps, Muscle Weakness, Myalgias, Neck Pain, Numbness, Radiating Pain into Limb, Stiffness, Tingling, Other - Integumentary Integumentary: absent: As Per HPI, Acne, Alopecia, Bleeding Lesions, Change in Hair, Change in Nails, Change in Pigmentation, Changing Lesions, Dry Skin, Erythema, Furuncle, Hirsutism, Lesions, New Lesions, Non-Healing Lesions, Photosensitivity, Pruritus, Rash, Skin Pain, Skin Ulcer, Sores, Striae, Swelli ng, Unusual Bruising, Wounds, Jaundice, Other - Neurological Neurological: absent: As Per HPI, Abnormal Gait, Abnormal Hearing, Abnormal Movements, Abnormal Speech, Behavioral Changes, Burning Sensations, Confusion, Convulsions, Disequilibrium, Dizziness, Numbness, Focal Weakness, Frequent Falls, Headaches, Lack of Coordination, Loss of Vision, Memory Loss, P aresthesias, Radicular Pain, Restless Legs, Sensory Deficit, Syncope, Tingling, Tremor, Vertigo, Weakness, Other Visual Disturbances, Other - Psychiatric Psychiatric: absent: As Per HPI, Abnormal Sleep Pattern, Anhedonia, Anxiety, Auditory Hallucinations, Behavioral Changes, Change in Appetite, Change in Libido, Confusion, Depression, Difficulty Concentrating, Hallucinations, Homicidal Ideation, Hopelessness, Irritability, Memory Loss, Mood Swings, Panic Attacks, Paranoia, Suicidal Ideation, Visual Hallucinations, Tactile Hallucinations, Other - Endocrine Endocrine: absent: As Per HPI, Change in Body Appearance, Change in Libido, Cold Intolorance, Deepening of Voice, Excessive Sweating, Fatigue, Flushing, Heat In tolorance, Increase in Ring/Shoe/Hat Size, Palpitations, Polydipsia, Polyphagia, Polyuria, Other - Hematologic/Lymphatic Hematologic: absent: As Per HPI, Easy Bleeding, Easy Bruising, Lymphadenopathy, Other Past Patient History - Infectious Disease Hx of Infectious Diseases: None - Past Medical History & Family History Past Medical History?: Yes - Past Social History Smoking Status: Never Smoked - CARDIAC Hx Congestive Heart Failure: Yes Hx Hypercholesterolemia: Yes Hx Hypertension: Yes Hx Pacemaker: Yes (AICD) - PULMONARY Hx Emphysema: No Hx Pulmonary Embolism: No - NEUROLOGICAL Hx Neurological Disorder: No - HEENT Hx HEENT Problems: Yes Hx Cataracts: Yes - RENAL Hx Chronic Kidney Disease: Yes - ENDOCRINE/METABOLIC Hx Endocrine Disorders: Yes Hx Diabetes Mellitus Type 2: Yes - HEMATOLOGICAL/ONCOLOGICAL Hx Anemia: Yes - INTEGUMENTARY Hx Dermatological Problems: No - MUSCULOSKELETAL/RHEUMATOLOGICAL Hx Musculoskeletal Disorders: No Hx Falls: No - GASTROINTESTINAL Hx Pancreatitis: Yes - GENITOURINARY/GYNECOLOGICAL Hx Genitourinary Disorders: No - PSYCHIATRIC Hx Depression: Yes Hx Substance Use: No - SURGICAL HISTORY Hx Appendectomy: Yes - ANESTHESIA Hx Anesthesia: Yes Hx Anesthesia Reactions: No Meds Allergies/Adverse Reactions: Allergies Allergy/AdvReac Type Severity Reaction Status Date / Time No Known Allergies Allergy Verified 05/20/18 12:23 - Medications Medications: Current Medications Insulin Human Regular (Novolin R) 0 unit SC ACHS [facility]; Protocol Physical Exam - Constitutional Appears: Non-toxic - Head Exam Head Exam: NORMAL INSPECTION - Eye Exam Eye Exam: Normal appearance - ENT Exam ENT Exam: Mucous Membranes Moist - Neck Exam Neck exam: Positive for: Full Rom, Normal Inspection. Negative for: Tenderness, Thyromegaly - Respiratory Exam Respiratory Exam: Decreased Breath Sounds, NORMAL BREATHING PATTERN - Cardiovascular Exam Cardiovascular Exam: REGULAR RHYTHM. absent: Systolic Murmur - GI/Abdominal Exam GI & Abdominal Exam: Normal Bowel Sounds - Rectal Exam Rectal Exam: Deferred - Extremities Exam Extremities exam: Negative for: pedal edema - Back Exam Back exam: NORMAL INSPECTION - Neurological Exam Neurological exam: Alert, Oriented x3 - Psychiatric Exam Psychiatric exam: Normal Affect - Skin Skin Exam: Normal Color Results - Vital Signs Recent Vital Signs: Last Vital Signs Temp 96.7 F L 05/20/18 16:08 Pulse 65 05/20/18 16:08 Resp 16 05/20/18 16:08 BP 146/75 05/20/18 16:08 Pulse Ox 95 05/20/18 16:08 - Labs Result Diagrams: 05/20/18 13:29 05/20/18 13:29 Labs: Laboratory Results - last 24 hr 05/20/18 05/20/18 05/20/18 12:21 13:29 13:29 WBC 3.7 L RBC 4.57 Hgb 13.7 D Hct 43.5 MCV 95.1 H MCH 30.0 MCHC 31.5 L RDW 20.3 H Plt Count 46 L D MPV 11.6 Neut % (Auto) 77.3 H Lymph % (Auto) 13.0 L Kinney % (Auto) 8.0 Eos % (Auto) 0.9 Baso % (Auto) 0.8 Neut # (Auto) 2.8 Lymph # (Auto) 0.5 L Kinney # (Auto) 0.3 Eos # (Auto) 0.0 Baso # (Auto) 0.0 Differential Comment PT 12.8 H INR 1.2 APTT 40 H Puncture Site pCO2 pO2 HCO3 ABG pH ABG Total CO2 ABG O2 Saturation ABG Base Excess Adrián Test ABG Potassium VBG pH VBG pCO2 VBG HCO3 VBG Total CO2 VBG O2 Sat (Calc) VBG Base Excess VBG Potassium Glucose Lactate Liter Flow Crit Value Called To Crit Value Called By Crit Value Read Back Blood Gas Notified Time Sodium Potassium Chloride Carbon Dioxide Anion Gap BUN Creatinine Est GFR ( Amer) Est GFR (Non-Af Amer) POC Glucose (mg/dL) > 500 H* Random Glucose Calcium Phosphorus Magnesium Total Bilirubin AST ALT Alkaline Phosphatase Troponin I NT-Pro-B Natriuret Pep Total Protein Albumin Globulin Albumin/Globulin Ratio TSH 3rd Generation Arterial Blood Potassium Venous Blood Potassium Urine Color Urine Clarity Urine pH Ur Specific [place] Urine Protein Urine Glucose (UA) Urine Ketones Urine Blood Urine Nitrate Urine Bilirubin Urine Urobilinogen Ur Leukocyte Esterase Urine WBC (Auto) Urine RBC (Auto) Ur Squamous Epith Cells Hyaline Casts 05/20/18 05/20/18 05/20/18 13:29 13:35 13:40 WBC RBC Hgb Hct MCV MCH MCHC RDW Plt Count MPV Neut % (Auto) Lymph % (Auto) Kinney % (Auto) Eos % (Auto) Baso % (Auto) Neut # (Auto) Lymph # (Auto) Kinney # (Auto) Eos # (Auto) Baso # (Auto) Differential Comment PT INR APTT Puncture Site Lr pCO2 47 H pO2 52 61 L HCO3 19.4 L ABG pH 7.25 L ABG Total CO2 22.0 ABG O2 Saturation 87.5 L ABG Base Excess -6.7 L Adrián Test Pos ABG Potassium 6.4 H* VBG pH 7.23 L VBG pCO2 50 VBG HCO3 19.0 VBG Total CO2 22.4 VBG O2 Sat (Calc) 80.1 H VBG Base Excess -6.9 L VBG Potassium 6.8 H* Glucose 627 H* D 586 H* Lactate 1.6 1.3 Liter Flow 2.0 Crit Value Called To Nicolle cifuentes, elida cifuentes,rn Crit Value Called By Ghislaine myers,rt Ghislaine myers,rt Crit Value Read Back Y Y Blood Gas Notified Time 1356 1351 Sodium 130 L 131.0 L 132.0 Potassium 6.9 H* D Chloride 84 L 86.0 L 90.0 L Carbon Dioxide 21 L Anion Gap 32 H BUN 170 H* D Creatinine 13.6 H* D Est GFR ( Amer) 5 Est GFR (Non-Af Amer) 4 POC Glucose (mg/dL) Random Glucose 612 H* D Calcium 8.3 L Phosphorus 7.2 H Magnesium 2.9 H Total Bilirubin 0.6 AST 21 ALT 23 Alkaline Phosphatase 285 H D Troponin I < 0.0120 NT-Pro-B Natriuret Pep 04705 H Total Protein 7.5 Albumin 4.5 Globulin 3.0 Albumin/Globulin Ratio 1.5 TSH 3rd Generation Arterial Blood Potassium 6.4 H* Venous Blood Potassium 6.8 H* Urine Color Urine Clarity Urine pH Ur Specific [place] Urine Protein Urine Glucose (UA) Urine Ketones Urine Blood Urine Nitrate Urine Bilirubin Urine Urobilinogen Ur Leukocyte Esterase Urine WBC (Auto) Urine RBC (Auto) Ur Squamous Epith Cells Hyaline Casts 05/20/18 05/20/18 05/20/18 14:38 15:45 15:48 WBC RBC Hgb Hct MCV MCH MCHC RDW Plt Count MPV Neut % (Auto) Lymph % (Auto) Kinney % (Auto) Eos % (Auto) Baso % (Auto) Neut # (Auto) Lymph # (Auto) Kinney # (Auto) Eos # (Auto) Baso # (Auto) Differential Comment PT INR APTT Puncture Site pCO2 pO2 HCO3 ABG pH ABG Total CO2 ABG O2 Saturation ABG Base Excess Adrián Test ABG Potassium VBG pH VBG pCO2 VBG HCO3 VBG Total CO2 VBG O2 Sat (Calc) VBG Base Excess VBG Potassium Glucose Lactate Liter Flow Crit Value Called To Crit Value Called By Crit Value Read Back Blood Gas Notified Time Sodium Potassium Chloride Carbon Dioxide Anion Gap BUN Creatinine Est GFR ( Amer) Est GFR (Non-Af Amer) POC Glucose (mg/dL) 442 H* 448 H* Random Glucose Calcium Phosphorus Magnesium Total Bilirubin AST ALT Alkaline Phosphatase Troponin I NT-Pro-B Natriuret Pep Total Protein Albumin Globulin Albumin/Globulin Ratio TSH 3rd Generation 2.16 Arterial Blood Potassium Venous Blood Potassium Urine Color Urine Clarity Urine pH Ur Specific [place] Urine Protein Urine Glucose (UA) Urine Ketones Urine Blood Urine Nitrate Urine Bilirubin Urine Urobilinogen Ur Leukocyte Esterase Urine WBC (Auto) Urine RBC (Auto) Ur Squamous Epith Cells Hyaline Casts 05/20/18 05/20/18 15:57 16:08 WBC RBC Hgb Hct MCV MCH MCHC RDW Plt Count MPV Neut % (Auto) Lymph % (Auto) Kinney % (Auto) Eos % (Auto) Baso % (Auto) Neut # (Auto) Lymph # (Auto) Kinney # (Auto) Eos # (Auto) Baso # (Auto) Differential Comment PT INR APTT Puncture Site pCO2 pO2 67 H HCO3 ABG pH ABG Total CO2 ABG O2 Saturation ABG Base Excess Adrián Test ABG Potassium VBG pH 7.25 L VBG pCO2 50 VBG HCO3 20.3 VBG Total CO2 23.4 VBG O2 Sat (Calc) 89.1 H VBG Base Excess -5.6 L VBG Potassium 6.4 H* Glucose 459 H* D Lactate 1.6 Liter Flow Crit Value Called To Dr newsome Crit Value Called By Mark infante Crit Value Read Back Y Blood Gas Notified Time 1601 Sodium 131.0 L Potassium Chloride 90.0 L Carbon Dioxide Anion Gap BUN Creatinine Est GFR ( Amer) Est GFR (Non-Af Amer) POC Glucose (mg/dL) Random Glucose Calcium Phosphorus Magnesium Total Bilirubin AST ALT Alkaline Phosphatase Troponin I NT-Pro-B Natriuret Pep Total Protein Albumin Globulin Albumin/Globulin Ratio TSH 3rd Generation Arterial Blood Potassium Venous Blood Potassium 6.4 H* Urine Color Yellow Urine Clarity Clear Urine pH 7.0 Ur Specific [place] 1.018 Urine Protein 3+ H Urine Glucose (UA) 3+ H Urine Ketones Negative Urine Blood 1+ H Urine Nitrate Negative Urine Bilirubin Negative Urine Urobilinogen Normal Ur Leukocyte Esterase Neg Urine WBC (Auto) 3 Urine RBC (Auto) 16 H Ur Squamous Epith Cells < 1 Hyaline Casts 11-20 H - EKG Data EKG Interpreted by: Myself Assessment & Plan (1) Bradycardia Assessment and Plan: likely due to hyerkalemia. The patient has a subcutaneous AICD, therefore there are no intravascular leads (due to ESRD, this type of AICD preserves upper extr emity vasculature). Therefore there is no pacing function, and solely will defibrillate. correct hyperkalemia with dailysis. Status: Acute (2) CHF (congestive heart failure), NYHA class II Assessment and Plan: stable at presents. medical therapy Status: Acute (3) Dilated cardiomyopathy Assessment and Plan: euvolemic. AICD in place Status: Acute (4) Hypertension Assessment and Plan: medication adjustment Status: Acute
[2018-05-20] MEDS ORDERED: (Novolog) Insulin Aspart, Recombinant 100 u/ml 10 ml vial SC SCH (18:00)
[2018-05-20] MEDS ORDERED: Aritificial Tears (15ml) OU PRN (19:47)
[2018-05-20] MEDS ORDERED: Home Med 1 UNIT OU SCH (20:00)
[2018-05-20] MEDS ORDERED: Sodium Chloride 0.9% 1,000 ML IV ONE (21:02)
[2018-05-20] MEDS: Dextrose 50% SYRINGE Inj (50 ml) IV PRN ×2 (21:46→21:57)
[2018-05-20] MEDS ORDERED: Dextrose 50% SYRINGE Inj (50 ml) ONE (21:55)
[2018-05-20] MEDS: Brimonidine 0.2% Opth Sol (5ml) OU SCH (22:00)
[2018-05-20] MEDS ORDERED: (Novolin R) Insulin Human Regular 100 units/ml vial SC SCH (22:00)
[2018-05-20] MEDS: Aritificial Tears (15ml) OU SCH (22:00)
[2018-05-20] MEDS: Nitroglycerin 50mg in D5W 50 MG/250 ML BOTTLE IV SCH (23:29)
[2018-05-21] MEDS: (Novolog) Insulin Aspart, Recombinant 100 u/ml 10 ml vial SC SCH ×6 (03:43→21:28)
[2018-05-21 05:52] LABS: BASO % 0.4 % (0.0-2.0); EOS # 0.1 K/uL (0.0-0.7); EOS % 1.2 % (0.0-4.0); HEMOGLOBIN 13.3 g/dL (12.0-18.0); LYMPH # 0.7 K/uL (1.0-4.3); LYMPH % 13.4 % (20.0-40.0); MEAN CELL VOLUME 92.8 fL (80.0-94.0); MEAN CORPUSCULAR HEMOGLOBIN 30.2 pg (27.0-31.0); MEAN CORPUSCULAR HGB CONC 32.5 g/dL (33.0-37.0); MEAN PLATELET VOLUME 11.2 fL (7.2-11.7); MONO # 0.3 K/uL (0.0-0.8); RBC 4.4 Mil/uL (4.40-5.90); WHITE BLOOD COUNT 5.1 K/uL (4.8-10.8)
[2018-05-21 06:32] LABS: GFR NON-AFRICAN AMERICAN 7
[2018-05-21 06:33] LABS: ALB/GLOB RATIO 1.3 (1.0-2.1); ALBUMIN 4.1 g/dL (3.5-5.0); ALT/SGPT 22 U/L (21-72); AST/SGOT 20 U/L (17-59); BLOOD UREA NITROGEN 75 mg/dL (9-20); CALCIUM 8.4 mg/dl (8.6-10.4)
[2018-05-21 06:42] LABS: HEPATITIS B SURFACE AG Negative (NEGATIVE)
[2018-05-21] MEDS: Dorzolamide 2% Opht Sol 10ml OU SCH (09:14)
[2018-05-21] MEDS: Brimonidine 0.2% Opth Sol (5ml) OU SCH ×2 (09:15→21:27)
[2018-05-21] MEDS: Aritificial Tears (15ml) OU SCH ×4 (09:16→21:28)
[2018-05-21] MEDS ORDERED: Home Med 1 UNIT OU SCH ×3 (10:00)
--- NOTE | 2018-05-21 13:17 | CP.PCM.PN ---
Subjective - Date & Time of Evaluation Date of Evaluation: 05/21/18 Time of Evaluation: 13:16 - Subjective Subjective: Nephrology Consultation: Assessment: Critical Hyperkalemia with bradycardia, missed HD, uremic, hyperglycemia, hypothermia acute gastroenteritis Diabetic chronic Kidney Disease (E11.22) Hypertensive Chronic Kidney Disease (I12.0) End stage renal disease (N18.6) dependence on hemodialysis (Z99.2) (MWF) via AVF Anemia (D64.9), Hyperphosphatemia (E83.39), Secondary Hyperparathyroidism (E21.1), HTN (I12.0) chronic thrombocytopenia sys CHF Plan: HD again today monitor H and H bp stable lytes are improving bradycardia per primary team s: seen and examined w/ no complaints Physical Examination: General Appearance: Comfortable, in no acute respiratory distress, co-operative . ill appearing Vitals reviewed and noted as below Head; Atraumatic, normocephalic ENT: no ulcers no thrush. Tongue is midline. Oropharynx: no rash or ulcers. EYES: Pupils are equal, round and reactive to light accommodation. Eye muscles and extraocular movement intact. Sclera is anicteric. Neck; supple no lymphadenopathy, no thyromegaly or bruit Lungs: Normal respiratory rate/effort. Breath sounds bilateral equal and reduced at bases Heart: Normal rate. s1s2 normal. No rub or gallop. left side PPM + Extremities: no edema. No varicose veins Neurological: Patient is alert, awake and oriented to person, place and time. No focal deficit. Strength bilateral appropriate and equal Skin: Warm and dry. Normal turgor. No rash. Palpitation: Normal elasticity for age Abdomen: Abdomen is soft. Bowel sounds +. There is mild LLQ abdominal tenderne ss, no guarding/rigidity or organomegaly Psych: normal insight and normal affect/mood MSK: no joint tenderness or swelling. Digits and nails normal, no deformity : kidney or bladder not palpable Access: AVF with thrill and bruit Labs/imaging reviewed. Past medical history, past surgical history, family history, social history, allergy reviewed and noted as below Family Hx: no hx of CKD. Non contributory Objective - Vital Signs/Intake and Output Vital Signs (last 24 hours): Temp Pulse Resp BP Pulse Ox 99 F 71 17 168/68 H 91 L 05/21/18 08:00 05/21/18 11:00 05/21/18 11:00 05/21/18 10:44 05/21/18 11:00 Intake and Output: 05/21/18 05/21/18 06:59 18:59 Intake Total 397.0 224.5 Output Total 500 Balance -103.0 224.5 - Medications Medications: Current Medications Artificial Tears (Artificial Tears) 0 ml OU QID [facility] Last Admin: 05/21/18 09:16 Dose: 1 drop Brimonidine Tartrate (Alphagan 0.2% Opht) 0.05 ml OU Q12H [facility] Last Admin: 05/21/18 09:15 Dose: 0.05 ml Calcitriol (Rocaltrol) 0.25 mcg PO DAILY [facility] Last Admin: 05/21/18 09:14 Dose: 0.25 mcg Dextrose (Dextrose 50% Inj) 0 ml IV STAT PRN; Protocol PRN Reason: Hypoglycemia Protocol Last Admin: 05/20/18 21:57 Dose: 50 ml Dextrose (Glutose 15) 0 gm PO ONCE PRN; Protocol PRN Reason: Hypoglycemia Protocol Dorzolamide HCl (Trusopt) 1 ml OU DAILY [facility] Last Admin: 05/21/18 09:14 Dose: 1 drop Glucagon (Glucagen Diagnostic Kit) 0 mg IM STAT PRN; Protocol PRN Reason: Hypoglycemia Protocol Hydralazine HCl (Apresoline) 25 mg PO TID [facility] Last Admin: 05/21/18 09:14 Dose: 25 mg Dextrose (Dextrose 5% In Water 1000 Ml) 1,000 mls @ 0 mls/hr IV .Q0M PRN; Protocol PRN Reason: Hypoglycemia Protocol Nitroglycerin/Dextrose (Nitroglycerin 50 Mg/250 Ml D5w) 50 mg in 250 mls @ 1.5 mls/hr IV .Q24H [facility]; Protocol Last Titration: 05/21/18 03:35 Dose: 35 mcg/min, 10.5 mls/hr Insulin Aspart (Novolog) 0 unit SC Q4H [facility]; Protocol Last Admin: 05/21/18 12:26 Dose: Not Given Lisinopril (Zestril) 10 mg PO HS [facility] Last Admin: 05/20/18 21:39 Dose: 10 mg Timolol Maleate (Timoptic 0.5% Ophth Soln) 1 drop OU DAILY [facility] Last Admin: 05/21/18 09:15 Dose: 1 drop - Labs Labs: 05/21/18 05:40 05/21/18 05:40 PT 12.8 SECONDS (9.7-12.2) H 05/20/18 13:29 INR 1.2 05/20/18 13:29 APTT 40 SECONDS (21-34) H 05/20/18 13:29
[2018-05-21] MEDS: Nitroglycerin 50mg in D5W 50 MG/250 ML BOTTLE IV SCH (23:15)
[2018-05-22] MEDS ORDERED: Dextrose 50% SYRINGE Inj (50 ml) ONE (00:12)
[2018-05-22] MEDS: (Novolog) Insulin Aspart, Recombinant 100 u/ml 10 ml vial SC SCH ×6 (00:12→20:04)
[2018-05-22] MEDS: Brimonidine 0.2% Opth Sol (5ml) OU SCH ×2 (09:40→21:32)
[2018-05-22] MEDS: Aritificial Tears (15ml) OU SCH ×4 (09:41→21:33)
[2018-05-22] MEDS: Dorzolamide 2% Opht Sol 10ml OU SCH (09:41)
--- NOTE | 2018-05-22 12:57 | CP.PCM.PN ---
Subjective - Date & Time of Evaluation Date of Evaluation: 05/22/18 Time of Evaluation: 12:56 - Subjective Subjective: Nephrology Consultation: Assessment: Critical Hyperkalemia with bradycardia, missed HD, uremic, hyperglycemia, hypothermia acute gastroenteritis Diabetic chronic Kidney Disease (E11.22) Hypertensive Chronic Kidney Disease (I12.0) End stage renal disease (N18.6) dependence on hemodialysis (Z99.2) (MWF) via AVF Anemia (D64.9), Hyperphosphatemia (E83.39), Secondary Hyperparathyroidism (E21.1), HTN (I12.0) chronic thrombocytopenia sys CHF Plan: HD next Wednesday monitor H and H bp stable lytes stable bradycardia per primary team s: seen and examined w/ no complaints Physical Examination: General Appearance: Comfortable, in no acute respiratory distress, co-operative Vitals reviewed and noted as below Head; Atraumatic, normocephalic ENT: no ulcers no thrush. Tongue is midline. Oropharynx: no rash or ulcers. EYES: Pupils are equal, round and reactive to light accommodation. Eye muscles and extraocular movement intact. Sclera is anicteric. Neck; supple no lymphadenopathy, no thyromegaly or bruit Lungs: Normal respiratory rate/effort. Breath sounds bilateral equal and reduced at bases Heart: Normal rate. s1s2 normal. No rub or gallop. left side PPM + Extremities: no edema. No varicose veins Neurological: Patient is alert, awake and oriented to person, place and time. No focal deficit. Strength bilateral appropriate and equal Skin: Warm and dry. Normal turgor. No rash. Palpitation: Normal elasticity for age Abdomen: Abdomen is soft. Bowel sounds +. There is mild LLQ abdominal tenderness, no guarding/rigidity or organomegaly Psych: normal insight and normal affect/mood MSK: no joint tenderness or swelling. Digits and nails normal, no deformity : kidney or bladder not palpable Access: AVF with thrill and bruit Labs/imaging reviewed. Past medical history, past surgical history, family history, social history, allergy reviewed and noted as below Family Hx: no hx of CKD. Non contributory Objective - Vital Signs/Intake and Output Vital Signs (last 24 hours): Temp Pulse Resp BP Pulse Ox 98.1 F 73 15 175/56 H 97 05/22/18 08:00 05/22/18 11:00 05/22/18 11:00 05/22/18 11:11 05/22/18 11:00 Intake and Output: 05/22/18 05/22/18 06:59 18:59 Intake Total 500 Output Total 65 Balance 435 - Medications Medications: Current Medications Amlodipine Besylate (Norvasc) 5 mg PO DAILY [facility] Artificial Tears (Artificial Tears) 0 ml OU QID [facility] Last Admin: 05/22/18 09:41 Dose: 1 drop Brimonidine Tartrate (Alphagan 0.2% Opht) 0.05 ml OU Q12H [facility] Last Admin: 05/22/18 09:40 Dose: 1 drop Calcitriol (Rocaltrol) 0.25 mcg PO DAILY [facility] Last Admin: 05/22/18 09:39 Dose: 0.25 mcg Dextrose (Dextrose 50% Inj) 0 ml IV STAT PRN; Protocol PRN Reason: Hypoglycemia Protocol Last Admin: 05/20/18 21:57 Dose: 50 ml Dextrose (Glutose 15) 0 gm PO ONCE PRN; Protocol PRN Reason: Hypoglycemia Protocol Dorzolamide HCl (Trusopt) 1 ml OU DAILY [facility] Last Admin: 05/22/18 09:41 Dose: 1 drop Glucagon (Glucagen Diagnostic Kit) 0 mg IM STAT PRN; Protocol PRN Reason: Hypoglycemia Protocol Hydralazine HCl (Apresoline) 50 mg PO TID [facility] Dextrose (Dextrose 5% In Water 1000 Ml) 1,000 mls @ 0 mls/hr IV .Q0M PRN; Protocol PRN Reason: Hypoglycemia Protocol Nitroglycerin/Dextrose (Nitroglycerin 50 Mg/250 Ml D5w) 50 mg in 250 mls @ 1.5 mls/hr IV .Q24H [facility]; Protocol Last Admin: 05/21/18 23:15 Dose: Not Given Insulin Aspart (Novolog) 0 unit SC Q4H [facility]; Protocol Last Admin: 05/22/18 08:52 Dose: 4 units Lisinopril (Zestril) 10 mg PO HS [facility] Last Admin: 05/21/18 21:27 Dose: 10 mg Timolol Maleate (Timoptic 0.5% Ophth Soln) 1 drop OU DAILY [facility] Last Admin: 05/22/18 09:39 Dose: 1 drop - Labs Labs: 05/21/18 05:40 01/19/19 05:40 PT 12.8 SECONDS (9.7-12.2) H 05/20/18 13:29 INR 1.2 05/20/18 13:29 APTT 40 SECONDS (21-34) H 05/20/18 13:29
[2018-05-23] MEDS: (Novolog) Insulin Aspart, Recombinant 100 u/ml 10 ml vial SC SCH ×4 (00:13→18:39)
--- NOTE | 2018-05-23 08:03 | CP.PCM.PN ---
Subjective - Date & Time of Evaluation Date of Evaluation: 05/23/18 Time of Evaluation: 08:00 - Subjective Subjective: patient feels better. no chest pain or dyspnea Objective - Vital Signs/Intake and Output Vital Signs (last 24 hours): Temp Pulse Resp BP Pulse Ox 98.3 F 76 20 168/88 H 96 05/23/18 07:00 05/23/18 07:00 05/23/18 07:00 05/23/18 07:00 05/23/18 07:00 Intake and Output: 05/23/18 05/23/18 06:59 18:59 Intake Total 10 Balance 10 - Medications Medications: Current Medications Amlodipine Besylate (Norvasc) 5 mg PO DAILY [facility] Artificial Tears (Artificial Tears) 0 ml OU QID [facility] Last Admin: 05/22/18 21:33 Dose: 1 drop Brimonidine Tartrate (Alphagan 0.2% Opht) 0.05 ml OU Q12H [facility] Last Admin: 05/22/18 21:32 Dose: 1 drop Calcitriol (Rocaltrol) 0.25 mcg PO DAILY [facility] Last Admin: 05/22/18 09:39 Dose: 0.25 mcg Dextrose (Dextrose 50% Inj) 0 ml IV STAT PRN; Protocol PRN Reason: Hypoglycemia Protocol Last Admin: 05/20/18 21:57 Dose: 50 ml Dextrose (Glutose 15) 0 gm PO ONCE PRN; Protocol PRN Reason: Hypoglycemia Protocol Dorzolamide HCl (Trusopt) 1 ml OU DAILY [facility] Last Admin: 05/22/18 09:41 Dose: 1 drop Glucagon (Glucagen Diagnostic Kit) 0 mg IM STAT PRN; Protocol PRN Reason: Hypoglycemia Protocol Hydralazine HCl (Apresoline) 50 mg PO Q8H [facility] Last Admin: 05/23/18 05:44 Dose: 50 mg Dextrose (Dextrose 5% In Water 1000 Ml) 1,000 mls @ 0 mls/hr IV .Q0M PRN; Protocol PRN Reason: Hypoglycemia Protocol Nitroglycerin/Dextrose (Nitroglycerin 50 Mg/250 Ml D5w) 50 mg in 250 mls @ 1.5 mls/hr IV .Q24H [facility]; Protocol Last Admin: 05/21/18 23:15 Dose: Not Given Insulin Aspart (Novolog) 0 unit SC Q4H [facility]; Protocol Last Admin: 05/23/18 04:04 Dose: Not Given Lisinopril (Zestril) 10 mg PO HS [facility] Last Admin: 05/22/18 21:32 Dose: 10 mg Timolol Maleate (Timoptic 0.5% Ophth Soln) 1 drop OU DAILY [facility] Last Admin: 05/22/18 09:39 Dose: 1 drop - Labs Labs: 05/21/18 05:40 05/21/18 05:40 PT 12.8 SECONDS (9.7-12.2) H 05/20/18 13:29 INR 1.2 05/20/18 13:29 APTT 40 SECONDS (21-34) H 05/20/18 13:29 - Constitutional Appears: Non-toxic - Head Exam Head Exam: NORMAL INSPECTION - Eye Exam Eye Exam: Normal appearance - ENT Exam ENT Exam: Mucous Membranes Moist - Neck Exam Neck Exam: Full ROM - Respiratory Exam Respiratory Exam: NORMAL BREATHING PATTERN - Cardiovascular Exam Cardiovascular Exam: REGULAR RHYTHM - GI/Abdominal Exam GI & Abdominal Exam: Normal Bowel Sounds - Rectal Exam Rectal Exam: Deferred - Extremities Exam Extremities Exam: Full ROM. absent: Normal Inspection - Back Exam Back Exam: NORMAL INSPECTION - Neurological Exam Neurological Exam: Alert - Psychiatric Exam Psychiatric exam: Normal Affect - Skin Skin Exam: Normal Color Assessment and Plan (1) Bradycardia Assessment & Plan: resolved Status: Acute (2) CHF (congestive heart failure), NYHA class II Assessment & Plan: improved volume status Status: Acute (3) Dilated cardiomyopathy Assessment & Plan: has subcutaneous IACD Status: Acute (4) Hypertension Assessment & Plan: titrate medications Status: Acute
[2018-05-23] MEDS: Brimonidine 0.2% Opth Sol (5ml) OU SCH (09:25)
[2018-05-23] MEDS: Dorzolamide 2% Opht Sol 10ml OU SCH (09:26)
[2018-05-23] MEDS: Aritificial Tears (15ml) OU SCH ×2 (09:26→18:39)
--- NOTE | 2018-05-23 09:32 | CP.PCM.PN ---
Subjective - Date & Time of Evaluation Date of Evaluation: 05/23/18 Time of Evaluation: 07:00 - Subjective Subjective: PGY2 Progress Note for Dr. Hall Patient seen and examined at bedside and in no acute distress. Patient says he feels good and is hoping to go home. Patient has no complaints. Patient denies chest pain, shortness of breath, abdominal pain, nausea, vomiting, constipation, or diarrhea. Objective - Vital Signs/Intake and Output Vital Signs (last 24 hours): Temp Pulse Resp BP Pulse Ox 98.3 F 77 20 168/88 H 96 05/23/18 07:00 05/23/18 08:00 05/23/18 07:00 05/23/18 07:00 05/23/18 07:00 Intake and Output: 05/23/18 05/23/18 06:59 18:59 Intake Total 10 Balance 10 - Medications Medications: Current Medications Amlodipine Besylate (Norvasc) 10 mg PO DAILY [facility] Artificial Tears (Artificial Tears) 0 ml OU QID [facility] Last Admin: 05/23/18 09:26 Dose: 1 drop Brimonidine Tartrate (Alphagan 0.2% Opht) 0.05 ml OU Q12H [facility] Last Admin: 05/23/18 09:25 Dose: 1 drop Calcitriol (Rocaltrol) 0.25 mcg PO DAILY [facility] Last Admin: 05/23/18 09:24 Dose: 0.25 mcg Carvedilol (Coreg) 12.5 mg PO BID [facility] Dextrose (Dextrose 50% Inj) 0 ml IV STAT PRN; Protocol PRN Reason: Hypoglycemia Protocol Last Admin: 05/20/18 21:57 Dose: 50 ml Dextrose (Glutose 15) 0 gm PO ONCE PRN; Protocol PRN Reason: Hypoglycemia Protocol Dorzolamide HCl (Trusopt) 1 ml OU DAILY [facility] Last Admin: 05/23/18 09:26 Dose: 1 drop Glucagon (Glucagen Diagnostic Kit) 0 mg IM STAT PRN; Protocol PRN Reason: Hypoglycemia Protocol Hydralazine HCl (Apresoline) 50 mg PO Q8H [facility] Last Admin: 05/23/18 05:44 Dose: 50 mg Dextrose (Dextrose 5% In Water 1000 Ml) 1,000 mls @ 0 mls/hr IV .Q0M PRN; Osmin col PRN Reason: Hypoglycemia Protocol Nitroglycerin/Dextrose (Nitroglycerin 50 Mg/250 Ml D5w) 50 mg in 250 mls @ 1.5 mls/hr IV .Q24H [facility]; Protocol Last Admin: 05/21/18 23:15 Dose: Not Given Insulin Aspart (Novolog) 0 unit SC ACHS [facility]; Protocol Lisinopril (Zestril) 20 mg PO HS [facility] Timolol Maleate (Timoptic 0.5% Ophth Soln) 1 drop OU DAILY [facility] Last Admin: 05/23/18 09:26 Dose: 1 drop - Labs Labs: 05/21/18 05:40 05/21/18 05:40 PT 12.8 SECONDS (9.7-12.2) H 05/20/18 13:29 INR 1.2 05/20/18 13:29 APTT 40 SECONDS (21-34) H 05/20/18 13:29 - Constitutional Appears: Non-toxic, No Acute Distress - Head Exam Head Exam: ATRAUMATIC, NORMAL INSPECTION, NORMOCEPHALIC - Eye Exam Eye Exam: EOMI, Normal appearance - ENT Exam ENT Exam: Mucous Membranes Moist - Respiratory Exam Respiratory Exam: Clear to Ausculation Bilateral, NORMAL BREATHING PATTERN - Cardiovascular Exam Cardiovascular Exam: REGULAR RHYTHM, RRR - GI/Abdominal Exam GI & Abdominal Exam: Soft, Normal Bowel Sounds. absent: Tenderness - Extremities Exam Extremities Exam: Normal Inspection - Back Exam Back Exam: NORMAL INSPECTION - Neurological Exam Neurological Exam: Alert, Awake, Oriented x3 - Psychiatric Exam Psychiatric exam: Normal Affect, Normal Mood - Skin Skin Exam: Intact, Normal Color, Warm Assessment and Plan - Assessment and Plan (Free Text) Assessment: HTN Amlodipine 10mg po daily (increased from 5mg po daily) 1 dose coreg given on 05/23/18, d/c 2/2 bradycardia during admission Hydralazine 50mg po q8h Lisinopril 20mg po daily (increased 10mg po daily) ESRD dialysis done today dialysis M, W, F Calcitriol .25mcg po daily DMII HgA1C: 10.3 ISS- ACHS accuchecks ACHS Hypothermia resolved Bradycardia resolved Dr. Cervantes consulted, help appreciated [place] Timolol 1 drop ou daily Dorzolamide 1ml ou daily Brimonidine .05ml ou q12h Prophylaxis GI prophylaxis not indicated chemical DVT prophylaxis c/i due to low platelets Discussed and seen with Dr. Hall Patient stable for discharge as per Dr. Hall. Patient will need to follow up with PMD within one week. Patient encouraged strict compliance with dialysis.
--- NOTE | 2018-05-23 09:58 | HP ---
HISTORY OF PRESENT ILLNESS: The patient is a 70-year-old male, admitted with a chief complaint of weakness, fatigue, tiredness, chest pain, hypokalemia, and tachycardia. The patient came to the ER, advised admission to the ICU. PHYSICAL EXAMINATION: GENERAL: The patient is awake, alert, and oriented. VITAL SIGNS: Temperature 98, pulse , and blood pressure 110/78. HEENT: Within normal limits. NECK: Supple. CHEST: Symmetrical. HEART: Regular. ABDOMEN: Soft. EXTREMITIES: No edema. IMPRESSION AND PLAN: The patient suffers from cardiac arrhythmia. The patient is to get bedrest. Supportive care. Tere Hall MD
[2018-05-23 11:11] LABS: BASO % 0.8 % (0.0-2.0); EOS # 0.1 K/uL (0.0-0.7); EOS % 2.1 % (0.0-4.0); HEMOGLOBIN 13.9 g/dL (12.0-18.0); LYMPH # 0.8 K/uL (1.0-4.3); LYMPH % 17.6 % (20.0-40.0); MEAN CELL VOLUME 93.9 fL (80.0-94.0); MEAN CORPUSCULAR HEMOGLOBIN 29.5 pg (27.0-31.0); MEAN CORPUSCULAR HGB CONC 31.4 g/dL (33.0-37.0); MEAN PLATELET VOLUME 9.9 fL (7.2-11.7); MONO # 0.5 K/uL (0.0-0.8); MONO % 10.7 % (0.0-10.0); NEUT # 3.3 K/uL (1.8-7.0); NEUT % 68.8 % (50.0-75.0); NRBC % 0.1 % (0.0-2.0); RBC 4.72 Mil/uL (4.40-5.90); RED CELL DISTRIBUTION WIDTH 19.8 % (11.5-14.5); WHITE BLOOD COUNT 4.8 K/uL (4.8-10.8)
[2018-05-23 11:58] LABS: ALB/GLOB RATIO 1.3 (1.0-2.1); ALBUMIN 4.5 g/dL (3.5-5.0); CALCIUM 8.4 mg/dl (8.6-10.4)
--- NOTE | 2018-05-23 13:29 | CP.PCM.PN ---
Subjective - Date & Time of Evaluation Date of Evaluation: 05/23/18 Time of Evaluation: 13:27 - Subjective Subjective: Nephrology Consultation: Assessment: Stable Hyperkalemia with bradycardia, missed HD, uremic, hyperglycemia, hypothermia acute gastroenteritis Diabetic chronic Kidney Disease (E11.22) Hypertensive Chronic Kidney Disease (I12.0) End stage renal disease (N18.6) dependence on hemodialysis (Z99.2) (MWF) via AVF Anemia (D64.9), Hyperphosphatemia (E83.39), Secondary Hyperparathyroidism (E21.1), HTN (I12.0) chronic thrombocytopenia sys CHF Plan: Will plan for dialysis today as MWF Continue with Nephrovite 1 tab/day. PRBC as needed for anemia. last Hb 13.7 hence no BELEM at present Continue with phos binders home dose once GI symptoms better BP control with meds as ordered. hyperkalemia, hence no acei/arb for now Glycemic control, Dialysis consistent diet Further work up/management as per primary team Dose meds/antibiotics (if needed) for ESRD status. Avoid fleets enema/magnesium based laxatives. Thanks for allowing me to participate in care of your patient. Will follow patient with you. Please call if any Qs. Dr Davidson Bolivar Office: [phone] Chief Complaint; loose stool and high sugar Reason for consult: ESRD HPI: Pt is a 62 y/o M with hx of ESRD on hemodialysis (MWF) via AVF x 3 years @ [facility], chronic anemia, hyperphosphatemia, secondary hyperparathyroidism, Diabetes Mellitus, hypertension, thrombocytopenia biV failure with sys CHF presented with complaints of loose stool diarrhoea for last few days with associated high sugar. he was also hypothermic and bradycardic. last HD wednesday. feels sick no vomitting denies SOB ROS: Cardiovascular: No chest pain. Pulmonary: No shortness of breath Gastrointestinal: no abdominal pain No nausea. No vomiting. no further diarrhoea Genitourinary: No pain while urinating. Denies blood in urine. All other negative Physical Examination: General Appearance: Comfortable, in no acute respiratory distress, co-operative . better appearing Vitals reviewed and noted as below Head; Atraumatic, normocephalic ENT: no ulcers no thrush. Tongue is midline. Oropharynx: no rash or ulcers. EYES: Pupils are equal, round and reactive to light accommodation. Eye muscles and extraocular movement intact. Sclera is anicteric. Neck; supple no lymphadenopathy, no thyromegaly or bruit Lungs: Normal respiratory rate/effort. Breath sounds bilateral equal and clear Heart: Normal rate. s1s2 normal. No rub or gallop. left side PPM + Extremities: no edema. No varicose veins Neurological: Patient is alert, awake and oriented to person, place and time. No focal deficit. Strength bilateral appropriate and equal Skin: Warm and dry. Normal turgor. No rash. Palpitation: Normal elasticity for age Abdomen: Abdomen is soft. Bowel sounds +. There is mild LLQ abdominal tenderness, no guarding/rigidity or organomegaly Psych: normal insight and normal affect/mood MSK: no joint tenderness or swelling. Digits and nails normal, no deformity : kidney or bladder not palpable Access: AVF with thrill and bruit Labs/imaging reviewed. Past medical history, past surgical history, family history, social history, allergy reviewed and noted as below Family Hx: no hx of CKD. Non contributory Objective - Vital Signs/Intake and Output Vital Signs (last 24 hours): Temp Pulse Resp BP Pulse Ox 98.3 F 77 20 168/88 H 96 05/23/18 07:00 05/23/18 08:00 05/23/18 07:00 05/23/18 07:00 05/23/18 07:00 Intake and Output: 05/23/18 05/23/18 06:59 18:59 Intake Total 10 Balance 10 - Medications Medications: Current Medications Amlodipine Besylate (Norvasc) 10 mg PO DAILY [facility] Last Admin: 05/23/18 09:43 Dose: Not Given Artificial Tears (Artificial Tears) 0 ml OU QID [facility] Last Admin: 05/23/18 09:26 Dose: 1 drop Brimonidine Tartrate (Alphagan 0.2% Opht) 0.05 ml OU Q12H [facility] Last Admin: 05/23/18 09:25 Dose: 1 drop Calcitriol (Rocaltrol) 0.25 mcg PO DAILY [facility] Last Admin: 05/23/18 09:24 Dose: 0.25 mcg Dextrose (Dextrose 50% Inj) 0 ml IV STAT PRN; Protocol PRN Reason: Hypoglycemia Protocol Last Admin: 05/20/18 21:57 Dose: 50 ml Dextrose (Glutose 15) 0 gm PO ONCE PRN; Protocol PRN Reason: Hypoglycemia Protocol Dorzolamide HCl (Trusopt) 1 ml OU DAILY [facility] Last Admin: 05/23/18 09:26 Dose: 1 drop Glucagon (Glucagen Diagnostic Kit) 0 mg IM STAT PRN; Protocol PRN Reason: Hypoglycemia Protocol Hydralazine HCl (Apresoline) 50 mg PO Q8H [facility] Last Admin: 05/23/18 05:44 Dose: 50 mg Dextrose (Dextrose 5% In Water 1000 Ml) 1,000 mls @ 0 mls/hr IV .Q0M PRN; Protocol PRN Reason: Hypoglycemia Protocol Insulin Aspart (Novolog) 0 unit SC ACHS [facility]; Protocol Last Admin: 05/23/18 12:19 Dose: 4 unit Lisinopril (Zestril) 20 mg PO HS [facility]olol [facility] 1 drop OU DAILY [facility] Last Admin: 05/23/18 09:26 Dose: 1 drop - Labs Labs: 05/23/18 11:02 05/23/18 11:02 PT 12.8 SECONDS (9.7-12.2) H 05/20/18 13:29 INR 1.2 05/20/18 13:29 APTT 40 SECONDS (21-34) H 05/20/18 13:29
[2018-05-23] MEDS ORDERED: DiphenhydrAMINE 50 mg/ml Inj IVP STA (15:46)
[2018-05-23 19:26] VITALS: BP 133/83; PULSE 89; RESP 18; TEMP 97.7; O2SAT 97
--- NOTE | 2018-05-24 19:42 | CARD ---
APPROVED REPORT Date of service: 05/20/2018 EKG Measurement Heart [id number] <Conclusion> Marked sinus bradycardia Abnormal ECG
--- NOTE | 2018-05-26 06:36 | DS ---
The patient was admitted to the hospital with a chief complaint of generalized weakness, fatigue, and tiredness. The patient came to the ER, advised admission. The patient is to get bedrest, supportive care. The patient showed gradual improvement. Discharged, to be followed as outpatient. Tere Hall MD
== END 2018-05-23 19:50 | disposition home or self-care (01) | DRG 544 ==
LOC: C.ER 12:09 → C.9I 15:20 → C.6T 05-22 20:41
PROVIDERS: ADMIT Internal Medicine Pulmonary Disease; ATTEND Internal Medicine Pulmonary Disease
PROC: 5A1D70Z Performance of Urinary Filtration, Intermittent, Less than 6 Hours Per Day (ICD-10-PCS; principal; 2018-05-21)
DX: I13.2 Hypertensive heart and chronic kidney disease with heart failure and with stage 5 chronic kidney disease, or end stage renal disease (principal); I50.20 Unspecified systolic (congestive) heart failure; E11.65 Type 2 diabetes mellitus with hyperglycemia; I42.0 Dilated cardiomyopathy; N18.6 End stage renal disease; E87.5 Hyperkalemia; E87.6 Hypokalemia; D69.6 Thrombocytopenia, unspecified; E86.0 Dehydration; E11.22 Type 2 diabetes mellitus with diabetic chronic kidney disease; T68.XXXA Hypothermia, initial encounter; E78.00 Pure hypercholesterolemia, unspecified; K52.9 Noninfective gastroenteritis and colitis, unspecified; N25.81 Secondary hyperparathyroidism of renal origin; Z99.2 Dependence on renal dialysis; Z95.810 Presence of automatic (implantable) cardiac defibrillator; R00.1 Bradycardia, unspecified; D64.9 Anemia, unspecified; E83.39 Other disorders of phosphorus metabolism; N40.0 Benign prostatic hyperplasia without lower urinary tract symptoms

== ENCOUNTER 2018-07-22 09:26 | Inpatient (IN) | payer MEDICAID ==
--- NOTE | 2018-07-22 09:36 | C.PDOC ---
History Of Present Illness 63 y/o male with a PMHx of HTN, DM, and ESRD on HD (M-W-), with reported missed HD, brought in from home via ambulance for AMS and syncope. EMS was called and found patient lethargic and bradycardic in the field. On arrival to the ED patient noted to be bradycardic, not responding to most questions. History obtained via EMS and previous records. Of note pt was recently admitted for similar. Upon ED arrival patient given amps of calcium, bicarb, atropine and dopamine, with minimal response. Pt intubated due to lethargy. Transcutaneous pacing initiated. Time Seen by Provider: 07/22/18 09:36 Chief Complaint (Nursing): Syncope History Per: Patient History/Exam Limitations: clinical condition (lethargic) Onset/Duration Of Symptoms: Unknown Current Symptoms Are (Timing): Still Present Additional History Per: EMS, Prior Records Past Medical History Reviewed: Historical Data, Nursing Documentation, Vital Signs - Medical History PMH: Anemia, Benign Prostatic Hyperplasia, CHF, Depression, Diabetes, HTN, Hypercholesterolemia, Pancreatitis, End Stage Renal Disease (on hemodialysis M/W/F), Chronic Kidney Disease Denies: Emphysema, Pulmonary Embolism Surgical History: Appendectomy, Pacemaker (AICD) - [facility] Procedures (05/20/18) CATARAC PHACOEMULS/ASPIR (10/03/13) EXCISION OF STOMACH, ENDO, DIAGN (04/21/17) INSERT LENS AT CATAR EXT (10/03/13) VACCINATION NEC (07/10/14) Family History: States: Unknown Family Hx - Social History Hx Tobacco Use: No Hx Alcohol Use: No Hx Substance Use: No - Immunization History Hx Tetanus Toxoid Vaccination: No Hx Influenza Vaccination: No Hx Pneumococcal Vaccination: Yes (2017) Review Of Systems Review Of Systems: ROS cannot be obtained secondary to pt's inabilty to answer questions. Physical Exam - Physical Exam Appears: Other (Hypotensive, Bradycardic) Skin: Normal Color, Warm, Dry Head: Atraumatic, Normacephalic Eye(s): bilateral: Normal Inspection Oral Mucosa: Moist Neck: Supple Chest: Symmetrical Cardiovascular: Rhythm Regular, No Murmur Respiratory: No Rales, No Rhonchi, No Wheezing, Other (Moving air, Lungs clear) Gastrointestinal/Abdominal: Soft, No Tenderness, No Distention Extremity: Bilateral: Atraumatic, Normal Color And Temperature Pulses: Left Dorsalis Pedis: Normal, Right Dorsalis Pedis: Normal Neurological/Psych: Other (Appears lethargic, responsive to some questions) ED Course And Treatment - Laboratory Results Result Diagrams: 07/22/18 09:51 07/22/18 09:51 O2 Sat by Pulse Oximetry: 98 Pulse Ox Interpretation: Normal Critical Care Time - Critical Care Note Total Time (in mins): 50 Documented critical care: time excludes all time spent performing seperately billable procedures. Medical Decision Making Medical Decision Making: upon ed arrival, pt letarhgic, responds to verbal stimuli, markly wayne, hypotensive. atropine, dopamine, calcium/bicarb iniated. minimal response. no capture at 20 mA, pt intubatd. capture at 50mA. suspet missed hd, uremia, metabolci abnormality precipiating symptoms Initial Plan: - Blood type/screen - VBG - CMP - thyroid panel - troponin I - CBC - PTT/PT - UA - Occult blood, stool - Chest x-ray Records reviewed, patient with hx of anemia and prior transfusions. On examination, patient noted to have dark stool. Will start Protonix IVP with drip @ 8 mg/hr. 10:[address] Hall, accepts patient to service. 10:28 Discussed with capsule inspector, Dr. Lino, accepts patient to the ICU. 10:31 Paged patient's grocery store clerk, Dr. Bolivar. 10:[address] Bolivar, arranged plans for hemodialysis. Blood will be given during hemodialysis. during ed course. pacing weened off, respoding to dopamine, empric antibiotics given, although sepsis unliekly. Disposition - Disposition Disposition: HOSPITALIZED Disposition Time: 17:00 Condition: SERIOUS - Clinical Impression Clinical Impression: Bradycardia, Syncope, ESRD (end stage renal disease) on dialysis, ESRD needing dialysis, Altered mental status - Scribe Statement The provider has reviewed the documentation as recorded by the Mariza Stubbs Provider Attestation: All medical record entries made by the Scribe were at my direction and personally dictated by me. I have reviewed the chart and agree that the record accurately reflects my personal performance of the history, physical exam, medical decision making, and the department course for this patient. I have also personally directed, reviewed, and agree with the discharge instructions and disposition. Procedure: Intubation - Time Out Time Out: Site verified, Patient ID confirmed, Sterile procedures obs. - Consent Obtained Consent obtained: Emergent consent implied - Performed By Performed by: Attending Physician - Indications Indication(s):: Airway protection, Neurologically unstable, Hemodynamically unstable - Method Method:: Oral-Laryngoscopy - Rapid Sequence Intubation Anesthetic:: Etomidate Paralytic:: Rocuronium - Tube type Tube type:: Endotracheal tube Number of attempts:: 1 - Confirmation Confirmation: Bilat. breath sounds - Patient Tolerated Procedure Patient Tolerated Procedure:: Well
[2018-07-22] MEDS ORDERED: DOPamine 400mg/250ml D5W 400 MG/250 ML BAG IV ONE (09:40)
[2018-07-22] MEDS ORDERED: Sodium Chloride 0.9% 1,000 ML ONE (09:41)
[2018-07-22 09:42] VITALS: BMI 21.6
[2018-07-22 09:58] LABS: BASO % 0.4 % (0.0-2.0); LYMPH # 0.7 K/uL (1.0-4.3); LYMPH % 17.1 % (20.0-40.0); MEAN CORPUSCULAR HEMOGLOBIN 29.1 pg (27.0-31.0); MEAN CORPUSCULAR HGB CONC 31.7 g/dL (33.0-37.0); MEAN PLATELET VOLUME 10.3 fL (7.2-11.7); MONO # 0.4 K/uL (0.0-0.8); MONO % 10.1 % (0.0-10.0); NEUT # 2.9 K/uL (1.8-7.0); NEUT % 71.4 % (50.0-75.0); NRBC % 0.1 % (0.0-2.0); RBC 2.72 Mil/uL (4.40-5.90); RED CELL DISTRIBUTION WIDTH 19.5 % (11.5-14.5)
[2018-07-22 09:59] LABS: HEMOGLOBIN 7.9 g/dL (12.0-18.0); MEAN CELL VOLUME 91.7 fL (80.0-94.0)
[2018-07-22 09:59] LABS: VENOUS BLOOD GAS BASE EXCESS -2.2 mmol/L (0.0-2.0); VENOUS BLOOD GAS PCO2 66 mmHg (40-60); VENOUS BLOOD GAS PO2 34 mm/Hg (30-55); VENOUS BLOOD PH 7.22 (7.32-7.43)
[2018-07-22] MEDS ORDERED: Pantoprazole 80 MG in Sodium Chloride 0.9% 100 ML IVP SCH (10:15)
[2018-07-22] MEDS: Propofol 10 mg/ml 1,000 MG/100 ML VIAL IV PRN ×2 (10:15→22:37)
[2018-07-22 10:16] LABS: INR 1.2; PROTHROMBIN TIME 12.8 SECONDS (9.7-12.2)
[2018-07-22 10:23] LABS: ALB/GLOB RATIO 1.4 (1.0-2.1); ALBUMIN 3.8 g/dL (3.5-5.0); ALT/SGPT 20 U/L (21-72); AST/SGOT 25 U/L (17-59); BLOOD UREA NITROGEN 120 mg/dL (9-20); CALCIUM 9.1 mg/dl (8.6-10.4); GFR NON-AFRICAN AMERICAN 4
[2018-07-22] MEDS ORDERED: (Novolin R) Insulin Human Regular 100 units/ml vial IVP STA (10:24)
[2018-07-22] MEDS ORDERED: Propofol 10 mg/ml 1,000 MG/100 ML VIAL ONE (10:37)
[2018-07-22] MEDS ORDERED: Calcium Chloride 1000 mg/10 ml Syringe IV ONE ×2 (10:47→10:48)
[2018-07-22] MEDS ORDERED: Sodium Bicarbonate (8.4%) 50 Meq Syringe IVP ONE (10:48)
[2018-07-22] MEDS ORDERED: DOPamine 400mg/250ml D5W 400 MG/250 ML BAG IV PRN (10:48)
[2018-07-22] MEDS ORDERED: Sodium Chloride 0.9% 1,000 ML IV ONE (10:48)
[2018-07-22] MEDS ORDERED: Etomidate 20 mg/10ml Inj IV ONE (10:49)
[2018-07-22] MEDS ORDERED: Rocuronium 10 mg/ml (5 ml) IV ONE (10:49)
[2018-07-22] MEDS ORDERED: Vancomycin 1 gm/NS 200 ml 1 GM/200 ML BAG IVPB STA (10:52)
[2018-07-22] MEDS ORDERED: Piperacillin/Tazobact 3.375 gm 100 ML IVPB STA (10:52)
--- NOTE | 2018-07-22 10:52 | RAD ---
Date of service: 07/22/2018 PROCEDURE: CHEST RADIOGRAPH, 1 VIEW HISTORY: Chest pain COMPARISON: 05/20/2018. FINDINGS: Endotracheal tube terminates 2.5 cm proximal to the mary. LUNGS: There are low lung volumes. There is moderate pulmonary venous congestion. PLEURA: No pneumothorax or pleural effusion. CARDIOVASCULAR: The heart is normal in size. No aortic atherosclerotic calcifications present. There is stable position of a left-sided AICD. Stable position of prosthetic valve. OSSEOUS STRUCTURES: Within normal limits for the patient's age. VISUALIZED UPPER ABDOMEN: Normal. OTHER FINDINGS: None. IMPRESSION: Limited portable examination. Endotracheal tube terminates 2.5 cm proximal to the mary. Moderate pulmonary venous congestion
[2018-07-22] MEDS ORDERED: Epoetin Alfa 10,000 unit/ml Dialysis IV SCH (11:00)
[2018-07-22 11:04] LABS: LIPASE 157 U/L (23-300)
[2018-07-22] MEDS ORDERED: Calcium Gluconate 4.65 mEq/10 ml Inj IVP ONE ×2 (11:34→11:35)
[2018-07-22 11:41] LABS: ARTERIAL BLOOD GAS HCO3 23.2 mmol/L (21-28); ARTERIAL BLOOD GAS HEMOGLOBIN 8.5 g/dL (11.7-17.4); ARTERIAL BLOOD GAS O2 SAT 95.8 % (95-98); ARTERIAL BLOOD GAS PCO2 45 mm/Hg (35-45); ARTERIAL BLOOD GAS PH 7.33 (7.35-7.45); ARTERIAL BLOOD GAS PO2 476 mm/Hg (80-100); ARTERIAL BLOOD GAS TCO2 25.1 mmol/L (22-28)
[2018-07-22] MEDS: Pantoprazole 80 MG in Sodium Chloride 0.9% 100 ML IV SCH ×2 (12:00→21:00)
[2018-07-22] MEDS ORDERED: Dextrose 50% SYRINGE Inj (50 ml) IV PRN (12:37)
[2018-07-22] MEDS ORDERED: Glucagon Recombinant 1 mg Inj IM PRN (12:37)
--- NOTE | 2018-07-22 13:56 | CP.PCM.CON ---
<Frank Lino - Last Filed: 07/22/18 14:53> Meds Allergies/Adverse Reactions: Allergies Allergy/AdvReac Type Severity Reaction Status Date / Time No Known Allergies Allergy Verified 07/22/18 10:00 - Medications Medications: Current Medications Dextrose (Dextrose 50% Inj) 0 ml IV STAT PRN; Protocol PRN Reason: Hypoglycemia Protocol Dextrose (Glutose 15) 0 gm PO ONCE PRN; Protocol PRN Reason: Hypoglycemia Protocol Epoetin Carrington (Procrit) 20,000 unit IV MWF [facility] Glucagon (Glucagen Diagnostic Kit) 0 mg IM STAT PRN; Protocol PRN Reason: Hypoglycemia Protocol Pantoprazole Sodium 80 mg/ (Sodium Chloride) 100 mls @ 10 mls/hr IV .Q10H [facility] Last Admin: 07/22/18 12:00 Dose: 10 mls/hr Propofol (Diprivan) 1,000 mg in 100 mls @ 1.823 mls/hr IV .Q24H PRN; Protocol PRN Reason: TITRATE PER MD ORDER Last Titration: 07/22/18 12:16 Dose: 5 mcg/kg/min, 1.823 mls/hr Dopamine HCl/Dextrose (Dopamine 400mg/250ml D5w) 400 mg in 250 mls @ 22.793 mls/hr IV .[id number] PRN; Protocol PRN Reason: TITRATE PER MD ORDER Last Titration: 07/22/18 12:40 Dose: 8 mcg/kg/min, 18.234 mls/hr Dextrose (Dextrose 5% In Water 1000 Ml) 1,000 mls @ 0 mls/hr IV .Q0M PRN; Protocol PRN Reason: Hypoglycemia Protocol Insulin Human Regular (Novolin R) 0 unit SC Q6H [facility]; Protocol Results - Vital Signs Recent Vital Signs: Last Vital Signs Temp 88.9 F L 07/22/18 12:00 Pulse 62 07/22/18 14:45 Resp 27 H 07/22/18 11:52 BP 123/58 L 07/22/18 14:45 Pulse Ox 98 07/22/18 11:52 - Labs Result Diagrams: 07/22/18 09:51 07/22/18 09:51 Labs: Laboratory Results - last 24 hr 07/22/18 07/22/18 07/22/18 09:51 09:51 09:51 WBC 4.0 L RBC 2.72 L Hgb 7.9 L D Hct 24.9 L MCV 91.7 D MCH 29.1 MCHC 31.7 L RDW 19.5 H Plt Count 70 L MPV 10.3 Neut % (Auto) 71.4 Lymph % (Auto) 17.1 L [place] % (Auto) 10.1 H Eos % (Auto) 1.0 Baso % (Auto) 0.4 Neut # (Auto) 2.9 Lymph # (Auto) 0.7 L [place] # (Auto) 0.4 Eos # (Auto) 0.0 Baso # (Auto) 0.0 Differential Comment PT 12.8 H INR 1.2 APTT 42 H Puncture Site pCO2 pO2 HCO3 ABG pH ABG Total CO2 ABG O2 Saturation ABG Base Excess ABG Hemoglobin ABG Carboxyhemoglobin POC ABG HHb (Measured) ABG Methemoglobin Adrián Test VBG pH VBG pCO2 VBG HCO3 VBG Total CO2 VBG O2 Sat (Calc) VBG Base Excess VBG Potassium A-a O2 Difference Respiratory Index Hgb O2 Saturation Glucose Lactate Vent Mode Mechanical Rate FiO2 Tidal Volume PEEP Crit Value Called To Crit Value Called By Crit Value Read Back Blood Gas Notified Time Sodium 136 Potassium 6.2 H* Chloride 96 L Carbon Dioxide 24 Anion Gap 23 H BUN 120 H* D Creatinine 11.7 H* D Est GFR ( Amer) 5 Est GFR (Non-Af Amer) 4 POC Glucose (mg/dL) Random Glucose 296 H Calcium 9.1 Magnesium 2.5 H Total Bilirubin 1.8 H AST 25 ALT 20 L Alkaline Phosphatase 228 H Troponin I < 0.0120 Total Protein 6.5 Albumin 3.8 Globulin 2.7 Albumin/Globulin Ratio 1.4 Lipase 157 Free T4 TSH 3rd Generation 1.16 Venous Blood Potassium Stool Occult Blood Blood Type Antibody Screen 07/22/18 07/22/18 07/22/18 09:51 09:55 10:13 WBC RBC Hgb Hct MCV MCH MCHC RDW Plt Count MPV Neut % (Auto) Lymph % (Auto) [place] % (Auto) Eos % (Auto) Baso % (Auto) Neut # (Auto) Lymph # (Auto) [place] # (Auto) Eos # (Auto) Baso # (Auto) Differential Comment PT INR APTT Puncture Site pCO2 pO2 34 HCO3 ABG pH ABG Total CO2 ABG O2 Saturation ABG Base Excess ABG Hemoglobin ABG Carboxyhemoglobin POC ABG HHb (Measured) ABG Methemoglobin Adrián Test VBG pH 7.22 L VBG pCO2 66 H* VBG HCO3 22.0 VBG Total CO2 29.0 H VBG O2 Sat (Calc) 57.9 VBG Base Excess -2.2 L VBG Potassium 6.1 H A-a O2 Difference Respiratory Index Hgb O2 Saturation Glucose 295 H Lactate 1.5 Vent Mode Mechanical Rate FiO2 Tidal Volume PEEP Crit Value Called To Dr saldivar Crit Value Called By David hudson boarder hand Crit Value Read Back Y Blood Gas Notified Time 958 Sodium 137.0 Potassium Chloride 99.0 Carbon Dioxide Anion Gap BUN Creatinine Est GFR ( Amer) Est GFR (Non-Af Amer) POC Glucose (mg/dL) Random Glucose Calcium Magnesium Total Bilirubin AST ALT Alkaline Phosphatase Troponin I Total Protein Albumin Globulin Albumin/Globulin Ratio Lipase Free T4 0.88 TSH 3rd Generation Venous Blood Potassium 6.1 H Stool Occult Blood Negative Blood Type Antibody Screen 07/22/18 07/22/18 07/22/18 10:31 11:39 12:10 WBC RBC Hgb Hct MCV MCH MCHC RDW Plt Count MPV Neut % (Auto) Lymph % (Auto) [place] % (Auto) Eos % (Auto) Baso % (Auto) Neut # (Auto) Lymph # (Auto) [place] # (Auto) Eos # (Auto) Baso # (Auto) Differential Comment PT INR APTT Puncture Site Rba pCO2 45 pO2 476 H HCO3 23.2 ABG pH 7.33 L ABG Total CO2 25.1 ABG O2 Saturation 95.8 ABG Base Excess -2.2 L ABG Hemoglobin 8.5 L ABG Carboxyhemoglobin 0 L POC ABG HHb (Measured) 4.1 ABG Methemoglobin 3.2 H Adrián Test Na VBG pH VBG pCO2 VBG HCO3 VBG Total CO2 VBG O2 Sat (Calc) VBG Base Excess VBG Potassium A-a O2 Difference 181.0 Respiratory Index 0.4 Hgb O2 Saturation 92.7 L Glucose Lactate Vent Mode Prvc Mechanical Rate 12 FiO2 100.0 Tidal Volume 500 PEEP 5 Crit Value Called To Crit Value Called By Crit Value Read Back Blood Gas Notified Time Sodium Potassium Chloride Carbon Dioxide Anion Gap BUN Creatinine Est GFR ( Amer) Est GFR (Non-Af Amer) POC Glucose (mg/dL) 336 H Random Glucose Calcium Magnesium Total Bilirubin AST ALT Alkaline Phosphatase Troponin I Total Protein Albumin Globulin Albumin/Globulin Ratio Lipase Free T4 TSH 3rd Generation Venous Blood Potassium Stool Occult Blood Blood Type O POSITIVE Antibody Screen Negative Attending/Attestation - Attestation I have personally seen and examined this patient.: Yes I have fully participated in the care of the patient.: Yes I have reviewed all pertinent clinical information: Yes Notes (Text): 07/22/18 14:53 I have seen and examined the patient. Medical records, lab studies, and imaging were reviewed by me and a management plan was formulated on multidisciplinary rounds with resident Dr. Anderson. I agree with their documented assessment and plan. Patient presented with bradycardia secondary to hyperkalemia. Patient to get urgent dialysis now in ICU. If hemodynamically stable, will move toward extubation. Critical Care Time 35 minutes. Multi-disciplinary rounds were performed with house staff, nursing, speech therapy, respiratory therapy, pharmacy and nutrition with integrated input from the primary team/attending and other consulting services. The documented time is cumulative and includes review of patient data/exams/labs/chart review and examination of the patient on rounds and throughout the day; time is exclusive of any procedures or teaching time. <Gopi Anderson - Last Filed: 07/22/18 18:42> History of Present Illness - History of Present Illness History of Present Illness: ICU Consult Note for Dr. Lino This is a 63 y o male with PMhx CHF, ESRD on HD MWF, HTN, and DM who presented to the ED [facility] for AMS and syncope, reported missed HD. EMS was called and found pt lethargic and bradycardic in the field. Pt was bradycardic in the ED, not responding to most questions. Most of hx obtained from chart due to pt's current clinical status. Pt was intubated in ED due to lethargy. Pt was given amps of Ca, bicarb, atropine, and dopamine. Transcutaneous pacing was initiated. Reason for ICU consult was for lethargy and respiratory distress. Further ROS unobtainable due to pt's current mental status. Pt has been admitted to [facility] for similar presentation in past. PMhx: as stated above PShx: AICD (2 years ago) All: NKDA Social hx: denies smoking, alcohol or drug use. Fam hx: DM (several members) PMD: Dr. Hall Review of Systems - Review of Systems Systems not reviewed;Unavailable: Intubated Past Patient History - Infectious Disease Hx of Infectious Diseases: None - Past Medical History & Family History Past Medical History?: Yes - Past Social History Smoking Status: Never Smoked - CARDIAC Hx Congestive Heart Failure: Yes Hx Hypercholesterolemia: Yes Hx Hypertension: Yes Hx Pacemaker: Yes (AICD) - PULMONARY Hx Respiratory Disorders: No Hx Emphysema: No Hx Pulmonary Embolism: No - NEUROLOGICAL Hx Neurological Disorder: No - HEENT Hx HEENT Problems: Yes Hx Cataracts: Yes - RENAL Hx Chronic Kidney Disease: Yes Hx Dialysis: Yes Type of Dialysis Access: Right wrist AV Fistula Hx Renal Failure: Yes - ENDOCRINE/METABOLIC Hx Endocrine Disorders: Yes Hx Diabetes Mellitus Type 2: Yes - HEMATOLOGICAL/ONCOLOGICAL Hx Anemia: Yes - INTEGUMENTARY Hx Dermatological Problems: No - MUSCULOSKELETAL/RHEUMATOLOGICAL Hx Musculoskeletal Disorders: No Hx Falls: No - GASTROINTESTINAL Hx Gastrointestinal Disorders: Yes Hx Pancreatitis: Yes - GENITOURINARY/GYNECOLOGICAL Hx Genitourinary Disorders: No Hx Prostate Problems: Yes (BPH) - PSYCHIATRIC Hx Psychophysiologic Disorder: Yes Hx Depression: Yes Hx Substance Use: No - SURGICAL HISTORY Hx Appendectomy: Yes - ANESTHESIA Hx Anesthesia: Yes Hx Anesthesia Reactions: No Meds - Medications Medications: Current Medications Dextrose (Dextrose 50% Inj) 0 ml IV STAT PRN; Protocol PRN Reason: Hypoglycemia Protocol Dextrose (Glutose 15) 0 gm PO ONCE PRN; Protocol PRN Reason: Hypoglycemia Protocol Epoetin [place]rington (Procrit) 20,000 [place] [facility] [place] Glucagon (Glucagen Diagnostic Kit) 0 mg IM STAT PRN; Protocol PRN Reason: Hypoglycemia Protocol Pantoprazole Sodium 80 mg/ (Sodium Chloride) 100 mls @ 10 mls/hr IV .Q10H [facility] Last Admin: 07/22/18 12:00 Dose: 10 mls/hr Propofol (Diprivan) 1,000 mg in 100 mls @ 1.823 mls/hr IV .Q24H PRN; Protocol PRN Reason: TITRATE PER MD ORDER Last Titration: 07/22/18 12:16 Dose: 5 mcg/kg/min, 1.823 mls/hr Dopamine HCl/Dextrose (Dopamine 400mg/250ml D5w) 400 mg in 250 mls @ 22.793 mls/hr IV .[id number] PRN; Protocol PRN Reason: TITRATE PER MD ORDER Last Titration: 07/22/18 12:40 Dose: 8 mcg/kg/min, 18.234 mls/hr Dextrose (Dextrose 5% In Water 1000 Ml) 1,000 mls @ 0 mls/hr IV .Q0M PRN; Protocol PRN Reason: Hypoglycemia Protocol Insulin Human Regular (Novolin R) 0 unit SC Q6H [facility]; Protocol Physical Exam - Constitutional Additional comments: intubated and sedated - Head Exam Head Exam: ATRAUMATIC, NORMOCEPHALIC - Eye Exam Eye Exam: Normal appearance, PERRL - Respiratory Exam Respiratory Exam: NORMAL BREATHING PATTERN Additional comments: breathing on ventilator currently - Cardiovascular Exam Cardiovascular Exam: Bradycardia, +S1, +S2. absent: Gallop, Rubs, Systolic Murmur - GI/Abdominal Exam GI & Abdominal Exam: Normal Bowel Sounds, Soft. absent: Distended, Organ omegaly, Tenderness - Extremities Exam Extremities exam: Positive for: normal capillary refill, normal inspection, pedal pulses present - Neurological Exam Additional comments: intubated and sedated - Skin Skin Exam: Dry, Intact, Warm Results - Vital Signs Recent Vital Signs: Last Vital Signs Temp 89.2 F L 07/22/18 10:30 Pulse 60 07/22/18 11:52 Resp 27 H 07/22/18 11:52 BP 79/40 L 07/22/18 11:11 Pulse Ox 98 07/22/18 11:52 - Labs Result Diagrams: 07/22/18 09:51 07/22/18 09:51 Labs: Laboratory Results - last 24 hr 07/22/18 07/22/18 07/22/18 09:51 09:51 09:51 WBC 4.0 L RBC 2.72 L Hgb 7.9 L D Hct 24.9 L MCV 91.7 D MCH 29.1 MCHC 31.7 L RDW 19.5 H Plt Count 70 L MPV 10.3 Neut % (Auto) 71.4 Lymph % (Auto) 17.1 L [place] % (Auto) 10.1 H Eos % (Auto) 1.0 Baso % (Auto) 0.4 Neut # (Auto) 2.9 Lymph # (Auto) 0.7 L [place] # (Auto) 0.4 Eos # (Auto) 0.0 Baso # (Auto) 0.0 Differential Comment PT 12.8 H INR 1.2 APTT 42 H Puncture Site pCO2 pO2 HCO3 ABG pH ABG Total CO2 ABG O2 Saturation ABG Base Excess ABG Hemoglobin ABG Carboxyhemoglobin POC ABG HHb (Measured) ABG Methemoglobin Adrián Test VBG pH VBG pCO2 VBG HCO3 VBG Total CO2 VBG O2 Sat (Calc) VBG Base Excess VBG Potassium A-a O2 Difference Respiratory Index Hgb O2 Saturation Glucose Lactate Vent Mode Mechanical Rate FiO2 Tidal Volume PEEP Crit Value Called To Crit Value Called By Crit Value Read Back Blood Gas Notified Time Sodium 136 Potassium 6.2 H* Chloride 96 L Carbon Dioxide 24 Anion Gap 23 H BUN 120 H* D Creatinine 11.7 H* D Est GFR ( Amer) 5 Est GFR (Non-Af Amer) 4 POC Glucose (mg/dL) Random Glucose 296 H Calcium 9.1 Magnesium 2.5 H Total Bilirubin 1.8 H AST 25 ALT 20 L Alkaline Phosphatase 228 H Troponin I < 0.0120 Total Protein 6.5 Albumin 3.8 Globulin 2.7 Albumin/Globulin Ratio 1.4 Lipase 157 Free T4 TSH 3rd Generation 1.16 Venous Blood Potassium Stool Occult Blood Blood Type Antibody Screen 07/22/18 07/22/18 07/22/18 09:51 09:55 10:13 WBC RBC Hgb Hct MCV MCH MCHC RDW Plt Count MPV Neut % (Auto) Lymph % (Auto) [place] % (Auto) Eos % (Auto) Baso % (Auto) Neut # (Auto) Lymph # (Auto) [place] # (Auto) Eos # (Auto) Baso # (Auto) Differential Comment PT INR APTT Puncture Site pCO2 pO2 34 HCO3 ABG pH ABG Total CO2 ABG O2 Saturation ABG Base Excess ABG Hemoglobin ABG Carboxyhemoglobin POC ABG HHb (Measured) ABG Methemoglobin Adrián Test VBG pH 7.22 L VBG pCO2 66 H* VBG HCO3 22.0 VBG Total CO2 29.0 H VBG O2 Sat (Calc) 57.9 VBG Base Excess -2.2 L VBG Potassium 6.1 H A-a O2 Difference Respiratory Index Hgb O2 Saturation Glucose 295 H Lactate 1.5 Vent Mode Mechanical Rate FiO2 Tidal Volume PEEP Crit Value Called To Dr saldivar Crit Value Called By David hudson boarder hand Crit Value Read Back Y Blood Gas Notified Time 958 Sodium 137.0 Potassium Chloride 99.0 Carbon Dioxide Anion Gap BUN Creatinine Est GFR ( Amer) Est GFR (Non-Af Amer) POC Glucose (mg/dL) Random Glucose Calcium Magnesium Total Bilirubin AST ALT Alkaline Phosphatase Troponin I Total Protein Albumin Globulin Albumin/Globulin Ratio Lipase Free T4 0.88 TSH 3rd Generation Venous Blood Potassium 6.1 H Stool Occult Blood Negative Blood Type Antibody Screen 07/22/18 07/22/18 07/22/18 10:31 11:39 12:10 WBC RBC Hgb Hct MCV MCH MCHC RDW Plt Count MPV Neut % (Auto) Lymph % (Auto) [place] % (Auto) Eos % (Auto) Baso % (Auto) Neut # (Auto) Lymph # (Auto) [place] # (Auto) Eos # (Auto) Baso # (Auto) Differential Comment PT INR APTT Puncture Site Rba pCO2 45 pO2 476 H HCO3 23.2 ABG pH 7.33 L ABG Total CO2 25.1 ABG O2 Saturation 95.8 ABG Base Excess -2.2 L ABG Hemoglobin 8.5 L ABG Carboxyhemoglobin 0 L POC ABG HHb (Measured) 4.1 ABG Methemoglobin 3.2 H Adrián Test Na VBG pH VBG pCO2 VBG HCO3 VBG Total CO2 VBG O2 Sat (Calc) VBG Base Excess VBG Potassium A-a O2 Difference 181.0 Respiratory Index 0.4 Hgb O2 Saturation 92.7 L Glucose Lactate Vent Mode Prvc Mechanical Rate 12 FiO2 100.0 Tidal Volume 500 PEEP 5 Crit Value Called To Crit Value Called By Crit Value Read Back Blood Gas Notified Time Sodium Potassium Chloride Carbon Dioxide Anion Gap BUN Creatinine Est GFR ( Amer) Est GFR (Non-Af Amer) POC Glucose (mg/dL) 336 H Random Glucose Calcium Magnesium Total Bilirubin AST ALT Alkaline Phosphatase Troponin I Total Protein Albumin Globulin Albumin/Globulin Ratio Lipase Free T4 TSH 3rd Generation Venous Blood Potassium Stool Occult Blood Blood Type O POSITIVE Antibody Screen Negative Assessment & Plan - Assessment and Plan (Free Text) Assessment: 63 y o male with PMhx CHF, ESRD on HD MWF, HTN, and DM who presented to the ED [facility] for AMS and syncope, reported missed HD. EMS was called and found pt lethargic and bradycardic in the field. Pt was bradycardic in the ED, not responding to most questions. Most of hx obtained from chart due to pt's current clinical status. Pt was intubated in ED due to lethargy. Pt was given amps of Ca, bicarb, atropine, and dopamine. Transcutaneous pacing was initiated. Reason for ICU consult was for lethargy and respiratory distress. Intubated and sedated currently, accepted to ICU for further monitoring. Plan: Neuro: -Intubated and sedated -Cont to monitor Cardio: -Bradycardic on presentation necessitating transcutaneous pacing -S/p AICD placement 2 y ago -Hx CHF, HTN, DM -To go for urgent hemodialysis today as per recs of Dr. Bolivar -Hold home HTN meds for bradycardia, cont to monitor -Trop neg on admission Pulm: -Lethargy on presentation, s/p intubation -ABG 7.33/45/476/23.2 on admission -C/w vent setting as ordered -Plan to possibly wean off intubation if pt is hemodynamically stable -Pulm toilet -Maintain O2 sat > 92% GI: -NPO -OG tube placed -No acute issues, cont to monitor Renal: -Hx ESRD on HD MWF, per report pt missed dialysis session outpatient -BUN/Cr 12/11.7 on admission -Urgent hemodialysis today as per Dr. Bolivar -Hyperkalemia 6.2 on admission -Repeat labs after dialysis to trend BUN/CR and K -Nephro consulted, Dr. Bolivar, recs appreciated -Trend I's/O's Heme: -H/H 7.9/24.9, transfuse prn -Thrombocytopenia ID: -Leukopenic on admission, r/o sepsis -Vanco/zosyn -Blood cx x2 stat PPX: -GI: not indicated -DVT: SCD Pt seen, examined with, and plan discussed with Dr. Lino, attending physician. Gopi Anderson DO PGY-1, Javascript Engineer Pager #[phone]
--- NOTE | 2018-07-22 14:22 | CP.PCM.CON ---
History of Present Illness - History of Present Illness History of Present Illness: Nephrology Consultation Note: Assessment: critical Hyperkalemia with bradycardia, missed HD, uremic, hyperglycemia, hypothermia acute hypercapnic respi failure Diabetic chronic Kidney Disease (E11.22) Hypertensive Chronic Kidney Disease (I12.0) End stage renal disease (N18.6) dependence on hemodialysis (Z99.2) (MWF) via AVF Anemia (D64.9), Hyperphosphatemia (E83.39), Secondary Hyperparathyroidism (E21.1), HTN (I12.0) chronic thrombocytopenia sys CHF Plan: Will plan for dialysis today as MWF. extra HD tomorrow as well Continue with Nephrovite 1 tab/day. PRBC as needed for anemia. last Hb 7.9 hence will order BELEM with HD Continue with phos binders home dose BP control with meds as ordered. recurrent hyperkalemia, hence no acei/arb and BP low side. pt on inotropes Glycemic control, Dialysis consistent diet Further work up/management as per primary team Dose meds/antibiotics (if needed) for ESRD status. Avoid fleets enema/magnesium based laxatives. Thanks for allowing me to participate in care of your patient. Will follow patient with you. Please call if any Qs. had d/w team Dr Davidson Bolivar Office: [phone] Chief Complaint; missed HD Reason for consult: ESRD HPI: Pt is a 63 y/o M with hx of ESRD on hemodialysis (MWF) via AVF x 4 years @ [facility], chronic anemia, hyperphosphatemia, secondary hyperparathyroidism, Diabetes Mellitus, hypertension, thrombocytopenia biV failure with sys CHF presented with AMS and syncope. pt had missed HD. he was lethargic, hypotensive and bradycardic. intubated and transferred to ICU sedated and unable to provide any hx ROS: unable to obtain from pt Physical Examination: General Appearance: Comfortable, in no acute respiratory distress ill appearing, sedated orally intubated Vitals reviewed and noted as below Head; Atraumatic, normocephalic ENT: no ulcers no thrush. Tongue is midline. Oropharynx: no rash or ulcers. EYES: Pupils are equal, round and sluggish to light accommodation. Eye muscles and extraocular movement intact. Sclera is anicteric. Neck; supple no lymphadenopathy, no thyromegaly or bruit Lungs: Normal respiratory rate/effort. Breath sounds bilateral equal and clear Heart: Normal rate. s1s2 normal. No rub or gallop. left side PPM + Extremities: no edema. No varicose veins Neurological: Patient is sedated Skin: Warm and dry. Normal turgor. No rash. Palpitation: Normal elasticity for age Abdomen: Abdomen is soft. Bowel sounds +. There is mild LLQ abdominal tenderness, no guarding/rigidity or organomegaly Psych: unable MSK: no joint tenderness or swelling. Digits and nails normal, no deformity : kidney or bladder not palpable Access: AVF with thrill and bruit Labs/imaging reviewed. Past medical history, past surgical history, family history, social history, allergy reviewed and noted as below Family Hx: no hx of CKD. Non contributory cxr: moderate pulm congestion Past Patient History - Infectious Disease Hx of Infectious Diseases: None - Past Medical History & Family History Past Medical History?: Yes - Past Social History Smoking Status: Never Smoked - CARDIAC Hx Congestive Heart Failure: Yes Hx Hypercholesterolemia: Yes Hx Hypertension: Yes Hx Pacemaker: Yes (AICD) - PULMONARY Hx Respiratory Disorders: No Hx Emphysema: No Hx Pulmonary Embolism: No - NEUROLOGICAL Hx Neurological Disorder: No - HEENT Hx HEENT Problems: Yes Hx Cataracts: Yes - RENAL Hx Chronic Kidney Disease: Yes Hx Dialysis: Yes Type of Dialysis Access: Right wrist AV Fistula Hx Renal Failure: Yes - ENDOCRINE/METABOLIC Hx Endocrine Disorders: Yes Hx Diabetes Mellitus Type 2: Yes - HEMATOLOGICAL/ONCOLOGICAL Hx Anemia: Yes - INTEGUMENTARY Hx Dermatological Problems: No - MUSCULOSKELETAL/RHEUMATOLOGICAL Hx Musculoskeletal Disorders: No Hx Falls: No - GASTROINTESTINAL Hx Gastrointestinal Disorders: Yes Hx Pancreatitis: Yes - GENITOURINARY/GYNECOLOGICAL Hx Genitourinary Disorders: No Hx Prostate Problems: Yes (BPH) - PSYCHIATRIC Hx Psychophysiologic Disorder: Yes Hx Depression: Yes Hx Substance Use: No - SURGICAL HISTORY Hx Appendectomy: Yes - ANESTHESIA Hx Anesthesia: Yes Hx Anesthesia Reactions: No Meds Allergies/Adverse Reactions: Allergies Allergy/AdvReac Type Severity Reaction Status Date / Time No Known Allergies Allergy Verified 07/22/18 10:00 - Medications Medications: Current Medications Dextrose (Dextrose 50% Inj) 0 ml IV STAT PRN; Protocol PRN Reason: Hypoglycemia Protocol Dextrose (Glutose 15) 0 gm PO ONCE PRN; Protocol PRN Reason: Hypoglycemia Protocol Epoetin Carrington (Procrit) 20,000 unit IV MWF [facility] Glucagon (Glucagen Diagnostic Kit) 0 mg IM STAT PRN; Protocol PRN Reason: Hypoglycemia Protocol Pantoprazole Sodium 80 mg/ (Sodium Chloride) 100 mls @ 10 mls/hr IV .Q10H DEBBIE Last Admin: 07/22/18 12:00 Dose: 10 mls/hr Propofol (Diprivan) 1,000 mg in 100 mls @ 1.823 mls/hr IV .Q24H PRN; Protocol PRN Reason: TITRATE PER MD ORDER Last Titration: 07/22/18 12:16 Dose: 5 mcg/kg/min, 1.823 mls/hr Dopamine HCl/Dextrose (Dopamine 400mg/250ml D5w) 400 mg in 250 mls @ 22.793 mls/hr IV .[id number] PRN; Protocol PRN Reason: TITRATE PER MD ORDER Last Titration: 07/22/18 12:40 Dose: 8 mcg/kg/min, 18.234 mls/hr Dextrose (Dextrose 5% In Water 1000 Ml) 1,000 mls @ 0 mls/hr IV .Q0M PRN; Protocol PRN Reason: Hypoglycemia Protocol Insulin Human Regular (Novolin R) 0 unit SC Q6H DEBBIE; Protocol Results - Vital Signs Recent Vital Signs: Last Vital Signs Temp 88.9 F L 07/22/18 12:00 Pulse 60 07/22/18 11:52 Resp 27 H 07/22/18 11:52 BP 79/40 L 07/22/18 11:11 Pulse Ox 98 07/22/18 11:52 - Labs Result Diagrams: 07/22/18 09:51 07/22/18 09:51 Labs: Laboratory Results - last 24 hr 07/22/18 07/22/18 07/22/18 09:51 09:51 09:51 WBC 4.0 L RBC 2.72 L Hgb 7.9 L D Hct 24.9 L MCV 91.7 D MCH 29.1 MCHC 31.7 L RDW 19.5 H Plt Count 70 L MPV 10.3 Neut % (Auto) 71.4 Lymph % (Auto) 17.1 L [place] % (Auto) 10.1 H Eos % (Auto) 1.0 Baso % (Auto) 0.4 Neut # (Auto) 2.9 Lymph # (Auto) 0.7 L [place] # (Auto) 0.4 Eos # (Auto) 0.0 Baso # (Auto) 0.0 Differential Comment PT 12.8 H INR 1.2 APTT 42 H Puncture Site pCO2 pO2 HCO3 ABG pH ABG Total CO2 ABG O2 Saturation ABG Base Excess ABG Hemoglobin ABG Carboxyhemoglobin POC ABG HHb (Measured) ABG Methemoglobin Adrián Test VBG pH VBG pCO2 VBG HCO3 VBG Total CO2 VBG O2 Sat (Calc) VBG Base Excess VBG Potassium A-a O2 Difference Respiratory Index Hgb O2 Saturation Glucose Lactate Vent Mode Mechanical Rate FiO2 Tidal Volume PEEP Crit Value Called To Crit Value Called By Crit Value Read Back Blood Gas Notified Time Sodium 136 Potassium 6.2 H* Chloride 96 L Carbon Dioxide 24 Anion Gap 23 H BUN 120 H* D Creatinine 11.7 H* D Est GFR ( Amer) 5 Est GFR (Non-Af Amer) 4 POC Glucose (mg/dL) Random Glucose 296 H Calcium 9.1 Magnesium 2.5 H Total Bilirubin 1.8 H AST 25 ALT 20 L Alkaline Phosphatase 228 H Troponin I < 0.0120 Total Protein 6.5 Albumin 3.8 Globulin 2.7 Albumin/Globulin Ratio 1.4 Lipase 157 Free T4 TSH 3rd Generation 1.16 Venous Blood Potassium Stool Occult Blood Blood Type Antibody Screen 07/22/18 07/22/18 07/22/18 09:51 09:55 10:13 WBC RBC Hgb Hct MCV MCH MCHC RDW Plt Count MPV Neut % (Auto) Lymph % (Auto) [place] % (Auto) Eos % (Auto) Baso % (Auto) Neut # (Auto) Lymph # (Auto) [place] # (Auto) Eos # (Auto) Baso # (Auto) Differential Comment PT INR APTT Puncture Site pCO2 pO2 34 HCO3 ABG pH ABG Total CO2 ABG O2 Saturation ABG Base Excess ABG Hemoglobin ABG Carboxyhemoglobin POC ABG HHb (Measured) ABG Methemoglobin Adrián Test VBG pH 7.22 L VBG pCO2 66 H* VBG HCO3 22.0 VBG Total CO2 29.0 H VBG O2 Sat (Calc) 57.9 VBG Base Excess -2.2 L VBG Potassium 6.1 H A-a O2 Difference Respiratory Index Hgb O2 Saturation Glucose 295 H Lactate 1.5 Vent Mode Mechanical Rate FiO2 Tidal Volume PEEP Crit Value Called To Dr saldivar Crit Value Called By David hudson assistant vice president Crit Value Read Back Y Blood Gas Notified Time 958 Sodium 137.0 Potassium Chloride 99.0 Carbon Dioxide Anion Gap BUN Creatinine Est GFR ( Amer) Est GFR (Non-Af Amer) POC Glucose (mg/dL) Random Glucose Calcium Magnesium Total Bilirubin AST ALT Alkaline Phosphatase Troponin I Total Protein Albumin Globulin Albumin/Globulin Ratio Lipase Free T4 0.88 TSH 3rd Generation Venous Blood Potassium 6.1 H Stool Occult Blood Negative Blood Type Antibody Screen 07/22/18 07/22/18 07/22/18 10:31 11:39 12:10 WBC RBC Hgb Hct MCV MCH MCHC RDW Plt Count MPV Neut % (Auto) Lymph % (Auto) [place] % (Auto) Eos % (Auto) Baso % (Auto) Neut # (Auto) Lymph # (Auto) [place] # (Auto) Eos # (Auto) Baso # (Auto) Differential Comment PT INR APTT Puncture Site Rba pCO2 45 pO2 476 H HCO3 23.2 ABG pH 7.33 L ABG Total CO2 25.1 ABG O2 Saturation 95.8 ABG Base Excess -2.2 L ABG Hemoglobin 8.5 L ABG Carboxyhemoglobin 0 L POC ABG HHb (Measured) 4.1 ABG Methemoglobin 3.2 H Adrián Test Na VBG pH VBG pCO2 VBG HCO3 VBG Total CO2 VBG O2 Sat (Calc) VBG Base Excess VBG Potassium A-a O2 Difference 181.0 Respiratory Index 0.4 Hgb O2 Saturation 92.7 L Glucose Lactate Vent Mode Prvc Mechanical Rate 12 FiO2 100.0 Tidal Volume 500 PEEP 5 Crit Value Called To Crit Value Called By Crit Value Read Back Blood Gas Notified Time Sodium Potassium Chloride Carbon Dioxide Anion Gap BUN Creatinine Est GFR ( Amer) Est GFR (Non-Af Amer) POC Glucose (mg/dL) 336 H Random Glucose Calcium Magnesium Total Bilirubin AST ALT Alkaline Phosphatase Troponin I Total Protein Albumin Globulin Albumin/Globulin Ratio Lipase Free T4 TSH 3rd Generation Venous Blood Potassium Stool Occult Blood Blood Type O POSITIVE Antibody Screen Negative
--- NOTE | 2018-07-22 15:00 | CP.PCM.PN ---
Subjective - Date & Time of Evaluation Date of Evaluation: 07/22/18 Time of Evaluation: 14:59 - Subjective Subjective: DIALYSIS NOTE Assessment: critical Hyperkalemia with bradycardia, missed HD, uremic, hyperglycemia, hypothermia acute hypercapnic respi failure Diabetic chronic Kidney Disease (E11.22) Hypertensive Chronic Kidney Disease (I12.0) End stage renal disease (N18.6) dependence on hemodialysis (Z99.2) (MWF) via AVF Anemia (D64.9), Hyperphosphatemia (E83.39), Secondary Hyperparathyroidism (E21.1), HTN (I12.0) chronic thrombocytopenia sys CHF Plan: pt seen on dialysis tolerating treatment well BP stable UF goal d/w RN extra HD tomorrow as well Objective - Vital Signs/Intake and Output Vital Signs (last 24 hours): Temp Pulse Resp BP Pulse Ox 88.9 F L 62 27 H 123/58 L 98 07/22/18 12:00 07/22/18 14:45 07/22/18 11:52 07/22/18 14:45 07/22/18 11:52 Intake and Output: 07/22/18 07/22/18 06:59 18:59 Intake Total 233.2 Balance 233.2 - Medications Medications: Current Medications Dextrose (Dextrose 50% Inj) 0 ml IV STAT PRN; Protocol PRN Reason: Hypoglycemia Protocol Dextrose (Glutose 15) 0 gm PO ONCE PRN; Protocol PRN Reason: Hypoglycemia Protocol Epoetin Carrington (Procrit) 20,000 unit IV MWF [facility] Glucagon (Glucagen Diagnostic Kit) 0 mg IM STAT PRN; Protocol PRN Reason: Hypoglycemia Protocol Pantoprazole Sodium 80 mg/ (Sodium Chloride) 100 mls @ 10 mls/hr IV .Q10H [facility] Last Admin: 07/22/18 12:00 Dose: 10 mls/hr Propofol (Diprivan) 1,000 mg in 100 mls @ 1.823 mls/hr IV .Q24H PRN; Protocol PRN Reason: TITRATE PER MD ORDER Last Titration: 07/22/18 12:16 Dose: 5 mcg/kg/min, 1.823 mls/hr Dopamine HCl/Dextrose (Dopamine 400mg/250ml D5w) 400 mg in 250 mls @ 22.793 mls/hr IV .[id number] PRN; Protocol PRN Reason: TITRATE PER MD ORDER Last Titration: 07/22/18 12:40 Dose: 8 mcg/kg/min, 18.234 mls/hr Dextrose (Dextrose 5% In Water 1000 Ml) 1,000 mls @ 0 mls/hr IV .Q0M PRN; Protocol PRN Reason: Hypoglycemia Protocol Insulin Human Regular (Novolin R) 0 unit SC Q6H DEBBIE; Protocol - Labs Labs: 07/22/18 09:51 07/22/18 09:51 PT 12.8 SECONDS (9.7-12.2) H 07/22/18 09:51 INR 1.2 07/22/18 09:51 APTT 42 SECONDS (21-34) H 07/22/18 09:51
[2018-07-22] MEDS: Epoetin Alfa Dialysis 20000 UNIT/ML Inj IV SCH (17:06)
[2018-07-22] MEDS ORDERED: Brimonidine 0.2% Opth Sol (5ml) OU SCH (18:00)
[2018-07-22] MEDS: (Novolin R) Insulin Human Regular 100 units/ml vial SC SCH ×2 (18:07→18:19)
[2018-07-22 18:34] LABS: BASO % 0.4 % (0.0-2.0); EOS % 0.9 % (0.0-4.0); HEMOGLOBIN 8.8 g/dL (12.0-18.0); LYMPH # 0.4 K/uL (1.0-4.3); LYMPH % 8.3 % (20.0-40.0); MEAN CELL VOLUME 88.4 fL (80.0-94.0); MEAN CORPUSCULAR HEMOGLOBIN 28.5 pg (27.0-31.0); MEAN CORPUSCULAR HGB CONC 32.2 g/dL (33.0-37.0); MONO # 0.2 K/uL (0.0-0.8); MONO % 3.7 % (0.0-10.0); NEUT # 4.2 K/uL (1.8-7.0); NEUT % 86.7 % (50.0-75.0); NRBC % 0.1 % (0.0-2.0); PLATELET COUNT 80 K/uL (130-400); RBC 3.08 Mil/uL (4.40-5.90); RED CELL DISTRIBUTION WIDTH 19.5 % (11.5-14.5); WHITE BLOOD COUNT 4.9 K/uL (4.8-10.8)
[2018-07-22 19:01] LABS: ALB/GLOB RATIO 1.3 (1.0-2.1); ALBUMIN 4.2 g/dL (3.5-5.0); CALCIUM 8.9 mg/dl (8.6-10.4)
[2018-07-22] MEDS: Saccharomyces Boulardi 250 mg Cap PO SCH (19:01)
[2018-07-22] MEDS: Piperacill/Tazo 2.25gm in Dex 2.25 GM/50 ML BAG IVPB SCH (19:30)
[2018-07-22 20:29] LABS: ANISOCYTOSIS SLIGHT; BANDS 1 % (0-2); LYMPHOCYTE 9 % (20-40); MONOCYTE 2 % (0-10); NEUTROPHIL 88 % (50-75); PLATELET ESTIMATE DECREASED (NORMAL); POIKILOCYTOSIS SLIGHT; TOTAL CELLS COUNTED 100
[2018-07-22 20:30] LABS: BURR CELLS SLIGHT; SCHISTOCYTES SLIGHT
--- NOTE | 2018-07-22 23:14 | CP.PCM.CON ---
History of Present Illness - History of Present Illness History of Present Illness: Cardiac-Electrophysiology Note Re: bradycardia/Syncope Chart imaging reviewed Patient seen and examined Mr. Desai was brogught to the hospital with a history of lethargy mental status change severe bradycardia (25/minute) Transcutaneous pads were placed and the patient was intubated Past medical: Cardiomyopathy ICD implant (subcutaneous) ESRD Pancreatitis Pulmonary embolism \\ Medications: reviewed Exam Intubated Sedated Pulse 80 regular BP 160/90mmHg Normal venous pressures Distant heart sounds Fistula + Left axillary subcutaneous ICD EKG # sinus bradycardia/late QRS notching Labs: noted Mr. Desai presented with 'appropriate" severe bradycardia with prominent tang waves related to hypothermia The arrhythmia corrected with normative temperatures There is no need for permanent pacing device; of note the implanted ICD does not have backup pacing capability Suggest DEvice interrogation Supportive therapy Past Patient History - Infectious Disease Hx of Infectious Diseases: None - Past Medical History & Family History Past Medical History?: Yes - Past Social History Smoking Status: Never Smoked - CARDIAC Hx Congestive Heart Failure: Yes Hx Hypercholesterolemia: Yes Hx Hypertension: Yes Hx Pacemaker: Yes (AICD) - PULMONARY Hx Respiratory Disorders: No Hx Emphysema: No Hx Pulmonary Embolism: No - NEUROLOGICAL Hx Neurological Disorder: No - HEENT Hx HEENT Problems: Yes Hx Cataracts: Yes - RENAL Hx Chronic Kidney Disease: Yes Hx Dialysis: Yes Type of Dialysis Access: Right wrist AV Fistula Hx Renal Failure: Yes - ENDOCRINE/METABOLIC Hx Endocrine Disorders: Yes Hx Diabetes Mellitus Type 2: Yes - HEMATOLOGICAL/ONCOLOGICAL Hx Anemia: Yes - INTEGUMENTARY Hx Dermatological Problems: No - MUSCULOSKELETAL/RHEUMATOLOGICAL Hx Musculoskeletal Disorders: No Hx Falls: No - GASTROINTESTINAL Hx Gastrointestinal Disorders: Yes Hx Pancreatitis: Yes - GENITOURINARY/GYNECOLOGICAL Hx Genitourinary Disorders: No Hx Prostate Problems: Yes (BPH) - PSYCHIATRIC Hx Psychophysiologic Disorder: Yes Hx Depression: Yes Hx Substance Use: No - SURGICAL HISTORY Hx Appendectomy: Yes - ANESTHESIA Hx Anesthesia: Yes Hx Anesthesia Reactions: No Meds Allergies/Adverse Reactions: Allergies Allergy/AdvReac Type Severity Reaction Status Date / Time No Known Allergies Allergy Verified 07/22/18 10:00 - Medications Medications: Current Medications Amlodipine Besylate (Norvasc) 10 mg PO DAILY DEBBIE Aspirin (Ecotrin) 81 mg PO DAILY DEBBIE Brimonidine Tartrate (Alphagan 0.2% Opht) 0.05 ml OU Q12H DEBBIE Calcitriol (Rocaltrol) 0.25 mcg PO DAILY [facility] Dextrose (Dextrose 50% Inj) 0 ml IV STAT PRN; Protocol PRN Reason: Hypoglycemia Protocol Dextrose (Glutose 15) 0 gm PO ONCE PRN; Protocol PRN Reason: Hypoglycemia Protocol Dorzolamide HCl (Trusopt) 1 ml OU DAILY DEBBIE Epoetin Carrington (Procrit) 20,000 unit IV MWF [facility] Last Admin: 07/22/18 17:06 Dose: 20,000 unit Glucagon (Glucagen Diagnostic Kit) 0 mg IM STAT PRN; Protocol PRN Reason: Hypoglycemia Protocol Hydralazine HCl (Apresoline) 50 mg PO TID [facility] Last Admin: 07/22/18 18:19 Dose: Not Given Pantoprazole Sodium 80 mg/ (Sodium Chloride) 100 mls @ 10 mls/hr IV .Q10H DEBBIE Last Admin: 07/22/18 21:00 Dose: 10 mls/hr Propofol (Diprivan) 1,000 mg in 100 mls @ 1.823 mls/hr IV .Q24H PRN; Protocol PRN Reason: TITRATE PER MD ORDER Last Admin: 07/22/18 22:37 Dose: 35 mcg/kg/min, 12.764 mls/hr Dopamine HCl/Dextrose (Dopamine 400mg/250ml D5w) 400 mg in 250 mls @ 22.793 mls/hr IV .[id number] PRN; Protocol PRN Reason: TITRATE PER MD ORDER Last Titration: 07/22/18 17:25 Dose: 0 mcg/kg/min, 0 mls/hr Dextrose (Dextrose 5% In Water 1000 Ml) 1,000 mls @ 0 mls/hr IV .Q0M PRN; Protocol PRN Reason: Hypoglycemia Protocol Piperacillin Sod/Tazobactam Sod (Zosyn 2.25 Gm Iv Premix) 2.25 gm in 50 mls @ 100 mls/hr IVPB Q6H DEBBIE; Protocol Last Admin: 07/22/18 19:30 Dose: 100 mls/hr Insulin Human Regular (Novolin R) 0 unit SC Q6H DEBBIE; Protocol Last Admin: 07/22/18 18:19 Dose: Not Given Lisinopril (Zestril) 20 mg PO HS [facility] Last Admin: 07/22/18 22:00 Dose: 20 mg Rosuvastatin Calcium (Crestor) 80 mg PO HS [facility] Last Admin: 07/22/18 22:14 Dose: 80 mg Saccharomyces Boulardii (Florastor) 250 mg PO BID [facility] Last Admin: 07/22/18 19:01 Dose: 250 mg Tamsulosin HCl (Flomax) 0.4 mg PO DAILY [facility] Timolol Maleate (Timoptic 0.5% Ophth Soln) 1 drop OU DAILY [facility] Vitamin B Complex/Vit C/Folic Acid (Nephro-Lupis) 1 tab PO DAILY [facility] Results - Vital Signs Recent Vital Signs: Last Vital Signs Temp 99 F 07/22/18 20:00 Pulse 82 07/22/18 17:36 Resp 16 07/22/18 14:00 BP 165/71 H 07/22/18 20:00 Pulse Ox 97 07/22/18 20:00 - Labs Result Diagrams: 07/22/18 18:00 07/22/18 18:00 Labs: Laboratory Results - last 24 hr 07/22/18 07/22/18 07/22/18 09:51 09:51 09:51 WBC 4.0 L RBC 2.72 L Hgb 7.9 L D Hct 24.9 L MCV 91.7 D MCH 29.1 MCHC 31.7 L RDW 19.5 H Plt Count 70 L MPV 10.3 Neut % (Auto) 71.4 Lymph % (Auto) 17.1 L [place] % (Auto) 10.1 H Eos % (Auto) 1.0 Baso % (Auto) 0.4 Neut # (Auto) 2.9 Lymph # (Auto) 0.7 L [place] # (Auto) 0.4 Eos # (Auto) 0.0 Baso # (Auto) 0.0 Neutrophils % (Manual) Band Neutrophils % Lymphocytes % (Manual) Monocytes % (Manual) Differential Comment Platelet Estimate Poikilocytosis (manual Anisocytosis (manual) [place] Cells Schistocytes PT 12.8 H INR 1.2 APTT 42 H Puncture Site pCO2 pO2 HCO3 ABG pH ABG Total CO2 ABG O2 Saturation ABG Base Excess ABG Hemoglobin ABG Carboxyhemoglobin POC ABG HHb (Measured) ABG Methemoglobin Adrián Test VBG pH VBG pCO2 VBG HCO3 VBG Total CO2 VBG O2 Sat (Calc) VBG Base Excess VBG Potassium A-a O2 Difference Respiratory Index Hgb O2 Saturation Glucose Lactate Vent Mode Mechanical Rate FiO2 Tidal Volume PEEP Crit Value Called To Crit Value Called By Crit Value Read Back Blood Gas Notified Time Sodium 136 Potassium 6.2 H* Chloride 96 L Carbon Dioxide 24 Anion Gap 23 H BUN 120 H* D Creatinine 11.7 H* D Est GFR ( Amer) 5 Est GFR (Non-Af Amer) 4 POC Glucose (mg/dL) Random Glucose 296 H Calcium 9.1 Phosphorus Magnesium 2.5 H Total Bilirubin 1.8 H AST 25 ALT 20 L Alkaline Phosphatase 228 H Troponin I < 0.0120 Total Protein 6.5 Albumin 3.8 Globulin 2.7 Albumin/Globulin Ratio 1.4 Lipase 157 Free T4 TSH 3rd Generation 1.16 Venous Blood Potassium Stool Occult Blood Blood Type Antibody Screen 07/22/18 07/22/18 07/22/18 09:51 09:55 10:13 WBC RBC Hgb Hct MCV MCH MCHC RDW Plt Count MPV Neut % (Auto) Lymph % (Auto) [place] % (Auto) Eos % (Auto) Baso % (Auto) Neut # (Auto) Lymph # (Auto) [place] # (Auto) Eos # (Auto) Baso # (Auto) Neutrophils % (Manual) Band Neutrophils % Lymphocytes % (Manual) Monocytes % (Manual) Differential Comment Platelet Estimate Poikilocytosis (manual Anisocytosis (manual) [place] Cells Schistocytes PT INR APTT Puncture Site pCO2 pO2 34 HCO3 ABG pH ABG Total CO2 ABG O2 Saturation ABG Base Excess ABG Hemoglobin ABG Carboxyhemoglobin POC ABG HHb (Measured) ABG Methemoglobin Adrián Test VBG pH 7.22 L VBG pCO2 66 H* VBG HCO3 22.0 VBG Total CO2 29.0 H VBG O2 Sat (Calc) 57.9 VBG Base Excess -2.2 L VBG Potassium 6.1 H A-a O2 Difference Respiratory Index Hgb O2 Saturation Glucose 295 H Lactate 1.5 Vent Mode Mechanical Rate FiO2 Tidal Volume PEEP Crit Value Called To Dr saldivar Crit Value Called By David hudson associate vice president Crit Value Read Back Y Blood Gas Notified Time 958 Sodium 137.0 Potassium Chloride 99.0 Carbon Dioxide Anion Gap BUN Creatinine Est GFR ( Amer) Est GFR (Non-Af Amer) POC Glucose (mg/dL) Random Glucose Calcium Phosphorus Magnesium Total Bilirubin AST ALT Alkaline Phosphatase Troponin I Total Protein Albumin Globulin Albumin/Globulin Ratio Lipase Free T4 0.88 TSH 3rd Generation Venous Blood Potassium 6.1 H Stool Occult Blood Negative Blood Type Antibody Screen 07/22/18 07/22/18 07/22/18 10:31 11:39 12:10 WBC RBC Hgb Hct MCV MCH MCHC RDW Plt Count MPV Neut % (Auto) Lymph % (Auto) [place] % (Auto) Eos % (Auto) Baso % (Auto) Neut # (Auto) Lymph # (Auto) [place] # (Auto) Eos # (Auto) Baso # (Auto) Neutrophils % (Manual) Band Neutrophils % Lymphocytes % (Manual) Monocytes % (Manual) Differential Comment Platelet Estimate Poikilocytosis (manual Anisocytosis (manual) [place] Cells Schistocytes PT INR APTT Puncture Site Rba pCO2 45 pO2 476 H HCO3 23.2 ABG pH 7.33 L ABG Total CO2 25.1 ABG O2 Saturation 95.8 ABG Base Excess -2.2 L ABG Hemoglobin 8.5 L ABG Carboxyhemoglobin 0 L POC ABG HHb (Measured) 4.1 ABG Methemoglobin 3.2 H Adrián Test Na VBG pH VBG pCO2 VBG HCO3 VBG Total CO2 VBG O2 Sat (Calc) VBG Base Excess VBG Potassium A-a O2 Difference 181.0 Respiratory Index 0.4 Hgb O2 Saturation 92.7 L Glucose Lactate Vent Mode Prvc Mechanical Rate 12 FiO2 100.0 Tidal Volume 500 PEEP 5 Crit Value Called To Crit Value Called By Crit Value Read Back Blood Gas Notified Time Sodium Potassium Chloride Carbon Dioxide Anion Gap BUN Creatinine Est GFR ( Amer) Est GFR (Non-Af Amer) POC Glucose (mg/dL) 336 H Random Glucose Calcium Phosphorus Magnesium Total Bilirubin AST ALT Alkaline Phosphatase Troponin I Total Protein Albumin Globulin Albumin/Globulin Ratio Lipase Free T4 TSH 3rd Generation Venous Blood Potassium Stool Occult Blood Blood Type O POSITIVE Antibody Screen Negative 07/22/18 07/22/18 07/22/18 17:37 18:00 18:00 WBC 4.9 RBC 3.08 L Hgb 8.8 L Hct 27.2 L MCV 88.4 D MCH 28.5 MCHC 32.2 L RDW 19.5 H Plt Count 80 L MPV 10.0 Neut % (Auto) 86.7 H Lymph % (Auto) 8.3 L [place] % (Auto) 3.7 Eos % (Auto) 0.9 Baso % (Auto) 0.4 Neut # (Auto) 4.2 Lymph # (Auto) 0.4 L [place] # (Auto) 0.2 Eos # (Auto) 0.0 Baso # (Auto) 0.0 Neutrophils % (Manual) 88 H Band Neutrophils % 1 Lymphocytes % (Manual) 9 L Monocytes % (Manual) 2 Differential Comment Platelet Estimate Decreased L Poikilocytosis (manual Slight Anisocytosis (manual) Slight [place] Cells Slight Schistocytes Slight PT INR APTT Puncture Site pCO2 pO2 HCO3 ABG pH ABG Total CO2 ABG O2 Saturation ABG Base Excess ABG Hemoglobin ABG Carboxyhemoglobin POC ABG HHb (Measured) ABG Methemoglobin Adrián Test VBG pH VBG pCO2 VBG HCO3 VBG Total CO2 VBG O2 Sat (Calc) VBG Base Excess VBG Potassium A-a O2 Difference Respiratory Index Hgb O2 Saturation Glucose Lactate Vent Mode Mechanical Rate FiO2 Tidal Volume PEEP Crit Value Called To Crit Value Called By Crit Value Read Back Blood Gas Notified Time Sodium 139 Potassium 3.5 L Chloride 97 L Carbon Dioxide 28 Anion Gap 18 BUN 38 H Creatinine 4.1 H Est GFR ( Amer) 18 Est GFR (Non-Af Amer) 15 POC Glucose (mg/dL) 125 H Random Glucose 131 H D Calcium 8.9 Phosphorus 2.8 Magnesium 2.0 Total Bilirubin 1.0 AST 29 ALT 25 Alkaline Phosphatase 288 H D Troponin I Total Protein 7.5 Albumin 4.2 Globulin 3.2 Albumin/Globulin Ratio 1.3 Lipase Free T4 TSH 3rd Generation Venous Blood Potassium Stool Occult Blood Blood Type Antibody Screen
[2018-07-23] MEDS: Piperacill/Tazo 2.25gm in Dex 2.25 GM/50 ML BAG IVPB SCH ×4 (00:30→18:16)
[2018-07-23] MEDS: (Novolin R) Insulin Human Regular 100 units/ml vial SC SCH ×4 (00:58→18:15)
[2018-07-23 05:52] LABS: ARTERIAL BLOOD GAS HCO3 25.2 mmol/L (21-28); ARTERIAL BLOOD GAS O2 SAT 95.1 % (95-98); ARTERIAL BLOOD GAS PCO2 42 mm/Hg (35-45); ARTERIAL BLOOD GAS PH 7.39 (7.35-7.45); ARTERIAL BLOOD GAS PO2 163 mm/Hg (80-100); ARTERIAL BLOOD GAS TCO2 26.7 mmol/L (22-28)
[2018-07-23 06:39] LABS: BASO % 0.7 % (0.0-2.0); EOS % 0.7 % (0.0-4.0); HEMOGLOBIN 8.1 g/dL (12.0-18.0); LYMPH # 0.5 K/uL (1.0-4.3); LYMPH % 9.4 % (20.0-40.0); MEAN CELL VOLUME 91.2 fL (80.0-94.0); MEAN CORPUSCULAR HEMOGLOBIN 29.6 pg (27.0-31.0); MEAN CORPUSCULAR HGB CONC 32.4 g/dL (33.0-37.0); MEAN PLATELET VOLUME 10.2 fL (7.2-11.7); MONO # 0.5 K/uL (0.0-0.8); MONO % 9.9 % (0.0-10.0); NEUT # 4.2 K/uL (1.8-7.0); NEUT % 79.3 % (50.0-75.0); NRBC % 0.2 % (0.0-2.0); PLATELET COUNT 67 K/uL (130-400); RBC 2.74 Mil/uL (4.40-5.90); RED CELL DISTRIBUTION WIDTH 19.6 % (11.5-14.5); WHITE BLOOD COUNT 5.3 K/uL (4.8-10.8)
[2018-07-23 06:56] LABS: ALB/GLOB RATIO 1.3 (1.0-2.1); ALBUMIN 3.6 g/dL (3.5-5.0); CALCIUM 8.1 mg/dl (8.6-10.4)
[2018-07-23] MEDS: Pantoprazole 80 MG in Sodium Chloride 0.9% 100 ML IV SCH (07:06)
[2018-07-23] MEDS: Propofol 10 mg/ml 1,000 MG/100 ML VIAL IV PRN (07:15)
[2018-07-23 08:57] LABS: BANDS 2 % (0-2); LYMPHOCYTE 9 % (20-40); MONOCYTE 4 % (0-10); NEUTROPHIL 85 % (50-75); PLATELET ESTIMATE DECREASED (NORMAL); TOTAL CELLS COUNTED 100
[2018-07-23 08:58] LABS: ANISOCYTOSIS MODERATE; BURR CELLS SLIGHT; HYPOCHROMIC SLIGHT; OVALOCYTES SLIGHT; POIKILOCYTOSIS SLIGHT; POLYCHROMIC SLIGHT
[2018-07-23 08:59] LABS: LARGE PLATELETS PRESENT; SCHISTOCYTES SLIGHT; TOXIC GRANULATION PRESENT
[2018-07-23] MEDS: Dorzolamide 2% Opht Sol 10ml OU SCH (10:58)
[2018-07-23] MEDS: Multivitamin Vitamin B Complex (Nephro-Vite) Tab PO SCH (10:58)
[2018-07-23] MEDS: Saccharomyces Boulardi 250 mg Cap PO SCH ×2 (10:58→18:16)
[2018-07-23] MEDS: Brimonidine 0.2% Opth Sol (5ml) OU SCH ×2 (11:00→21:30)
--- NOTE | 2018-07-23 11:19 | CP.CCUPN ---
CCU Subjective - Physician Review Subjective (Free Text): Patient denies chest pain 07/23/18 11:22 Critical Care Time Spent (in minutes): 45 CCU Objective - Vital Signs / Intake & Output Vital Signs (Last 4 hours): Vital Signs Temp Pulse Resp BP Pulse Ox 07/23/18 09:00 65 15 137/61 98 07/23/18 08:00 97.8 F 66 16 130/56 L 98 07/23/18 07:00 64 13 120/54 L 98 Intake and Output (Last 8hrs): Intake & Output 07/22/18 07/23/18 07/23/18 22:59 06:59 14:59 Intake Total 388.4 297.6 98.8 Output Total 2000 0 0 Balance -1611.6 297.6 98.8 Weight 138 lb 0.13 oz Intake: IV 159 83 8 Intake, IV Amount 229.4 214.6 90.8 Left Leg 68.4 84.6 10.8 Left Wrist 81 50 50 Left Wrist 2 80 80 30 Output: Emesis 0 0 0 Other 1999 Other: # Bowel Movements 0 0 0 - Physical Exam Head: Positive for: Atraumatic, Normocephalic Mouth: Positive for: Moist Mucous Membranes Respiratory/Chest: Positive for: Clear to Auscultation, Good Air Exchange. Negative for: Respiratory Distress, Accessory Muscle Use Cardiovascular: Positive for: Regular Rate and Rhythm, Normal S1, S2 Abdomen: Positive for: Normal Bowel Sounds. Negative for: Peritoneal Signs Lower Extremity: Positive for: Normal Inspection Skin: Positive for: Warm - Medications Active Medications: Active Medications Generic Name Dose Route Start Last Admin Trade Name Freq PRN Reason Stop Dose Admin Albuterol/Ipratropium 3 ml 07/23/18 14:00 Duoneb 3 Mg/0.5 Mg (3 Ml) Ud INH RQ6 DEBBIE Amlodipine Besylate 10 mg 07/23/18 10:00 Norvasc PO DAILY DEBBIE Aspirin 81 mg 07/23/18 10:00 Ecotrin PO DAILY DEBBIE Brimonidine Tartrate 0.05 ml 07/23/18 10:00 Alphagan 0.2% Opht OU Q12 DEBBIE Calcitriol 0.25 mcg 07/23/18 10:00 Rocaltrol PO DAILY DEBBIE Dextrose 0 ml 07/22/18 12:37 Dextrose 50% Inj IV STAT PRN Hypoglycemia Protocol Protocol Dextrose 0 gm 07/22/18 12:37 Glutose 15 PO ONCE PRN Hypoglycemia Protocol Protocol Dorzolamide HCl 1 ml 07/23/18 10:00 Trusopt OU DAILY DEBBIE Epoetin Carrington 20,000 unit 07/22/18 14:00 07/22/18 17:06 Procrit IV 20,000 unit MWF DEBBIE Administration Glucagon 0 mg 07/22/18 12:37 Glucagen Diagnostic Kit IM STAT PRN Hypoglycemia Protocol Protocol Hydralazine HCl 50 mg 07/22/18 18:00 07/22/18 18:19 Apresoline PO Not Given TID DEBBIE Propofol 1,000 mg in 100 mls @ 1.823 mls/hr 07/22/18 10:33 07/23/18 07:15 Diprivan IV 14.8 mcg/kg/min .Q24H PRN 5.4 mls/hr TITRATE PER MD ORDER Administration Protocol 5 MCG/KG/MIN Dextrose 1,000 mls @ 0 mls/hr 07/22/18 12:37 Dextrose 5% In Water 1000 Ml IV .Q0M PRN Hypoglycemia Protocol Protocol Per Protocol Piperacillin Sod/Tazobactam Sod 2.25 gm in 50 mls @ 100 mls/hr 07/22/18 18:00 07/23/18 05:58 Zosyn 2.25 Gm Iv Premix IVPB 100 mls/hr Q6H DEBBIE Administration Protocol Insulin Human Regular 0 unit 07/23/18 06:00 07/23/18 06:00 Novolin R SC Not Given Q6 DEBBIE Protocol Lisinopril 20 mg 07/22/18 22:00 07/22/18 22:00 Zestril PO 20 mg HS DEBBIE Administration Pantoprazole Sodium 40 mg 07/23/18 10:15 Protonix Inj IVP Q12H DEBBIE Rosuvastatin Calcium 80 mg 07/22/18 22:00 07/22/18 22:14 Crestor PO 80 mg HS DEBBIE Administration Saccharomyces Boulardii 250 mg 07/22/18 18:00 07/22/18 19:01 Florastor PO 250 mg BID DEBBIE Administration Tamsulosin HCl 0.4 mg 07/23/18 10:00 Flomax PO DAILY DEBBIE Timolol Maleate 1 drop 07/23/18 10:00 Timoptic 0.5% Ophth Soln OU DAILY DEBBIE Vitamin B Complex/Vit C/Folic Acid 1 tab 07/23/18 10:00 Nephro-Lupis PO DAILY [facility] - Patient Studies Lab Studies: Lab Studies 07/23/18 07/23/18 07/23/18 Range/Units 06:28 06:27 06:21 WBC 5.3 (4.8-10.8) K/uL RBC 2.74 L (4.40-5.90) Mil/uL Hgb 8.1 L (12.0-18.0) g/dL Hct 25.0 L (35.0-51.0) % MCV 91.2 D (80.0-94.0) fL MCH 29.6 (27.0-31.0) pg MCHC 32.4 L (33.0-37.0) g/dL RDW 19.6 H (11.5-14.5) % Plt Count 67 L (130-400) K/uL MPV 10.2 (7.2-11.7) fL Neut % (Auto) 79.3 H (50.0-75.0) % Lymph % (Auto) 9.4 L (20.0-40.0) % Mcmullen % (Auto) 9.9 (0.0-10.0) % Eos % (Auto) 0.7 (0.0-4.0) % Baso % (Auto) 0.7 (0.0-2.0) % Neut # (Auto) 4.2 (1.8-7.0) K/uL Lymph # (Auto) 0.5 L (1.0-4.3) K/uL Mcmullen # (Auto) 0.5 (0.0-0.8) K/uL Eos # (Auto) 0.0 (0.0-0.7) K/uL Baso # (Auto) 0.0 (0.0-0.2) K/uL Neutrophils % (Manual) 85 H (50-75) % Band Neutrophils % 2 (0-2) % Lymphocytes % (Manual) 9 L (20-40) % Monocytes % (Manual) 4 (0-10) % Differential Comment Toxic Granulation Present Platelet Estimate Decreased L (NORMAL) Large Platelets Present Polychromasia Slight Hypochromasia (manual) Slight Poikilocytosis (manual Slight Anisocytosis (manual) Moderate Ovalocytes Slight [place] Cells Slight Schistocytes Slight Puncture Site pCO2 (35-45) mm/Hg pO2 (80-100) mm/Hg HCO3 (21-28) mmol/L ABG pH (7.35-7.45) ABG Total CO2 (22-28) mmol/L ABG O2 Saturation (95-98) % ABG Base Excess (-2.0-3.0) mmol/L ABG Hemoglobin (11.7-17.4) g/dL ABG Carboxyhemoglobin (0.5-1.5) % POC ABG HHb (Measured) (0.0-5.0) % ABG Methemoglobin (0.0-3.0) % Adrián Test ABG Potassium (3.6-5.2) mmol/L A-a O2 Difference mm/Hg Respiratory Index Hgb O2 Saturation (95.0-98.0) % Glucose (75-110) mg/dl Lactate (0.7-2.1) mmol/L Vent Mode Mechanical Rate FiO2 % Tidal Volume PEEP Sodium 139 (132-148) mmol/L Potassium 4.1 (3.6-5.2) mmol/L Chloride 101 (98-107) mmol/L Carbon Dioxide 24 (22-30) mmol/L Anion Gap 18 (10-20) BUN 49 H (9-20) mg/dL Creatinine 6.7 H (0.8-1.5) mg/dL Est GFR ( Amer) 10 Est GFR (Non-Af Amer) 8 POC Glucose (mg/dL) 79 (65-110) mg/dL Random Glucose 77 D (75-110) mg/dL Calcium 8.1 L (8.6-10.4) mg/dl Phosphorus 4.9 H (2.5-4.5) mg/dL Magnesium 1.9 (1.6-2.3) mg/dL Total Bilirubin 0.9 (0.2-1.3) mg/dL AST 25 (17-59) U/L ALT 21 (21-72) U/L Alkaline Phosphatase 209 H D (38-126) U/L Total Protein 6.5 (6.3-8.3) g/dL Albumin 3.6 (3.5-5.0) g/dL Globulin 2.9 (2.2-3.9) gm/dL Albumin/Globulin Ratio 1.3 (1.0-2.1) Lipase (23-300) U/L Arterial Blood Potassium (3.6-5.2) mmol/L Blood Type Antibody Screen 07/23/18 07/22/18 07/22/18 Range/Units 05:10 23:42 18:00 WBC (4.8-10.8) K/uL RBC (4.40-5.90) Mil/uL Hgb (12.0-18.0) g/dL Hct (35.0-51.0) % MCV (80.0-94.0) fL MCH (27.0-31.0) pg MCHC (33.0-37.0) g/dL RDW (11.5-14.5) % Plt Count (130-400) K/uL MPV (7.2-11.7) fL Neut % (Auto) (50.0-75.0) % Lymph % (Auto) (20.0-40.0) % Mcmullen % (Auto) (0.0-10.0) % Eos % (Auto) (0.0-4.0) % Baso % (Auto) (0.0-2.0) % Neut # (Auto) (1.8-7.0) K/uL Lymph # (Auto) (1.0-4.3) K/uL Mcmullen # (Auto) (0.0-0.8) K/uL Eos # (Auto) (0.0-0.7) K/uL Baso # (Auto) (0.0-0.2) K/uL Neutrophils % (Manual) (50-75) % Band Neutrophils % (0-2) % Lymphocytes % (Manual) (20-40) % Monocytes % (Manual) (0-10) % Differential Comment Toxic Granulation Platelet Estimate (NORMAL) Large Platelets Polychromasia Hypochromasia (manual) Poikilocytosis (manual Anisocytosis (manual) Ovalocytes [place] Cells Schistocytes Puncture Site Lb pCO2 42 (35-45) mm/Hg pO2 163 H (80-100) mm/Hg HCO3 25.2 (21-28) mmol/L ABG pH 7.39 (7.35-7.45) ABG Total CO2 26.7 (22-28) mmol/L ABG O2 Saturation 95.1 (95-98) % ABG Base Excess 0.3 (-2.0-3.0) mmol/L ABG Hemoglobin (11.7-17.4) g/dL ABG Carboxyhemoglobin (0.5-1.5) % POC ABG HHb (Measured) (0.0-5.0) % ABG Methemoglobin (0.0-3.0) % Adrián Test Na ABG Potassium 3.7 (3.6-5.2) mmol/L A-a O2 Difference 70.0 mm/Hg Respiratory Index 0.4 Hgb O2 Saturation (95.0-98.0) % Glucose 77 (75-110) mg/dl Lactate 0.7 (0.7-2.1) mmol/L Vent Mode Prvc Mechanical Rate 12 FiO2 40.0 % Tidal Volume 500 PEEP 5 Sodium 139.0 139 (132-148) mmol/L Potassium 3.5 L (3.6-5.2) mmol/L Chloride 106.0 97 L (98-107) mmol/L Carbon Dioxide 28 (22-30) mmol/L Anion Gap 18 (10-20) BUN 38 H (9-20) mg/dL Creatinine 4.1 H (0.8-1.5) mg/dL Est GFR ( Amer) 18 Est GFR (Non-Af Amer) 15 POC Glucose (mg/dL) 72 (65-110) mg/dL Random Glucose 131 H D (75-110) mg/dL Calcium 8.9 (8.6-10.4) mg/dl Phosphorus 2.8 (2.5-4.5) mg/dL Magnesium 2.0 (1.6-2.3) mg/dL Total Bilirubin 1.0 (0.2-1.3) mg/dL AST 29 (17-59) U/L ALT 25 (21-72) U/L Alkaline Phosphatase 288 H D (38-126) U/L Total Protein 7.5 (6.3-8.3) g/dL Albumin 4.2 (3.5-5.0) g/dL Globulin 3.2 (2.2-3.9) gm/dL Albumin/Globulin Ratio 1.3 (1.0-2.1) Lipase (23-300) U/L Arterial Blood Potassium 3.7 (3.6-5.2) mmol/L Blood Type Antibody Screen 07/22/18 07/22/18 07/22/18 Range/Units 18:00 17:37 12:10 WBC 4.9 (4.8-10.8) K/uL RBC 3.08 L (4.40-5.90) Mil/uL Hgb 8.8 L (12.0-18.0) g/dL Hct 27.2 L (35.0-51.0) % MCV 88.4 D (80.0-94.0) fL MCH 28.5 (27.0-31.0) pg MCHC 32.2 L (33.0-37.0) g/dL RDW 19.5 H (11.5-14.5) % Plt Count 80 L (130-400) K/uL MPV 10.0 (7.2-11.7) fL Neut % (Auto) 86.7 H (50.0-75.0) % Lymph % (Auto) 8.3 L (20.0-40.0) % Mcmullen % (Auto) 3.7 (0.0-10.0) % Eos % (Auto) 0.9 (0.0-4.0) % Baso % (Auto) 0.4 (0.0-2.0) % Neut # (Auto) 4.2 (1.8-7.0) K/uL Lymph # (Auto) 0.4 L (1.0-4.3) K/uL Mcmullen # (Auto) 0.2 (0.0-0.8) K/uL Eos # (Auto) 0.0 (0.0-0.7) K/uL Baso # (Auto) 0.0 (0.0-0.2) K/uL Neutrophils % (Manual) 88 H (50-75) % Band Neutrophils % 1 (0-2) % Lymphocytes % (Manual) 9 L (20-40) % Monocytes % (Manual) 2 (0-10) % Differential Comment Toxic Granulation Platelet Estimate Decreased L (NORMAL) Large Platelets Polychromasia Hypochromasia (manual) Poikilocytosis (manual Slight Anisocytosis (manual) Slight Ovalocytes [place] Cells Slight Schistocytes Slight Puncture Site pCO2 (35-45) mm/Hg pO2 (80-100) mm/Hg HCO3 (21-28) mmol/L ABG pH (7.35-7.45) ABG Total CO2 (22-28) mmol/L ABG O2 Saturation (95-98) % ABG Base Excess (-2.0-3.0) mmol/L ABG Hemoglobin (11.7-17.4) g/dL ABG Carboxyhemoglobin (0.5-1.5) % POC ABG HHb (Measured) (0.0-5.0) % ABG Methemoglobin (0.0-3.0) % Adrián Test ABG Potassium (3.6-5.2) mmol/L A-a O2 Difference mm/Hg Respiratory Index Hgb O2 Saturation (95.0-98.0) % Glucose (75-110) mg/dl Lactate (0.7-2.1) mmol/L Vent Mode Mechanical Rate FiO2 % Tidal Volume PEEP Sodium (132-148) mmol/L Potassium (3.6-5.2) mmol/L Chloride (98-107) mmol/L Carbon Dioxide (22-30) mmol/L Anion Gap (10-20) BUN (9-20) mg/dL Creatinine (0.8-1.5) mg/dL Est GFR ( Amer) Est GFR (Non-Af Amer) POC Glucose (mg/dL) 125 H 336 H (65-110) mg/dL Random Glucose (75-110) mg/dL Calcium (8.6-10.4) mg/dl Phosphorus (2.5-4.5) mg/dL Magnesium (1.6-2.3) mg/dL Total Bilirubin (0.2-1.3) mg/dL AST (17-59) U/L ALT (21-72) U/L Alkaline Phosphatase (38-126) U/L Total Protein (6.3-8.3) g/dL Albumin (3.5-5.0) g/dL Globulin (2.2-3.9) gm/dL Albumin/Globulin Ratio (1.0-2.1) Lipase (23-300) U/L Arterial Blood Potassium (3.6-5.2) mmol/L Blood Type Antibody Screen 07/22/18 07/22/1819 Range/Units 11:39 10:31 09:51 WBC (4.8-10.8) K/uL RBC (4.40-5.90) Mil/uL Hgb (12.0-18.0) g/dL Hct (35.0-51.0) % MCV (80.0-94.0) fL MCH (27.0-31.0) pg MCHC (33.0-37.0) g/dL RDW (11.5-14.5) % Plt Count (130-400) K/uL MPV (7.2-11.7) fL Neut % (Auto) (50.0-75.0) % Lymph % (Auto) (20.0-40.0) % Mcmullen % (Auto) (0.0-10.0) % Eos % (Auto) (0.0-4.0) % Baso % (Auto) (0.0-2.0) % Neut # (Auto) (1.8-7.0) K/uL Lymph # (Auto) (1.0-4.3) K/uL Mcmullen # (Auto) (0.0-0.8) K/uL Eos # (Auto) (0.0-0.7) K/uL Baso # (Auto) (0.0-0.2) K/uL Neutrophils % (Manual) (50-75) % Band Neutrophils % (0-2) % Lymphocytes % (Manual) (20-40) % Monocytes % (Manual) (0-10) % Differential Comment Toxic Granulation Platelet Estimate (NORMAL) Large Platelets Polychromasia Hypochromasia (manual) Poikilocytosis (manual Anisocytosis (manual) Ovalocytes [place] Cells Schistocytes Puncture Site Rba pCO2 45 (35-45) mm/Hg pO2 476 H (80-100) mm/Hg HCO3 23.2 (21-28) mmol/L ABG pH 7.33 L (7.35-7.45) ABG Total CO2 25.1 (22-28) mmol/L ABG O2 Saturation 95.8 (95-98) % ABG Base Excess -2.2 L (-2.0-3.0) mmol/L ABG Hemoglobin 8.5 L (11.7-17.4) g/dL ABG Carboxyhemoglobin 0 L (0.5-1.5) % POC ABG HHb (Measured) 4.1 (0.0-5.0) % ABG Methemoglobin 3.2 H (0.0-3.0) % Adrián Test Na ABG Potassium (3.6-5.2) mmol/L A-a O2 Difference 181.0 mm/Hg Respiratory Index 0.4 Hgb O2 Saturation 92.7 L (95.0-98.0) % Glucose (75-110) mg/dl Lactate (0.7-2.1) mmol/L Vent Mode Prvc Mechanical Rate 12 FiO2 100.0 % Tidal Volume 500 PEEP 5 Sodium (132-148) mmol/L Potassium (3.6-5.2) mmol/L Chloride (98-107) mmol/L Carbon Dioxide (22-30) mmol/L Anion Gap (10-20) BUN (9-20) mg/dL Creatinine (0.8-1.5) mg/dL Est GFR ( Amer) Est GFR (Non-Af Amer) POC Glucose (mg/dL) (65-110) mg/dL Random Glucose (75-110) mg/dL Calcium (8.6-10.4) mg/dl Phosphorus (2.5-4.5) mg/dL Magnesium 2.5 H (1.6-2.3) mg/dL Total Bilirubin (0.2-1.3) mg/dL AST (17-59) U/L ALT (21-72) U/L Alkaline Phosphatase (38-126) U/L Total Protein (6.3-8.3) g/dL Albumin (3.5-5.0) g/dL Globulin (2.2-3.9) gm/dL Albumin/Globulin Ratio (1.0-2.1) Lipase 157 (23-300) U/L Arterial Blood Potassium (3.6-5.2) mmol/L Blood Type O POSITIVE Antibody Screen Negative 07/22/18 Range/Units 09:51 WBC 4.0 L (4.8-10.8) K/uL RBC 2.72 L (4.40-5.90) Mil/uL Hgb 7.9 L D (12.0-18.0) g/dL Hct 24.9 L (35.0-51.0) % MCV 91.7 D (80.0-94.0) fL MCH 29.1 (27.0-31.0) pg MCHC 31.7 L (33.0-37.0) g/dL RDW 19.5 H (11.5-14.5) % Plt Count 70 L (130-400) K/uL MPV 10.3 (7.2-11.7) fL Neut % (Auto) 71.4 (50.0-75.0) % Lymph % (Auto) 17.1 L (20.0-40.0) % Mcmullen % (Auto) 10.1 H (0.0-10.0) % Eos % (Auto) 1.0 (0.0-4.0) % Baso % (Auto) 0.4 (0.0-2.0) % Neut # (Auto) 2.9 (1.8-7.0) K/uL Lymph # (Auto) 0.7 L (1.0-4.3) K/uL Mcmullen # (Auto) 0.4 (0.0-0.8) K/uL Eos # (Auto) 0.0 (0.0-0.7) K/uL Baso # (Auto) 0.0 (0.0-0.2) K/uL Neutrophils % (Manual) (50-75) % Band Neutrophils % (0-2) % Lymphocytes % (Manual) (20-40) % Monocytes % (Manual) (0-10) % Differential Comment Toxic Granulation Platelet Estimate (NORMAL) Large Platelets Polychromasia Hypochromasia (manual) Poikilocytosis (manual Anisocytosis (manual) Ovalocytes [place] Cells Schistocytes Puncture Site pCO2 (35-45) mm/Hg pO2 (80-100) mm/Hg HCO3 (21-28) mmol/L ABG pH (7.35-7.45) ABG Total CO2 (22-28) mmol/L ABG O2 Saturation (95-98) % ABG Base Excess (-2.0-3.0) mmol/L ABG Hemoglobin (11.7-17.4) g/dL ABG Carboxyhemoglobin (0.5-1.5) % POC ABG HHb (Measured) (0.0-5.0) % ABG Methemoglobin (0.0-3.0) % Adrián Test ABG Potassium (3.6-5.2) mmol/L A-a O2 Difference mm/Hg Respiratory Index Hgb O2 Saturation (95.0-98.0) % Glucose (75-110) mg/dl Lactate (0.7-2.1) mmol/L Vent Mode Mechanical Rate FiO2 % Tidal Volume PEEP Sodium (132-148) mmol/L Potassium (3.6-5.2) mmol/L Chloride (98-107) mmol/L Carbon Dioxide (22-30) mmol/L Anion Gap (10-20) BUN (9-20) mg/dL Creatinine (0.8-1.5) mg/dL Est GFR ( Amer) Est GFR (Non-Af Amer) POC Glucose (mg/dL) (65-110) mg/dL Random Glucose (75-110) mg/dL Calcium (8.6-10.4) mg/dl Phosphorus (2.5-4.5) mg/dL Magnesium (1.6-2.3) mg/dL Total Bilirubin (0.2-1.3) mg/dL AST (17-59) U/L ALT (21-72) U/L Alkaline Phosphatase (38-126) U/L Total Protein (6.3-8.3) g/dL Albumin (3.5-5.0) g/dL Globulin (2.2-3.9) gm/dL Albumin/Globulin Ratio (1.0-2.1) Lipase (23-300) U/L Arterial Blood Potassium (3.6-5.2) mmol/L Blood Type Antibody Screen Laboratory Results - last 24 hr 07/22/18 07/22/18 07/22/18 09:51 09:51 10:31 WBC 4.0 L RBC 2.72 L Hgb 7.9 L D Hct 24.9 L MCV 91.7 D MCH 29.1 MCHC 31.7 L RDW 19.5 H Plt Count 70 L MPV 10.3 Neut % (Auto) 71.4 Lymph % (Auto) 17.1 L Mcmullen % (Auto) 10.1 H Eos % (Auto) 1.0 Baso % (Auto) 0.4 Neut # (Auto) 2.9 Lymph # (Auto) 0.7 L Mcmullen # (Auto) 0.4 Eos # (Auto) 0.0 Baso # (Auto) 0.0 Neutrophils % (Manual) Band Neutrophils % Lymphocytes % (Manual) Monocytes % (Manual) Differential Comment Toxic Granulation Platelet Estimate Large Platelets Polychromasia Hypochromasia (manual) Poikilocytosis (manual Anisocytosis (manual) Ovalocytes [place] Cells Schistocytes Puncture Site pCO2 pO2 HCO3 ABG pH ABG Total CO2 ABG O2 Saturation ABG Base Excess ABG Hemoglobin ABG Carboxyhemoglobin POC ABG HHb (Measured) ABG Methemoglobin Adrián Test ABG Potassium A-a O2 Difference Respiratory Index Hgb O2 Saturation Glucose Lactate Vent Mode Mechanical Rate FiO2 Tidal Volume PEEP Sodium Potassium Chloride Carbon Dioxide Anion Gap BUN Creatinine Est GFR ( Amer) Est GFR (Non-Af Amer) POC Glucose (mg/dL) Random Glucose Calcium Phosphorus Magnesium 2.5 H Total Bilirubin AST ALT Alkaline Phosphatase Total Protein Albumin Globulin Albumin/Globulin Ratio Lipase 157 Arterial Blood Potassium Blood Type O POSITIVE Antibody Screen Negative 07/22/18 07/22/18 07/22/18 11:39 12:10 17:37 WBC RBC Hgb Hct MCV MCH MCHC RDW Plt Count MPV Neut % (Auto) Lymph % (Auto) Mcmullen % (Auto) Eos % (Auto) Baso % (Auto) Neut # (Auto) Lymph # (Auto) Mcmullen # (Auto) Eos # (Auto) Baso # (Auto) Neutrophils % (Manual) Band Neutrophils % Lymphocytes % (Manual) Monocytes % (Manual) Differential Comment Toxic Granulation Platelet Estimate Large Platelets Polychromasia Hypochromasia (manual) Poikilocytosis (manual Anisocytosis (manual) Ovalocytes [place] Cells Schistocytes Puncture Site Rba pCO2 45 pO2 476 H HCO3 23.2 ABG pH 7.33 L ABG Total CO2 25.1 ABG O2 Saturation 95.8 ABG Base Excess -2.2 L ABG Hemoglobin 8.5 L ABG Carboxyhemoglobin 0 L POC ABG HHb (Measured) 4.1 ABG Methemoglobin 3.2 H Adrián Test Na ABG Potassium A-a O2 Difference 181.0 Respiratory Index 0.4 Hgb O2 Saturation 92.7 L Glucose Lactate Vent Mode Prvc Mechanical Rate 12 FiO2 100.0 Tidal Volume 500 PEEP 5 Sodium Potassium Chloride Carbon Dioxide Anion Gap BUN Creatinine Est GFR ( Amer) Est GFR (Non-Af Amer) POC Glucose (mg/dL) 336 H 125 H Random Glucose Calcium Phosphorus Magnesium Total Bilirubin AST ALT Alkaline Phosphatase Total Protein Albumin Globulin Albumin/Globulin Ratio Lipase Arterial Blood Potassium Blood Type Antibody Screen 07/22/18 07/22/18 07/22/18 18:00 18:00 23:42 WBC 4.9 RBC 3.08 L Hgb 8.8 L Hct 27.2 L MCV 88.4 D MCH 28.5 MCHC 32.2 L RDW 19.5 H Plt Count 80 L MPV 10.0 Neut % (Auto) 86.7 H Lymph % (Auto) 8.3 L Mcmullen % (Auto) 3.7 Eos % (Auto) 0.9 Baso % (Auto) 0.4 Neut # (Auto) 4.2 Lymph # (Auto) 0.4 L Mcmullen # (Auto) 0.2 Eos # (Auto) 0.0 Baso # (Auto) 0.0 Neutrophils % (Manual) 88 H Band Neutrophils % 1 Lymphocytes % (Manual) 9 L Monocytes % (Manual) 2 Differential Comment Toxic Granulation Platelet Estimate Decreased L Large Platelets Polychromasia Hypochromasia (manual) Poikilocytosis (manual Slight Anisocytosis (manual) Slight Ovalocytes [place] Cells Slight Schistocytes Slight Puncture Site pCO2 pO2 HCO3 ABG pH ABG Total CO2 ABG O2 Saturation ABG Base Excess ABG Hemoglobin ABG Carboxyhemoglobin POC ABG HHb (Measured) ABG Methemoglobin Adrián Test ABG Potassium A-a O2 Difference Respiratory Index Hgb O2 Saturation Glucose Lactate Vent Mode Mechanical Rate FiO2 Tidal Volume PEEP Sodium 139 Potassium 3.5 L Chloride 97 L Carbon Dioxide 28 Anion Gap 18 BUN 38 H Creatinine 4.1 H Est GFR ( Amer) 18 Est GFR (Non-Af Amer) 15 POC Glucose (mg/dL) 72 Random Glucose 131 H D Calcium 8.9 Phosphorus 2.8 Magnesium 2.0 Total Bilirubin 1.0 AST 29 ALT 25 Alkaline Phosphatase 288 H D Total Protein 7.5 Albumin 4.2 Globulin 3.2 Albumin/Globulin Ratio 1.3 Lipase Arterial Blood Potassium Blood Type Antibody Screen 07/23/18 07/23/18 07/23/18 05:10 06:21 06:27 WBC RBC Hgb Hct MCV MCH MCHC RDW Plt Count MPV Neut % (Auto) Lymph % (Auto) [place] % (Auto) Eos % (Auto) Baso % (Auto) Neut # (Auto) Lymph # (Auto) Mcmullen # (Auto) Eos # (Auto) Baso # (Auto) Neutrophils % (Manual) Band Neutrophils % Lymphocytes % (Manual) Monocytes % (Manual) Differential Comment Toxic Granulation Platelet Estimate Large Platelets Polychromasia Hypochromasia (manual) Poikilocytosis (manual Anisocytosis (manual) Ovalocytes [place] Cells Schistocytes Puncture Site Lb pCO2 42 pO2 163 H HCO3 25.2 ABG pH 7.39 ABG Total CO2 26.7 ABG O2 Saturation 95.1 ABG Base Excess 0.3 ABG Hemoglobin ABG Carboxyhemoglobin POC ABG HHb (Measured) ABG Methemoglobin Adrián Test Na ABG Potassium 3.7 A-a O2 Difference 70.0 Respiratory Index 0.4 Hgb O2 Saturation Glucose 77 Lactate 0.7 Vent Mode Prvc Mechanical Rate 12 FiO2 40.0 Tidal Volume 500 PEEP 5 Sodium 139.0 139 Potassium 4.1 Chloride 106.0 101 Carbon Dioxide 24 Anion Gap 18 BUN 49 H Creatinine 6.7 H Est GFR ( Amer) 10 Est GFR (Non-Af Amer) 8 POC Glucose (mg/dL) 79 Random Glucose 77 D Calcium 8.1 L Phosphorus 4.9 H Magnesium 1.9 Total Bilirubin 0.9 AST 25 ALT 21 Alkaline Phosphatase 209 H D Total Protein 6.5 Albumin 3.6 Globulin 2.9 Albumin/Globulin Ratio 1.3 Lipase Arterial Blood Potassium 3.7 Blood Type Antibody Screen 07/23/18 06:28 WBC 5.3 RBC 2.74 L Hgb 8.1 L Hct 25.0 L MCV 91.2 D MCH 29.6 MCHC 32.4 L RDW 19.6 H Plt Count 67 L MPV 10.2 Neut % (Auto) 79.3 H Lymph % (Auto) 9.4 L Mcmullen % (Auto) 9.9 Eos % (Auto) 0.7 Baso % (Auto) 0.7 Neut # (Auto) 4.2 Lymph # (Auto) 0.5 L Mcmullen # (Auto) 0.5 Eos # (Auto) 0.0 Baso # (Auto) 0.0 Neutrophils % (Manual) 85 H Band Neutrophils % 2 Lymphocytes % (Manual) 9 L Monocytes % (Manual) 4 Differential Comment Toxic Granulation Present Platelet Estimate Decreased L Large Platelets Present Polychromasia Slight Hypochromasia (manual) Slight Poikilocytosis (manual Slight Anisocytosis (manual) Moderate Ovalocytes Slight [place] Cells Slight Schistocytes Slight Puncture Site pCO2 pO2 HCO3 ABG pH ABG Total CO2 ABG O2 Saturation ABG Base Excess ABG Hemoglobin ABG Carboxyhemoglobin POC ABG HHb (Measured) ABG Methemoglobin Adrián Test ABG Potassium A-a O2 Difference Respiratory Index Hgb O2 Saturation Glucose Lactate Vent Mode Mechanical Rate FiO2 Tidal Volume PEEP Sodium Potassium Chloride Carbon Dioxide Anion Gap BUN Creatinine Est GFR ( Amer) Est GFR (Non-Af Amer) POC Glucose (mg/dL) Random Glucose Calcium Phosphorus Magnesium Total Bilirubin AST ALT Alkaline Phosphatase Total Protein Albumin Globulin Albumin/Globulin Ratio Lipase Arterial Blood Potassium Blood Type Antibody Screen Radiology Impressions: Radiology Impressions Chest X-Ray 07/22/18 09:39 IMPRESSION: Limited portable examination. Endotracheal tube terminates 2.5 cm proximal to the mary. Moderate pulmonary venous congestion EKG/Cardiology Studies: Cardiology / EKG Studies 07/22/18 10:17 ELECTROCARDIOGRAM Stat Comment: Mode Of Transportation: BED Reason For Exam: chest pain Fingerstick Blood Sugar Results: 79 Review of Systems - Review of Systems Systems not reviewed;Unavailable: Intubated Assessment/Plan - Assessment and Plan (Free Text) Assessment: 63 y/o male with PMhx CHF, ESRD on HD MWF, HTN, and DM admitted to ICU for bradycardic in the ED. Patient currently intubated, tolerating CPAP -Bradycardia resolved: currently sinus, BP stable, MAP >65 not on pressors -Hypoxic respiratory failure: continue CPAP, titrate down FiO2, possible extubate post HD -Chronic systolic heart failure/CAD: continue acei, negative balance with HD, continue antiplatelets, decrease preload and afterload -DM: continue to monitor blood sugar, -ESRD on HD:continue HD as per renal -ng tube feeds -contineu dvt (SCD) low platelets/pud ppx (protonix) -cc time 45 minutes - Date & Time Date: 07/23/18 Time: 11:19
--- NOTE | 2018-07-23 12:43 | RAD ---
Date of service: 07/23/2018 HISTORY: eval interval change COMPARISON: 07/22/2018 TECHNIQUE: 1 view obtained. FINDINGS: LUNGS: No active pulmonary disease. PLEURA: With a what is CARDIOVASCULAR: No aortic atherosclerotic calcification present. Normal cardiac size. No congestive change. Mitral valve replacement. ET tube tip situated approximately 12 mm above the tracheal mary and should be repositioned more proximally. Nasogastric tube extends to the left upper quadrant of the abdomen. OSSEOUS STRUCTURES: No significant abnormalities. VISUALIZED UPPER ABDOMEN: Normal. OTHER FINDINGS: None. IMPRESSION: ET tube tip 12 mm above tracheal mary and should be repositioned more proximally. Otherwise no significant interval change.
--- NOTE | 2018-07-23 13:02 | CP.PCM.PN ---
Subjective - Date & Time of Evaluation Date of Evaluation: 07/23/18 Time of Evaluation: 13:01 - Subjective Subjective: Nephrology Consultation Note: Assessment: critical Hyperkalemia with bradycardia, missed HD, uremic, hyperglycemia, hypothermia acute hypercapnic respi failure Diabetic chronic Kidney Disease (E11.22) Hypertensive Chronic Kidney Disease (I12.0) End stage renal disease (N18.6) dependence on hemodialysis (Z99.2) (MWF) via AVF Anemia (D64.9), Hyperphosphatemia (E83.39), Secondary Hyperparathyroidism (E21.1), HTN (I12.0) chronic thrombocytopenia sys CHF Plan: HD MWF but extra HD today Continue with Nephrovite 1 tab/day. On BELEM - transfuse per primary team Continue with phos binders home dose bp stable Further work up/management as per primary team Dose meds/antibiotics (if needed) for ESRD status. Avoid fleets enema/magnesium based laxatives. S: seen and examiend intubated Physical Examination: General Appearance: Comfortable, in no acute respiratory distress ill appearing, sedated orally intubated Vitals reviewed and noted as below Head; Atraumatic, normocephalic ENT: no ulcers no thrush. Tongue is midline. Oropharynx: no rash or ulcers. + ETtube EYES: Pupils are equal, round and sluggish to light accommodation. Eye muscles and extraocular movement intact. Sclera is anicteric. Neck; supple no lymphadenopathy, no thyromegaly or bruit Lungs: mechanical bs Heart: Normal rate. s1s2 normal. No rub or gallop. Extremities: no edema. No varicose veins Neurological: Patient is sedated Skin: Warm and dry. Normal turgor. No rash. Palpitation: Normal elasticity for age Abdomen: Abdomen is soft. Bowel sounds +. There is mild LLQ abdominal tenderness, no guarding/rigidity or organomegaly Psych: nml affect MSK: no joint tenderness or swelling. Digits and nails normal, no deformity : kidney or bladder not palpable Access: AVF with thrill and bruit Labs/imaging reviewed. Past medical history, past surgical history, family history, social history, allergy reviewed and noted as below Family Hx: no hx of CKD. Non contributory cxr: moderate pulm congestion Objective - Vital Signs/Intake and Output Vital Signs (last 24 hours): Temp Pulse Resp BP Pulse Ox 97.8 F 65 15 137/61 98 07/23/18 08:00 07/23/18 09:00 07/23/18 09:00 07/23/18 09:00 07/23/18 09:00 Intake and Output: 07/23/18 07/23/18 06:59 18:59 Intake Total 506.0 98.8 Output Total 0 0 Balance 506.0 98.8 - Medications Medications: Current Medications Albuterol/Ipratropium (Duoneb 3 Mg/0.5 Mg (3 Ml) Ud) 3 ml INH RQ6 [facility] Amlodipine Besylate (Norvasc) 10 mg PO DAILY [facility] Last Admin: 07/23/18 10:58 Dose: 10 mg Aspirin (Ecotrin) 81 mg PO DAILY [facility] Brimonidine Tartrate (Alphagan 0.2% Opht) 0.05 ml OU Q12 [facility] Calcitriol (Rocaltrol) 0.25 mcg PO DAILY [facility] Last Admin: 07/23/18 10:58 Dose: 0.25 mcg Dextrose (Dextrose 50% Inj) 0 ml IV STAT PRN; Protocol PRN Reason: Hypoglycemia Protocol Dextrose (Glutose 15) 0 gm PO ONCE PRN; Protocol PRN Reason: Hypoglycemia Protocol Dorzolamide HCl (Trusopt) 1 ml OU DAILY [facility] Last Admin: 07/23/18 10:58 Dose: 1 drop Epoetin Carrington (Procrit) 20,000 unit IV MWF [facility] Last Admin: 07/22/18 17:06 Dose: 20,000 unit Glucagon (Glucagen Diagnostic Kit) 0 mg IM STAT PRN; Protocol PRN Reason: Hypoglycemia Protocol Hydralazine HCl (Apresoline) 50 mg PO TID [facility] Last Admin: 07/23/18 10:58 Dose: 50 mg Propofol (Diprivan) 1,000 mg in 100 mls @ 1.823 mls/hr IV .Q24H PRN; Protocol PRN Reason: TITRATE PER MD ORDER Last Admin: 07/23/18 07:15 Dose: 14.8 mcg/kg/min, 5.4 mls/hr Dextrose (Dextrose 5% In Water 1000 Ml) 1,000 mls @ 0 mls/hr IV .Q0M PRN; Protocol PRN Reason: Hypoglycemia Protocol Piperacillin Sod/Tazobactam Sod (Zosyn 2.25 Gm Iv Premix) 2.25 gm in 50 mls @ 100 mls/hr IVPB Q6H [facility]; Protocol Last Admin: 07/23/18 11:03 Dose: 100 mls/hr Insulin Human Regular (Novolin R) 0 unit SC Q6 [facility]; Protocol Last Admin: 07/23/18 06:00 Dose: Not Given Lisinopril (Zestril) 20 mg PO HS [facility] Last Admin: 07/22/18 22:00 Dose: 20 mg Pantoprazole Sodium (Protonix Inj) 40 mg IVP Q12H [facility] Last Admin: 07/23/18 11:03 Dose: 40 mg Rosuvastatin Calcium (Crestor) 80 mg PO HS [facility] Last Admin: 07/22/18 22:14 Dose: 80 mg Saccharomyces Boulardii (Florastor) 250 mg PO BID [facility] Last Admin: 07/23/18 10:58 Dose: 250 mg Tamsulosin HCl (Flomax) 0.4 mg PO DAILY [facility] Last Admin: 07/23/18 10:58 Dose: 0.4 mg Timolol Maleate (Timoptic 0.5% [facility]) 1 drop OU DAILY [facility] Last Admin: 07/23/18 10:59 Dose: 1 drop Vitamin B Complex/Vit C/Folic Acid (Nephro-Lupis) 1 tab PO DAILY [facility] Last Admin: 07/23/18 10:58 Dose: 1 tab - Labs Labs: 07/23/18 06:28 07/23/18 06:27 PT 12.8 SECONDS (9.7-12.2) H 07/22/18 09:51 INR 1.2 07/22/18 09:51 APTT 42 SECONDS (21-34) H 07/22/18 09:51
[2018-07-23] MEDS: Albuterol-Ipratrop 3 mg / 0.5 (3 ml) UD INH SCH ×2 (14:00→20:35)
--- NOTE | 2018-07-23 17:15 | HP ---
HISTORY OF PRESENT ILLNESS: The patient is a 63-year-old male admitted with a chief complaint of generalized weakness, fatigue, lethargy, severe bradycardia, with history of end-stage renal disease, on hemodialysis, bradycardia in the past. The patient was intubated and . PHYSICAL EXAMINATION: GENERAL: The patient is lethargic. VITAL SIGNS: Blood pressure 110/70, pulse is 76. HEENT: Normal limits. NECK: Supple. CHEST: Symmetrical. HEART: Regular. ABDOMEN: Soft. EXTREMITIES: No edema. ASSESSMENT AND PLAN: Altered mental status, cardiac arrhythmia, and end-stage renal disease. Patient get bedrest, supportive care. Cardiology and Nephrology consult. Tere Hall MD
[2018-07-24] MEDS: Piperacill/Tazo 2.25gm in Dex 2.25 GM/50 ML BAG IVPB SCH ×4 (06:00→17:11)
[2018-07-24] MEDS: (Novolin R) Insulin Human Regular 100 units/ml vial SC SCH ×6 (06:00→21:40)
[2018-07-24 06:18] LABS: ARTERIAL BLOOD GAS HCO3 28.8 mmol/L (21-28); ARTERIAL BLOOD GAS HEMOGLOBIN 8.8 g/dL (11.7-17.4); ARTERIAL BLOOD GAS O2 SAT 94.7 % (95-98); ARTERIAL BLOOD GAS PCO2 45 mm/Hg (35-45); ARTERIAL BLOOD GAS PH 7.43 (7.35-7.45); ARTERIAL BLOOD GAS PO2 141 mm/Hg (80-100); ARTERIAL BLOOD GAS TCO2 31.3 mmol/L (22-28)
[2018-07-24 06:19] LABS: BASO % 0.5 % (0.0-2.0); EOS # 0.1 K/uL (0.0-0.7); EOS % 1.1 % (0.0-4.0); HEMOGLOBIN 8.8 g/dL (12.0-18.0); LYMPH # 0.6 K/uL (1.0-4.3); LYMPH % 9.4 % (20.0-40.0); MEAN CELL VOLUME 89.8 fL (80.0-94.0); MEAN CORPUSCULAR HEMOGLOBIN 29.2 pg (27.0-31.0); MEAN CORPUSCULAR HGB CONC 32.5 g/dL (33.0-37.0); MONO # 0.6 K/uL (0.0-0.8); MONO % 9.5 % (0.0-10.0); NEUT % 79.5 % (50.0-75.0); NRBC % 0.5 % (0.0-2.0); PLATELET COUNT 86 K/uL (130-400); RBC 3.01 Mil/uL (4.40-5.90); RED CELL DISTRIBUTION WIDTH 20.5 % (11.5-14.5); WHITE BLOOD COUNT 6.3 K/uL (4.8-10.8)
[2018-07-24 06:40] LABS: ALB/GLOB RATIO 1.8 (1.0-2.1); ALBUMIN 4.2 g/dL (3.5-5.0)
[2018-07-24] MEDS: Albuterol-Ipratrop 3 mg / 0.5 (3 ml) UD INH SCH ×3 (08:30→20:44)
[2018-07-24 08:56] LABS: EOSINOPHIL 3 % (0-4); LYMPHOCYTE 15 % (20-40); MONOCYTE 7 % (0-10); NEUTROPHIL 75 % (50-75); PLATELET ESTIMATE DECREASED (NORMAL); TOTAL CELLS COUNTED 100
[2018-07-24 08:57] LABS: HYPOCHROMIC SLIGHT; POLYCHROMIC SLIGHT
[2018-07-24 08:59] LABS: ANISOCYTOSIS MARKED
[2018-07-24 09:06] LABS: TOXIC GRANULATION PRESENT
[2018-07-24] MEDS: Saccharomyces Boulardi 250 mg Cap PO SCH ×2 (10:47→17:10)
[2018-07-24] MEDS: Brimonidine 0.2% Opth Sol (5ml) OU SCH ×2 (10:47→21:50)
[2018-07-24] MEDS: Multivitamin Vitamin B Complex (Nephro-Vite) Tab PO SCH (10:47)
[2018-07-24] MEDS: Dorzolamide 2% Opht Sol 10ml OU SCH (10:54)
--- NOTE | 2018-07-24 11:54 | CP.PCM.PN ---
Subjective - Date & Time of Evaluation Date of Evaluation: 07/24/18 Time of Evaluation: 08:30 - Subjective Subjective: Patient awake, alert breathing well Objective - Vital Signs/Intake and Output Vital Signs (last 24 hours): Temp Pulse Resp BP Pulse Ox 98.1 F 80 19 135/60 97 07/24/18 03:00 07/24/18 09:56 07/24/18 07:45 07/24/18 07:45 07/24/18 09:56 Intake and Output: 07/24/18 07/24/18 06:59 18:59 Intake Total 170 0 Balance 170 0 - Medications Medications: Current Medications Albuterol/Ipratropium (Duoneb 3 Mg/0.5 Mg (3 Ml) Ud) 3 ml INH RQ6 [facility] Last Admin: 07/24/18 08:30 Dose: 3 ml Amlodipine Besylate (Norvasc) 10 mg PO DAILY [facility] Last Admin: 07/24/18 10:48 Dose: 10 mg Aspirin (Ecotrin) 81 mg PO DAILY [facility] Last Admin: 07/24/18 10:48 Dose: 81 mg Brimonidine Tartrate (Alphagan 0.2% Opht) 0.05 ml OU Q12 [facility] Last Admin: 07/24/18 10:47 Dose: 1 drop Calcitriol (Rocaltrol) 0.25 mcg PO DAILY [facility] Last Admin: 07/24/18 10:48 Dose: 0.25 mcg Dextrose (Dextrose 50% Inj) 0 ml IV STAT PRN; Protocol PRN Reason: Hypoglycemia Protocol Dextrose (Glutose 15) 0 gm PO ONCE PRN; Protocol PRN Reason: Hypoglycemia Protocol Dorzolamide HCl (Trusopt) 1 ml OU DAILY [facility] Last Admin: 07/24/18 10:54 Dose: 1 drop Epoetin Carrington (Procrit) 20,000 unit IV MWF [facility] Last Admin: 07/22/18 17:06 Dose: 20,000 unit Glucagon (Glucagen Diagnostic Kit) 0 mg IM STAT PRN; Protocol PRN Reason: Hypoglycemia Protocol Hydralazine HCl (Apresoline) 50 mg PO TID [facility] Last Admin: 07/24/18 10:47 Dose: 50 mg Propofol (Diprivan) 1,000 mg in 100 mls @ 1.823 mls/hr IV .Q24H PRN; Protocol PRN Reason: TITRATE PER MD ORDER Last Titration: 07/23/18 18:15 Dose: 0 mcg/kg/min, 0 mls/hr Dextrose (Dextrose 5% In Water 1000 Ml) 1,000 mls @ 0 mls/hr IV .Q0M PRN; Protocol PRN Reason: Hypoglycemia Protocol Piperacillin Sod/Tazobactam Sod (Zosyn 2.25 Gm Iv Premix) 2.25 gm in 50 mls @ 100 mls/hr IVPB Q6H [facility]; Protocol Last Admin: 07/24/18 10:59 Dose: 100 mls/hr Insulin Human Regular (Novolin R) 0 unit SC ACHS [facility]; Protocol Last Admin: 07/24/18 08:00 Dose: Not Given Lisinopril (Zestril) 20 mg PO HS [facility] Last Admin: 07/23/18 21:33 Dose: 20 mg Pantoprazole Sodium (Protonix Inj) 40 mg IVP Q12H [facility] Last Admin: 07/24/18 10:49 Dose: 40 mg Rosuvastatin Calcium (Crestor) 80 mg PO HS [facility] Last Admin: 07/23/18 21:32 Dose: 80 mg Saccharomyces Boulardii (Florastor) 250 mg PO BID [facility] Last Admin: 07/24/18 10:47 Dose: 250 mg Tamsulosin HCl (Flomax) 0.4 mg PO DAILY [facility] Last Admin: 07/24/18 10:47 Dose: 0.4 mg Timolol Maleate (Timoptic 0.5% [facility]) 1 drop OU DAILY [facility] Last Admin: 07/24/18 10:54 Dose: 1 drop Vitamin B Complex/Vit C/Folic Acid (Nephro-Lupis) 1 tab PO DAILY [facility] Last Admin: 07/24/18 10:47 Dose: 1 tab - Labs Labs: 07/24/18 06:13 07/24/18 06:11 PT 12.8 SECONDS (9.7-12.2) H 07/22/18 09:51 INR 1.2 07/22/18 09:51 APTT 42 SECONDS (21-34) H 07/22/18 09:51 - Constitutional Appears: Well - Head Exam Head Exam: ATRAUMATIC, NORMAL INSPECTION, NORMOCEPHALIC - Eye Exam Eye Exam: EOMI - Cardiovascular Exam Cardiovascular Exam: REGULAR RHYTHM, +S1, +S2 - GI/Abdominal Exam GI & Abdominal Exam: Normal Bowel Sounds - Extremities Exam Extremities Exam: Normal Inspection - Neurological Exam Neurological Exam: Alert, Oriented x3 Assessment and Plan - Assessment and Plan (Free Text) Assessment: 63 y/o male with PMhx CHF, ESRD on HD MWF, HTN, and DM admitted to ICU for bradycardic in the ED. Patient currently intubated, tolerating CPAP -Bradycardia: resolved -Hypoxic respiratory failure: resolved -Chronic systolic heart failure/CAD: continue acei, negative balance with HD, continue antiplatelets, decrease preload and afterload -DM: continue to monitor blood sugar as per primary team -ESRD on HD:continue HD as per renal -oral diet -at risk of CAD: start antiplatelet + statin Patient remains hemodynamically stable
--- NOTE | 2018-07-24 12:30 | CP.PCM.PN ---
Subjective - Date & Time of Evaluation Date of Evaluation: 07/24/18 Time of Evaluation: 12:29 - Subjective Subjective: Nephrology Consultation Note: Assessment: Hyperkalemia with bradycardia, missed HD, uremic, hyperglycemia, hypothermia acute hypercapnic respi failure Diabetic chronic Kidney Disease (E11.22) Hypertensive Chronic Kidney Disease (I12.0) End stage renal disease (N18.6) dependence on hemodialysis (Z99.2) (MWF) via AVF Anemia (D64.9), Hyperphosphatemia (E83.39), Secondary Hyperparathyroidism (E21.1), HTN (I12.0) chronic thrombocytopenia sys CHF Plan: HD MWF Continue with Nephrovite 1 tab/day. On BELEM - transfuse per primary team Continue with phos binders home dose bp stable Further work up/management as per primary team Dose meds/antibiotics (if needed) for ESRD status. Avoid fleets enema/magnesium based laxatives. S: seen and examined extubated yesterday Physical Examination: General Appearance: Comfortable, NAD Vitals reviewed and noted as below Head; Atraumatic, normocephalic ENT: no ulcers no thrush. Tongue is midline. Oropharynx: no rash or ulcers.] EYES: Pupils are equal, round and sluggish to light accommodation. Eye muscles and extraocular movement intact. Sclera is anicteric. Neck; supple no lymphadenopathy, no thyromegaly or bruit Lungs: mechanical bs Heart: Normal rate. s1s2 normal. No rub or gallop. Extremities: no edema. No varicose veins Neurological: A+Ox3 no asterixis Skin: Warm and dry. Normal turgor. No rash. Palpitation: Normal elasticity for age Abdomen: Abdomen is soft. Bowel sounds +. Psych: nml affect MSK: no joint tenderness or swelling. Digits and nails normal, no deformity : kidney or bladder not palpable Access: AVF with thrill and bruit Labs/imaging reviewed. Past medical history, past surgical history, family history, social history, allergy reviewed and noted as below Family Hx: no hx of CKD. Non contributory cxr: moderate pulm congestion Objective - Vital Signs/Intake and Output Vital Signs (last 24 hours): Temp Pulse Resp BP Pulse Ox 98.1 F 80 19 135/60 97 07/24/18 03:00 07/24/18 09:56 07/24/18 07:45 07/24/18 07:45 07/24/18 09:56 Intake and Output: 07/24/18 07/24/18 06:59 18:59 Intake Total 170 0 Balance 170 0 - Medications Medications: Current Medications Albuterol/Ipratropium (Duoneb 3 Mg/0.5 Mg (3 Ml) Ud) 3 ml INH RQ6 [facility] Last Admin: 07/24/18 08:30 Dose: 3 ml Amlodipine Besylate (Norvasc) 10 mg PO DAILY [facility] Last Admin: 07/24/18 10:48 Dose: 10 mg Aspirin (Ecotrin) 81 mg PO DAILY [facility] Last Admin: 07/24/18 10:48 Dose: 81 mg Brimonidine Tartrate (Alphagan 0.2% Opht) 0.05 ml OU Q12 [facility] Last Admin: 07/24/18 10:47 Dose: 1 drop Calcitriol (Rocaltrol) 0.25 mcg PO DAILY [facility] Last Admin: 07/24/18 10:48 Dose: 0.25 mcg Dextrose (Dextrose 50% Inj) 0 ml IV STAT PRN; Protocol PRN Reason: Hypoglycemia Protocol Dextrose (Glutose 15) 0 gm PO ONCE PRN; Protocol PRN Reason: Hypoglycemia Protocol Dorzolamide HCl (Trusopt) 1 ml OU DAILY [facility] Last Admin: 07/24/18 10:54 Dose: 1 drop Epoetin Carrington (Procrit) 20,000 unit IV MWF [facility] Last Admin: 07/22/18 17:06 Dose: 20,000 unit Glucagon (Glucagen Diagnostic Kit) 0 mg IM STAT PRN; Protocol PRN Reason: Hypoglycemia Protocol Hydralazine HCl (Apresoline) 50 mg PO TID [facility] Last Admin: 07/24/18 10:47 Dose: 50 mg Propofol (Diprivan) 1,000 mg in 100 mls @ 1.823 mls/hr IV .Q24H PRN; Protocol PRN Reason: TITRATE PER MD ORDER Last Titration: 07/23/18 18:15 Dose: 0 mcg/kg/min, 0 mls/hr Dextrose (Dextrose 5% In Water 1000 Ml) 1,000 mls @ 0 mls/hr IV .Q0M PRN; Protocol PRN Reason: Hypoglycemia Protocol Piperacillin Sod/Tazobactam Sod (Zosyn 2.25 Gm Iv Premix) 2.25 gm in 50 mls @ 100 mls/hr IVPB Q6H [facility]; Protocol Last Admin: 07/24/18 10:59 Dose: 100 mls/hr Insulin Human Regular (Novolin R) 0 unit SC ACHS [facility]; Protocol Last Admin: 07/24/18 08:00 Dose: Not Given Lisinopril (Zestril) 20 mg PO HS [facility] Last Admin: 07/23/18 21:33 Dose: 20 mg Pantoprazole Sodium (Protonix Inj) 40 mg IVP Q12H [facility] Last Admin: 07/24/18 10:49 Dose: 40 mg Rosuvastatin Calcium (Crestor) 80 mg PO HS [facility] Last Admin: 07/23/18 21:32 Dose: 80 mg Saccharomyces Boulardii (Florastor) 250 mg PO BID [facility] Last Admin: 07/24/18 10:47 Dose: 250 mg Tamsulosin HCl (Flomax) 0.4 mg PO DAILY [facility] Last Admin: 07/24/18 10:47 Dose: 0.4 mg Timolol [facility]ate ([facility] 1 drop OU DAILY [facility] Last Admin: 07/24/18 10:54 Dose: 1 drop Vitamin B Complex/Vit C/Folic Acid (Nephro-Lupis) 1 tab PO DAILY [facility] Last Admin: 07/24/18 10:47 Dose: 1 tab - Labs Labs: 07/24/18 06:13 07/24/18 06:11 PT 12.8 SECONDS (9.7-12.2) H 07/22/18 09:51 INR 1.2 07/22/18 09:51 APTT 42 SECONDS (21-34) H 07/22/18 09:51
[2018-07-25] MEDS: Albuterol-Ipratrop 3 mg / 0.5 (3 ml) UD INH SCH ×3 (01:48→14:02)
[2018-07-25 06:14] LABS: BASO % 0.5 % (0.0-2.0); EOS # 0.1 K/uL (0.0-0.7); EOS % 1.7 % (0.0-4.0); HEMOGLOBIN 8.5 g/dL (12.0-18.0); LYMPH # 0.8 K/uL (1.0-4.3); LYMPH % 12.3 % (20.0-40.0); MEAN CELL VOLUME 91.3 fL (80.0-94.0); MEAN CORPUSCULAR HEMOGLOBIN 28.9 pg (27.0-31.0); MEAN CORPUSCULAR HGB CONC 31.6 g/dL (33.0-37.0); MONO # 0.7 K/uL (0.0-0.8); MONO % 11.7 % (0.0-10.0); NEUT # 4.5 K/uL (1.8-7.0); NEUT % 73.8 % (50.0-75.0); NRBC % 0.7 % (0.0-2.0); RBC 2.94 Mil/uL (4.40-5.90); RED CELL DISTRIBUTION WIDTH 20.3 % (11.5-14.5); WHITE BLOOD COUNT 6.1 K/uL (4.8-10.8)
[2018-07-25 06:28] LABS: ALB/GLOB RATIO 1.3 (1.0-2.1); ALBUMIN 3.9 g/dL (3.5-5.0); CALCIUM 8.5 mg/dl (8.6-10.4)
[2018-07-25] MEDS: Piperacill/Tazo 2.25gm in Dex 2.25 GM/50 ML BAG IVPB SCH ×4 (06:30→17:14)
[2018-07-25] MEDS: (Novolin R) Insulin Human Regular 100 units/ml vial SC SCH ×3 (07:53→16:54)
--- NOTE | 2018-07-25 08:58 | CP.PCM.PN ---
Subjective - Date & Time of Evaluation Date of Evaluation: 07/25/18 Time of Evaluation: 08:57 - Subjective Subjective: Medicine Progress Note - Dr Hall's service Patient seen and examined at bedside. Per nursing no acute events overnight. Patient was extubated yesterday and is doing well. Currently receiving dialysis. Patient wants to go home. Objective - Vital Signs/Intake and Output Vital Signs (last 24 hours): Temp Pulse Resp BP Pulse Ox 98.9 F 88 15 159/72 H 97 07/25/18 04:00 07/25/18 07:02 07/25/18 07:02 07/25/18 07:02 07/25/18 07:02 Intake and Output: 07/25/18 07/25/18 06:59 18:59 Intake Total 290 Output Total 0 Balance 290 - Medications Medications: Current Medications Albuterol/Ipratropium (Duoneb 3 Mg/0.5 Mg (3 Ml) Ud) 3 ml INH RQ6 [facility] Last Admin: 07/25/18 01:48 Dose: 3 ml Amlodipine Besylate (Norvasc) 10 mg PO DAILY [facility] Last Admin: 07/24/18 10:48 Dose: 10 mg Aspirin (Ecotrin) 81 mg PO DAILY [facility] Last Admin: 07/24/18 10:48 Dose: 81 mg Brimonidine Tartrate (Alphagan 0.2% Opht) 0.05 ml OU Q12 [facility] Last Admin: 07/24/18 21:50 Dose: 1 drop Calcitriol (Rocaltrol) 0.25 mcg PO DAILY [facility] Last Admin: 07/24/18 10:48 Dose: 0.25 mcg Dextrose (Dextrose 50% Inj) 0 ml IV STAT PRN; Protocol PRN Reason: Hypoglycemia Protocol Dextrose (Glutose 15) 0 gm PO ONCE PRN; Protocol PRN Reason: Hypoglycemia Protocol Dorzolamide HCl (Trusopt) 1 ml OU DAILY [facility] Last Admin: 07/24/18 10:54 Dose: 1 drop Epoetin Carrington (Procrit) 20,000 unit IV MWF [facility] Last Admin: 07/22/18 17:06 Dose: 20,000 unit Glucagon (Glucagen Diagnostic Kit) 0 mg IM STAT PRN; Protocol PRN Reason: Hypoglycemia Protocol Hydralazine HCl (Apresoline) 50 mg PO TID [facility] Last Admin: 07/24/18 17:10 Dose: 50 mg Dextrose (Dextrose 5% In Water 1000 Ml) 1,000 mls @ 0 mls/hr IV .Q0M PRN; Protocol PRN Reason: Hypoglycemia Protocol Piperacillin Sod/Tazobactam Sod (Zosyn 2.25 Gm Iv Premix) 2.25 gm in 50 mls @ 100 mls/hr IVPB Q6H [facility]; Protocol Last Admin: 07/25/18 06:30 Dose: 100 mls/hr Insulin Human Regular (Novolin R) 0 unit SC ACHS [facility]; Protocol Last Admin: 07/25/18 07:53 Dose: 6 units Lisinopril (Zestril) 20 mg PO HS [facility] Last Admin: 07/24/18 21:49 Dose: 20 mg Pantoprazole Sodium (Protonix Inj) 40 mg IVP Q12H [facility] Last Admin: 07/24/18 21:50 Dose: 40 mg Rosuvastatin Calcium (Crestor) 80 mg PO HS [facility] Last Admin: 07/24/18 21:46 Dose: 80 mg Saccharomyces Boulardii (Florastor) 250 mg PO BID [facility] Last Admin: 07/24/18 17:10 Dose: 250 mg Tamsulosin HCl (Flomax) 0.4 mg PO DAILY [facility] Last Admin: 07/24/18 10:47 Dose: 0.4 mg Timolol Maleate (Timoptic 0.5% [facility]) 1 drop OU DAILY [facility] Last Admin: 07/24/18 10:54 Dose: 1 drop Vitamin B Complex/Vit C/Folic Acid (Nephro-Lupis) 1 tab PO DAILY [facility] Last Admin: 07/24/18 10:47 Dose: 1 tab - Labs Labs: 07/25/18 06:07 07/25/18 06:05 PT 12.8 SECONDS (9.7-12.2) H 07/22/18 09:51 INR 1.2 07/22/18 09:51 APTT 42 SECONDS (21-34) H 07/22/18 09:51 - Constitutional Appears: Non-toxic, No Acute Distress - Head Exam Head Exam: ATRAUMATIC, NORMAL INSPECTION - Eye Exam Eye Exam: EOMI, Normal appearance - ENT Exam ENT Exam: Mucous Membranes Moist - Respiratory Exam Respiratory Exam: Clear to Ausculation Bilateral, NORMAL BREATHING PATTERN. absent: Rales, Rhonchi, Wheezes - Cardiovascular Exam Cardiovascular Exam: REGULAR RHYTHM, +S1, +S2 - GI/Abdominal Exam GI & Abdominal Exam: Soft. absent: Guarding, Rigid, Tenderness - Extremities Exam Extremities Exam: absent: Calf Tenderness - Neurological Exam Neurological Exam: Alert, Awake, Oriented x3 Assessment and Plan - Assessment and Plan (Free Text) Assessment: 63 y/o male with PMhx CHF, ESRD on HD MWF, HTN, and DM admitted to ICU for bradycardic in the ED. Patient extubated yesterday. Doing well. Bradycardia: Resolved Dr Sands on consult, help appreciated Hypoxic respiratory failure: Resolved Chronic systolic heart failure/CAD: Continue lisinopril, continue antiplatelets DM Type 2 Patient to continue Lantus 6 units HS Monitor accuchecks ACHS Hypertension Continue Norvasc, Lisinopril, Hydralazine ESRD on HD: Continue HD MWF Monitor electrolytes DISPO: PT recommending TCU for discharge. Patient declines and would like to go home. Will discharge patient home with instructions to follow up with PMD and nephrology within 1 week. Plan discussed with Dr Rafael Muñiz DO PGY-2
[2018-07-25] MEDS: Epoetin Alfa Dialysis 20000 UNIT/ML Inj IV SCH (09:40)
[2018-07-25] MEDS: Saccharomyces Boulardi 250 mg Cap PO SCH ×2 (10:39→18:02)
[2018-07-25] MEDS: Dorzolamide 2% Opht Sol 10ml OU SCH (10:41)
[2018-07-25] MEDS: Brimonidine 0.2% Opth Sol (5ml) OU SCH (10:42)
[2018-07-25] MEDS: Multivitamin Vitamin B Complex (Nephro-Vite) Tab PO SCH (10:48)
--- NOTE | 2018-07-25 14:07 | CP.PCM.PN ---
Subjective - Date & Time of Evaluation Date of Evaluation: 07/25/18 Time of Evaluation: 14:06 - Subjective Subjective: Nephrology Consultation Note: Assessment: stable Hyperkalemia with bradycardia, missed HD, uremic, hyperglycemia, hypothermia acute hypercapnic respi failure Diabetic chronic Kidney Disease (E11.22) Hypertensive Chronic Kidney Disease (I12.0) End stage renal disease (N18.6) dependence on hemodialysis (Z99.2) (MWF) via AVF Anemia (D64.9), Hyperphosphatemia (E83.39), Secondary Hyperparathyroidism (E21.1), HTN (I12.0) chronic thrombocytopenia sys CHF Plan: HD MWF as ordered Continue with Nephrovite 1 tab/day. On BELEM - transfuse per primary team Continue with phos binders home dose bp stable Further work up/management as per primary team Dose meds/antibiotics (if needed) for ESRD status. Avoid fleets enema/magnesium based laxatives. d/w team S: seen and examined extubated feels better. denies CP/SOB Physical Examination: seen on HD General Appearance: Comfortable, NAD Vitals reviewed and noted as below Head; Atraumatic, normocephalic ENT: no ulcers no thrush. Tongue is midline. Oropharynx: no rash or ulcers. EYES: Pupils are equal, round and sluggish to light accommodation. Eye muscles and extraocular movement intact. Sclera is anicteric. Neck; supple no lymphadenopathy, no thyromegaly or bruit Lungs: b/l clear vbs + Heart: Normal rate. s1s2 normal. No rub or gallop. Extremities: no edema. No varicose veins Neurological: A+Ox3 no asterixis Skin: Warm and dry. Normal turgor. No rash. Palpitation: Normal elasticity for age Abdomen: Abdomen is soft. Bowel sounds +. Psych: nml affect. limited insight MSK: no joint tenderness or swelling. Digits and nails normal, no deformity : kidney or bladder not palpable Access: AVF with thrill and bruit Labs/imaging reviewed. Past medical history, past surgical history, family history, social history, allergy reviewed and noted as below Family Hx: no hx of CKD. Non contributory cxr: moderate pulm congestion Objective - Vital Signs/Intake and Output Vital Signs (last 24 hours): Temp Pulse Resp BP Pulse Ox 97.4 F L 91 H 15 131/61 96 07/25/18 09:30 07/25/18 10:12 07/25/18 10:12 07/25/18 12:30 07/25/18 09:30 Intake and Output: 07/25/18 07/25/18 06:59 18:59 Intake Total 290 Output Total 0 Balance 290 - Medications Medications: Current Medications Albuterol/Ipratropium (Duoneb 3 Mg/0.5 Mg (3 Ml) Ud) 3 ml INH RQ6 DEBBIE Last Admin: 07/25/18 14:02 Dose: 3 ml Amlodipine Besylate (Norvasc) 10 mg PO DAILY [facility] Last Admin: 07/25/18 11:54 Dose: Not Given Aspirin (Ecotrin) 81 mg PO DAILY [facility] Last Admin: 07/25/18 10:45 Dose: 81 mg Brimonidine Tartrate (Alphagan 0.2% Opht) 0.05 ml OU Q12 DEBBIE Last Admin: 07/25/18 10:42 Dose: 1 drop Calcitriol (Rocaltrol) 0.25 mcg PO DAILY [facility] Last Admin: 07/25/18 10:47 Dose: 0.25 mcg Dextrose (Dextrose 50% Inj) 0 ml IV STAT PRN; Protocol PRN Reason: Hypoglycemia Protocol Dextrose (Glutose 15) 0 gm PO ONCE PRN; Protocol PRN Reason: Hypoglycemia Protocol Dorzolamide HCl (Trusopt) 1 ml OU DAILY [facility] Last Admin: 07/25/18 10:41 Dose: 1 drop Epoetin Carrington (Procrit) 20,000 unit IV MWF [facility] Last Admin: 07/25/18 09:40 Dose: 20,000 unit Glucagon (Glucagen Diagnostic Kit) 0 mg IM STAT PRN; Protocol PRN Reason: Hypoglycemia Protocol Hydralazine HCl (Apresoline) 50 mg PO TID [facility] Last Admin: 07/25/18 13:25 Dose: 50 mg Piperacillin Sod/Tazobactam Sod (Zosyn 2.25 Gm Iv Premix) 2.25 gm in 50 mls @ 100 mls/hr IVPB Q6H [facility]; Protocol Last Admin: 07/25/18 13:42 Dose: 100 mls/hr Insulin Human Regular (Novolin R) 0 unit SC ACHS [facility]; Protocol Last Admin: 07/25/18 11:55 Dose: Not Given Lisinopril (Zestril) 20 mg PO HS [facility] Last Admin: 07/24/18 21:49 Dose: 20 mg Pantoprazole Sodium (Protonix Inj) 40 mg IVP Q12H [facility] Last Admin: 07/25/18 10:38 Dose: 40 mg Rosuvastatin Calcium (Crestor) 40 mg PO HS [facility] Saccharomyces Boulardii (Florastor) 250 mg PO BID [facility] Last Admin: 07/25/18 10:39 Dose: 250 mg Sevelamer Carbonate (Renvela) 800 mg PO TIDCC [facility] Last Admin: 07/25/18 13:28 Dose: 800 mg Tamsulosin HCl (Flomax) 0.4 mg PO DAILY [facility] Last Admin: 07/25/18 10:47 Dose: 0.4 mg Timolol Maleate (Timoptic 0.5% Oph Soln) 1 drop OU DAILY [facility] Last Admin: 07/25/18 10:44 Dose: 1 drop Vitamin B Complex/Vit C/Folic Acid (Nephro-Lupis) 1 tab PO DAILY [facility] Last Admin: 07/25/18 10:48 Dose: 1 tab - Labs Labs: 07/25/18 06:07 07/25/18 06:05 PT 12.8 SECONDS (9.7-12.2) H 07/22/18 09:51 INR 1.2 07/22/18 09:51 APTT 42 SECONDS (21-34) H 07/22/18 09:51
[2018-07-25 16:37] VITALS: TEMP 98
[2018-07-25 18:26] VITALS: BP 136/70; PULSE 92; RESP 20; O2SAT 88
--- NOTE | 2018-07-26 21:55 | CARD ---
APPROVED REPORT Date of service: 07/22/2018 EKG Measurement Heart [id number] <Conclusion> Normal sinus rhythm ST & T wave abnormality, consider inferior ischemia Prolonged QT Abnormal ECG
--- NOTE | 2018-07-26 21:57 | CARD ---
APPROVED REPORT Date of service: 07/22/2018 EKG Measurement Heart [id number] <Conclusion> Marked sinus bradycardia with 1st degree AV block Abnormal ECG
--- NOTE | 2018-07-28 10:07 | DS ---
HISTORY OF PRESENT ILLNESS: The patient was admitted to the hospital with a syncopal episode, altered mental status, and bradycardia. The patient came to the ER, advised admission. The patient was intubated. The patient was placed on ventilator. The patient received dialysis. The patient showed gradual improved. The patient was discharged to be followed up as outpatient. DIAGNOSES: 1. Altered mental status. 2. Renal failure. 3. Bradycardia. 4. Cardiac arrhythmia. Tere Hall MD
== END 2018-07-25 18:30 | disposition home or self-care (01) | DRG 882 ==
LOC: C.ER 09:26 → C.9I 10:31
PROVIDERS: ADMIT Internal Medicine Pulmonary Disease; ATTEND Internal Medicine Pulmonary Disease
PROC: 5A1D70Z Performance of Urinary Filtration, Intermittent, Less than 6 Hours Per Day (ICD-10-PCS; principal; 2018-07-22)
PROC: 5A1945Z Respiratory Ventilation, 24-96 Consecutive Hours (ICD-10-PCS; 2018-07-22)
PROC: 0BH17EZ Insertion of Endotracheal Airway into Trachea, Via Natural or Artificial Opening (ICD-10-PCS; 2018-07-22)
PROC: 5A1D70Z Performance of Urinary Filtration, Intermittent, Less than 6 Hours Per Day (ICD-10-PCS; 2018-07-23)
PROC: 5A1D70Z Performance of Urinary Filtration, Intermittent, Less than 6 Hours Per Day (ICD-10-PCS; 2018-07-25)
DX: J96.02 Acute respiratory failure with hypercapnia (principal); I50.22 Chronic systolic (congestive) heart failure; D69.6 Thrombocytopenia, unspecified; E11.22 Type 2 diabetes mellitus with diabetic chronic kidney disease; E11.65 Type 2 diabetes mellitus with hyperglycemia; E87.5 Hyperkalemia; I13.2 Hypertensive heart and chronic kidney disease with heart failure and with stage 5 chronic kidney disease, or end stage renal disease; I42.9 Cardiomyopathy, unspecified; N18.6 End stage renal disease; J96.91 Respiratory failure, unspecified with hypoxia; D63.1 Anemia in chronic kidney disease; N25.81 Secondary hyperparathyroidism of renal origin; E83.39 Other disorders of phosphorus metabolism; E78.00 Pure hypercholesterolemia, unspecified; I25.10 Atherosclerotic heart disease of native coronary artery without angina pectoris; E21.1 Secondary hyperparathyroidism, not elsewhere classified; N40.0 Benign prostatic hyperplasia without lower urinary tract symptoms; Z79.4 Long term (current) use of insulin; Z90.49 Acquired absence of other specified parts of digestive tract; Z95.0 Presence of cardiac pacemaker; Z99.2 Dependence on renal dialysis; Z86.711 Personal history of pulmonary embolism

== ENCOUNTER 2018-08-08 18:07 | Observation (INO) | payer MEDICAID ==
[2018-08-08 18:07] VITALS: BMI 21.6
[2018-08-08] MEDS ORDERED: Aspirin 325 mg EC Tablets PO STA (20:21)
--- NOTE | 2018-08-08 20:21 | C.PDOC ---
History Of Present Illness Patient presents with chest pain for one week. Patient had dialysis today, finished at 5 but still has chest pain. Denies fever, chills, nausea, or vomiting. Patient is slightly anxious, was recently intubated and admitted to the ICU for hyperkalemia and bradycardia. Time Seen by Provider: 08/08/18 20:21 Chief Complaint (Nursing): Chest Pain History Per: Patient History/Exam Limitations: no limitations Onset/Duration Of Symptoms: Days Current Symptoms Are (Timing): Still Present Severity: Moderate Pain Scale Rating Of: 4 Associated Symptoms: denies: Nausea, Dyspnea, Diaphoresis, Syncope Modifying Factors: None Exacerbating Factors: None Alleviating Factors: None Recent travel outside of the [place]: No Past Medical History Reviewed: Historical Data, Nursing Documentation, Vital Signs - Medical History PMH: Anemia, Benign Prostatic Hyperplasia, CHF, Depression, Diabetes, HTN, Hypercholesterolemia, Pancreatitis, End Stage Renal Disease (on hemodialysis M/W/F), Chronic Kidney Disease Denies: Emphysema, Pulmonary Embolism Surgical History: Appendectomy, Pacemaker (AICD) - [facility] (07/22/18) CATARAC PHACOEMULS/ASPIR (10/03/13) EXCISION OF STOMACH, ENDO, DIAGN (04/21/17) INSERT LENS AT CATAR EXT (10/03/13) INSERTION OF ENDOTRACHEAL AIRWAY INTO TRACHEA, VIA OPENING (07/22/18) RESPIRATORY VENTILATION, 24-96 CONSECUTIVE HOURS (07/22/18) VACCINATION NEC (07/10/14) Family History: States: No Known Family Hx - Social History Hx Tobacco Use: No Hx Alcohol Use: No Hx Substance Use: No - Immunization History Hx Tetanus Toxoid Vaccination: No Hx Influenza Vaccination: No Hx Pneumococcal Vaccination: Yes (2017) Review Of Systems Constitutional: Negative for: Fever, Chills Cardiovascular: Positive for: Chest Pain. Negative for: Palpitations Respiratory: Negative for: Cough, Shortness of Breath Gastrointestinal: Negative for: Nausea, Vomiting Neurological: Negative for: Weakness, Numbness Physical Exam - Physical Exam Appears: Non-toxic Skin: Warm, Dry Head: Normacephalic Oral Mucosa: Moist Chest: Other (Left mid axillary line defibrillator) Cardiovascular: Rhythm Regular Respiratory: No Rales, No Rhonchi, No Wheezing Gastrointestinal/Abdominal: Soft, No Tenderness Extremity: Other (Dialysis graft to right forearm with good thrill and bruit) Neurological/Psych: Oriented x3 ED Course And Treatment - Laboratory Results Result Diagrams: 08/08/18 20:28 08/08/18 20:28 ECG: Interpreted By Me, Viewed By Me ECG Rhythm: Sinus Rhythm (68), Nonspecific Changes O2 Sat by Pulse Oximetry: 98 (Room air) Pulse Ox Interpretation: Normal - Radiology CXR: Interpreted by Me, Viewed By Me CXR Interpretation: Yes: Other (pacer left, mvr). No: Infiltrates, Fracture, Pnemothorax Progress Note: EKG, blood work, CXR, and urinalysis ordered. Aspirin administered. Disposition Discussed With : Tere Hall Comment: accepted the pt on his service and took over the care at 9:49 PM Doctor Will See Patient In The: Hospital Counseled Patient/Family Regarding: Studies Performed, Diagnosis - Disposition Disposition: HOSPITALIZED Disposition Time: 20:21 Condition: FAIR Forms: [facility] ([place]) - POA Present On Arrival: Poor Glycemic Control - Clinical Impression Clinical Impression: Chest pain, ESRD on hemodialysis - Scribe Statement The provider has reviewed the documentation as recorded by the Scribe Tahir Rios All medical record entries made by the Scribe were at my direction and personally dictated by me. I have reviewed the chart and agree that the record accurately reflects my personal performance of the history, physical exam, medical decision making, and the department course for this patient. I have also personally directed, reviewed, and agree with the discharge instructions and disposition. Decision To Admit - Pt Status Changed To: Hospital Disposition Of: Observation - . Bed Request Type: Telemetry Admitting Physician: Tere Hall Patient Diagnosis: Chest pain, ESRD on hemodialysis
[2018-08-08 20:40] LABS: EOS # 0.1 K/uL (0.0-0.7); EOS % 2.2 % (0.0-4.0); HEMOGLOBIN 9.4 g/dL (12.0-18.0); LYMPH # 0.8 K/uL (1.0-4.3); LYMPH % 18.4 % (20.0-40.0); MEAN CELL VOLUME 98.5 fL (80.0-94.0); MEAN CORPUSCULAR HGB CONC 31.5 g/dL (33.0-37.0); MEAN PLATELET VOLUME 8.9 fL (7.2-11.7); MONO # 0.4 K/uL (0.0-0.8); MONO % 8.6 % (0.0-10.0); NEUT % 69.8 % (50.0-75.0); NRBC % 0.3 % (0.0-2.0); RBC 3.01 Mil/uL (4.40-5.90); RED CELL DISTRIBUTION WIDTH 25.6 % (11.5-14.5); WHITE BLOOD COUNT 4.2 K/uL (4.8-10.8)
[2018-08-08 20:47] LABS: INR 1.2; PROTHROMBIN TIME 13.2 SECONDS (9.7-12.2)
[2018-08-08 20:51] LABS: ALB/GLOB RATIO 1.3 (1.0-2.1); ALBUMIN 4.4 g/dL (3.5-5.0); ALT/SGPT 7 U/L (21-72); AST/SGOT 44 U/L (17-59); BLOOD UREA NITROGEN 37 mg/dL (9-20); CALCIUM 9.2 mg/dl (8.6-10.4); GFR NON-AFRICAN AMERICAN 11
[2018-08-08 20:57] LABS: B-TYPE NATRIURETIC PEPTIDE 13700 pg/mL (0-900)
[2018-08-09 02:12] LABS: CK-MB 5.8 ng/mL (0.0-3.38); TROPONIN I 0.049 ng/mL (0.00-0.120)
[2018-08-09] MEDS ORDERED: Glucagon Recombinant 1 mg Inj IM PRN (07:26)
[2018-08-09] MEDS ORDERED: Dextrose 50% SYRINGE Inj (50 ml) IV PRN (07:26)
[2018-08-09] MEDS ORDERED: Dextrose 50% SYRINGE Inj (50 ml) ONE ×2 (07:29→07:30)
[2018-08-09] MEDS: (Novolin R) Insulin Human Regular 100 units/ml vial SC SCH ×4 (07:59→21:51)
--- NOTE | 2018-08-09 08:37 | RAD ---
Date of service: 08/08/2018 PROCEDURE: CHEST RADIOGRAPH, 1 VIEW HISTORY: chest pain COMPARISON: 07/23/2018 FINDINGS: LUNGS: Greater asymmetrical elevation of the right hemidiaphragm. Trace right perihilar right supradiaphragmatic atelectatic like changes-not significantly changed. Prior endotracheal tube removed. PLEURA: No pneumothorax or pleural fluid seen. CARDIOVASCULAR: No aortic atherosclerotic calcification present. Probable top-normal heart size. Pulmonary vasculature probably top-normal. Mitral valve prosthesis in place. Cardiac support devices in place. OSSEOUS STRUCTURES: No significant abnormalities. VISUALIZED UPPER ABDOMEN: Prior endotracheal tube removed. Partially visualized tubing over right upper quadrant-correlate clinically OTHER FINDINGS: None. IMPRESSION: Prior endotracheal tube in prior nasogastric tube is been removed. No interval significant appearing infiltrate or significant appearing pulmonary venous congestion. Accentuated asymmetrical right hemidiaphragmatic elevation. Other findings as above.
[2018-08-09 08:47] LABS: CK-MB 4.46 ng/mL (0.0-3.38)
[2018-08-09] MEDS ORDERED: PATIROMER CALCIUM SORBITEX 8.4 GM PO SCH (10:00)
[2018-08-09] MEDS ORDERED: Ergocalciferol 50,000 Intl Units Cap PO SCH (10:00)
[2018-08-09] MEDS: Multivitamin Vitamin B Complex (Nephro-Vite) Tab PO SCH (10:32)
[2018-08-09] MEDS: Brimonidine 0.2% Opth Sol (5ml) OU SCH ×2 (10:41→22:24)
[2018-08-09] MEDS: Aritificial Tears (15ml) OU SCH ×4 (10:41→22:20)
[2018-08-09] MEDS: Dorzolamide 2% Opht Sol 10ml OU SCH (10:41)
[2018-08-09 13:46] LABS: CK-MB 4.39 ng/mL (0.0-3.38)
--- NOTE | 2018-08-09 15:42 | CP.PCM.CON ---
History of Present Illness - History of Present Illness History of Present Illness: ASKED TO SEE PT BY DR VERNON IN CARDIOLOGY COVERAGE. PT CO OF PAIN WITH INSPIRATION ACROSS THE LOWER CHEST/UPPER ABDOMEN REGION (IN AREA OF DIAPHRAGM) X 1 WEEK. PT DENIES N/V/C, ADMITS TO SIGNIFICANT DIARRHEA. DENIES NAJERA, ORTHOPNEA, PND, JIMENEZ, HEMATEMESIS OR MELENA. PTS PAIN IS CONSTANT WITHOUT EXACERBATING OR ALLEVIATING FACTORS. NO F/C. PT HAS A HX OF NIDCM, MV VALVULOPLASTY, LVH, AND AICD. Review of Systems - Constitutional Constitutional: As Per HPI. absent: Anorexia, Chills, Daytime Sleepiness, Excessive Sweating, Fatigue, Fever, Frequent Falls, Headache, Increased Appetite, Lethargy, Malaise, Night Sweats, Snoring, Sleep Apnea, Weight Gain, Weight Loss, Weakness, Other - EENT Eyes: As Per HPI. absent: Blind Spots, Blurred Vision, Change in Vision, Decreased Night Vision, Diplopia, Discharge, Dry Eye, Exophthalmos, Floaters, Irritation, Itchy Eyes, Loss of Peripheral Vision, Pain, Photophobia, Requires Corrective Lenses, Sees Flashes, Spots in Vision, Tunnel Vision, Other Visual Disturbances, Loss of Vision, Other Ears: As Per HPI. absent: Decreased Hearing, Ear Discharge, Ear Pain, Tinnitus, Abnormal Hearing, Disequilibrium, Dizziness, Other Nose/Mouth/Throat: As Per HPI. absent: Epistaxis, Nasal Congestion, Nasal Discharge, Nasal Obstruction, Nasal Trauma, Nose Pain, Post Nasal Drip, Sinus Pain, Sinus Pressure, Bleeding Gums, Change in Voice, Dental Pain, Dry Mouth, Dysphagia, Halitosis, Hoarsness, Lip Swelling, Mouth Lesions, Mouth Pain, Odynophagia, Sore Throat, Throat Swelling, Tongue Swelling, Facial Pain, Neck Pain, Neck Mass, Other - Cardiovascular Cardiovascular: As Per HPI. absent: Acrocyanosis, Chest Pain, Chest Pain at Rest, Chest Pain with Activity, Claudication, Diaphoresis, Dyspnea, Dyspnea on Exertion, Edema, Irregular Heart Rhythm, Pain Radiating to Arm/Neck/Jaw, Leg Mookie ma, Leg Ulcers, Lightheadedness, Orthopnea, Palpitations, Paroxysmal Nocturnal Dyspnea, Pedal Edema, Radiating Pain, Rapid Heart Rate, Slow Heart Rate, Syncope, Other - Respiratory Respiratory: Pain on Inspiration. absent: As Per HPI, Cough, Dyspnea, Hemoptysi s, Dyspnea on Exertion, Wheezing, Snoring, Stridor, Chest Congestion, Excessive Mucous Production, Change in Mucous Color, Pain with Coughing, Other - Gastrointestinal Gastrointestinal: As Per HPI, Diarrhea. absent: Abdominal Pain, Belching, Bloating, Change in Bowel Habits, Change in Stool Character, Coffee Ground Emesis, Constipation, Cramping, Dyspepsia, Dysphagia, Early Satiety, Excessive Flatus, Fecal Incontinence, Heartburn, Hematemesis, Hematochezia, Loose Stools, Melena, Nausea, Odynophagia, Temesmus, Vomiting, Other - Genitourinary Genitourinary: As Per HPI. absent: Change in Urinary Stream, Difficulty U rinating, Dysuria, Flank Pain, Hematuria, Pyuria, Nocturia, Urinary Incontinence, Urinary Frequency, Urinary Hesitance, Urinary Urgency, Voiding Freq/Small Amts, Freq UTI, Hx Renal/Bladder Calculi, Hx /Renal Surgery, Bladder Distension, Other - Reproductive: Male Reproductive:Male: As Per HPI - Musculoskeletal Musculoskeletal: As Per HPI. absent: Abnormal Gait, Arthralgias, Atrophy, Back Pain, Deformity, Joint Swelling, Limited Range of Motion, Loss of Height, Muscle Cramps, Muscle Weakness, Myalgias, Neck Pain, Numbness, Radiating Pain into Limb, Stiffness, Tingling, Other - Integumentary Integumentary: As Per HPI. absent: Acne, Alopecia, Bleeding Lesions, Change in Hair, Change in Nails, Change in Pigmentation, Changing Lesions, Dry Skin, Erythema, Furuncle, Hirsutism, Lesions, New Lesions, Non-Healing Lesions, Photosensitivity, Pruritus, Rash, Skin Pain, Skin Ulcer, Sores, Striae, Swelling, Unusual Bruising, Wounds, Jaundice, Other - Neurological Neurological: As Per HPI. absent: Abnormal Gait, Abnormal Hearing, Abnormal Movements, Abnormal Speech, Behavioral Changes, Burning Sensations, Confusion, Convulsions, Disequilibrium, Dizziness, Numbness, Focal Weakness, Frequent Falls, Headaches, Lack of Coordination, Loss of Vision, Memory Loss, Paresthesias, Radicular Pain, Restless Legs, Sensory Deficit, Syncope, Tingling, Tremor, Vertigo, Weakness, Other Visual Disturbances, Other - Psychiatric Psychiatric: As Per HPI. absent: Abnormal Sleep Pattern, Anhedonia, Anxiety, Auditory Hallucinations, Behavioral Changes, Change in Appetite, Change in Libido, Confusion, Depression, Difficulty Concentrating, Hallucinations, Homicidal Ideation, Hopelessness, Irritability, Memory Loss, Mood Swings, Panic Attacks, Paranoia, Suicidal Ideation, Visual Hallucinations, Tactile Halluci nations, Other - Endocrine Endocrine: As Per HPI. absent: Change in Body Appearance, Change in Libido, Cold Intolorance, Deepening of Voice, Excessive Sweating, Fatigue, Flushing, Heat Intolorance, Increase in Ring/Shoe/Hat Size, Palpitations, Polydipsia, Poly phagia, Polyuria, Other - Hematologic/Lymphatic Hematologic: As Per HPI. absent: Easy Bleeding, Easy Bruising, Lymphadenopathy, Other Past Patient History - Infectious Disease Hx of Infectious Diseases: None - Past Medical History & Family History Past Medical History?: Yes - Past Social History Smoking Status: Never Smoked Chewing Tobacco Use: No Cigar Use: No Alcohol: None Drugs: Denies Domestic Violence: Negative - CARDIAC Hx Congestive Heart Failure: Yes Hx Hypercholesterolemia: Yes Hx Hypertension: Yes Hx Pacemaker: Yes (AICD) - PULMONARY Hx Emphysema: No Hx Pulmonary Embolism: No - NEUROLOGICAL Hx Neurological Disorder: No - HEENT Hx HEENT Problems: Yes Hx Cataracts: Yes - RENAL Hx Chronic Kidney Disease: Yes - ENDOCRINE/METABOLIC Hx Endocrine Disorders: Yes Hx Diabetes Mellitus Type 2: Yes - HEMATOLOGICAL/ONCOLOGICAL Hx Anemia: Yes - INTEGUMENTARY Hx Dermatological Problems: No - MUSCULOSKELETAL/RHEUMATOLOGICAL Hx Musculoskeletal Disorders: No Hx Falls: No - GASTROINTESTINAL Hx Pancreatitis: Yes - GENITOURINARY/GYNECOLOGICAL Hx Genitourinary Disorders: No Hx Prostate Problems: Yes (BPH) - PSYCHIATRIC Hx Depression: Yes Hx Substance Use: No - SURGICAL HISTORY Hx Appendectomy: Yes - ANESTHESIA Hx Anesthesia: Yes Hx Anesthesia Reactions: No Meds Allergies/Adverse Reactions: Allergies Allergy/AdvReac Type Severity Reaction Status Date / Time No Known Allergies Allergy Verified 08/08/18 19:15 - Medications Medications: Current Medications Amlodipine Besylate (Norvasc) 10 mg PO DAILY [facility] Last Admin: 08/09/18 10:31 Dose: 10 mg Artificial Tears (Artificial Tears) 0 ml OU QID [facility] Last Admin: 08/09/18 14:45 Dose: 1 drop Aspirin (Ecotrin) 81 mg PO DAILY [facility] Last Admin: 08/09/18 10:31 Dose: 81 mg Brimonidine Tartrate (Alphagan 0.2% Opht) 0.05 ml OU Q12H [facility] Last Admin: 08/09/18 10:41 Dose: 1 drop Calcitriol (Rocaltrol) 0.25 mcg PO DAILY [facility] Last Admin: 08/09/18 10:32 Dose: 0.25 mcg Calcium Acetate (Phoslo) 2,001 mg PO TIDCC [facility] Last Admin: 08/09/18 12:06 Dose: 2,001 mg Dextrose (Dextrose 50% Inj) 0 ml IV STAT PRN; Protocol PRN Reason: Hypoglycemia Protocol Last Admin: 08/09/18 07:45 Dose: 50 ml Dextrose (Glutose 15) 0 gm PO ONCE PRN; Protocol PRN Reason: Hypoglycemia Protocol Dorzolamide HCl (Trusopt) 0.05 ml OU DAILY [facility] Last Admin: 08/09/18 10:41 Dose: 1 drop Ergocalciferol (Drisdol 50,000 Intl Units Cap) 1 cap PO QWK [facility] Last Admin: 08/09/18 10:31 Dose: 1 cap Glucagon (Glucagen Diagnostic Kit) 0 mg IM STAT PRN; Protocol PRN Reason: Hypoglycemia Protocol Heparin Sodium (Porcine) (Heparin) 5,000 units SC DAILY [facility] Last Admin: 08/09/18 10:32 Dose: 5,000 units Home Med (Patiromer Calcium Sorbitex [Veltassa]) 8.4 gm PO DAILY [facility] Hydralazine HCl (Apresoline) 50 mg PO TID [facility] Last Admin: 08/09/18 14:45 Dose: 50 mg Dextrose (Dextrose 5% In Water 1000 Ml) 1,000 mls @ 0 mls/hr IV .Q0M PRN; Protocol PRN Reason: Hypoglycemia Protocol Insulin Glargine (Lantus) 6 unit SC HS [facility] Insulin Human Regular (Novolin R) 0 unit SC ACHS [facility]; Protocol Last Admin: 08/09/18 12:06 Dose: 6 u Lisinopril (Zestril) 20 mg PO HS [facility] Pantoprazole Sodium (Protonix Inj) 40 mg IVP DAILY [facility] Last Admin: 08/09/18 10:32 Dose: 40 mg Rosuvastatin Calcium (Crestor) 10 mg PO HS [facility] Sevelamer Carbonate (Renvela) 800 mg PO TIDCC [facility] Last Admin: 08/09/18 12:06 Dose: 800 mg Tamsulosin HCl (Flomax) 0.4 mg PO DAILY [facility] Last Admin: 08/09/18 10:31 Dose: 0.4 mg Timolol Maleate (Timoptic 0.5% Ophth Soln) 1 drop OU DAILY [facility] Last Admin: 08/09/18 10:41 Dose: 1 drop Vitamin B Complex/Vit C/Folic Acid (Nephro-Lupis) 1 tab PO DAILY [facility] Last Admin: 08/09/18 10:32 Dose: 1 tab Physical Exam - Constitutional Appears: Non-toxic - Head Exam Head Exam: ATRAUMATIC, NORMAL INSPECTION, NORMOCEPHALIC - Eye Exam Eye Exam: EOMI, Normal appearance, PERRL. absent: Conjunctival injection, Nystagmus, Periorbital swelling, Periorbital tenderness, Scleral icterus Pupil Exam: NORMAL ACCOMODATION, PERRL. absent: Fixed, Irregular, Miosis, Mydriatic, Unequal - ENT Exam ENT Exam: Mucous Membranes Moist, Normal Exam. absent: Mucous Membranes Dry, Normal External Ear Exam, Normal Oropharynx, TM's Normal Bilaterally - Neck Exam Neck exam: Positive for: Normal Inspection. Negative for: Full Rom, Lym phadenopathy, Meningismus, Tenderness, Thyromegaly - Respiratory Exam Respiratory Exam: Clear to Auscultation Bilateral, NORMAL BREATHING PATTERN. absent: Accessory Muscle Use, Chest Wall Tenderness, Decreased Breath Sounds, Prolonged Expiratory Phase, Rales, Rhonchi, Wheezes, Respiratory Distress, Stridor - Cardiovascular Exam Cardiovascular Exam: REGULAR RHYTHM, +S1, +S2, Systolic Murmur. absent: Bradycardia, Tachycardia, Clicks, Diastolic murmur, Gallop, Irregular Rhythm, JVD, RRR, Rubs, +S4 - GI/Abdominal Exam GI & Abdominal Exam: Distended, Guarding, Normal Bowel Sounds, Tenderness. absent: Bruit, Diminished Bowel Sounds, Firm, Hernia, Hyperactive Bowel Sounds, Hypoactive Bowel Sounds, Mass, Organomegaly, Pulsatile Mass, Rebound, Rigid, Soft Additional comments: EPIGASTRIC TENDERNESS BOWEL SOUNDS HEARD ABOVE DIAPHRAGM ON EXAM. - Rectal Exam Rectal Exam: Deferred - Extremities Exam Extremities exam: Positive for: pedal pulses present Additional comments: RLE 1+ EDEMA, LLE NO EDEMA - Back Exam Back exam: NORMAL INSPECTION. absent: CVA tenderness (L), CVA tenderness (R), FULL ROM, muscle spasm, paraspinal tenderness, rash noted, tenderness, vertebral tenderness - Neurological Exam Neurological exam: Alert, CN II-XII Intact, Normal Gait, Oriented x3, Reflexes Normal - Psychiatric Exam Psychiatric exam: Normal Affect, Normal Mood - Skin Skin Exam: Dry, Intact, Normal Color, Warm Results - Vital Signs Recent Vital Signs: Last Vital Signs Temp 97.7 F 08/09/18 08:33 Pulse 74 08/09/18 10:40 Resp 20 08/09/18 08:33 BP 118/61 08/09/18 14:47 Pulse Ox 96 08/09/18 11:00 - Labs Result Diagrams: 08/08/18 20:28 08/08/18 20:28 Labs: Laboratory Results - last 24 hr 08/08/18 08/08/18 08/08/18 20:28 20:28 20:28 WBC 4.2 L RBC 3.01 L Hgb 9.4 L Hct 29.7 L MCV 98.5 H D MCH 31.0 MCHC 31.5 L RDW 25.6 H Plt Count 106 L MPV 8.9 Neut % (Auto) 69.8 Lymph % (Auto) 18.4 L Bergen % (Auto) 8.6 Eos % (Auto) 2.2 Baso % (Auto) 1.0 Neut # (Auto) 3.0 Lymph # (Auto) 0.8 L Berg[place] # (Auto) 0.4 Eos # (Auto) 0.1 Baso # (Auto) 0.0 Differential Comment PT 13.2 H INR 1.2 Sodium 138 Potassium 4.3 Chloride 94 L Carbon Dioxide 33 H Anion Gap 15 BUN 37 H Creatinine 5.2 H Est GFR ( Amer) 14 Est GFR (Non-Af Amer) 11 POC Glucose (mg/dL) Random Glucose 147 H D Calcium 9.2 Total Bilirubin 0.7 AST 44 ALT 7 L D Alkaline Phosphatase 196 H Total Creatine Kinase CK-MB (Mass) Troponin I < 0.0120 NT-Pro-B Natriuret Pep 30925 H Total Protein 7.7 Albumin 4.4 Globulin 3.3 Albumin/Globulin Ratio 1.3 08/09/18 08/09/18 08/09/18 01:29 07:02 07:03 WBC RBC Hgb Hct MCV MCH MCHC RDW Plt Count MPV Neut % (Auto) Lymph % (Auto) Bergen % (Auto) Eos % (Auto) Baso % (Auto) Neut # (Auto) Lymph # (Auto) Bergen # (Auto) Eos # (Auto) Baso # (Auto) Differential Comment PT INR Sodium Potassium Chloride Carbon Dioxide Anion Gap BUN Creatinine Est GFR ( Amer) Est GFR (Non-Af Amer) POC Glucose (mg/dL) 32 L* 32 L* Random Glucose Calcium Total Bilirubin AST ALT Alkaline Phosphatase Total Creatine Kinase 116 CK-MB (Mass) 5.80 H Troponin I 0.0490 NT-Pro-B Natriuret Pep Total Protein Albumin Globulin Albumin/Globulin Ratio 08/09/18 08/09/18 08/09/18 07:24 07:43 08:11 WBC RBC Hgb Hct MCV MCH MCHC RDW Plt Count MPV Neut % (Auto) Lymph % (Auto) Bergen % (Auto) Eos % (Auto) Baso % (Auto) Neut # (Auto) Lymph # (Auto) Bergen # (Auto) Eos # (Auto) Baso # (Auto) Differential Comment PT INR Sodium Potassium Chloride Carbon Dioxide Anion Gap BUN Creatinine Est GFR ( Amer) Est GFR (Non-Af Amer) POC Glucose (mg/dL) 29 L* 160 H Random Glucose Calcium Total Bilirubin AST ALT Alkaline Phosphatase Total Creatine Kinase 112 CK-MB (Mass) 4.46 H Troponin I < 0.0120 NT-Pro-B Natriuret Pep Total Protein Albumin Globulin Albumin/Globulin Ratio 08/09/18 13:12 WBC RBC Hgb Hct MCV MCH MCHC RDW Plt Count MPV Neut % (Auto) Lymph % (Auto) Bergen % (Auto) Eos % (Auto) Baso % (Auto) Neut # (Auto) Lymph # (Auto) Bergen # (Auto) Eos # (Auto) Baso # (Auto) Differential Comment PT INR Sodium Potassium Chloride Carbon Dioxide Anion Gap BUN Creatinine Est GFR ( Amer) Est GFR (Non-Af Amer) POC Glucose (mg/dL) Random Glucose Calcium Total Bilirubin AST ALT Alkaline Phosphatase Total Creatine Kinase 95 CK-MB (Mass) 4.39 H Troponin I < 0.0120 NT-Pro-B Natriuret Pep Total Protein Albumin Globulin Albumin/Globulin Ratio - EKG Data EKG Interpreted by: Myself EKG shows normal: Sinus rhythm Rate: Normal - EKG Data When Compared to Previous EKG: No Significant Change Assessment & Plan (1) Chest pain Status: Acute (2) Abdominal pain Status: Acute (3) Diabetes Status: Acute (4) Dilated cardiomyopathy Status: Acute (5) ESRD (end stage renal disease) on dialysis Status: Acute (6) Hypertension Status: Acute - Assessment and Plan (Free Text) Plan: PATIENTS DISCOMFORT APPEARS TO BE GI IN ETIOLOGY. WILL GIVE 30 ML OF VISCOUS LIDOCAINE THERAPEUTIC AND POSSIBLY DIAGNOSTIC. PT HAS A NONISCHEMIC CM. PTS EKGS AND TROP ALL NEGATIVE FOR ISCHEMIA. RECOMMEND GI EVAL FOR GASTRITIS/ESOPHAGITIS AND POSSIBLE HIATAL HERNIA. 55 MIN TOTAL CARE TIME.
--- NOTE | 2018-08-09 17:41 | CP.PCM.PN ---
Subjective - Date & Time of Evaluation Date of Evaluation: 08/09/18 Time of Evaluation: 10:05 - Subjective Subjective: Medicine note ( Dr. Hall's service) Patient was seen and examined at bedside as he was resting comfortably. This is a 63 year old male with PMhx CHF, ESRD on HD MWF (AV fistula on right forearm), HTN, and DM, who presented to the ED with complaints of chest pain for one week. Patient describes his chest pain as a 6-7/10 pressure/tightness that is localized to the middle of his chest with radiation to his neck. Patient denies any symptoms nausea, vomiting, diaphoresis, syncope and dizziness but does admit to mild shortness of breath. During the encounter, patient reports that he is still with chest discomfort. 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 Denies smoking, denies current alcohol use, denies illicit drug use Objective - Vital Signs/Intake and Output Vital Signs (last 24 hours): Temp Pulse Resp BP Pulse Ox 97.7 F 74 20 118/61 96 08/09/18 08:33 08/09/18 10:40 08/09/18 08:33 08/09/18 14:47 08/09/18 15:00 - Medications Medications: Current Medications Amlodipine Besylate (Norvasc) 10 mg PO DAILY [facility] Last Admin: 08/09/18 10:31 Dose: 10 mg Artificial Tears (Artificial Tears) 0 ml OU QID [facility] Last Admin: 08/09/18 14:45 Dose: 1 drop Aspirin (Ecotrin) 81 mg PO DAILY [facility] Last Admin: 08/09/18 10:31 Dose: 81 mg Brimonidine Tartrate (Alphagan 0.2% Opht) 0.05 ml OU Q12H [facility] Last Admin: 08/09/18 10:41 Dose: 1 drop Calcitriol (Rocaltrol) 0.25 mcg PO DAILY [facility] Last Admin: 08/09/18 10:32 Dose: 0.25 mcg Calcium Acetate (Phoslo) 2,001 mg PO TIDCC [facility] Last Admin: 08/09/18 12:06 Dose: 2,001 mg Dextrose (Dextrose 50% Inj) 0 ml IV STAT PRN; Protocol PRN Reason: Hypoglycemia Protocol Last Admin: 08/09/18 07:45 Dose: 50 ml Dextrose (Glutose 15) 0 gm PO ONCE PRN; Protocol PRN Reason: Hypoglycemia Protocol Dorzolamide HCl (Trusopt) 0.05 ml OU DAILY [facility] Last Admin: 08/09/18 10:41 Dose: 1 drop Ergocalciferol (Drisdol 50,000 Intl Units Cap) 1 cap PO QWK [facility] Last Admin: 08/09/18 10:31 Dose: 1 cap Glucagon (Glucagen Diagnostic Kit) 0 mg IM STAT PRN; Protocol PRN Reason: Hypoglycemia Protocol Heparin Sodium (Porcine) (Heparin) 5,000 units SC DAILY [facility] Last Admin: 08/09/18 10:32 Dose: 5,000 units Home Med (Patiromer Calcium Sorbitex [Veltassa]) 8.4 gm PO DAILY [facility] Last Admin: 08/09/18 16:56 Dose: Not Given Hydralazine HCl (Apresoline) 50 mg PO TID [facility] Last Admin: 08/09/18 14:45 Dose: 50 mg Dextrose (Dextrose 5% In Water 1000 Ml) 1,000 mls @ 0 mls/hr IV .Q0M PRN; Protocol PRN Reason: Hypoglycemia Protocol Insulin Glargine (Lantus) 6 unit SC HS [facility] Insulin Human Regular (Novolin R) 0 unit SC ACHS [facility]; Protocol Last Admin: 08/09/18 17:16 Dose: Not Given Lisinopril (Zestril) 20 mg PO HS [facility] Pantoprazole Sodium (Protonix Inj) 40 mg IVP DAILY [facility] Last Admin: 08/09/18 10:32 Dose: 40 mg Rosuvastatin Calcium (Crestor) 10 mg PO HS [facility] Sevelamer Carbonate (Renvela) 800 mg PO TIDCC [facility] Last Admin: 08/09/18 12:06 Dose: 800 mg Tamsulosin HCl (Flomax) 0.4 mg PO DAILY [facility] Last Admin: 08/09/18 10:31 Dose: 0.4 mg Timolol Maleate (Timoptic 0.5% Oph Soln) 1 drop OU DAILY [facility] Last Admin: 08/09/18 10:41 Dose: 1 drop Vitamin B Complex/Vit C/Folic Acid (Nephro-Lupis) 1 tab PO DAILY [facility] Last Admin: 08/09/18 10:32 Dose: 1 tab - Labs Labs: 08/08/18 20:28 08/08/18 20:28 PT 13.2 SECONDS (9.7-12.2) H 08/08/18 20:28 INR 1.2 08/08/18 20:28 - Constitutional Appears: Well, No Acute Distress - Head Exam Head Exam: ATRAUMATIC, NORMAL INSPECTION - Eye Exam Eye Exam: EOMI - ENT Exam ENT Exam: Mucous Membranes Moist - Respiratory Exam Respiratory Exam: Clear to Ausculation Bilateral, NORMAL BREATHING PATTERN. absent: Prolonged Expiratory Phase, Rhonchi, Wheezes, Respiratory Distress - Cardiovascular Exam Cardiovascular Exam: REGULAR RHYTHM, +S1, +S2. absent: Murmur - GI/Abdominal Exam GI & Abdominal Exam: Soft, Normal Bowel Sounds. absent: Guarding, Rigid, Rebound Additional comments: Mild discomfort that patient describes as spasm - Extremities Exam Extremities Exam: Normal Inspection. absent: Calf Tenderness, Pedal Edema Additional comments: Right forearm AV fistula, palpable thrill and audible bruit - Neurological Exam Neurological Exam: Alert, Awake, Oriented x3 - Psychiatric Exam Psychiatric exam: Normal Affect - Skin Skin Exam: Normal Color Assessment and Plan (1) Chest pain Assessment & Plan: Consult * Insurance Operations Rep, Dr. Cervantes ( Covering physician, Dr. Gonzales) - PATIENTS DISCOMFORT APPEARS TO BE GI IN ETIOLOGY. WILL GIVE 30 ML OF VISCOUS LIDOCAINE THERAPEUTIC AND POSSIBLY DIAGNOSTIC. Labs/Imaging: * Troponins: Negative X3 * No EKG changes ASA 81mg PO daily Status: Acute (2) Chronic kidney disease (CKD) Assessment & Plan: HD, M, W,F Access: Right forearm AV fistula Calcitriol 0.25mcg PO daily Phoslo 2,001mg PO TIDCC Drisdol 50,000units 1 tablet weekly Renvela 800mg PO TIDCC Nephrovite 1 tab PO daily Status: Acute (3) HTN (hypertension) Assessment & Plan: Lisinopril 20mg PO daily Hydralazine 50mg PO TID Status: Acute (4) BPH (benign prostatic hyperplasia) Assessment & Plan: Flomax 0.4mg PO daily Status: Acute (5) Glaucoma Assessment & Plan: Artificial tear Alphagan 0.2% 0.05mg OU Q12H Trusopt 0.05ml OU daily Timoptic 0.5% 1 drop OU daily Status: Acute (6) Diabetes mellitus Assessment & Plan: HgbA1C (05/24/18): 10.3 Accuchecks Lantus 6 units HS ISS - Medium dose Crestor 10mg PO HS Status: Acute (7) Prophylactic measure Assessment & Plan: GI: Protonix 40mg IV daily DVT: Heparin 5,000 units SC daily All plans and management discussed with Dr. Hall Status: Acute
[2018-08-09] MEDS: (Lantus) Insulin Glargine, Recombinant SC SCH (21:52)
--- NOTE | 2018-08-10 07:22 | HP ---
HISTORY OF PRESENT ILLNESS: Mr. Desai is a 63-year-old man, came to the hospital with a chief complaint of chest pain in left side of the chest and increased by deep breathing which extended to the upper abdomen. The patient history of dialysis, cardiac arrhythmia. PHYSICAL EXAMINATION: GENERAL: The patient is awake, alert, and oriented. VITAL SIGNS: Temperature 98, pulse 70, blood pressure . HEENT: Within normal limits. CHEST: Symmetrical. HEART: Regular. ABDOMEN: Soft. EXTREMITIES: No edema. ASSESSMENT AND PLAN: The patient suffers from chest pain. The patient is to get bedrest, supportive care, cardiac enzymes. Tere Hall MD
[2018-08-10] MEDS: (Novolin R) Insulin Human Regular 100 units/ml vial SC SCH ×4 (08:16→22:00)
[2018-08-10] MEDS: Aritificial Tears (15ml) OU SCH ×4 (10:00→21:47)
[2018-08-10] MEDS: Dorzolamide 2% Opht Sol 10ml OU SCH (10:00)
[2018-08-10] MEDS ORDERED: PATIROMER CALCIUM SORBITEX 8.4 GM PO SCH (10:00)
[2018-08-10] MEDS: Brimonidine 0.2% Opth Sol (5ml) OU SCH ×2 (10:00→21:46)
[2018-08-10] MEDS: Multivitamin Vitamin B Complex (Nephro-Vite) Tab PO SCH (10:09)
[2018-08-10] MEDS ORDERED: EPOETIN ALFA 4,000 UNIT/ML ML Dialysis IV SCH (10:45)
--- NOTE | 2018-08-10 11:03 | CP.PCM.PN ---
Subjective - Date & Time of Evaluation Date of Evaluation: 08/10/18 Time of Evaluation: 09:05 - Subjective Subjective: Medicine progress note ( Dr. Hall's service) Patient was seen and examined at bedside while resting in bed comfortably in no acute or respiratory distress. Patient states that he is the same; he denies any symptoms of nausea, vomiting, diaphoresis, syncope and dizziness but still does admit to chest tightness with breathing and abdominal discomfort. Patient was seen by wildland fire fighter yesterday with recommendation that patient's discomfort is more GI related. Objective - Vital Signs/Intake and Output Vital Signs (last 24 hours): Temp Pulse Resp BP Pulse Ox 97.8 F 72 20 137/70 97 08/10/18 07:25 08/10/18 07:25 08/10/18 07:25 08/10/18 07:25 08/10/18 07:25 - Medications Medications: Current Medications Amlodipine Besylate (Norvasc) 10 mg PO DAILY [facility] Last Admin: 08/10/18 10:09 Dose: Not Given Artificial Tears (Artificial Tears) 0 ml OU QID [facility] Last Admin: 08/10/18 10:00 Dose: 1 drop Aspirin (Ecotrin) 81 mg PO DAILY [facility] Last Admin: 08/10/18 10:09 Dose: Not Given Brimonidine Tartrate (Alphagan 0.2% Opht) 0.05 ml OU Q12H [facility] Last Admin: 08/10/18 10:00 Dose: 1 drop Calcitriol (Rocaltrol) 0.25 mcg PO DAILY [facility] Last Admin: 08/10/18 10:10 Dose: Not Given Calcium Acetate (Phoslo) 2,001 mg PO TIDCC [facility] Last Admin: 08/10/18 08:20 Dose: 2,001 mg Dextrose (Dextrose 50% Inj) 0 ml IV STAT PRN; Protocol PRN Reason: Hypoglycemia Protocol Last Admin: 08/09/18 07:45 Dose: 50 ml Dextrose (Glutose 15) 0 gm PO ONCE PRN; Protocol PRN Reason: Hypoglycemia Protocol Dorzolamide HCl (Trusopt) 0.05 ml OU DAILY [facility] Last Admin: 08/10/18 10:00 Dose: 1 drop Epoetin Carrington (Procrit) 8,000 unit IV MWF [facility] Ergocalciferol (Drisdol 50,000 Intl Units Cap) 1 cap PO QWK [facility] Last Admin: 08/09/18 10:31 Dose: 1 cap Glucagon (Glucagen Diagnostic Kit) 0 mg IM STAT PRN; Protocol PRN Reason: Hypoglycemia Protocol Heparin Sodium (Porcine) (Heparin) 5,000 units SC DAILY [facility] Last Admin: 08/10/18 10:01 Dose: 5,000 units Home Med (Patiromer Calcium Sorbitex [Veltassa]) 8.4 gm PO DAILY [facility] Hydralazine HCl (Apresoline) 50 mg PO TID [facility] Last Admin: 08/10/18 10:09 Dose: Not Given Dextrose (Dextrose 5% In Water 1000 Ml) 1,000 mls @ 0 mls/hr IV .Q0M PRN; Protocol PRN Reason: Hypoglycemia Protocol Insulin Glargine (Lantus) 6 unit SC [facility] Last Admin: 08/09/18 21:52 Dose: Not Given Insulin Human Regular (Novolin R) 0 unit SC ACHS [facility]; Protocol Last Admin: 08/10/18 08:16 Dose: 3 u Lisinopril (Zestril) 20 mg PO HS [facility] Last Admin: 08/09/18 22:20 Dose: 20 mg Pantoprazole Sodium (Protonix Inj) 40 mg IVP DAILY [facility] Last Admin: 08/10/18 10:10 Dose: Not Given Rosuvastatin Calcium (Crestor) 10 mg PO HS [facility] Last Admin: 08/09/18 22:20 Dose: 10 mg Sevelamer Carbonate (Renvela) 800 mg PO TIDCC [facility] Last Admin: 08/10/18 08:20 Dose: 800 mg Tamsulosin HCl (Flomax) 0.4 mg PO DAILY [facility] Last Admin: 08/10/18 10:09 Dose: Not Given Timolol Maleate (Timoptic 0.5% Ophth Soln) 1 drop OU DAILY [facility] Last Admin: 08/10/18 10:00 Dose: 1 drop Vitamin B Complex/Vit C/Folic Acid (Nephro-Lupis) 1 tab PO DAILY [facility] Last Admin: 08/10/18 10:09 Dose: Not Given - Labs Labs: 08/08/18 20:28 08/08/18 20:28 PT 13.2 SECONDS (9.7-12.2) H 08/08/18 20:28 INR 1.2 08/08/18 20:28 - Constitutional Appears: Well, No Acute Distress - Head Exam Head Exam: ATRAUMATIC, NORMAL INSPECTION - Eye Exam Eye Exam: EOMI, Normal appearance - ENT Exam ENT Exam: Mucous Membranes Moist - Respiratory Exam Respiratory Exam: Clear to Ausculation Bilateral, NORMAL BREATHING PATTERN - Cardiovascular Exam Cardiovascular Exam: REGULAR RHYTHM, +S1, +S2 - GI/Abdominal Exam GI & Abdominal Exam: Soft, Normal Bowel Sounds Additional comments: Mild diffuse < epigastric discomfort - Extremities Exam Extremities Exam: Normal Inspection. absent: Calf Tenderness, Pedal Edema - Neurological Exam Neurological Exam: Alert, Awake, Oriented x3 - Psychiatric Exam Psychiatric exam: Normal Affect, Normal Mood - Skin Skin Exam: Normal Color Assessment and Plan (1) Chest pain Assessment & Plan: Consultations: * Photographer Model, Dr. Cervantes ( Covering physician, Dr. Gonzales) Recommendation for GI follow up. As per cardiology, patient discomfort appears to be GI in etiology with recommendation to give 30ML of viscous lidocaine as therapeutic and possibly diagnostic * GI, Dr. Cueva----> Help appreciated Labs/Imaging: * Troponins: Negative X3 * No EKG changes Medications: * ASA 81mg PO daily Status: Acute (2) Chronic kidney disease (CKD) Assessment & Plan: Consultation: - Letter Stamping Machine Operator, Dr. Bolivar----> Help appreciated HD, M, W,F Access: Right forearm AV fistula Calcitriol 0.25mcg PO daily Phoslo 2,001mg PO TIDCC Drisdol 50,000units 1 tablet weekly Renvela 800mg PO TIDCC Nephrovite 1 tab PO daily Status: Acute (3) HTN (hypertension) Assessment & Plan: Lisinopril 20mg PO daily Hydralazine 50mg PO TID Status: Acute (4) BPH (benign prostatic hyperplasia) Assessment & Plan: Flomax 0.4mg PO daily Status: Acute (5) Glaucoma Assessment & Plan: Artificial tear Alphagan 0.2% 0.05mg OU Q12H Trusopt 0.05ml OU daily Timoptic 0.5% 1 drop OU daily Status: Acute (6) Diabetes mellitus Assessment & Plan: HgbA1C (05/24/18): 10.3 Accuchecks Lantus 6 units HS ISS - Medium dose Crestor 10mg PO HS Status: Acute (7) Prophylactic measure Assessment & Plan: GI: Protonix 40mg IV daily DVT: Heparin 5,000 units SC daily Disposition: If no plans for any GI intervention, patient will be discharged All plans and management discussed with Dr. Hall Status: Acute
[2018-08-10 14:30] LABS: BASO # 0.1 K/uL (0.0-0.2); BASO % 1.6 % (0.0-2.0); EOS # 0.1 K/uL (0.0-0.7); EOS % 2.1 % (0.0-4.0); HEMOGLOBIN 8.8 g/dL (12.0-18.0); LYMPH # 1.1 K/uL (1.0-4.3); LYMPH % 26.4 % (20.0-40.0); MEAN CELL VOLUME 99.3 fL (80.0-94.0); MEAN CORPUSCULAR HEMOGLOBIN 30.6 pg (27.0-31.0); MEAN CORPUSCULAR HGB CONC 30.9 g/dL (33.0-37.0); MEAN PLATELET VOLUME 9.2 fL (7.2-11.7); MONO # 0.3 K/uL (0.0-0.8); MONO % 8.4 % (0.0-10.0); NEUT # 2.4 K/uL (1.8-7.0); NEUT % 61.5 % (50.0-75.0); NRBC % 0.1 % (0.0-2.0); RBC 2.87 Mil/uL (4.40-5.90); RED CELL DISTRIBUTION WIDTH 24.6 % (11.5-14.5)
[2018-08-10 14:56] LABS: ALB/GLOB RATIO 1.3 (1.0-2.1); ALBUMIN 3.8 g/dL (3.5-5.0); CALCIUM 9.5 mg/dl (8.6-10.4)
--- NOTE | 2018-08-10 15:39 | CP.PCM.PN ---
Subjective - Date & Time of Evaluation Date of Evaluation: 08/10/18 Time of Evaluation: 15:39 Objective - Vital Signs/Intake and Output Vital Signs (last 24 hours): Temp Pulse Resp BP Pulse Ox 98.6 F 68 16 118/58 L 97 08/10/18 13:30 08/10/18 13:30 08/10/18 13:30 08/10/18 14:43 08/10/18 13:30 - Medications Medications: Current Medications Amlodipine Besylate (Norvasc) 10 mg PO DAILY [facility] Last Admin: 08/10/18 10:09 Dose: Not Given Artificial Tears (Artificial Tears) 0 ml OU QID [facility] Last Admin: 08/10/18 14:09 Dose: Not Given Aspirin (Ecotrin) 81 mg PO DAILY [facility] Last Admin: 08/10/18 10:09 Dose: Not Given Brimonidine Tartrate (Alphagan 0.2% Opht) 0.05 ml OU Q12H [facility] Last Admin: 08/10/18 10:00 Dose: 1 drop Calcitriol (Rocaltrol) 0.25 mcg PO DAILY [facility] Last Admin: 08/10/18 10:10 Dose: Not Given Calcium Acetate (Phoslo) 2,001 mg PO TIDCC [facility] Last Admin: 08/10/18 11:54 Dose: Not Given Dextrose (Dextrose 50% Inj) 0 ml IV STAT PRN; Protocol PRN Reason: Hypoglycemia Protocol Last Admin: 08/09/18 07:45 Dose: 50 ml Dextrose (Glutose 15) 0 gm PO ONCE PRN; Protocol PRN Reason: Hypoglycemia Protocol Dorzolamide HCl (Trusopt) 0.05 ml OU DAILY [facility] Last Admin: 08/10/18 10:00 Dose: 1 drop Epoetin Carrington (Procrit) 8,000 unit IV MWF [facility] Ergocalciferol (Drisdol 50,000 Intl Units Cap) 1 cap PO QWK [facility] Last Admin: 08/09/18 10:31 Dose: 1 cap Glucagon (Glucagen Diagnostic Kit) 0 mg IM STAT PRN; Protocol PRN Reason: Hypoglycemia Protocol Heparin Sodium (Porcine) (Heparin) 5,000 units SC DAILY [facility] Last Admin: 08/10/18 10:01 Dose: 5,000 units Hydralazine HCl (Apresoline) 50 mg PO Q8 [facility] Last Admin: 08/10/18 13:16 Dose: Not Given Dextrose (Dextrose 5% In Water 1000 Ml) 1,000 mls @ 0 mls/hr IV .Q0M PRN; Protocol PRN Reason: Hypoglycemia Protocol Insulin Glargine (Lantus) [address] [facility] Last Admin: 08/09/18 21:52 Dose: Not Given Insulin Human Regular (Novolin R) 0 unit SC [facility]; Protocol Last Admin: 08/10/18 12:16 Dose: 2 u Lisinopril (Zestril) [address] [facility] Last Admin: 08/09/18 22:20 Dose: 20 mg Pantoprazole Sodium (Protonix Inj) 40 mg IVP DAILY [facility] Last Admin: 08/10/18 10:10 Dose: Not Given Rosuvastatin Calcium (Crestor) [address] [facility] Last Admin: 08/09/18 22:20 Dose: 10 mg Sevelamer Carbonate (Renvela) 800 mg PO TIDCC [facility] Last Admin: 08/10/18 11:54 Dose: Not Given Tamsulosin HCl (Flomax) 0.4 mg PO DAILY [facility] Last Admin: 08/10/18 10:09 Dose: Not Given Timolol Maleate (Timoptic 0.5% [facility]) 1 drop OU DAILY [facility] Last Admin: 08/10/18 10:00 Dose: 1 drop Vitamin B Complex/Vit C/Folic Acid (Nephro-Lupis) 1 tab PO DAILY [facility] Last Admin: 08/10/18 10:09 Dose: Not Given - Labs Labs: 08/10/18 14:23 08/10/18 14:23 PT 13.2 SECONDS (9.7-12.2) H 08/08/18 20:28 INR 1.2 08/08/18 20:28 Assessment and Plan (1) Chest pain Status: Acute (2) Abdominal pain Status: Acute (3) Diabetes Status: Acute (4) Dilated cardiomyopathy Status: Acute (5) ESRD (end stage renal disease) on dialysis Status: Acute (6) Hypertension Status: Acute
[2018-08-10] MEDS: (Lantus) Insulin Glargine, Recombinant SC SCH (23:17)
--- NOTE | 2018-08-11 07:37 | CP.PCM.PN ---
Subjective - Date & Time of Evaluation Date of Evaluation: 08/11/18 Time of Evaluation: 08:00 - Subjective Subjective: Medicine progress note ( Dr. Hall's service) Patient was seen and examined at bedside while resting in bed comfortably in no acute or respiratory distress. Patient denies chest pain, shortness of breath, nausea, vomiting, diarrhea or constipation. Objective - Vital Signs/Intake and Output Vital Signs (last 24 hours): Temp Pulse Resp BP Pulse Ox 98.3 F 72 18 160/56 H 94 L 08/11/18 05:54 08/11/18 07:03 08/11/18 05:54 08/11/18 05:54 08/11/18 05:54 - Medications Medications: Current Medications Amlodipine Besylate (Norvasc) 10 mg PO DAILY [facility] Last Admin: 08/10/18 10:09 Dose: Not Given Artificial Tears (Artificial Tears) 0 ml OU QID [facility] Last Admin: 08/10/18 21:47 Dose: 1 drop Aspirin (Ecotrin) 81 mg PO DAILY [facility] Last Admin: 08/10/18 10:09 Dose: Not Given Brimonidine Tartrate (Alphagan 0.2% Opht) 0.05 ml OU Q12H [facility] Last Admin: 08/10/18 21:46 Dose: 1 drop Calcitriol (Rocaltrol) 0.25 mcg PO DAILY [facility] Last Admin: 08/10/18 10:10 Dose: Not Given Calcium Acetate (Phoslo) 2,001 mg PO TIDCC [facility] Last Admin: 08/10/18 18:22 Dose: 2,001 mg Dextrose (Dextrose 50% Inj) 0 ml IV STAT PRN; Protocol PRN Reason: Hypoglycemia Protocol Last Admin: 08/09/18 07:45 Dose: 50 ml Dextrose (Glutose 15) 0 gm PO ONCE PRN; Protocol PRN Reason: Hypoglycemia Protocol Diphenhydramine HCl (Benadryl) 50 mg PO Q6 PRN PRN Reason: itchiness Last Admin: 08/10/18 17:42 Dose: 50 mg Dorzolamide HCl (Trusopt) 0.05 ml OU DAILY [facility] Last Admin: 08/10/18 10:00 Dose: 1 drop Epoetin Carrington (Procrit) 8,000 unit IV MWF [facility] Last Admin: 08/10/18 16:35 Dose: 8,000 unit Ergocalciferol (Drisdol 50,000 Intl Units Cap) 1 cap PO QWK [facility] Last Admin: 08/09/18 10:31 Dose: 1 cap Glucagon (Glucagen Diagnostic Kit) 0 mg IM STAT PRN; Protocol PRN Reason: Hypoglycemia Protocol Heparin Sodium (Porcine) (Heparin) 5,000 units SC DAILY [facility] Last Admin: 08/10/18 10:01 Dose: 5,000 units Hydralazine HCl (Apresoline) 50 mg PO Q8 [facility] Last Admin: 08/11/18 05:55 Dose: 50 mg Dextrose (Dextrose 5% In Water 1000 Ml) 1,000 mls @ 0 mls/hr IV .Q0M PRN; Protocol PRN Reason: Hypoglycemia Protocol Insulin Glargine (Lantus) 6 unit SC HS [facility] Last Admin: 08/10/18 23:17 Dose: 6 u Insulin Human Regular (Novolin R) 0 unit SC ACHS [facility]; Protocol Last Admin: 08/10/18 22:00 Dose: Not Given Lisinopril (Zestril) 20 mg PO HS [facility] Last Admin: 08/10/18 21:48 Dose: 20 mg Pantoprazole Sodium (Protonix Inj) 40 mg IVP DAILY [facility] Last Admin: 08/10/18 10:10 Dose: Not Given Rosuvastatin Calcium (Crestor) 10 mg PO HS [facility] Last Admin: 08/10/18 21:47 Dose: 10 mg Sevelamer Carbonate (Renvela) 800 mg PO TIDCC [facility] Last Admin: 08/10/18 18:22 Dose: 800 mg Tamsulosin HCl (Flomax) 0.4 mg PO DAILY [facility] Last Admin: 08/10/18 10:09 Dose: Not Given Timolol Maleate (Timoptic 0.5% Ophth Soln) 1 drop OU DAILY [facility] Last Admin: 08/10/18 10:00 Dose: 1 drop Vitamin B Complex/Vit C/Folic Acid (Nephro-Lupis) 1 tab PO DAILY [facility] Last Admin: 08/10/18 10:09 Dose: Not Given - Labs Labs: 08/10/18 14:23 08/10/18 14:23 PT 13.2 SECONDS (9.7-12.2) H 08/08/18 20:28 INR 1.2 08/08/18 20:28 - Constitutional Appears: No Acute Distress - Head Exam Head Exam: ATRAUMATIC, NORMAL INSPECTION - Eye Exam Eye Exam: EOMI, Normal appearance - ENT Exam ENT Exam: Mucous Membranes Moist - Respiratory Exam Respiratory Exam: Clear to Ausculation Bilateral, NORMAL BREATHING PATTERN - Cardiovascular Exam Cardiovascular Exam: REGULAR RHYTHM, +S1, +S2 - GI/Abdominal Exam GI & Abdominal Exam: Soft, Normal Bowel Sounds. absent: Tenderness - Extremities Exam Extremities Exam: Normal Inspection - Neurological Exam Neurological Exam: Alert, Awake, Oriented x3 - Psychiatric Exam Psychiatric exam: Anxious, Normal Affect Assessment and Plan - Assessment and Plan (Free Text) Assessment: (1) Chest pain Assessment & Plan: Consultations: * Car Dumper Operator Helper, Dr. Cervantes ( Covering physician, Dr. Gonzales) Recommendation for GI follow up. As per cardiology, patient discomfort appears to be a possible GI in etiology GI, Dr. Cueva----> Help appreciated - Patient to follow up with Dr. Cueva as an outpatient Labs/Imaging: * Troponins: Negative X3 * No EKG changes Medications: * ASA 81mg PO daily Chronic kidney disease (CKD) Agribusiness Professor, Dr. Bolivar----> Help appreciated HD, M, W,F Access: Right forearm AV fistula Calcitriol 0.25mcg PO daily Phoslo 2,001mg PO TIDCC Drisdol 50,000units 1 tablet weekly Renvela 800mg PO TIDCC Nephrovite 1 tab PO daily HTN (hypertension) Assessment & Plan: Lisinopril 20mg PO daily Hydralazine 50mg PO TID BPH (benign prostatic hyperplasia) Flomax 0.4mg PO daily Glaucoma Artificial tear Alphagan 0.2% 0.05mg OU Q12H Trusopt 0.05ml OU daily Timoptic 0.5% 1 drop OU daily Diabetes mellitus HgbA1C (05/24/18): 10.3 Accuchecks Lantus 6 units HS ISS - Medium dose Crestor 10mg PO HS Prophylaxis GI: Protonix 40mg IV daily DVT: Heparin 5,000 units SC daily Disposition: Patient discharged home. Patient to continue home medications. Patient to start Omeprazole 40mg one tablet daily. Please follow up with chicken cleaner, Dr. Cueva. All plans and management discussed with Dr. Rafael Stein PGY-2
[2018-08-11] MEDS: (Novolin R) Insulin Human Regular 100 units/ml vial SC SCH ×2 (08:00→12:14)
[2018-08-11 08:53] VITALS: BP 159/73; RESP 20; TEMP 97.3; O2SAT 99
[2018-08-11] MEDS: Aritificial Tears (15ml) OU SCH ×2 (09:00→13:22)
[2018-08-11] MEDS: Multivitamin Vitamin B Complex (Nephro-Vite) Tab PO SCH (09:01)
[2018-08-11] MEDS: Dorzolamide 2% Opht Sol 10ml OU SCH (09:02)
[2018-08-11] MEDS: Brimonidine 0.2% Opth Sol (5ml) OU SCH (09:43)
[2018-08-11 11:28] VITALS: PULSE 68
[2018-08-11 12:01] LABS: EOS # 0.1 K/uL (0.0-0.7); EOS % 2.4 % (0.0-4.0); HEMOGLOBIN 9.1 g/dL (12.0-18.0); LYMPH # 0.7 K/uL (1.0-4.3); LYMPH % 21.4 % (20.0-40.0); MEAN CELL VOLUME 99.2 fL (80.0-94.0); MEAN CORPUSCULAR HEMOGLOBIN 31.5 pg (27.0-31.0); MEAN CORPUSCULAR HGB CONC 31.7 g/dL (33.0-37.0); MEAN PLATELET VOLUME 9.5 fL (7.2-11.7); MONO # 0.3 K/uL (0.0-0.8); MONO % 10.3 % (0.0-10.0); NEUT # 2.1 K/uL (1.8-7.0); NEUT % 64.9 % (50.0-75.0); NRBC % 0.2 % (0.0-2.0); RBC 2.89 Mil/uL (4.40-5.90); RED CELL DISTRIBUTION WIDTH 23.6 % (11.5-14.5); WHITE BLOOD COUNT 3.3 K/uL (4.8-10.8)
[2018-08-11 12:20] LABS: ALB/GLOB RATIO 1.3 (1.0-2.1); ALBUMIN 3.9 g/dL (3.5-5.0); CALCIUM 9.3 mg/dl (8.6-10.4)
--- NOTE | 2018-08-11 15:05 | CP.PCM.PN ---
Subjective - Date & Time of Evaluation Date of Evaluation: 08/11/18 Time of Evaluation: 11:06 - Subjective Subjective: pt seen and examined [facility] as ordered no complaints want to go home Objective - Vital Signs/Intake and Output Vital Signs (last 24 hours): Temp Pulse Resp BP Pulse Ox 97.3 F L 73 20 159/73 H 99 08/11/18 08:52 08/11/18 08:52 08/11/18 08:52 08/11/18 08:52 08/11/18 08:52 - Medications Medications: Current Medications Amlodipine Besylate (Norvasc) 10 mg PO DAILY [facility] Last Admin: 08/11/18 09:01 Dose: 10 mg Artificial Tears (Artificial Tears) 0 ml OU QID [facility] Last Admin: 08/11/18 09:00 Dose: 1 drop Aspirin (Ecotrin) 81 mg PO DAILY [facility] Last Admin: 08/11/18 09:01 Dose: 81 mg Brimonidine Tartrate (Alphagan 0.2% Opht) 0.05 ml OU Q12H [facility] Last Admin: 08/11/18 09:43 Dose: 1 drop Calcitriol (Rocaltrol) 0.25 mcg PO DAILY [facility] Last Admin: 08/11/18 09:01 Dose: 0.25 mcg Calcium Acetate (Phoslo) 2,001 mg PO TIDCC [facility] Last Admin: 08/11/18 07:59 Dose: 2,001 mg Dextrose (Dextrose 50% Inj) 0 ml IV STAT PRN; Protocol PRN Reason: Hypoglycemia Protocol Last Admin: 08/09/18 07:45 Dose: 50 ml Dextrose (Glutose 15) 0 gm PO ONCE PRN; Protocol PRN Reason: Hypoglycemia Protocol Diphenhydramine HCl (Benadryl) 50 mg PO Q6 PRN PRN Reason: itchiness Last Admin: 08/10/18 17:42 Dose: 50 mg Dorzolamide HCl (Trusopt) 0.05 ml OU DAILY [facility] Last Admin: 08/11/18 09:02 Dose: 1 drop Epoetin Carrington (Procrit) 8,000 unit IV MWF [facility] Last Admin: 08/10/18 16:35 Dose: 8,000 unit Ergocalciferol (Drisdol 50,000 Intl Units Cap) 1 cap PO QWK [facility] Last Admin: 08/09/18 10:31 Dose: 1 cap Glucagon (Glucagen Diagnostic Kit) 0 mg IM STAT PRN; Protocol PRN Reason: Hypoglycemia Protocol Heparin Sodium (Porcine) (Heparin) 5,000 units SC DAILY [facility] Last Admin: 08/11/18 09:01 Dose: 5,000 units Hydralazine HCl (Apresoline) 50 mg PO Q8 [facility] Last Admin: 08/11/18 05:55 Dose: 50 mg Dextrose (Dextrose 5% In Water 1000 Ml) 1,000 mls @ 0 mls/hr IV .Q0M PRN; Protocol PRN Reason: Hypoglycemia Protocol Insulin Glargine (Lantus) 6 unit SC HS [facility] Last Admin: 08/10/18 23:17 Dose: 6 u Insulin Human Regular (Novolin R) 0 unit SC ACHS [facility]; Protocol Last Admin: 08/11/18 08:00 Dose: 2 u Lisinopril (Zestril) 20 mg PO HS [facility] Last Admin: 08/10/18 21:48 Dose: 20 mg Pantoprazole Sodium (Protonix Inj) 40 mg IVP DAILY [facility] Last Admin: 08/11/18 09:04 Dose: 40 mg Rosuvastatin Calcium (Crestor) 10 mg PO HS [facility] Last Admin: 08/10/18 21:47 Dose: 10 mg Sevelamer Carbonate (Renvela) 800 mg PO TIDCC [facility] Last Admin: 08/11/18 08:04 Dose: 800 mg Tamsulosin HCl (Flomax) 0.4 mg PO DAILY [facility] Last Admin: 08/11/18 09:01 Dose: 0.4 mg Timolol Maleate (Timoptic 0.5% [facility]) 1 drop OU DAILY [facility] Last Admin: 08/11/18 09:05 Dose: 1 drop Vitamin B Complex/Vit C/Folic Acid (Nephro-Lupis) 1 tab PO DAILY [facility] Last Admin: 08/11/18 09:01 Dose: 1 tab - Labs Labs: 08/10/18 14:23 08/10/18 14:23 PT 13.2 SECONDS (9.7-12.2) H 08/08/18 20:28 INR 1.2 08/08/18 20:28
--- NOTE | 2018-08-11 15:06 | CP.PCM.CON ---
History of Present Illness - History of Present Illness History of Present Illness: pt seen and examined hd MWF as ordered seen during HD tolerating well Past Patient History - Infectious Disease Hx of Infectious Diseases: None - Past Medical History & Family History Past Medical History?: Yes - Past Social History Smoking Status: Never Smoked Chewing Tobacco Use: No Cigar Use: No Alcohol: None Drugs: Denies Domestic Violence: Negative - CARDIAC Hx Congestive Heart Failure: Yes Hx Hypercholesterolemia: Yes Hx Hypertension: Yes Hx Pacemaker: Yes (AICD) - PULMONARY Hx Emphysema: No Hx Pulmonary Embolism: No - NEUROLOGICAL Hx Neurological Disorder: No - HEENT Hx HEENT Problems: Yes Hx Cataracts: Yes - RENAL Hx Chronic Kidney Disease: Yes - ENDOCRINE/METABOLIC Hx Endocrine Disorders: Yes Hx Diabetes Mellitus Type 2: Yes - HEMATOLOGICAL/ONCOLOGICAL Hx Anemia: Yes - INTEGUMENTARY Hx Dermatological Problems: No - MUSCULOSKELETAL/RHEUMATOLOGICAL Hx Musculoskeletal Disorders: No Hx Falls: No - GASTROINTESTINAL Hx Pancreatitis: Yes - GENITOURINARY/GYNECOLOGICAL Hx Genitourinary Disorders: No Hx Prostate Problems: Yes (BPH) - PSYCHIATRIC Hx Depression: Yes Hx Substance Use: No - SURGICAL HISTORY Hx Appendectomy: Yes - ANESTHESIA Hx Anesthesia: Yes Hx Anesthesia Reactions: No Meds Home Medications: Home Medication List Medication Instructions Recorded Confirmed Type Aspirin [Ecotrin] 81 mg PO DAILY #30 tabec 08/11/18 Rx Atorvastatin [Lipitor] 80 mg PO HS #30 tab 08/11/18 Rx Lisinopril [Zestril] 20 mg PO HS #30 tab 08/11/18 Rx Omeprazole 40 mg PO DAILY #30 08/11/18 Rx amLODIPine [Norvasc] 10 mg PO DAILY #30 tab 08/11/18 Rx hydrALAZINE [Apresoline] 50 mg PO TID #90 tab 08/11/18 Rx Allergies/Adverse Reactions: Allergies Allergy/AdvReac Type Severity Reaction Status Date / Time No Known Allergies Allergy Verified 08/08/18 19:15 - Medications Medications: Current Medications Amlodipine Besylate (Norvasc) 10 mg PO DAILY [facility] Last Admin: 08/10/18 10:09 Dose: Not Given Artificial Tears (Artificial Tears) 0 ml OU QID [facility] Last Admin: 08/10/18 14:09 Dose: Not Given Aspirin (Ecotrin) 81 mg PO DAILY [facility] Last Admin: 08/10/18 10:09 Dose: Not Given Brimonidine Tartrate (Alphagan 0.2% Opht) 0.05 ml OU Q12H [facility] Last Admin: 08/10/18 10:00 Dose: 1 drop Calcitriol (Rocaltrol) 0.25 mcg PO DAILY [facility] Last Admin: 08/10/18 10:10 Dose: Not Given Calcium Acetate (Phoslo) 2,001 mg PO TIDCC [facility] Last Admin: 08/10/18 11:54 Dose: Not Given Dextrose (Dextrose 50% Inj) 0 ml IV STAT PRN; Protocol PRN Reason: Hypoglycemia Protocol Last Admin: 08/09/18 07:45 Dose: 50 ml Dextrose (Glutose 15) 0 gm PO ONCE PRN; Protocol PRN Reason: Hypoglycemia Protocol Diphenhydramine HCl (Benadryl) 50 mg PO Q6 PRN PRN Reason: itchiness Dorzolamide HCl (Trusopt) 0.05 ml OU DAILY [facility] Last Admin: 08/10/18 10:00 Dose: 1 drop Epoetin [place] (Procrit) 8,000 unit IV MWF [facility] Last Admin: 08/10/18 16:35 Dose: 8,000 unit Ergocalciferol (Drisdol 50,000 Intl Units Cap) 1 cap PO QWK [facility] Last Admin: 08/09/18 10:31 Dose: 1 cap Glucagon (Glucagen Diagnostic Kit) 0 mg IM STAT PRN; Protocol PRN Reason: Hypoglycemia Protocol Heparin Sodium (Porcine) (Heparin) 5,000 units SC DAILY [facility] Last Admin: 08/10/18 10:01 Dose: 5,000 units Hydralazine HCl (Apresoline) 50 mg PO Q8 [facility] Last Admin: 08/10/18 13:16 Dose: Not Given Dextrose (Dextrose 5% In Water 1000 Ml) 1,000 mls @ 0 mls/hr IV .Q0M PRN; Protocol PRN Reason: Hypoglycemia Protocol Insulin Glargine (Lantus) 6 unit SC HS [facility] Last Admin: 08/09/18 21:52 Dose: Not Given Insulin Human Regular (Novolin R) 0 unit SC ACHS [facility]; Protocol Last Admin: 08/10/18 12:16 Dose: 2 u Lisinopril (Zestril) 20 mg PO HS [facility] Last Admin: 08/09/18 22:20 Dose: 20 mg Pantoprazole Sodium (Protonix Inj) 40 mg IVP DAILY [facility] Last Admin: 08/10/18 10:10 Dose: Not Given Rosuvastatin Calcium (Crestor) 10 mg PO HS [facility] Last Admin: 08/09/18 22:20 Dose: 10 mg Sevelamer Carbonate (Renvela) 800 mg PO TIDCC [facility] Last Admin: 08/10/18 11:54 Dose: Not Given Tamsulosin HCl (Flomax) 0.4 mg PO DAILY [facility] Last Admin: 08/10/18 10:09 Dose: Not Given Timolol Maleate (Timoptic 0.5% [facility] Soln) 1 drop OU DAILY [facility] Last Admin: 08/10/18 10:00 Dose: 1 drop Vitamin B Complex/Vit C/Folic Acid (Nephro-Lupis) 1 tab PO DAILY [facility] Last Admin: 08/10/18 10:09 Dose: Not Given Results - Vital Signs Recent Vital Signs: Last Vital Signs Temp 97.7 F 08/10/18 16:45 Pulse 67 08/10/18 16:45 Resp 18 08/10/18 15:53 BP 154/65 H 08/10/18 16:45 Pulse Ox 97 08/10/18 13:30 - Labs Result Diagrams: 08/11/18 11:45 08/11/18 11:45 Labs: Laboratory Results - last 24 hr 08/09/18 08/10/18 08/10/18 21:44 12:08 14:23 WBC RBC Hgb Hct MCV MCH MCHC RDW Plt Count MPV Neut % (Auto) Lymph % (Auto) [place] % (Auto) Eos % (Auto) Baso % (Auto) Neut # (Auto) Lymph # (Auto) [place] # (Auto) Eos # (Auto) Baso # (Auto) Differential Comment Sodium 135 Potassium 5.4 H Chloride 91 L Carbon Dioxide 32 H Anion Gap 17 BUN 93 H Creatinine 10.4 H* D Est GFR ( Amer) 6 Est GFR (Non-Af Amer) 5 POC Glucose (mg/dL) 173 H 170 H Random Glucose 190 H D Calcium 9.5 Phosphorus 3.5 Magnesium 2.6 H Total Bilirubin 0.4 AST 23 ALT 20 L D Alkaline Phosphatase 179 H Total Protein 6.6 Albumin 3.8 Globulin 2.9 Albumin/Globulin Ratio 1.3 Triglycerides 42 Cholesterol 108 LDL Cholesterol Direct 37 HDL Cholesterol 58 08/10/18 08/10/18 14:23 16:41 WBC 4.0 L RBC 2.87 L Hgb 8.8 L Hct 28.5 L MCV 99.3 H MCH 30.6 MCHC 30.9 L RDW 24.6 H Plt Count 98 L MPV 9.2 Neut % (Auto) 61.5 Lymph % (Auto) 26.4 [place] % (Auto) 8.4 Eos % (Auto) 2.1 Baso % (Auto) 1.6 Neut # (Auto) 2.4 Lymph # (Auto) 1.1 [place] # (Auto) 0.3 Eos # (Auto) 0.1 Baso # (Auto) 0.1 Differential Comment Sodium Potassium Chloride Carbon Dioxide Anion Gap BUN Creatinine Est GFR ( Amer) Est GFR (Non-Af Amer) POC Glucose (mg/dL) 152 H Random Glucose Calcium Phosphorus Magnesium Total Bilirubin AST ALT Alkaline Phosphatase Total Protein Albumin Globulin Albumin/Globulin Ratio Triglycerides Cholesterol LDL Cholesterol Direct HDL Cholesterol
--- NOTE | 2018-08-11 22:44 | PN ---
DATE: 08/11/2018 SUBJECTIVE: This is a 63-year-old male seen and examined initially for GI consultation on 08/10/2018, reexamined again today, without reported significant changes or evidence of active GI bleeding. The entire chart is reviewed including but not limited to the most recent lab and radiology study results. Today's lab showed pancytopenia with white blood cells 3.3, hemoglobin 9.1, hematocrit 28.6 with thrombocytopenia of 95. Sodium 131 with BUN 54, creatinine 7.3, blood glucose level 256 with alkaline phosphatase 183. The patient denied any actual chest pain, palpitation or evidence of active GI bleeding, had been on hemodialysis and requested to be discharged home today post adequate oral intake, no reported active bleeding. PHYSICAL EXAMINATION: GENERAL: A 63-year-old male, awake, alert. VITAL SIGNS: Afebrile with pulse of 64, respiratory rate 20 to 22, blood pressure 154/70. HEENT: Pale, dry oral mucous membrane. Nonicteric sclerae. LUNGS: Few scattered crepitation. Decreased air entry at bases. HEART: Positive S1 and S2. ABDOMEN: Soft without mass or organomegaly. No rebound tenderness or guarding. EXTREMITIES: Without significant clubbing or cyanosis, but mild lower extremity edematous changes. NEUROLOGIC: No reported new neurological deficits, sensory or motor. IMPRESSION: 1. Anemia, most likely secondary to chronic disease. 2. Re-exacerbation of peptic ulcer disease. 3. Chest pain, seen and evaluated by food consultant. 4. Known history of but not limited to congestive heart failure, benign prostatic hypertrophy, poorly controlled diabetes mellitus. 5. Known history of hyperlipidemia, hypertension with recurrent overload of , believed to be secondary to alcohol induced. 6. known history of end-stage renal disease, on hemodialysis. 7. Cardiac arrhythmia with status post pacemaker. 8. Status post appendectomy. SUGGESTIONS: 1. Agree with your plan. 2. Abdominal ultrasound. 3. Cancer markers. 4. As per the patient request, he may be discharged home and to be followed up as outpatient with the primary MD. Further recommendations to follow. Lucille Perry MD [facility] # [id number]
== END 2018-08-11 14:31 | disposition home or self-care (01) ==
LOC: C.ER 18:07 → C.9E 21:47 → C.6T 22:37
PROVIDERS: ADMIT Internal Medicine Pulmonary Disease; ATTEND Internal Medicine Pulmonary Disease
DX: R07.89 Other chest pain (principal); D61.818 Other pancytopenia; D63.8 Anemia in other chronic diseases classified elsewhere; E11.22 Type 2 diabetes mellitus with diabetic chronic kidney disease; E78.00 Pure hypercholesterolemia, unspecified; E78.5 Hyperlipidemia, unspecified; E87.5 Hyperkalemia; R00.1 Bradycardia, unspecified; H40.9 Unspecified glaucoma; I50.9 Heart failure, unspecified; I13.2 Hypertensive heart and chronic kidney disease with heart failure and with stage 5 chronic kidney disease, or end stage renal disease; I42.0 Dilated cardiomyopathy; K27.9 Peptic ulcer, site unspecified, unspecified as acute or chronic, without hemorrhage or perforation; N18.6 End stage renal disease; N40.0 Benign prostatic hyperplasia without lower urinary tract symptoms; Z79.4 Long term (current) use of insulin; Z79.82 Long term (current) use of aspirin; Z79.899 Other long term (current) drug therapy; Z83.3 Family history of diabetes mellitus; Z95.810 Presence of automatic (implantable) cardiac defibrillator; Z99.2 Dependence on renal dialysis
CPT/HCPCS: 36415; 71045; 80053; 80061; 82948; 83735; 83880; 84100; 84484; 85025; 85610; 87340; 93005; 99285; C9113; G0257; G0378; J0885; J1644